=== PATIENT | female | born 1940 | race Caucasian/White ===

== ENCOUNTER 2018-05-09 07:57 | Emergency (ER) | payer MEDICARE, BC, SELFPAY ==
--- NOTE | 2018-05-09 07:54 | ED_ITS ---
HPI - Abdominal Pain General Chief Complaint: Abdominal Pain Stated Complaint: abdominal pain Time Seen by Provider: 05/09/18 08:00 Source: patient and EMS Mode of arrival: EMS Limitations: no limitations History of Present Illness HPI narrative: Patient is a 77-year-old female who presents with pain all over especially in her abdomen. She has had pain all over for about 2 months he had multiple tests done with her primary care physician and cannot seem to feel better. She took Tylenol last night which she usually does help with her pain and she was able to get some sleep however this morning she has pain all over again and requested to come to the emergency department. She feels nauseated but no actual vomiting. She has been having loose watery diarrhea for about 2 months as well. She says that she has chest pain nonradiating. She denies any shortness of breath. MD complaint: abdominal pain Related Data Home Medications Medication Instructions Recorded Confirmed metformin 1,000 mg PO BID #0 12/23/10 05/09/18 diazepam 5 mg PO BID PRN #0 02/15/13 05/09/18 omeprazole 20 mg PO QDAY #0 02/15/13 05/09/18 zolpidem 10 mg PO HS #0 02/15/13 05/09/18 fluoxetine 40 mg PO DAILY #0 03/10/13 05/09/18 valsartan [Diovan] 320 mg PO QDAY #0 03/10/13 05/09/18 Anti-Diarrheal (loperamide) 1 cap PO PRN PRN 05/09/18 05/09/18 amlodipine 10 mg PO DAILY 05/09/18 05/09/18 aspirin 81 mg PO DAILY 05/09/18 05/09/18 fluticasone 1 spray INTRANASAL DIRECTED 05/09/18 05/09/18 gabapentin 1 cap PO TID 05/09/18 05/09/18 Allergies Allergy/AdvReac Type Severity Reaction Status Date / Time Clonidine Allergy Unknown Uncoded 02/13/18 12:58 Codeine Allergy Unknown Uncoded 02/13/18 12:58 Diltiazem Allergy Unknown Uncoded 02/13/18 12:58 Doxazosin Allergy Unknown Uncoded 02/13/18 12:58 Hydralazine Allergy Unknown Uncoded 02/13/18 12:58 Hydrocodone Allergy Unknown Uncoded 02/13/18 12:58 Levofloxacin Allergy Unknown Uncoded 02/13/18 12:58 Meperidine Allergy Unknown Uncoded 02/13/18 12:58 Nifedipine Allergy Unknown Uncoded 02/13/18 12:58 Oxycodone Allergy Unknown Uncoded 02/13/18 12:58 Promethazine Allergy Unknown Uncoded 02/13/18 12:58 Rosuvastatin Allergy Unknown Uncoded 02/13/18 12:58 Simvastatin Allergy Unknown Uncoded 02/13/18 12:58 SULFA (sulfonamide) Allergy Unknown Uncoded 02/13/18 12:58 Review of Systems Review of Systems All systems reviewed & are unremarkable except as noted in HPI and below Constitutional Denies chills, Reports fatigue, Denies fever(s), Denies frequent falls, Denies headache(s), Denies lethargy and Denies malaise Eyes Denies blurry vision and Denies diplopia ENT Ears, Nose, Mouth, and Throat: Denies headache(s) Cardiovascular Reports chest pain, Denies syncope, Denies edema, Denies dyspnea and Denies dyspnea on exertion Respiratory Denies cough, Denies dyspnea, Denies dyspnea on exertion and Denies wheezing Gastrointestinal Gastrointestinal: Reports as per HPI Musculoskeletal Denies back pain, Denies muscle weakness, Denies numbness and Denies tingling Integumentary/Breasts Denies dry skin, Denies erythema, Reports skin pain, Denies skin swelling, Denies skin ulcer and Denies sores Neurologic Denies syncope, Denies frequent falls, Denies headache(s), Denies numbness and Denies tingling Endocrine Reports fatigue Allergic/Immunologic Denies wheezing [facility] Medical History Diabetes (Acute) Hyperlipidemia (Acute) Hypertension (Acute) Social History Smoking Status: Never smoker Exam Initial Vital Signs Initial Vital Signs: Vital Signs Temperature 98.6 F 05/09/18 07:57 Pulse Rate 67 05/09/18 07:57 Respiratory Rate 18 05/09/18 07:57 Blood Pressure 176/72 H 05/09/18 07:57 Pulse Oximetry 98 05/09/18 07:57 GENERAL: Frail elderly female in no acute distress HEENT: Head atraumatic,EOMI, pupils reactive, face symmetric CARDIOVASCULAR: Regular rate and rhythm without murmurs, rubs or gallops. RESPIRATORY: Breath sounds equal bilaterally, no wheezes rales or rhonchi. ABDOMEN: Soft, diffusely tender without guarding no rebound negative Wright sign , no distension : No CVA tenderness EXTREMITIES: Normal range of motion, no clubbing or edema. Neurovascularly intact NEUROLOGICAL: Alert and oriented x4.Normal gait and speech. Cranial nerves II through XII grossly intact. Strength 5/5 in all extremities SKIN: Warm, dry, no laceration, no petechiae, no rashes or lesions. Course Orders Ordered: ED Orders 05/09/18 07:54 XR chest 1V Stat 05/09/18 07:59 EKG-12 Lead Stat 05/09/18 08:25 Complete Blood Count AUTO DIFF Stat Comprehensive Metabolic Panel Stat Lipase Stat Partial Thromboplastin Time Stat Prothrombin Time INR Stat Troponin & CK Cardiac Panel Stat 05/09/18 08:46 CT abdomen pelvis w con Stat Discontinued Medications Acetaminophen (Tylenol) 975 mg PO NOW ONE Stop: 05/09/18 11:42 Last Admin: 05/09/18 11:42 Dose: 975 mg Sodium Chloride (Normal Saline 0.9%) 1,000 mls @ 150 mls/hr IV CONT SANGEETHA Last Infusion: 05/09/18 11:49 Dose: 0 mls/hr Admin: 05/09/18 08:48 Dose: 150 mls/hr Ketorolac Tromethamine (Toradol) 15 mg IV NOW ONE Stop: 05/09/18 11:37 Last Admin: 05/09/18 11:42 Dose: Vital Signs - 8 hr 05/09/18 09:11 05/09/18 11:13 Pulse Rate 88 90 Respiratory Rate 18 16 Blood Pressure [Right Arm] 159/75 H 157/63 H Pulse Oximetry 96 95 MDM - Abdominal Pain Lab Data Attestation: I reviewed the patient's lab results. Result diagrams: 05/09/18 08:25 05/09/18 08:25 Lab Results 05/09/18 05/09/18 05/09/18 Range/Units 08:25 08:25 08:25 WBC 11.1 H (4.5-11.0) X10^3/uL RBC 4.08 (4.0-5.2) X10^6/uL Hgb 12.1 (12.0-16.0) g/dL Hct 36.0 (36-46) % MCV 88.2 (80-100) fL MCH 29.8 (26-34) PG MCHC 33.7 (30-36) % RDW 14.1 (11.6-14.8) % Plt Count 523 H (150-400) X10^3/uL Neut % (Auto) 71.3 (50-75) % Lymph % (Auto) 20.4 L (25-40) % [place] % (Auto) 5.5 (3-14) % Eos % (Auto) 1.6 L (2-4) % Baso % (Auto) 1.2 (0-2) % Neut # (Auto) 7900 H (9202-6317) /uL PT 11.8 (10.1-12.7) SECONDS INR 1.1 (0.9-1.3) APTT 32 (26.4-36.2) SECONDS Sodium 141 (137-145) mmol/L Potassium 3.2 L (3.4-5.1) mmol/L Chloride 98 (98-107) mmol/L Carbon Dioxide 31 (22-32) mmol/L BUN 7 (7-17) mg/dL Creatinine 0.50 L (0.52-1.04) mg/dL Estimated GFR > 60.0 (>60) mL/min BUN/Creatinine Ratio 14.0 (6-22) Glucose 195 H (80-110) mg/dL Calcium 9.4 (8.4-10.2) mg/dL Total Bilirubin 1.0 (0.2-1.3) mg/dL AST 25 (14-36) IU/L ALT 27 (9-52) IU/L Alkaline Phosphatase 75 (38-126) U/L Total Creatine Kinase 25 L (30-135) U/L Troponin I < 0.012 (0.01-0.034) ng/mL Total Protein 7.3 (6.3-8.2) g/dL Albumin 4.0 (3.5-5.0) g/dL Globulin 3.3 (1.7-4.1) g/dL Albumin/Globulin Ratio 1.2 (1.0-2.8) Lipase 33 (23-300) U/L Point of care testing: Urine Dip Bedside Urine Glucose Negative Bedside Urine Bilirubin - Negative Bedside Urine Ketone - Negative Urine Specific [place] 1.015 Bedside Urine Occult Blood - Negative Bedside Urine pH 7.5 Bedside Urine Protein - Negative Bedside Urine Urobilinogen - Negative Bedside Urine Nitrite - Negative Bedside Urine Leukocytes - Negative Esterase Imaging Data CT scan - abdomen: Radiologist's impression: PROCEDURE: CT ABDOMEN PELVIS W CON INDICATIONS: pain all over TECHNIQUE: After the administration of intravenous contrast, 5 mm thick sections acquired from the diaphragm to the symphysis. 5 mm coronal and sagittal reformats were acquired. For radiation dose reduction, the following was used: automated exposure control, adjustment of mA and/or kV according to patient size. COMPARISON: MR, ABDOMEN WITH AND WITHOUT CONTR, 07/16/2007, 14:13. [facility], CT, ABDOMEN WITH CONTRAST, 01/10/2010, 11:51. FINDINGS: Image quality: Excellent. ABDOMEN: Lung bases: Lung bases are clear. Heart size is normal. Solid organs: Hepatic steatosis is present. There are multifocal areas of low attenuation within the liver. The largest is present in the posterior right hepatic lobe measuring 29 mm with Hounsfield units measuring 2. The smaller lesions are too small to definitively characterize. However, an anterior hepatic focus on series 2 image 38 as well as a posterior focus on series 2 image 39 appear to demonstrate calcifications. They are unchanged compared to prior exam. The liver is overall enlarged with steatosis. Gallbladder has been removed. The common bile duct is prominent measuring 14 mm , slightly more prominent when compared to 01/10/10. Pancreas enhances normally. Spleen is normal in size and enhancement. No adrenal nodules. Kidneys are nonobstructed. Multiple low attenuation foci are present on the left with an appearance of fat containing lesion in the left lower pole, unchanged. A nonobstructing 4 mm calcification is present within the inferior right renal pole. It is unchanged. There is mild left perinephric stranding. Peritoneum and bowel: Bowel loops demonstrate normal wall thickness and caliber. No free fluid or air. Nodes and vessels: No retroperitoneal or mesenteric adenopathy by size criteria. Aorta and inferior vena cava are normal in size. Miscellaneous: No ventral hernias. PELVIS: Genitourinary: Bladder wall thickness is normal. Miscellaneous: No inguinal hernias or adenopathy. Bones: No suspicious bony lesions. No vertebral body compression fractures. IMPRESSION: 1. Unchanged multiple hepatic low attenuation foci, some with calcifications as above. While some are likely outside energy sales representatives of simple cysts, others such as complex cyst or potential hemangiomas cannot be excluded. 2. Nonobstructing unchanged 4 mm right renal calcification. 3. Mild appearance of left perinephric stranding. There is no obstruction. No nephro or ureterolithiasis is identified. No bladder calculi. This could represent a recently passed stone or perhaps other nonspecific inflammation. Given normal enhancement pattern of the kidney, pyelonephritis is felt to be unlikely. 4. Mild prominence of the common bile duct slightly greater when compared to 01/10. This is suspected to be related to post cholecystectomy sequela and recommend correlation to laboratory values if this is of clinical concern. Dictated by: Flores Abda M.D. on 05/09/2018 at 10:40 MDM Narrative Medical decision making narrative: Patient has had a chronic ongoing abdominal pain and other pains for the last 2 months. She just saw her primary physician on last week she has another appointment next week. She is slightly hypokalemic. She also states that her is coming home from the alf today and she is not ready for him to come home. Her CT does not show any real change since her last 1. She is feeling a little bit better but is given Tylenol for pain. Discharge Plan Departure Patient Disposition: Home, Self-Care Clinical Impression: Abdominal pain Discharge Date/Time: 05/09/18 11:52 Interventions: ED Discharge Assessment Last Done: 05/09/18 11:51 Activity Restrictions/Additional Instructions: *You have been diagnosed with abdominal pain *What to do: Continue to follow-up in or with her primary care physician in regards to your pain. Blood work CT EKG within normal limits today *Continue to take medications as directed *Follow up with your primary care provider in 2-3 days *Return to ER if you should have any new, worsening or concerning symptoms Prescriptions: No Action metformin 1,000 mg Tablet 1,000 mg PO BID Qty: 0 RF: 0 omeprazole 20 MG capsule,delayed release(DR/EC) 20 mg PO QDAY Qty: 0 RF: 0 zolpidem 10 MG tablet 10 mg PO HS Qty: 0 RF: 0 diazepam 5 MG tablet 5 mg PO BID PRN (Reason: Anxiety) Qty: 0 RF: 0 valsartan [Diovan] 320 MG tablet 320 mg PO QDAY Qty: 0 RF: 0 fluoxetine 40 mg Capsule 40 mg PO DAILY Qty: 0 RF: 0 Anti-Diarrheal (loperamide) 2 mg capsule 1 cap PO PRN PRN (Reason: Diarrhea) RF: 0 aspirin 81 mg Tablet,Delayed Release (Dr/Ec) 81 mg PO DAILY RF: 0 amlodipine 10 mg tablet 10 mg PO DAILY RF: 0 gabapentin 300 mg capsule 1 cap PO TID RF: 0 fluticasone 50 mcg/actuation spray,suspension 1 spray Intranasal DIRECTED RF: 0 Referrals: Francisco Corona MD [Primary Care Provider] -
--- NOTE | 2018-05-09 07:54 | DI.RAD.S_ITS ---
PROCEDURE: XR CHEST 1V INDICATIONS: chest pain TECHNIQUE: One view of the chest was acquired. [facility], 05/11/2010, 10:57[facility] CHEST [facility], 11/18/2009, 16:24. FINDINGS: Surgical changes and devices: None. Lungs and pleura: No pleural effusions or pneumothorax. Lungs are clear except for a mild chronic interstitial prominence. Mediastinum: Mediastinal contours appear normal. Heart size is normal. Bones and chest wall: No suspicious bony lesions. Overlying soft tissues appear unremarkable. IMPRESSION: Mild chronic interstitial prominence. This is stable over time and a source of pain is not found. Dictated by: Hernan Fisher M.D. on 05/09/2018 at 8:18 Approved by: Hernan Fisher M.D. on 05/09/2018 at 8:29
[2018-05-09 07:57] VITALS: BP 176/72; PULSE 67; RESP 18; TEMP 37; O2SAT 98
[2018-05-09 08:34] LABS: Add Manual Diff / Slide Review NO; Basophils Percent Auto 1.2 % (0-2); Eosinophils Percent Auto 1.6 % (2-4); Hemoglobin 12.1 g/dL (12.0-16.0); Lymphocytes Percent Auto 20.4 % (25-40); Mean Corpuscular HGB Conc 33.7 % (30-36); Mean Corpuscular Hemoglobin 29.8 PG (26-34); Mean Corpuscular Volume 88.2 fL (80-100); Monocytes Percent Auto 5.5 % (3-14); Neutrophils Absolute Auto 7900 /uL (3000-5900); Neutrophils Percent Auto 71.3 % (50-75); Platelet Count 523 X10^3/uL (150-400); Red Blood Cell Count 4.08 X10^6/uL (4.0-5.2); Red Cell Distribution Width 14.1 % (11.6-14.8); White Blood Cell Count 11.1 X10^3/uL (4.5-11.0)
[2018-05-09 08:42] LABS: INR 1.1 (0.9-1.3); Prothrombin Time 11.8 SECONDS (10.1-12.7)
[2018-05-09 08:44] LABS: PTT Partial Thromboplastin Tim 32 SECONDS (26.4-36.2)
--- NOTE | 2018-05-09 08:46 | DI.CT.S_ITS ---
PROCEDURE: CT ABDOMEN PELVIS W CON INDICATIONS: pain all over TECHNIQUE: After the administration of intravenous contrast, 5 mm thick sections acquired from the diaphragm to the symphysis. 5 mm coronal and sagittal reformats were acquired. For radiation dose reduction, the following was used: automated exposure control, adjustment of mA and/or kV according to patient size. COMPARISON: MR, ABDOMEN WITH AND WITHOUT CONTR, 07/16/2007, 14:13. [facility], CT, ABDOMEN WITH CONTRAST, 01/10/2010, 11:51. FINDINGS: Image quality: Excellent. ABDOMEN: Lung bases: Lung bases are clear. Heart size is normal. Solid organs: Hepatic steatosis is present. There are multifocal areas of low attenuation within the liver. The largest is present in the posterior right hepatic lobe measuring 29 mm with Hounsfield units measuring 2. The smaller lesions are too small to definitively characterize. However, an anterior hepatic focus on series 2 image 38 as well as a posterior focus on series 2 image 39 appear to demonstrate calcifications. They are unchanged compared to prior exam. The liver is overall enlarged with steatosis. Gallbladder has been removed. The common bile duct is prominent measuring 14 mm, slightly more prominent when compared to 01/10/10. Pancreas enhances normally. Spleen is normal in size and enhancement. No adrenal nodules. Kidneys are nonobstructed. Multiple low attenuation foci are present on the left with an appearance of fat containing lesion in the left lower pole, unchanged. A nonobstructing 4 mm calcification is present within the inferior right renal pole. It is unchanged. There is mild left perinephric stranding. Peritoneum and bowel: Bowel loops demonstrate normal wall thickness and caliber. No free fluid or air. Nodes and vessels: No retroperitoneal or mesenteric adenopathy by size criteria. Aorta and inferior vena cava are normal in size. Miscellaneous: No ventral hernias. PELVIS: Genitourinary: Bladder wall thickness is normal. Miscellaneous: No inguinal hernias or adenopathy. Bones: No suspicious bony lesions. No vertebral body compression fractures. IMPRESSION: 1. Unchanged multiple hepatic low attenuation foci, some with calcifications as above. While some are likely off premise service representative of simple cysts, others such as complex cyst or potential hemangiomas cannot be excluded. 2. Nonobstructing unchanged 4 mm right renal calcification. 3. Mild appearance of left perinephric stranding. There is no obstruction. No nephro or ureterolithiasis is identified. No bladder calculi. This could represent a recently passed stone or perhaps other nonspecific inflammation. Given normal enhancement pattern of the kidney, pyelonephritis is felt to be unlikely. 4. Mild prominence of the common bile duct slightly greater when compared to 01/10/10. This is suspected to be related to post cholecystectomy sequela and recommend correlation to laboratory values if this is of clinical concern. Dictated by: Flores Abad M.D. on 05/09/2018 at 10:40 Approved by: Flores Abad M.D. on 05/09/2018 at 10:49
[2018-05-09] MEDS: SODIUM CHLORIDE 0.9% 1,000 ML 150 ML IV (08:48)
[2018-05-09 08:50] LABS: Alanine Aminotransferase 27 IU/L (9-52); Albumin Globulin Ratio 1.2 (1.0-2.8); Alkaline Phosphatase 75 U/L (38-126); Aspartate Aminotransferase 25 IU/L (14-36); Blood Urea Nitrogen 7 mg/dL (7-17); Calcium 9.4 mg/dL (8.4-10.2); Carbon Dioxide 31 mmol/L (22-32); Chloride 98 mmol/L (98-107); Creatine Kinase 25 U/L (30-135); Estimated Glomerular Filt Rate > 60.0 mL/min (>60); Globulin 3.3 g/dL (1.7-4.1); Glucose 195 mg/dL (80-110); HEMOLYSIS < 15 (0-50); Lipase 33 U/L (23-300); Potassium 3.2 mmol/L (3.4-5.1); Sodium 141 mmol/L (137-145); Total Protein 7.3 g/dL (6.3-8.2)
[2018-05-09 09:03] LABS: Troponin I < 0.012 ng/mL (0.01-0.034)
--- NOTE | 2018-05-09 09:07 | PC.NURSE ---
pt reports, joint pain and swelling for 2 months, with hx of colitis, pt with abdominal pain and diarrhea, with nausea, felt feverish, but not measured. bilateral hands/joints felt warm.
[2018-05-09 09:11] VITALS: BP 159/75; PULSE 88; RESP 18; O2SAT 96
[2018-05-09 11:13] VITALS: BP 157/63; PULSE 90; RESP 16; O2SAT 95
[2018-05-09] MEDS: ACETAMINOPHEN 325 MG TABLET 975 MG PO (11:42)
== END 2018-05-09 11:52 | disposition home or self-care (01) ==
PROVIDERS: Emergency Provider Emergency Medicine; Family Provider Internal Medicine; PCP Internal Medicine
DX: R10.9 Unspecified abdominal pain (principal)
CPT/HCPCS: 71045; 71260; 74177; 80053; 81003; 82550; 82553; 83690; 84484; 85025; 85610; 85730; 93005; 96361; 96374; 99283; 99285; Q9967

== ENCOUNTER 2019-02-26 16:06 | Emergency (ER) | payer MEDICARE, BC, SELFPAY ==
[2019-02-26 16:03] VITALS: BP 160/67; PULSE 81; RESP 18; TEMP 37.1; O2SAT 96; BMI 26.8
--- NOTE | 2019-02-26 16:14 | DI.CT.S_ITS ---
PROCEDURE: CT HEAD/BRAIN WO CON INDICATIONS: glf TECHNIQUE: Noncontrast 4.5 mm thick angled axial sections acquired from the foramen magnum to the vertex, with coronal and sagittal reformats. For radiation dose reduction, the following was used: automated exposure control, adjustment of mA and/or kV according to patient size. COMPARISON: [facility], CT, HEAD WITHOUT CONTRAST, 03/10/2013, 14:04. FINDINGS: Image quality: Excellent. CSF spaces: Basal cisterns are patent. No extra-axial fluid collections. The ventricles are symmetric in size and shape. Brain: No intracranial bleeds or masses. There is cerebral volume loss for age, with resultant ventricular and sulcal prominence. There are periventricular and deep white matter chronic small vessel ischemic changes. There is intracranial internal carotid artery atherosclerosis. Skull and face: Calvarium and visualized facial bones appear intact, without suspicious lesions. Exostosis involving right frontal parietal calvarium is again seen, unchanged from previous study. Sinuses: Visualized sinuses and mastoids are clear. IMPRESSION: 1. No CT evidence of acute intracranial pathology. No significant changes from previous study. 2. Age-appropriate atrophy and moderate periventricular white matter chronic ischemic microangiopathic changes. 3. Stable appearing benign exostosis involving right frontoparietal calvarium. Dictated by: Rene Mir M.D. on 02/26/2019 at 16:42 Approved by: Rene Mir M.D. on 02/26/2019 at 16:50
--- NOTE | 2019-02-26 16:14 | DI.CT.S_ITS ---
PROCEDURE: CT FACIAL BONES WO CON INDICATIONS: jaw pain, left orbit pain s/p fall TECHNIQUE: Noncontrast 2.5 mm thick axial images acquired from the mandible through the frontal sinuses, with coronal and sagittal reformatting. For radiation dose reduction, the following was used: automated exposure control, adjustment of mA and/or kV according to patient size. COMPARISON: [facility], CT, HEAD WITHOUT CONTRAST, 04/18/2012, 11:38. [facility], CT, SINUS SCREENING WO CONTRAST, 04/18/2012, 11:38. [facility], CT, HEAD WITHOUT CONTRAST, 03/10/2013, 14:04. [facility], CT, CT HEAD/BRAIN WO CON, 02/26/2019, 16:25. FINDINGS: Image quality: Excellent. Bones and teeth: Orbital paz are intact. Sinus paz show no fracture or deformity. Nasal bones and septum are intact. Visualized portions of the mandible demonstrate no fractures or subluxation. Zygomatic arches are intact. Pterygoid plates are intact. Visualized portions of the skull base and auditory canals are intact. Incidental note is made of hyperostosis frontalis. This is not considered to be pathologic in a woman of this age. Sinuses: Paranasal sinuses are aerated, without fluid levels, mucosal thickening, or mucoceles. Mastoid air cells are aerated. Soft tissues: Soft tissue laceration (with soft tissue gas) and soft tissue hematoma can be seen involving the left periorbital region. Vascular: Visualized vascular structures appear normal in the absence of contrast. Bony vascular foramina and canals are intact. IMPRESSION: Left periorbital laceration and hematoma, without associated regional fracture identified. Specifically, no orbital fracture or blowout fracture can be seen. No mandible abnormality can be seen. Dictated by: Kentrell Alves M.D. on 02/26/2019 at 17:17 Approved by: Kentrell Alves M.D. on 02/26/2019 at 17:19
--- NOTE | 2019-02-26 16:14 | DI.RAD.S_ITS ---
PROCEDURE: XR PELVIS 1-2V INDICATIONS: pelvic pain s/p fall TECHNIQUE: Frontal view of the pelvis. COMPARISON: [facility], , PELVIS W UNILATERAL HIP LEFT, 02/15/2013, 20:58. FINDINGS: Bones: No fractures or dislocations. No suspicious bony lesions. 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 Soft tissues: Visualized bowel gas pattern is normal. No suspicious soft tissue calcifications. IMPRESSION: No trauma found bilaterally. It is unusual symptoms persist followup by dedicated pelvic MRI may be warranted for most accurate assessment of hidden fractures. Dictated by: Hernan Fisher M.D. on 02/26/2019 at 16:55 Approved by: Hernan Fisher M.D. on 02/26/2019 at 16:56
--- NOTE | 2019-02-26 16:14 | DI.RAD.S_ITS ---
PROCEDURE: XR KNEE RT 3V INDICATIONS: pain s/p fall TECHNIQUE: A 3 views of the knee were acquired. COMPARISON: None. FINDINGS: Bones: No fractures or dislocations. No suspicious bony lesions. Moderate medial compartment joint space narrowing. Soft tissues: No joint effusion. No suspicious soft tissue calcifications. 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 No effusion or loose body or trauma found. Dictated by: Hernan Fisher M.D. on 02/26/2019 at 16:53 Approved by: Hernan Fisher M.D. on 02/26/2019 at 16:54
--- NOTE | 2019-02-26 16:14 | DI.RAD.S_ITS ---
PROCEDURE: XR SHOULDER RT MIN 2V INDICATIONS: glf, right shoulder pain TECHNIQUE: 2 views of the shoulder were acquired. COMPARISON: None. FINDINGS: Bones: No fractures or dislocations. No suspicious bony lesions. Visualized ribs appear intact. Soft tissues: No suspicious soft tissue calcifications. IMPRESSION: Arthritic change but no trauma. Dictated by: Hernan Fisher M.D. on 02/26/2019 at 16:53 Approved by: Hernan Fisher M.D. on 02/26/2019 at 16:53
--- NOTE | 2019-02-26 16:14 | DI.CT.S_ITS ---
PROCEDURE: CT CERVICAL SPINE WO CON INDICATIONS: glf, neck pain TECHNIQUE: Noncontrast 3 mm thick sections acquired from the skull base to the T4 level. Sagittal and coronal reformats were then constructed. For radiation dose reduction, the following was used: automated exposure control, adjustment of mA and/or kV according to patient size. COMPARISON: None. FINDINGS: Image quality: Excellent. Bones: No fractures or dislocations. Schmorl's node noted in the superior endplate of the T1 vertebral body. Visualized superior ribs are intact. Spine degenerative disc disease and facet arthropathy. Soft tissues: Prevertebral soft tissues are normal in thickness. No paravertebral hematomas. No apical pneumothoraces. IMPRESSION: No fracture. No acute osseous lesion. If symptoms and/or clinical suspicion for pathology persists, evaluation with MRI may be helpful for further assessment. Dictated by: Sneha Moses MD, PhD on 02/26/2019 at 16:46 Approved by: Sneha Moses MD, PhD on 02/26/2019 at 16:57
--- NOTE | 2019-02-26 16:18 | DI.RAD.S_ITS ---
PROCEDURE: XR CHEST 1V INDICATIONS: glf, left rib pain TECHNIQUE: One view of the chest was acquired. COMPARISON: [facility], CR, XR CHEST 1V, 05/09/2018, 8:02. [facility], CR, CHEST 2 VIEW, 12/23/2010, 14:22. FINDINGS: Surgical changes and devices: None. Lungs and pleura: Lungs are clear except for mild interstitial prominence. No pleural effusions or pneumothorax. Mediastinum: Mediastinal contours appear normal. Heart size is normal. Bones and chest wall: No suspicious bony lesions. Overlying soft tissues appear unremarkable. IMPRESSION: Mild interstitial prominence, no trauma found. Relatively large body habitus, a nondisplaced fracture may not be visualized initially and depending on the clinical status followup by targeted rib plain film series may be warranted in several days. Dictated by: Hernan Fisher M.D. on 02/26/2019 at 17:43 Approved by: Hernan Fisher M.D. on 02/26/2019 at 17:44
--- NOTE | 2019-02-26 16:27 | ED_ITS ---
HPI - Fall <Ivon Scales OFFICE MACHINE INSTALLER-BC - Last Filed: 02/26/19 20:45> General Chief Complaint: Fall Stated Complaint: GLF head injury Time Seen by Provider: 02/26/19 16:10 Source: patient and EMS Mode of arrival: EMS Limitations: no limitations History of Present Illness HPI Narrative: The patient is a 78-year-old female nonsmoker who presents with a chief complaint of a ground level fall. She states she tripped over a dog and hit her head on concrete. She presents with a chief complaint of headache, laceration to the left side of her forehead, neck pain, hip pain right shoulder pain and right knee pain. she does not know when her last vaccination was. She denies any nausea or vomiting. she denies loss of consciousness upon impact. She came by EMS with a C-collar on. She presents complaining of hip pain, right knee pain, right shoulder pain and neck pain and face pain. she states her pain is around her left orbit. She complains of a laceration above her left eye. She denies any blood thinners. Related Data Home Medications Medication Instructions Recorded Confirmed metformin 1,000 mg PO BID #0 12/23/10 05/09/18 diazepam 5 mg PO BID PRN #0 02/15/13 05/09/18 omeprazole 20 mg PO QDAY #0 02/15/13 05/09/18 zolpidem 10 mg PO HS #0 02/15/13 05/09/18 fluoxetine 40 mg PO DAILY #0 03/10/13 05/09/18 valsartan [Diovan] 320 mg PO QDAY #0 03/10/13 05/09/18 Anti-Diarrheal (loperamide) 1 cap PO PRN PRN 05/09/18 05/09/18 amlodipine 10 mg PO DAILY 05/09/18 05/09/18 aspirin 81 mg PO DAILY 05/09/18 05/09/18 fluticasone propionate 1 spray INTRANASAL DIRECTED 05/09/18 05/09/18 gabapentin 1 cap PO TID 05/09/18 05/09/18 Previous Rx's Medication Instructions Recorded diclofenac sodium 1 applictn TOP BID 14 Days #100 02/26/19 gram lidocaine 2 patch TOP DAILY #30 each 02/26/19 tramadol 25 mg PO Q6H PRN #14 tab 02/26/19 Allergies Allergy/AdvReac Type Severity Reaction Status Date / Time clonidine Allergy Unknown Verified 02/26/19 16:33 codeine Allergy Unknown Verified 02/26/19 16:38 diltiazem Allergy Unknown Verified 02/26/19 16:38 doxazosin Allergy Unknown Verified 02/26/19 16:39 hydralazine Allergy Unknown Verified 02/26/19 16:39 hydrocodone Allergy Unknown Verified 02/26/19 16:40 levofloxacin Allergy Unknown Verified 02/26/19 16:42 meperidine Allergy Unknown Verified 02/26/19 16:42 nifedipine Allergy Unknown Verified 02/26/19 16:42 oxycodone Allergy Unknown Verified 02/26/19 16:42 promethazine Allergy Unknown Verified 02/26/19 16:42 rosuvastatin Allergy Unknown Verified 02/26/19 16:42 simvastatin Allergy Unknown Verified 02/26/19 16:42 Sulfa (Sulfonamide Allergy Unknown Verified 02/26/19 16:38 Antibiotics) Review of Systems <DOV Nicole - Last Filed: 02/26/19 20:45> Review of Systems GENERAL: Denies chills, fatigue, malaise, fever, sweats. HEENT: Denies sinus pain, ear pain, sore throat, difficulty swallowing, dizziness. RESPIRATORY: Denies dyspnea, cough, wheezing, hemoptysis, sputum. CARDIOVASCULAR: Denies chest pain, palpitations, orthopnea, edema, GASTROINTESTINAL: Denies nausea, vomiting, abdominal pain, diarrhea, constipation, melena. : Denies dysuria, frequency, incontinence, hematuria, urinary retention. MUSCULOSKELETAL: See HPI SKIN: See HPI NEUROLOGIC: Denies weakness, headache, numbness, change in speech, confusion, s eizures, incoordination. PSYCHIATRIC: No concerning psychosocial issues. 12 point review of systems is negative except for those stated above Exam <SLAVA Nicole - Last Filed: 02/26/19 20:45> Narrative Exam Narrative: GENERAL: Elderly female lying on stretcher was C-collar on and bandaged forehead HEAD: Atraumatic. Normocephalic. pain to palpation forehead bilaterally. EYES: Pupils equal round and reactive. Extraocular motions intact. No scleral icterus. No injection or drainage. no nystagmus noted. ENT: Nose without bleeding, purulent drainage or septal hematoma. Throat without erythema, tonsillar hypertrophy or exudate. Uvula midline. Airway patent. NECK: Trachea midline. No JVD or lymphadenopathy. Supple, nontender, no meningeal signs. CARDIOVASCULAR: Regular rate and rhythm RESPIRATORY: Clear to auscultation. Breath sounds equal bilaterally. No wheezes, rales, or rhonchi. No increased respiratory effort. No accessory muscle use. GASTROINTESTINAL: Abdomen soft, non-tender, nondistended. No hepato- splenomegaly, or palpable masses. No guarding. active bowel sounds. EXTREMITIES: Pain to palpation right shoulder. Pain to palpation right knee. Pain to palpation left lower ribs. Pain anterior posterior chest wall compression. Pain on lateral chest wall compression. BACK: Nontender without deformity or crepitance. No flank tenderness. pain to palpation C-spine. No pain to palpation paraspinal column. NEURO: AOx3. Stable gait. SKIN: periorbital ecchymosis left orbit. Two very superficial 0.25 lacerations superior to left eye. One full-thickness linear 0.5 cm laceration lateral to left eye is oozing blood. Initial Vital Signs Initial Vital Signs: Vital Signs Temperature 98.7 F 02/26/19 16:03 Pulse Rate 81 02/26/19 16:03 Respiratory Rate 18 02/26/19 16:03 Blood Pressure 160/67 H 02/26/19 16:03 Pulse Oximetry 96 02/26/19 16:03 <Trinity Hernandez DO - Last Filed: 03/01/19 17:45> Initial Vital Signs Initial Vital Signs: Vital Signs Temperature 98.7 F 02/26/19 16:03 Pulse Rate 81 02/26/19 16:03 Respiratory Rate 18 02/26/19 16:03 Blood Pressure 160/67 H 02/26/19 16:03 Pulse Oximetry 96 02/26/19 16:03 PFSH <SLAVA Nicole - Last Filed: 02/26/19 20:45> Medical History Diabetes (Acute) Hyperlipidemia (Acute) Hypertension (Acute) Procedures <SLAVA Nicole - Last Filed: 02/26/19 20:45> Laceration Repair Laceration 1: Site: scalp Side (If applicable): left Size (cm): 0.5 Description: linear Depth: simple, single layer Local Anesthetic: lidocaine 2% and with epi Amount of anesthesia used (mL): 1 Pre-repair: wound explored and irrigated extensively (Cleansed with sterile water and Hibiclens. Hemostasis achieved after suture.) Skin layer closed with: nylon Size (cm): 5-0 Number of sutures: 1 Technique: simple, interrupted Scores <SLAVA Nicole - Last Filed: 02/26/19 20:45> GCS [place] coma scale eye opening: Spontaneous [place] coma scale verbal response: Orientated [place] coma scale motor response: Obey commands Gigi coma scale total score: 15 Course <SLAVA Nicole - Last Filed: 02/26/19 20:45> Orders Ordered: Discontinued Medications Acetaminophen (Tylenol) 650 mg PO NOW ONE Stop: 02/26/19 18:16 Last Admin: 02/26/19 18:34 Dose: Not Given Diphtheria/Tetanus/Acell Pertussis (Adacel) 0.5 ml IM .ONCE ONE Stop: 02/26/19 16:20 Last Admin: 02/26/19 17:19 Dose: 0.5 ml Ketorolac Tromethamine (Toradol) 30 mg IM NOW ONE Stop: 02/26/19 18:16 Last Admin: 02/26/19 18:55 Dose: Not Given Tramadol HCl (Ultram) 50 mg PO NOW ONE Stop: 02/26/19 18:35 Last Admin: 02/26/19 18:37 Dose: 50 mg Tramadol HCl (Ultram 50mg Prepack) 1 bottle MISC SEEINSTR ONE Stop: 02/26/19 20:21 Last Admin: 02/26/19 20:25 Dose: 1 bottle Vital Signs - 8 hr 02/26/19 16:03 02/26/19 17:30 02/26/19 18:00 Temperature 98.7 F Pulse Rate 81 77 78 Respiratory Rate 18 18 16 Blood Pressure 160/67 H Blood Pressure [Left Arm] 155/80 H 158/76 H Pulse Oximetry 96 99 99 02/26/19 19:00 02/26/19 20:27 Temperature Pulse Rate 80 83 Respiratory Rate 16 17 Blood Pressure Blood Pressure [Left Arm] 159/75 H 146/70 H Pulse Oximetry 99 98 <Trinity Botnick, DO - Last Filed: 03/01/19 17:45> Orders Ordered: Discontinued Medications Acetaminophen (Tylenol) 650 mg PO NOW ONE Stop: 02/26/19 18:16 Last Admin: 02/26/19 18:34 Dose: Not Given Diphtheria/Tetanus/Acell Pertussis (Adacel) 0.5 ml IM .ONCE ONE Stop: 02/26/19 16:20 Last Admin: 02/26/19 17:19 Dose: 0.5 ml Ketorolac Tromethamine (Toradol) 30 mg IM NOW ONE Stop: 02/26/19 18:16 Last Admin: 02/26/19 18:55 Dose: Not Given Tramadol HCl (Ultram) 50 mg PO NOW ONE Stop: 02/26/19 18:35 Last Admin: 02/26/19 18:37 Dose: 50 mg Tramadol HCl (Ultram 50mg Prepack) 1 bottle MISC SEEINSTR ONE Stop: 02/26/19 20:21 Last Admin: 02/26/19 20:25 Dose: 1 bottle Vital Signs - 8 hr 02/26/19 16:03 02/26/19 17:30 02/26/19 18:00 Temperature 98.7 F Pulse Rate 81 77 78 Respiratory Rate 18 18 16 Blood Pressure 160/67 H Blood Pressure [Left Arm] 155/80 H 158/76 H Pulse Oximetry 96 99 99 02/26/19 19:00 02/26/19 20:27 Temperature Pulse Rate 80 83 Respiratory Rate 16 17 Blood Pressure Blood Pressure [Left Arm] 159/75 H 146/70 H Pulse Oximetry 99 98 MDM - Fall <SLAVA Nicole - Last Filed: 02/26/19 20:45> Lab Data Urine Dip Bedside Urine Glucose Negative Bedside Urine Bilirubin - Negative Bedside Urine Ketone - Negative Urine Specific [place] 1.015 Bedside Urine Occult Blood - Negative Bedside Urine pH 6 Bedside Urine Protein - Negative Bedside Urine Urobilinogen - Negative Bedside Urine Nitrite - Negative Bedside Urine Leukocytes - Negative Esterase Imaging Data shoulder x-ray: Radiologist's impression: Ember Brito 78 F [address] [address] XRay Report Signed Patient: Ember Brito#: [id number] : [id number]:[id number] Age/Sex: 78 / FDate of Service: 02/26/19 Loc: ED Accession Number: [id number] Procedure: XR shoulder RT min 2V Ordering Provider: Ivon Scales-MEHDI PROCEDURE: XR SHOULDER RT MIN 2V INDICATIONS: glf, right shoulder pain TECHNIQUE: 2 views of the shoulder were acquired. COMPARISON: None. FINDINGS: Bones: No fractures or dislocations. No suspicious bony lesions. Visualized ribs appear intact. Soft tissues: No suspicious soft tissue calcifications. IMPRESSION: Arthritic change but no trauma. Dictated by: Hrenan Fisher M.D. on 02/26/2019 at 16:53 Approved by: Hernan Fisher M.D. on 02/26/2019 at 16:53 pelvis x-ray: Radiologist's impression: [place] [address] XRay Report Signed Patient: Ember Brito#: [id number] : [id number]:[id number] Age/Sex: 78 / FDate of Service: 02/26/19 Loc: ED Accession Number: [id number] Procedure: XR pelvis 1-2V Ordering Provider: Ivon Scales-MEHDI PROCEDURE: XR PELVIS 1-2V INDICATIONS: pelvic pain s/p fall TECHNIQUE: Frontal view of the pelvis. COMPARISON: [facility], , PELVIS W UNILATERAL HIP LEFT, 02/15/2013, 2 0:58. FINDINGS: Bones: No fractures or dislocations. No suspicious bony lesions. 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 Soft tissues: Visualized bowel gas pattern is normal. No suspicious soft tissue calcifications. IMPRESSION: No trauma found bilaterally. It is unusual symptoms persist followup by dedicated pelvic MRI may be warranted for most accurate assessment of hidden fractures. Dictated by: Hernan Fisher M.D. on 02/26/2019 at 16:55 Approved by: Hernan Fisher M.D. on 02/26/2019 at 16:56 knee x-ray: Radiologist's impression: AlishaEmber 78 F [address] [address] XRay Report Signed Patient: Dominga Britoandrew#: [id number] : [id number] Age/Sex: 78 / FDate of Service: 02/26/19 Loc: ED Accession Number: [id number] Procedure: XR knee RT 3V Ordering Provider: Ivon Scales PROCEDURE: XR KNEE RT 3V INDICATIONS: pain s/p fall TECHNIQUE: A 3 views of the knee were acquired. COMPARISON: None. FINDINGS: Bones: No fractures or dislocations. No suspicious bony lesions. Moderate medial compartment joint space narrowing. Soft tissues: No joint effusion. No suspicious soft tissue calcifications. 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 No effusion or loose body or trauma found. Dictated by: Hernan Fisher M.D. on 02/26/2019 at 16:53 Approved by: Hernan Fisher M.D. on 02/26/2019 at 16:54 CT scan - head: Radiologist's impression: [place] [address] CT Scan Report Signed Patient: Ember Brito#: [id number] : [id number] Age/Sex: 78 / FDate of Service: 02/26/19 Loc: ED Accession Number: [id number] Procedure: CT head/brain wo con Ordering Provider: Ivon Scales PROCEDURE: CT HEAD/BRAIN WO CON INDICATIONS: glf TECHNIQUE: Noncontrast 4.5 mm thick angled axial sections acquired from the foramen magnum to the vertex, with coronal and sagittal reformats. For radiation dose reduction, the following was used: automated exposure control, adjustment of mA and/or kV according to patient size. COMPARISON: [facility], CT, HEAD WITHOUT CONTRAST, 03/10/2013, 14:04. FINDINGS: Image quality: Excellent. CSF spaces: Basal cisterns are patent. No extra-axial fluid collections. The ventricles are symmetric in size and shape. Brain: No intracranial bleeds or masses. There is cerebral volume loss for age, with resultant ventricular and sulcal prominence. There are periventricular and deep white matter chronic small vessel ischemic changes. There is intracranial internal carotid artery atherosclerosis. Skull and face: Calvarium and visualized facial bones appear intact, without suspicious lesions. Exostosis involving right frontal parietal calvarium is again seen, unchanged from previous study. Sinuses: Visualized sinuses and mastoids are clear. IMPRESSION: 1. No CT evidence of acute intracranial pathology. No significant changes from previous study. 2. Age-appropriate atrophy and moderate periventricular white matter chronic ischemic microangiopathic changes. 3. Stable appearing benign exostosis involving right frontoparietal calvarium. Dictated by: Rene Mir M.D. on 02/26/2019 at 16:42 Approved by: Rene Mir M.D. on 02/26/2019 at 16:50 CT C-spine: Radiologist's impression: Ember Brito 78 F [address] [address] [address] Scan Report Signed Patient: Ember Brito#: [id number] : [id number]:[id number] Age/Sex: 78 / FDate of Service: 02/26/19 Loc: ED Accession Number: [id number] Procedure: CT cervical spine wo con Ordering Provider: Ivon Scales PROCEDURE: CT CERVICAL SPINE WO CON INDICATIONS: glf, neck pain TECHNIQUE: Noncontrast 3 mm thick sections acquired from the skull base to the T4 level. Sagittal and coronal reformats were then constructed. For radiation dose reduction, the following was used: automated exposure control, adjustment of mA and/or kV according to patient size. COMPARISON: None. FINDINGS: Image quality: Excellent. Bones: No fractures or dislocations. Schmorl's node noted in the superior endplate of the T1 vertebral body. Visualized superior ribs are intact. Spine degenerative disc disease and facet arthropathy. Soft tissues: Prevertebral soft tissues are normal in thickness. No paraver tebral hematomas. No apical pneumothoraces. IMPRESSION: No fracture. No acute osseous lesion. If symptoms and/or clinical suspicion for pathology persists, evaluation with MRI may be helpful for further assessment. Dictated by: Sneha Moses MD, PhD on 02/26/2019 at 16:46 Approved by: Sneha Moses MD, PhD on 02/26/2019 at 16:57 Chest x-ray: Radiologist's impression: [address] [address] XRay Report Signed Patient: Ember Brito#: [id number] : 9Acct:[id number] Age/Sex: 78 / FDate of Service: 02/26/19 Loc: ED Accession Number: [id number] Procedure: XR chest 1V Ordering Provider: Ivon Scales PROCEDURE: XR CHEST 1V INDICATIONS: glf, left rib pain TECHNIQUE: One view of the chest was acquired. COMPARISON: [facility], CR, XR CHEST 1V, 05/09/2018, 8:02. [facility], CR, CHEST 2 VIEW, 12/23/2010, 14:22. FINDINGS: Surgical changes and devices: None. Lungs and pleura: Lungs are clear except for mild interstitial prominence. No pleural effusions or pneumothorax. Mediastinum: Mediastinal contours appear normal. Heart size is normal. Bones and chest wall: No suspicious bony lesions. Overlying soft tissues appear unremarkable. IMPRESSION: Mild interstitial prominence, no trauma found. Relatively large body habitus, a nondisplaced fracture may not be visualized initially and depending on the clinical status followup by targeted rib plain film series may be warranted in several days. Dictated by: Hernan Fisher M.D. on 02/26/2019 at 17:43 Approved by: Hernan Fisher M.D. on 02/26/2019 at 17:[address]: Radiologist's impression: [place] [address] CT Scan Report Signed Patient: Ember Brito#: [id number] : 9Acct:[id number] Age/Sex: 78 / FDate of Service: 02/26/19 Loc: ED Accession Number: [id number] Procedure: CT facial bones wo con Ordering Provider: Ivon Scales PROCEDURE: CT FACIAL BONES WO CON INDICATIONS: jaw pain, left orbit pain s/p fall TECHNIQUE: Noncontrast 2.5 mm thick axial images acquired from the mandible through the frontal sinuses, with coronal and sagittal reformatting. For radiation dose reduction, the following was used: automated exposure control, adjustment of mA and/or kV according to patient size. COMPARISON: [facility], CT, HEAD WITHOUT CONTRAST, 04/18/2012, 11:38. [facility], CT, SINUS SCREENING WO CONTRAST, 04/18/2012, 11:38. [facility], CT, HEAD WITHOUT CONTRAST, 03/10/2013, 14:04. [facility], CT, CT HEAD/BRAIN WO CON, 02/26/2019, 16:25. FINDINGS: Image quality: Excellent. Bones and teeth: Orbital paz are intact. Sinus paz show no fracture or deformity. Nasal bones and septum are intact. Visualized portions of the mandible demonstrate no fractures or subluxation. Zygomatic arches are intact. Pterygoid plates are intact. Visualized portions of the skull base and auditory canals are intact. Incidental note is made of hyperostosis frontalis. This is not considered to be pathologic in a woman of this age. Sinuses: Paranasal sinuses are aerated, without fluid levels, mucosal thickening, or mucoceles. Mastoid air cells are aerated. Soft tissues: Soft tissue laceration (with soft tissue gas) and soft tissue hematoma can be seen involving the left periorbital region. Vascular: Visualized vascular structures appear normal in the absence of contrast. Bony vascular foramina and canals are intact. IMPRESSION: Left periorbital laceration and hematoma, without associated regional fracture identified. Specifically, no orbital fracture or blowout fracture can be seen. No mandible abnormality can be seen. Dictated by: Kentrell Alves M.D. on 02/26/2019 at 17:17 Approved by: Kentrell Alves M.D. on 02/26/2019 at 17:19 MDM Narrative Medical decision making narrative: The patient is a 78 year female who presents after a ground level trip and fall. She received imaging to her face, neck and head which was all normal for her. She also had negative x-rays of her pelvis, chest right shoulder and right knee. I sutured the laceration on her forehead as documented. She tolerated the procedure well. I discussed at length monitoring for signs and symptoms of infection including redness, pus. I encouraged her to use rest ice compression elevation as needed as well as ice to the hematoma on her forehead. She remained neurovascularly intact throughout her stay in the emergency department. She ambulated steadily around the department prior to discharge. she was given tramadol in the emergency department for pain, which worked well. I did give her prescription of tramadol, and discussed that it can be sedating and constipating. I also gave her prescription of lidocaine patches as well as Voltaren gel. I discussed follow-up with her primary care provider soon as possible coming back to the emergency department for any acute concerns including confusion, chest pain shortness of breath etc. Patient has no questions or concerns upon discharge. <Trinity Hernandez DO - Last Filed: 03/01/19 17:45> Lab Data Urine Dip Bedside Urine Glucose Negative Bedside Urine Bilirubin - Negative Bedside Urine Ketone - Negative Urine Specific [place] 1.015 Bedside Urine Occult Blood - Negative Bedside Urine pH 6 Bedside Urine Protein - Negative Bedside Urine Urobilinogen - Negative Bedside Urine Nitrite - Negative Bedside Urine Leukocytes - Negative Esterase Discharge Plan Departure Patient Disposition: Home Clinical Impression: Fall from ground level, Laceration, Hematoma, Acute pain of right knee Periorbital ecchymosis of left eye Qualifiers: Encounter type: initial encounter Qualified Code(s): S00.12XA - Contusion of left eyelid and periocular area, initial encounter Acute shoulder pain Qualifiers: Laterality: right Qualified Code(s): M25.511 - Pain in right shoulder Contusion of rib on left side Qualifiers: Encounter type: initial encounter Qualified Code(s): S20.212A - Contusion of left front wall of thorax, initial encounter Discharge Date/Time: 02/26/19 20:30 Interventions: ED Discharge Assessment Last Done: 02/26/19 20:30 Instructions: DI for Eye Contusion, DI for Laceration Repair -- Simple, DI for Rib Contusion, DI for Hematoma (Bruise), How To Perform RICE (Rest, Ice, Compress, Elevate), How to Prevent Falls, DI for Shoulder Pain, DI for Knee Pain Activity Restrictions/Additional Instructions: Today we did images of your head, face, neck, right shoulder, chest and right knee. Luckily all of your scans came back normal. Please follow up with primary care provider in about 5 days for suture removal. Please monitor her lacerations for signs and symptoms of infection including redness, pus and fever. Please be evaluated if any of these occur. I have given you a prescription for pain, this can be sedating constipating. Be careful taking it, as it can increase your risk of falls. Be sure to keep taking deep breaths to help prevent pneumonia. Please follow up with her primary care provider in the next day or 2. Please use the incentive spirometer as the respiratory therapist instructed. Please use rest ice compression elevation. Prescriptions: New tramadol 50 mg tablet 25 mg PO Q6H PRN (Reason: pain) Qty: 14 RF: 0 lidocaine 5 % adhesive patch,medicated 2 patch TOP DAILY Qty: 30 RF: 0 diclofenac sodium 3 % gel 1 applictn TOP BID 14 Days Qty: 100 RF: 0 No Action metformin 1,000 mg Tablet 1,000 mg PO BID Qty: 0 RF: 0 omeprazole 20 MG capsule,delayed release(DR/EC) 20 mg PO QDAY Qty: 0 RF: 0 zolpidem 10 MG tablet 10 mg PO HS Qty: 0 RF: 0 diazepam 5 MG tablet 5 mg PO BID PRN (Reason: Anxiety) Qty: 0 RF: 0 valsartan [Diovan] 320 MG tablet 320 mg PO QDAY Qty: 0 RF: 0 fluoxetine 40 mg Capsule 40 mg PO DAILY Qty: 0 RF: 0 Anti-Diarrheal (loperamide) 2 mg capsule 1 cap PO PRN PRN (Reason: Diarrhea) RF: 0 aspirin 81 mg Tablet,Delayed Release (Dr/Ec) 81 mg PO DAILY RF: 0 amlodipine 10 mg tablet 10 mg PO DAILY RF: 0 gabapentin 300 mg capsule 1 cap PO TID RF: 0 fluticasone propionate 50 mcg/actuation spray,suspension 1 spray Intranasal DIRECTED RF: 0 Referrals: Francisco Corona MD [Primary Care Provider] - <Trinity Hernandez DO - Last Filed: 03/01/19 17:45> Cosign ED Attending Cosignature Attestation: I was immediately available in the department for consultation. Documentation has been reviewed. I agree with assessment and plan.
[2019-02-26] MEDS: TET,DIPH,PERTUSS(ACELL),VAC/PF 0.5 ML SYRINGE IM (17:19)
--- NOTE | 2019-02-26 17:28 | PC.NURSE ---
direct preassure applied.
[2019-02-26 17:30] VITALS: BP 155/80; PULSE 77; RESP 18; O2SAT 99
[2019-02-26 18:00] VITALS: BP 158/76; BP 163/82; PULSE 78; RESP 16; RESP 18; O2SAT 99
--- NOTE | 2019-02-26 18:34 | PC.NURSE ---
pt ok to try tramadol with crackers, pain level at 15/10
[2019-02-26] MEDS: TRAMADOL 50 MG TABLET PO (18:37)
[2019-02-26 19:00] VITALS: BP 150/73; BP 159/75; PULSE 77; PULSE 80; RESP 16; O2SAT 99
--- NOTE | 2019-02-26 20:00 | PC.NURSE ---
PT son Chas contacted per pt request, no answer and message was left. Pt requested Cab home upon DC with friend Simi awaiting for her arrival at pt home to assist pt.
[2019-02-26] MEDS: TRAMADOL 50 MG PREPACK 1 BOTTLE MISC (20:25)
[2019-02-26 20:27] VITALS: BP 146/70; PULSE 83; RESP 17; O2SAT 98
== END 2019-02-26 20:30 | disposition home or self-care (01) ==
PROVIDERS: Emergency Provider Nurse Practitioner Family; Family Provider Internal Medicine; PCP Internal Medicine
DX: S00.12XA Contusion of left eyelid and periocular area, initial encounter (principal); M25.511 Pain in right shoulder; S20.212A Contusion of left front wall of thorax, initial encounter; M54.2 Cervicalgia; M25.559 Pain in unspecified hip; M25.561 Pain in right knee; S01.81XA Laceration without foreign body of other part of head, initial encounter; W19.XXXA Unspecified fall, initial encounter; Z23 Encounter for immunization
CPT/HCPCS: 12001; 70450; 70486; 71045; 72125; 72170; 73030; 73562; 81003; 90471; 99284; 90715

== ENCOUNTER 2019-03-29 21:11 | Emergency (ER) | payer MEDICARE, BC, SELFPAY ==
--- NOTE | 2019-03-29 21:18 | ED_ITS ---
HPI - SOB/Dyspnea General Chief Complaint: Upper Respiratory Symptoms Stated Complaint: I think I'm getting Pneumonia Time Seen by Provider: 03/29/19 21:18 Source: patient and EMS Mode of arrival: EMS Limitations: no limitations History of Present Illness 78-year-old female nonsmoker presents with about 1 week of upper respiratory complaints including the production of yellowish sputum and some trouble breathing. She denies fever or chills. She denies exposure to ill persons. She has had no nausea or vomiting. She was seen and evaluated by her primary care provider and it was thought that she perhaps had flu initially and in fo llowup she was prescribed a Z-Mahendra and on subsequent followup given prednisone which she continues to take. This evening she had a coughing episode that resulted in worsening shortness of breath at which point she called EMS for transportation, fearing she may have developed pneumonia MD Complaint: shortness of breath and cough Onset (ago): day(s) Severity: moderate Consistency/Duration: intermittent Relieving factors: nothing Exacerbating factors: nothing Associated symptoms: cough and sputum production Treatment prior to arrival: oxygen and bronchodilator Related Data Home Medications Medication Instructions Recorded Confirmed metformin 1,000 mg PO BID #0 12/23/10 05/09/18 diazepam 5 mg PO BID PRN #0 02/15/13 05/09/18 omeprazole 20 mg PO QDAY #0 02/15/13 05/09/18 zolpidem 10 mg PO HS #0 02/15/13 05/09/18 fluoxetine 40 mg PO DAILY #0 03/10/13 05/09/18 valsartan [Diovan] 320 mg PO QDAY #0 03/10/13 05/09/18 Anti-Diarrheal (loperamide) 1 cap PO PRN PRN 05/09/18 05/09/18 amlodipine 10 mg PO DAILY 05/09/18 05/09/18 aspirin 81 mg PO DAILY 05/09/18 05/09/18 fluticasone propionate 1 spray INTRANASAL DIRECTED 05/09/18 05/09/18 gabapentin 1 cap PO TID 05/09/18 05/09/18 Previous Rx's Medication Instructions Recorded lidocaine 2 patch TOP DAILY #30 each 02/26/19 tramadol 25 mg PO Q6H PRN #14 tab 02/26/19 doxycycline hyclate 100 mg PO BID #20 tab 03/30/19 Allergies Allergy/AdvReac Type Severity Reaction Status Date / Time clonidine Allergy Unknown Verified 03/29/19 21:33 codeine Allergy Unknown Verified 03/29/19 21:33 diltiazem Allergy Unknown Verified 03/29/19 21:33 doxazosin Allergy Unknown Verified 03/29/19 21:33 hydralazine Allergy Unknown Verified 03/29/19 21:33 hydrocodone Allergy Unknown Verified 03/29/19 21:33 levofloxacin Allergy Unknown Verified 03/29/19 21:33 meperidine Allergy Unknown Verified 03/29/19 21:33 nifedipine Allergy Unknown Verified 03/29/19 21:33 oxycodone Allergy Unknown Verified 03/29/19 21:33 promethazine Allergy Unknown Verified 03/29/19 21:33 rosuvastatin Allergy Unknown Verified 03/29/19 21:33 simvastatin Allergy Unknown Verified 03/29/19 21:33 Sulfa (Sulfonamide Allergy Unknown Verified 03/29/19 21:33 Antibiotics) Review of Systems Constitutional Denies chills, Denies fever(s), Denies lethargy and Denies weakness Eyes Denies change in vision, Denies eye discharge, Denies irritation and Denies loss of vision ENT Ears, Nose, Mouth, and Throat: Denies change in voice, Denies neck pain and Denies sore throat Cardiovascular Denies chest pain, Denies irregular heart rhythm, Denies lightheadedness, Denies palpitations, Denies dyspnea, Denies dyspnea on exertion and Denies orthopnea Respiratory Reports cough, Denies dyspnea, Denies dyspnea on exertion and Reports wheezing Gastrointestinal Gastrointestinal: Denies abdominal pain, Denies change in bowel habits, Denies diarrhea, Denies nausea and Denies vomiting Genitourinary Denies hematuria, Denies flank pain, Denies urinary incontinence and Denies urinary urgency Musculoskeletal Denies neck pain Integumentary/Breasts Denies pruritus, Denies erythema, Denies rash and Denies wounds Neurologic Denies confusion, Denies loss of vision and Denies weakness Psychiatric Denies anxiety, Denies confusion, Denies depression, Denies homicidal ideation and Denies suicidal ideation Endocrine Denies palpitations Hematologic/Lymphatic Denies easy bruising Allergic/Immunologic Reports wheezing [facility] Medical History Diabetes (Acute) Hyperlipidemia (Acute) Hypertension (Acute) Social History Smoking Status: Never smoker Social History Smoking Status: Never smoker Exam Narrative Exam Narrative: GENERAL: 78-year-old female appears stated age, fully conversive and in no obvious respiratory distress HEAD: Atraumatic. Normocephalic. No temporal or scalp tenderness. EYES: Pupils equal round and reactive. Extraocular motions intact. No scleral icterus. No injection or drainage. ENT: Nose without bleeding, purulent drainage or septal hematoma. Throat without erythema, tonsillar hypertrophy or exudate. Uvula midline. Airway patent. NECK: Trachea midline. No JVD or lymphadenopathy. Supple, nontender, no meningeal signs. CARDIOVASCULAR: Regular rate and rhythm without murmurs, gallops, or rubs. RESPIRATORY: Clear to auscultation. Breath sounds equal bilaterally. No wheezes, rales, or rhonchi. GASTROINTESTINAL: Abdomen soft, non-tender, nondistended. No hepato-splenome anai, or palpable masses. No guarding. EXTREMITIES: No clubbing, cyanosis, or edema. No joint tenderness, effusion, or edema noted. BACK: Nontender without deformity or crepitance. No flank tenderness. NEURO: AOx3. SKIN: No rash or erythema. Initial Vital Signs Initial Vital Signs: Vital Signs Temperature 98.1 F 03/29/19 21:33 Pulse Rate 86 03/29/19 21:33 Respiratory Rate 14 03/29/19 21:33 Blood Pressure 164/79 H 03/29/19 21:33 Pulse Oximetry 98 03/29/19 21:33 Scores CURB-65 Confusion: No BUN >19mg/dL (>7mmol/L): No Respiratory rate greater or equal to 30: No SBP <90mmHg or DBP less or equal to 60mmHg: No Age 65 or Older: Yes CURB-65 Total: 1 Score 0-1 Outpatient care, Score 2 Inpt vs. Obs, Score 3 or over Inpt admit with ICU for score of 4-5 Course Orders Ordered: ED Orders 03/29/19 21:19 Consult to Respiratory Therapy Evaluate & Treat EKG-12 Lead Stat 03/29/19 21:20 XR chest 2V Stat 03/29/19 21:58 B Type Natriuretic Peptide Stat Basic Metabolic Panel Stat Complete Blood Count AUTO DIFF Stat Lactate (Lactic Acid) Stat Magnesium Stat Procalcitonin Stat Troponin & CK Cardiac Panel Stat 03/29/19 22:03 Blood Culture Stat 03/29/19 23:41 Lactate (Lactic Acid) Stat White Blood Cell Count Stat Sodium Chloride (Normal Saline 0.9%) 1,000 mls @ 150 mls/hr IV CONT SANGEETHA Last Infusion: 03/30/19 00:54 Dose: 0 mls/hr Admin: 03/29/19 22:20 Dose: 150 mls/hr Discontinued Medications Doxycycline Hyclate (Vibramycin) 100 mg PO NOW ONE Stop: 03/30/19 00:45 Last Admin: 03/30/19 00:49 Dose: 100 mg Ibuprofen (Advil) 400 mg PO NOW ONE Stop: 03/30/19 00:36 Last Admin: 03/30/19 00:38 Dose: 400 mg Vital Signs - 8 hr 03/29/19 21:33 03/29/19 21:37 03/29/19 22:36 Temperature 98.1 F 98.1 F Pulse Rate 86 86 43 L Respiratory Rate 14 14 12 Blood Pressure 164/79 H 164/79 H Blood Pressure [Right Arm] 149/73 H Pulse Oximetry 98 98 98 03/30/19 00:33 03/30/19 01:05 Temperature 98.2 F 98.2 F Pulse Rate 67 61 Respiratory Rate 18 13 Blood Pressure 143/71 H Blood Pressure [Right Arm] 129/91 H Pulse Oximetry 97 98 MDM - SOB/Dyspnea Lab Data Result diagrams: 03/29/19 23:41 03/29/19 21:58 Lab Results 03/29/19 03/29/19 03/29/19 Range/Units 21:58 21:58 21:58 WBC 16.7 H (4.5-11.0) X10^3/uL RBC 4.09 (4.0-5.2) X10^6/uL Hgb 12.0 (12.0-16.0) g/dL Hct 35.8 L (36-46) % MCV 87.6 (80-100) fL MCH 29.2 (26-34) PG MCHC 33.4 (30-36) % RDW 14.4 (11.6-14.8) % Plt Count 434 H (150-400) X10^3/uL Neut % (Auto) 83.8 H (50-75) % Lymph % (Auto) 12.7 L (25-40) % Elliott % (Auto) 3.2 (3-14) % Eos % (Auto) 0.0 L (2-4) % Baso % (Auto) 0.3 (0-2) % Neut # (Auto) 84458 H (5791-5591) /uL Lymph # (Auto) 2100 (1449-3376) /uL Elliott # (Auto) 500 (0-900) /uL Eos # (Auto) 0 (0-450) /uL Baso # (Auto) 0 (0-100) /uL Sodium 135 L (137-145) mmol/L Potassium 3.6 (3.4-5.1) mmol/L Chloride 96 L (98-107) mmol/L Carbon Dioxide 25 (22-32) mmol/L BUN 16 (7-17) mg/dL Creatinine 0.60 (0.52-1.04) mg/dL Estimated GFR > 60.0 (>60) mL/min BUN/Creatinine Ratio 26.7 H (6-22) Glucose 196 H (80-110) mg/dL Lactate (0.7-2.1) mmol/L Calcium 9.7 (8.4-10.2) mg/dL Magnesium 1.5 L (1.6-2.3) mg/dL Total Creatine Kinase 24 L (30-135) U/L CK-MB (CK-2) TNP CK-MB (CK-2) Rel Index TNP Troponin I < 0.012 (0.01-0.034) ng/mL B-Natriuretic Peptide 178 H (<100) Procalcitonin < 0.05 (<0.5) ng/mL 03/29/19 03/29/19 03/29/19 Range/Units 21:58 23:41 23:41 WBC 14.1 H (4.5-11.0) X10^3/uL RBC (4.0-5.2) X10^6/uL Hgb (12.0-16.0) g/dL Hct (36-46) % MCV (80-100) fL MCH (26-34) PG MCHC (30-36) % RDW (11.6-14.8) % Plt Count (150-400) X10^3/uL Neut % (Auto) (50-75) % Lymph % (Auto) (25-40) % Elliott % (Auto) (3-14) % Eos % (Auto) (2-4) % Baso % (Auto) (0-2) % Neut # (Auto) (6110-9798) /uL Lymph # (Auto) (1587-1325) /uL Elliott # (Auto) (0-900) /uL Eos # (Auto) (0-450) /uL Baso # (Auto) (0-100) /uL Sodium (137-145) mmol/L Potassium (3.4-5.1) mmol/L Chloride (98-107) mmol/L Carbon Dioxide (22-32) mmol/L BUN (7-17) mg/dL Creatinine (0.52-1.04) mg/dL Estimated GFR (>60) mL/min BUN/Creatinine Ratio (6-22) Glucose (80-110) mg/dL Lactate 3.0 H 2.6 H (0.7-2.1) mmol/L Calcium (8.4-10.2) mg/dL Magnesium (1.6-2.3) mg/dL Total Creatine Kinase (30-135) U/L CK-MB (CK-2) CK-MB (CK-2) Rel Index Troponin I (0.01-0.034) ng/mL B-Natriuretic Peptide (<100) Procalcitonin (<0.5) ng/mL Urine Dip Bedside Urine Glucose Negative Bedside Urine Bilirubin - Negative Bedside Urine Ketone - Negative Urine Specific [place] 1.015 Bedside Urine Occult Blood - Negative Bedside Urine Protein - Negative Bedside Urine Urobilinogen - Negative Bedside Urine Nitrite - Negative Bedside Urine Leukocytes - Negative Esterase Imaging Data Chest x-ray: Radiologist's impression: bronchial wall thickening [facility] Narrative Medical decision making narrative: 78F with vague URI symptoms, not improved after Zpack or prednisone. No fever, no hypoxia. No chest pain. Chest Xray shows bronchial thickening. Lactate improved after fluids. WBC likely secondary to prednisone and infection. No signs of sepsis. Cause of elevated lactate unclear at this point. Procalcitonin normal. Vitals normal. Discharge Plan Departure Patient Disposition: Home Clinical Impression: Atypical pneumonia Interventions: ED Discharge Assessment Last Done: 03/30/19 01:05 Instructions: Atypical Pneumonia Activity Restrictions/Additional Instructions: *You have been diagnosed with [atypical pneumonia] *What to do: *Take medications as directed: your Doxycycline was electronically trans mitted to [facility] in [place] at your request *Follow up with your primary care provider in 2-3 days, call for an appointment. Let them know you were seen in the Emergency Department and that we ask that you be seen in follow up *Return to ER if you should have any new, worsening or concerning symptoms Prescriptions: New doxycycline hyclate 100 mg tablet 100 mg PO BID Qty: 20 RF: 0 No Action metformin 1,000 mg Tablet 1,000 mg PO BID Qty: 0 RF: 0 omeprazole 20 MG capsule,delayed release(DR/EC) 20 mg PO QDAY Qty: 0 RF: 0 zolpidem 10 MG tablet 10 mg PO HS Qty: 0 RF: 0 diazepam 5 MG tablet 5 mg PO BID PRN (Reason: Anxiety) Qty: 0 RF: 0 valsartan [Diovan] 320 MG tablet 320 mg PO QDAY Qty: 0 RF: 0 fluoxetine 40 mg Capsule 40 mg PO DAILY Qty: 0 RF: 0 tramadol 50 mg tablet 25 mg PO Q6H PRN (Reason: pain) Qty: 14 RF: 0 lidocaine 5 % adhesive patch,medicated 2 patch TOP DAILY Qty: 30 RF: 0 Anti-Diarrheal (loperamide) 2 mg capsule 1 cap PO PRN PRN (Reason: Diarrhea) RF: 0 aspirin 81 mg Tablet,Delayed Release (Dr/Ec) 81 mg PO DAILY RF: 0 amlodipine 10 mg tablet 10 mg PO DAILY RF: 0 gabapentin 300 mg capsule 1 cap PO TID RF: 0 fluticasone propionate 50 mcg/actuation spray,suspension 1 spray Intranasal DIRECTED RF: 0 Referrals: Francisco Corona MD [Primary Care Provider] -
--- NOTE | 2019-03-29 21:20 | DI.RAD.S_ITS ---
PROCEDURE: XR CHEST 2V INDICATIONS: Short of breath. cough, fever TECHNIQUE: 2 views of the chest were acquired. COMPARISON: [facility], CT, CHEST HIGH RESOLUTION, 09/21/2011, 12:06. [facility], CR, CHEST 2 VIEW, 12/23/2010, 14:22. [facility], CR, XR CHEST 1V, 05/09/2018, 8:02. [facility], CR, XR CHEST 1V, 02/26/2019, 16:26. FINDINGS: Surgical changes and devices: None. Lungs and pleura: Lungs are clear. No pleural effusions or pneumothorax. The lungs are hyperexpanded, with flattening of the hemidiaphragms seen. Mediastinum: The cardiac contours are within normal limits. The aorta demonstrates calcification and tortuosity. Bones and chest wall: No suspicious bony abnormalities. Age-appropriate bony degenerative changes are seen. Mild dextroconvex scoliotic curvature is seen. Soft tissues appear unremarkable. IMPRESSION: Hyperexpanded lungs, without an acute cardiopulmonary process identified. Dictated by: Kentrell Alves M.D. on 03/30/2019 at 7:34 Approved by: Kentrell Alves M.D. on 03/30/2019 at 7:35
[2019-03-29 21:33] VITALS: BP 164/79; PULSE 86; RESP 14; TEMP 36.7; O2SAT 98; BMI 27.3
[2019-03-29 21:37] VITALS: BP 164/79; PULSE 86; RESP 14; TEMP 36.7; O2SAT 98; BMI 27.3
[2019-03-29 22:17] LABS: Add Manual Diff / Slide Review NO; Basophils Absolute Auto 0 /uL (0-100); Basophils Percent Auto 0.3 % (0-2); Eosinophils Absolute Auto 0 /uL (0-450); Hematocrit 35.8 % (36-46); Lymphocytes Absolute Auto 2100 /uL (1100-4500); Lymphocytes Percent Auto 12.7 % (25-40); Mean Corpuscular HGB Conc 33.4 % (30-36); Mean Corpuscular Hemoglobin 29.2 PG (26-34); Mean Corpuscular Volume 87.6 fL (80-100); Monocytes Absolute Auto 500 /uL (0-900); Monocytes Percent Auto 3.2 % (3-14); Neutrophils Absolute Auto 14000 /uL (1500-7000); Neutrophils Percent Auto 83.8 % (50-75); Platelet Count 434 X10^3/uL (150-400); Red Blood Cell Count 4.09 X10^6/uL (4.0-5.2); Red Cell Distribution Width 14.4 % (11.6-14.8); White Blood Cell Count 16.7 X10^3/uL (4.5-11.0)
[2019-03-29] MEDS: SODIUM CHLORIDE 0.9% 1,000 ML 150 ML IV (22:20)
[2019-03-29 22:27] LABS: BUN Creatinine Ratio 26.7 (6-22); Blood Urea Nitrogen 16 mg/dL (7-17); Calcium 9.7 mg/dL (8.4-10.2); Carbon Dioxide 25 mmol/L (22-32); Chloride 96 mmol/L (98-107); Creatine Kinase 24 U/L (30-135); Estimated Glomerular Filt Rate > 60.0 mL/min (>60); Glucose 196 mg/dL (80-110); HEMOLYSIS < 15 (0-50); Magnesium 1.5 mg/dL (1.6-2.3); Potassium 3.6 mmol/L (3.4-5.1); Sodium 135 mmol/L (137-145)
[2019-03-29 22:36] VITALS: BP 149/73; PULSE 43; RESP 12; O2SAT 98
[2019-03-29 22:38] LABS: Troponin I < 0.012 ng/mL (0.01-0.034)
[2019-03-29 22:40] LABS: B Type Natriuretic Peptide 178 (<100)
[2019-03-29 22:43] LABS: Procalcitonin < 0.05 ng/mL (<0.5)
[2019-03-29 23:53] LABS: White Blood Cell Count 14.1 X10^3/uL (4.5-11.0)
[2019-03-30 00:02] LABS: Lactate (Lactic Acid) 2.6 mmol/L (0.7-2.1)
[2019-03-30 00:07] LABS: Reflexed Lactate in 2 Hours Y
[2019-03-30 00:33] VITALS: BP 129/91; PULSE 67; RESP 18; TEMP 36.8; O2SAT 97
[2019-03-30] MEDS: IBUPROFEN 400 MG TABLET PO (00:38)
[2019-03-30] MEDS: DOXYCYCLINE HYCLATE 100 MG TABLET PO (00:49)
[2019-03-30 01:05] VITALS: BP 143/71; PULSE 61; RESP 13; TEMP 36.8; O2SAT 98
[2019-03-30 01:54] LABS: Reflexed Lactate in 2 Hours Y
[2019-03-30 02:15] VITALS: BP 132/78; PULSE 67; RESP 16; TEMP 36.6; O2SAT 96
[2019-03-31 16:12] LABS: Acinetobacter baumannii Not Detected (Not Detect); Candida albicans Not Detected (Not Detect); Candida glabrata Not Detected (Not Detect); Candida krusei Not Detected (Not Detect); Candida parapsilosis Not Detected (Not Detect); Candida tropicalis Not Detected (Not Detect); E. coli Not Detected (Not Detect); Enterobacter cloacae complex Not Detected (Not Detect); Enterobacteriaceae species Not Detected (Not Detect); Enterococcus species Not Detected (Not Detect); Haemophilus influenzae Not Detected (Not Detect); KPC (carbapenem-resist gene) Not Detected (Not Detect); Listeria monocytogenes Not Detected (Not Detect); Methicillin-resistant gene Not Detected (Not Detect); Neisseria meningitidis Not Detected (Not Detect); Proteus species Not Detected (Not Detect); Pseudomonas aeruginosa Not Detected (Not Detect); Serratia marcescens Not Detected (Not Detect); Staphylococcus species Not Detected (Not Detect); Streptococcus agalactiae (Gr B Not Detected (Not Detect); Streptococcus pneumonia Not Detected (Not Detect); Streptococcus pyogenes (Gr A) Not Detected (Not Detect); Streptococcus species Not Detected (Not Detect); Vancomycin-rest genes A/B Not Detected (Not Detect)
== END 2019-03-30 02:15 | disposition home or self-care (01) ==
PROVIDERS: Emergency Provider Emergency Medicine; Family Provider Internal Medicine; PCP Internal Medicine
DX: J18.9 Pneumonia, unspecified organism (principal)
CPT/HCPCS: 36415; 71046; 80048; 81003; 82550; 83605; 83735; 83880; 84145; 84484; 85025; 85048; 87040; 87077; 87150; 87205; 93005; 93010; 96360; 96361; 99285

== ENCOUNTER → 2019-05-20 13:48 | Outpatient (CLI) | payer MEDICARE, BC, SELFPAY ==
--- NOTE | 2019-05-20 | DI.US.S_ITS ---
PROCEDURE: US ABDOMEN COMPLETE INDICATIONS: PAIN TECHNIQUE: Real-time scanning was performed of the abdominal and retroperitoneal organs, with image documentation. COMPARISON: [facility], CT, CT ABDOMEN PELVIS W CON, 05/09/2018, 9:59. [facility], MR, ABDOMEN WITH AND WITHOUT CONTR, 07/16/2007, 14:13. FINDINGS: Liver: Liver is normal in size and homogeneous in echotexture. A couple of simple cysts are noted in liver, one in the right hepatic lobe measuring 1.7 x 0.9 x 1.6 and one in the left hepatic lobe measuring 2.0 x 1.7 x 2.2 cm Gallbladder: Surgically absent Biliary ducts: Intrahepatic bile ducts are non-dilated. Extrahepatic bile duct caliber measures 9 mm. Normal is 6-7 mm or less in diameter, or 10 mm or less post-cholecystectomy. Pancreas: Visualized portions of the pancreas are sonographically normal. Spleen: Spleen is normal in size and homogeneous in echotexture. Kidneys: Kidneys are normal in size and echotexture. Right kidney measures 11.4 cm long; left kidney measures 10.9 cm long. No hydronephrosis or nephrolithiasis. No solid masses. There is a 1.4 cm solid, hyperechoic mass in the inferior pole of the left kidney, which correlating with a fat containing mass seen on a prior CT, consistent with angiomyolipoma. A 1.2 cm simple cyst is noted in anteromedial cortex of the left kidney. Aorta: Visualized aorta is normal in caliber at less than 3 cm. Iliacs: Proximal common iliac arteries are normal in caliber at less than 2.5 cm. IVC: Intrahepatic inferior vena cava is patent. Miscellaneous: No free abdominal fluid. IMPRESSION: 1. No acute intra-abdominal process. 2. Cholecystectomy. 3. A 1.4 cm solid hyperechoic mass in the inferior pole of the left kidney is compared with an angiomyolipoma. 4. Hepatic cysts and a left renal cyst. Dictated by: Fran Justice M.D. on 05/20/2019 at 16:00 Approved by: Fran Justice M.D. on 05/20/2019 at 16:04
== END ==
PROVIDERS: Family Provider Internal Medicine; PCP Internal Medicine; Visit Provider Specialist
DX: R10.9 Unspecified abdominal pain (principal); K76.89 Other specified diseases of liver; N28.1 Cyst of kidney, acquired; N28.9 Disorder of kidney and ureter, unspecified; Z90.49 Acquired absence of other specified parts of digestive tract
CPT/HCPCS: 76700

== ENCOUNTER 2019-05-22 10:41 | Emergency (ER) | payer MEDICARE, BC, SELFPAY ==
--- NOTE | 2019-05-22 10:35 | DI.RAD.S_ITS ---
PROCEDURE: XR ACUTE ABDOMEN SERIES INDICATIONS: epigastric pain, nausea, weakness. TECHNIQUE: One view chest and two views of the abdomen were acquired. COMPARISON: [facility], US, US ABDOMEN COMPLETE, 05/20/2019, 13:58. [facility], CT, CT ABDOMEN PELVIS W CON, 05/09/2018, 9:59. FINDINGS: Surgical changes and devices: Postoperative changes overlying the pubis symphysis are present. Chest: Mild scarring versus atelectasis is identified along the lateral margin of the left chest. No focal consolidation, effusion, or pneumothorax is appreciated. Heart size is normal. No pleural effusions. No pneumoperitoneum. There is aortic atherosclerosis. Abdomen: Bowel gas pattern is normal. No air-filled distended small bowel loops demonstrating air-fluid levels are appreciated. There still are seen overlying the expected locations of the colon. No suspicious calcifications. Visualized solid organ contours appear normal. Bones: No suspicious bony lesions. IMPRESSION: 1. No bowel obstruction. 2. No acute cardiopulmonary process is evident. Dictated by: Prince Monaco M.D. on 05/22/2019 at 11:24 Approved by: Prince Monaco M.D. on 05/22/2019 at 11:25
[2019-05-22 10:45] VITALS: BP 176/81; PULSE 98; RESP 11; TEMP 36.8; O2SAT 99; BMI 27.3
[2019-05-22] MEDS: SODIUM CHLORIDE 0.9% 1,000 ML 150 ML IV (10:57)
--- NOTE | 2019-05-22 11:33 | ED.ABDPAIN ---
HPI - Abdominal Pain <Ivon Clearymer, CLUB ROOM ATTENDANT-BC - Last Filed: 05/22/19 18:51> General Chief Complaint: Abdominal Pain Stated Complaint: Weakness Time Seen by Provider: 05/22/19 11:01 Source: patient Mode of arrival: ambulatory Limitations: no limitations History of Present Illness HPI narrative: The patient is a 78-year-old female nonsmoker, hyperlipidemia and hypertension who presents with a chief complaint of nausea vomiting diarrhea and epigastric pain her whole life, stating has gotten worse over the past month and that again worse over the past week. She states she has history of stomach ulcer, and has been on antacid medication, but she is not sure which one. She states she does not see a primary care provider, but rather sees the walk-in clinic when she needs things. She denies any objective fevers, but complains of subjective chills and sweats. She complains of nausea no vomiting. She states that she has had diarrhea several times today. She is concerned that this is all related to stress and anxiety. Her recently . Related Data Home Medications Medication Instructions Recorded Confirmed metformin 1,000 mg PO BID #0 12/23/10 05/22/19 omeprazole 20 mg PO DAILY #0 02/15/13 05/22/19 zolpidem 10 mg PO HS #0 02/15/13 05/22/19 fluoxetine 40 mg PO DAILY #0 03/10/13 05/22/19 amlodipine 10 mg PO DAILY 05/09/18 05/22/19 aspirin 81 mg PO QPM 05/09/18 05/22/19 fluticasone propionate 1 spray INTRANASAL DIRECTED 05/09/18 05/22/19 gabapentin 1 cap PO TID 05/09/18 05/22/19 loperamide 1 cap PO PRN PRN 05/09/18 05/22/19 albuterol sulfate 1 puff INHALATION PRN PRN 05/22/19 05/22/19 chlorhexidine gluconate See Rx Instructions .ROUTE .COMPLEX 05/22/19 05/22/19 diazepam 2.5 mg PO QPM 05/22/19 05/22/19 losartan 100 mg PO DAILY 05/22/19 05/22/19 Previous Rx's Medication Instructions Recorded lidocaine 2 patch TOP DAILY #30 each 02/26/19 tramadol 25 mg PO Q6H PRN #14 tab 02/26/19 benzonatate [Tessalon Perles] 100 mg PO TID PRN #14 cap 03/30/19 prednisone 50 mg PO DAILY #5 tab 05/22/19 sucralfate [Carafate] 1 gram PO QACHS #40 tab 05/22/19 Allergies Allergy/AdvReac Type Severity Reaction Status Date / Time clonidine Allergy Unknown Verified 05/22/19 10:44 codeine Allergy Unknown Verified 05/22/19 10:44 diltiazem Allergy Unknown Verified 05/22/19 10:44 doxazosin Allergy Unknown Verified 05/22/19 10:44 hydralazine Allergy Unknown Verified 05/22/19 10:44 hydrocodone Allergy Unknown Verified 05/22/19 10:44 levofloxacin Allergy Unknown Verified 05/22/19 10:44 meperidine Allergy Unknown Verified 05/22/19 10:44 nifedipine Allergy Unknown Verified 05/22/19 10:44 oxycodone Allergy Unknown Verified 05/22/19 10:44 promethazine Allergy Unknown Verified 05/22/19 10:44 rosuvastatin Allergy Unknown Verified 05/22/19 10:44 simvastatin Allergy Unknown Verified 05/22/19 10:44 Sulfa (Sulfonamide Allergy Unknown Verified 05/22/19 10:44 Antibiotics) Review of Systems <SLAVA Nicole - Last Filed: 05/22/19 18:51> Review of Systems GENERAL: Denies chills, fatigue, malaise, fever, sweats. HEENT: Denies sinus pain, ear pain, sore throat, difficulty swallowing, dizziness. RESPIRATORY: Denies dyspnea, cough, wheezing, hemoptysis, sputum. CARDIOVASCULAR: See HPI GASTROINTESTINAL: See HPI : Denies dysuria, frequency, incontinence, hematuria, urinary retention. MUSCULOSKELETAL: denies weakness, joint pain, or bony pain SKIN: Denies rash, skin lesions, or other NEUROLOGIC: Denies weakness, headache, numbness, change in speech, confusion, seizures, incoordination. PSYCHIATRIC: No concerning psychosocial issues. 12 point review of systems is negative except for those stated above PFSH <SLAVA Nicole - Last Filed: 05/22/19 18:51> Medical History Diabetes (Acute) Hyperlipidemia (Acute) Hypertension (Acute) Social History Smoking Status: Never smoker Social History Smoking Status: Never smoker Exam <SLAVA Nicole - Last Filed: 05/22/19 18:51> Narrative Exam Narrative: GENERAL: Elderly female lying on stretcher HEAD: Atraumatic. Normocephalic. No temporal or scalp tenderness. EYES: Pupils equal round and reactive. Extraocular motions intact. No scleral icterus. No injection or drainage. ENT: Nose without bleeding, purulent drainage or septal hematoma. Throat without erythema, tonsillar hypertrophy or exudate. Uvula midline. Airway patent. NECK: Trachea midline. No JVD or lymphadenopathy. Supple, nontender, no meningeal signs. CARDIOVASCULAR: Regular rate and rhythm RESPIRATORY: Clear to auscultation. Breath sounds equal bilaterally. No wheezes, rales, or rhonchi. No cough. No increased respiratory effort. No accessory muscle use. GASTROINTESTINAL: Abdomen soft, diffusely tender to palpation with no guarding, nondistended. No hepato-splenomegaly, or palpable masses. No guarding. EXTREMITIES: No clubbing, cyanosis, or edema. No joint tenderness, effusion, or edema noted. BACK: Nontender without deformity or crepitance. No flank tenderness. NEURO: AOx3. Ambulating well. No gross cranial nerve deficit. SKIN: No rash or erythema. Initial Vital Signs Initial Vital Signs: Vital Signs Temperature 98.3 F 05/22/19 10:45 Pulse Rate 98 H 05/22/19 10:45 Respiratory Rate 11 L 05/22/19 10:45 Blood Pressure 176/81 H 05/22/19 10:45 Pulse Oximetry 99 05/22/19 10:45 <Ivon Plummer DO - Last Filed: 05/23/19 07:16> Initial Vital Signs Initial Vital Signs: Vital Signs Temperature 98.3 F 05/22/19 10:45 Pulse Rate 98 H 05/22/19 10:45 Respiratory Rate 11 L 05/22/19 10:45 Blood Pressure 176/81 H 05/22/19 10:45 Pulse Oximetry 99 05/22/19 10:45 Course <Ivon Scales CLUB ROOM ATTENDANT-BC - Last Filed: 05/22/19 18:51> Orders Ordered: Discontinued Medications Aspirin (Aspirin Chew) 324 mg PO NOW ONE Stop: 05/22/19 10:36 Last Admin: 05/22/19 10:57 Dose: Not Given Al Hydrox/Mg Hydrox/Simethicone 20 ml/ Lidocaine HCl 15 ml 0 ml PO NOW ONE Stop: 05/22/19 12:19 Last Admin: 05/22/19 12:42 Dose: 35 ml Al Hydrox/Mg Hydrox/Simethicone 20 ml/ Lidocaine HCl 15 ml 0 ml PO NOW ONE Stop: 05/22/19 16:16 Last Admin: 05/22/19 16:22 Dose: 45 ml Sodium Chloride (Normal Saline 0.9%) 1,000 mls @ 150 mls/hr IV CONT SANGEETHA Last Infusion: 05/22/19 15:03 Dose: 0 mls/hr Infusion: 05/22/19 14:30 Dose: 999 mls/hr Admin: 05/22/19 10:57 Dose: 150 mls/hr Sodium Chloride (Normal Saline 0.9%) 1,000 mls @ 1,000 mls/hr IV BOLUS PRN PRN Reason: Fluid replacement Ondansetron HCl (Zofran) 4 mg IV NOW ONE Stop: 05/22/19 11:49 Last Admin: 05/22/19 12:42 Dose: 4 mg Ondansetron HCl (Zofran) 4 mg IV Q6HR PRN PRN Reason: Nausea And Vomiting Prednisone (Deltasone) 60 mg PO NOW ONE Stop: 05/22/19 15:01 Last Admin: 05/22/19 15:16 Dose: 60 mg Sucralfate (Carafate) 1 gm PO Q6HR SANGEETHA Last Admin: 05/22/19 15:23 Dose: Not Given Sucralfate (Carafate) 1 gm PO Q6HR SANGEETHA Last Admin: 05/22/19 15:16 Dose: 1 gm Vital Signs - 8 hr 05/22/19 12:27 05/22/19 12:30 05/22/19 13:43 Pulse Rate 82 84 87 Respiratory Rate 12 16 15 Blood Pressure [Left Arm] 160/71 H 141/67 H 149/81 H Pulse Oximetry 100 99 98 <Ivon Plummer DO - Last Filed: 05/23/19 07:16> Orders Ordered: Discontinued Medications Aspirin (Aspirin Chew) 324 mg PO NOW ONE Stop: 05/22/19 10:36 Last Admin: 05/22/19 10:57 Dose: Not Given Al Hydrox/Mg Hydrox/Simethicone 20 ml/ Lidocaine HCl 15 ml 0 ml PO NOW ONE Stop: 05/22/19 12:19 Last Admin: 05/22/19 12:42 Dose: 35 ml Al Hydrox/Mg Hydrox/Simethicone 20 ml/ Lidocaine HCl 15 ml 0 ml PO NOW ONE Stop: 05/22/19 16:16 Last Admin: 05/22/19 16:22 Dose: 45 ml Sodium Chloride (Normal Saline 0.9%) 1,000 mls @ 150 mls/hr IV CONT SANGEETHA Last Infusion: 05/22/19 15:03 Dose: 0 mls/hr Infusion: 05/22/19 14:30 Dose: 999 mls/hr Admin: 05/22/19 10:57 Dose: 150 mls/hr Sodium Chloride (Normal Saline 0.9%) 1,000 mls @ 1,000 mls/hr IV BOLUS PRN PRN Reason: Fluid replacement Ondansetron HCl (Zofran) 4 mg IV NOW ONE Stop: 05/22/19 11:49 Last Admin: 05/22/19 12:42 Dose: 4 mg Ondansetron HCl (Zofran) 4 mg IV Q6HR PRN PRN Reason: Nausea And Vomiting Prednisone (Deltasone) 60 mg PO NOW ONE Stop: 05/22/19 15:01 Last Admin: 05/22/19 15:16 Dose: 60 mg Sucralfate (Carafate) 1 gm PO Q6HR SANGEETHA Last Admin: 05/22/19 15:23 Dose: Not Given Sucralfate (Carafate) 1 gm PO Q6HR [facility] Last Admin: 05/22/19 15:16 Dose: 1 gm Vital Signs - 8 hr 05/22/19 12:27 05/22/19 12:30 05/22/19 13:43 Pulse Rate 82 84 87 Respiratory Rate 12 16 15 Blood Pressure [Left Arm] 160/71 H 141/67 H 149/81 H Pulse Oximetry 100 99 98 MDM - Abdominal Pain <SHAHRAM Nicole-MEHDI - Last Filed: 05/22/19 18:51> Lab Data Result diagrams: 05/22/19 13:00 05/22/19 13:00 Lab Results 05/22/19 05/22/19 05/22/19 Range/Units 13:00 13:00 13:00 WBC 10.6 (4.5-11.0) X10^3/uL RBC 4.30 (4.0-5.2) X10^6/uL Hgb 12.7 (12.0-16.0) g/dL Hct 37.9 (36-46) % MCV 88.1 (80-100) fL MCH 29.5 (26-34) PG MCHC 33.5 (30-36) % RDW 14.1 (11.6-14.8) % Plt Count 389 (150-400) X10^3/uL Neut % (Auto) 61.6 (50-75) % Lymph % (Auto) 30.7 (25-40) % Dixon % (Auto) 6.0 (3-14) % Eos % (Auto) 0.9 L (2-4) % Baso % (Auto) 0.8 (0-2) % Neut # (Auto) 6500 (7734-4278) /uL Lymph # (Auto) 3200 (9038-5855) /uL Dixon # (Auto) 600 (0-900) /uL Eos # (Auto) 100 (0-450) /uL Baso # (Auto) 100 (0-100) /uL Sodium 135 L (137-145) mmol/L Potassium 3.6 (3.4-5.1) mmol/L Chloride 98 (98-107) mmol/L Carbon Dioxide 24 (22-32) mmol/L BUN 12 (7-17) mg/dL Creatinine 0.60 (0.52-1.04) mg/dL Estimated GFR > 60.0 (>60) mL/min BUN/Creatinine Ratio 20.0 (6-22) Glucose 116 H (80-110) mg/dL Lactate 3.3 H (0.7-2.1) mmol/L Calcium 9.9 (8.4-10.2) mg/dL Total Bilirubin 1.6 H (0.2-1.3) mg/dL AST 28 (14-36) IU/L ALT 22 (9-52) IU/L Alkaline Phosphatase 70 (38-126) U/L Total Creatine Kinase 55 (30-135) U/L CK-MB (CK-2) TNP CK-MB (CK-2) Rel Index TNP Troponin I < 0.012 (0.01-0.034) ng/mL Total Protein 8.0 (6.3-8.2) g/dL Albumin 4.7 (3.5-5.0) g/dL Globulin 3.3 (1.7-4.1) g/dL Albumin/Globulin Ratio 1.4 (1.0-2.8) Lipase 78 (23-300) U/L 05/22/19 Range/Units 15:31 WBC (4.5-11.0) X10^3/uL RBC (4.0-5.2) X10^6/uL Hgb (12.0-16.0) g/dL Hct (36-46) % MCV (80-100) fL MCH (26-34) PG MCHC (30-36) % RDW (11.6-14.8) % Plt Count (150-400) X10^3/uL Neut % (Auto) (50-75) % Lymph % (Auto) (25-40) % Dixon % (Auto) (3-14) % Eos % (Auto) (2-4) % Baso % (Auto) (0-2) % Neut # (Auto) (9260-2846) /uL Lymph # (Auto) (0926-5001) /uL Dixon # (Auto) (0-900) /uL Eos # (Auto) (0-450) /uL Baso # (Auto) (0-100) /uL Sodium (137-145) mmol/L Potassium (3.4-5.1) mmol/L Chloride (98-107) mmol/L Carbon Dioxide (22-32) mmol/L BUN (7-17) mg/dL Creatinine (0.52-1.04) mg/dL Estimated GFR (>60) mL/min BUN/Creatinine Ratio (6-22) Glucose (80-110) mg/dL Lactate 1.2 (0.7-2.1) mmol/L Calcium (8.4-10.2) mg/dL Total Bilirubin (0.2-1.3) mg/dL AST (14-36) IU/L ALT (9-52) IU/L Alkaline Phosphatase (38-126) U/L Total Creatine Kinase (30-135) U/L CK-MB (CK-2) CK-MB (CK-2) Rel Index Troponin I (0.01-0.034) ng/mL Total Protein (6.3-8.2) g/dL Albumin (3.5-5.0) g/dL Globulin (1.7-4.1) g/dL Albumin/Globulin Ratio (1.0-2.8) Lipase (23-300) U/L Point of care testing: Point of Care Testing Stool Occult Blood Negative Urine Dip Bedside Urine Glucose 100 mg/dl Bedside Urine Bilirubin - Negative Bedside Urine Ketone - Negative Urine Specific [place] 1.015 Bedside Urine Occult Blood - Negative Bedside Urine pH 6.0 Bedside Urine Protein - Negative Bedside Urine Urobilinogen - Negative Bedside Urine Nitrite - Negative Bedside Urine Leukocytes - Negative Esterase Imaging Data Abdominal x-ray: Radiologist's impression: [place] [address] XRay Report Signed Patient: Ho Brito#: [id number] : 9Acct:[id number] Age/Sex: 78 / FDate of Service: 05/22/19 Loc: ED Accession Number: [id number] Procedure: XR acute abdomen series Ordering Provider: Ivon Plummer D.O. PROCEDURE: XR ACUTE ABDOMEN SERIES INDICATIONS: epigastric pain, nausea, weakness. TECHNIQUE: One view chest and two views of the abdomen were acquired. COMPARISON: [facility], US, US ABDOMEN COMPLETE, 05/20/2019, 13:58. [facility], CT, CT ABDOMEN PELVIS W CON, 05/09/2018, 9:59. FINDINGS: Surgical changes and devices: Postoperative changes overlying the pubis symphysis are present. Chest: Mild scarring versus atelectasis is identified along the lateral margin of the left chest. No focal consolidation, effusion, or pneumothorax is appreciated. Heart size is normal. No pleural effusions. No pneumoperitoneum. There is aortic atherosclerosis. Abdomen: Bowel gas pattern is normal. No air-filled distended small bowel loops demonstrating air-fluid levels are appreciated. There still are seen overlying the expected locations of the colon. No suspicious calcifications. Visualized solid organ contours appear normal. Bones: No suspicious bony lesions. IMPRESSION: 1. No bowel obstruction. 2. No acute cardiopulmonary process is evident. Dictated by: Prince Monaco M.D. on 05/22/2019 at 11:24 Approved by: Prince Monaco M.D. on 05/22/2019 at 11:25 CT scan - abdomen: Radiologist's impression: [address] [address] [address] Scan Report Signed Patient: Ember Brito#: [id number] : 9Acct:[id number] Age/Sex: 78 / FDate of Service: 05/22/19 Loc: ED Accession Number: [id number] Procedure: CT abdomen pelvis w con Ordering Provider: Ivon Scales- PROCEDURE: CT ABDOMEN PELVIS W CON INDICATIONS: Weakness. Nausea, vomitting TECHNIQUE: After the administration of intravenous contrast, 5 mm thick sections acquired from the diaphragm to the symphysis. 5 mm coronal and sagittal reformats were acquired. For radiation dose reduction, the following was used: automated exposure control, adjustment of mA and/or kV according to patient size. COMPARISON: [facility], CT, CT ABDOMEN PELVIS W CON, 05/09/2018, 9:59. FINDINGS: Image quality: Excellent. ABDOMEN: Lung bases: Lung bases are clear. Heart size is normal. Solid organs: Liver is enlarged with steatosis. Multiple hepatic cysts are unchanged. Partial enhancing focus is noted in the inferior aspect of the right hepatic lobe possibly hemangioma. Gallbladder and has been removed. Biliary system is non dilated. Pancreas enhances normally. Spleen is normal in size and enhancement. No adrenal nodules. Kidneys demonstrate normal size and enhancement, without hydronephrosis. Unchanged nonobstructing right renal calculus. Left renal cysts are present. Peritoneum and bowel: Bowel loops are nonobstructed. There is a thickened appearance of the distal transverse colon extending to the rectum with areas of pericolonic inflammatory change. No pericolonic abscess. Nodes and vessels: No retroperitoneal or mesenteric adenopathy by size criteria. Aorta and inferior vena cava are normal in size. Miscellaneous: No ventral hernias. PELVIS: Genitourinary: Bladder wall thickness is normal. Miscellaneous: No inguinal hernias or adenopathy. Bones: No suspicious bony lesions. No vertebral body compression fractures. IMPRESSION: 1. Thickened appearance of the transverse, descending and sigmoid colon with areas of pericolonic inflammatory change. Overall appearance is suggestive of diffuse colitis. Dictated by: Flores Abad M.D. on 05/22/2019 at 14:09 Approved by: Flores Abad M.D. on 05/22/2019 at 14:15 [facility] Narrative Medical decision making narrative: The patient is a 78-year-old female who presents with a chief complaint of nausea vomiting diarrhea abdominal pain. She states that her symptoms have been going on for several years, but they have gotten worse over the past month and subsequently. She has a negative acute abdomen x-ray series. Her CT shows colitis, which she states she has a history of. The she was given a burst of steroids. Otherwise her troponin is negative, she is given symptomatic treatment in the emergency department for acid reflux, and responded well to GI cocktail and Protonix. She states she does have a history of ulcers and react this weight distress. She does complain of increased stress at home including the of her . She also discusses the stress of having a homosexual housemate as overwhelming. She was given contact information for several senior resources. Of note the patient has not been followed up by primary care provider in several years, so I gave her contact information for the [facility] resource conservationist. The patient requested to be admitted for her nerves, but did not want to wait for a social work consult. She seemed appreciative of the contact information that she was given in the emergency department. Discussed coming back to the ER for any acute concerns. Encouraged follow-up with PCP as soon as possible. <Ivon Plummer, DO - Last Filed: 05/23/19 07:16> Lab Data Lab Results 05/22/19 05/22/19 05/22/19 Range/Units 13:00 13:00 13:00 WBC 10.6 (4.5-11.0) X10^3/uL RBC 4.30 (4.0-5.2) X10^6/uL Hgb 12.7 (12.0-16.0) g/dL Hct 37.9 (36-46) % MCV 88.1 (80-100) fL MCH 29.5 (26-34) PG MCHC 33.5 (30-36) % RDW 14.1 (11.6-14.8) % Plt Count 389 (150-400) X10^3/uL Neut % (Auto) 61.6 (50-75) % Lymph % (Auto) 30.7 (25-40) % Dixon % (Auto) 6.0 (3-14) % Eos % (Auto) 0.9 L (2-4) % Baso % (Auto) 0.8 (0-2) % Neut # (Auto) 6500 (7704-5525) /uL Lymph # (Auto) 3200 (8492-1362) /uL Dixon # (Auto) 600 (0-900) /uL Eos # (Auto) 100 (0-450) /uL Baso # (Auto) 100 (0-100) /uL Sodium 135 L (137-145) mmol/L Potassium 3.6 (3.4-5.1) mmol/L Chloride 98 (98-107) mmol/L Carbon Dioxide 24 (22-32) mmol/L BUN 12 (7-17) mg/dL Creatinine 0.60 (0.52-1.04) mg/dL Estimated GFR > 60.0 (>60) mL/min BUN/Creatinine Ratio 20.0 (6-22) Glucose 116 H (80-110) mg/dL Lactate 3.3 H (0.7-2.1) mmol/L Calcium 9.9 (8.4-10.2) mg/dL Total Bilirubin 1.6 H (0.2-1.3) mg/dL AST 28 (14-36) IU/L ALT 22 (9-52) IU/L Alkaline Phosphatase 70 (38-126) U/L Total Creatine Kinase 55 (30-135) U/L CK-MB (CK-2) TNP CK-MB (CK-2) Rel Index TNP Troponin I < 0.012 (0.01-0.034) ng/mL Total Protein 8.0 (6.3-8.2) g/dL Albumin 4.7 (3.5-5.0) g/dL Globulin 3.3 (1.7-4.1) g/dL Albumin/Globulin Ratio 1.4 (1.0-2.8) Lipase 78 (23-300) U/L 05/22/19 Range/Units 15:31 WBC (4.5-11.0) X10^3/uL RBC (4.0-5.2) X10^6/uL Hgb (12.0-16.0) g/dL Hct (36-46) % MCV (80-100) fL MCH (26-34) PG MCHC (30-36) % RDW (11.6-14.8) % Plt Count (150-400) X10^3/uL Neut % (Auto) (50-75) % Lymph % (Auto) (25-40) % Dixon % (Auto) (3-14) % Eos % (Auto) (2-4) % Baso % (Auto) (0-2) % Neut # (Auto) (8919-9250) /uL Lymph # (Auto) (3883-6026) /uL Dixon # (Auto) (0-900) /uL Eos # (Auto) (0-450) /uL Baso # (Auto) (0-100) /uL Sodium (137-145) mmol/L Potassium (3.4-5.1) mmol/L Chloride (98-107) mmol/L Carbon Dioxide (22-32) mmol/L BUN (7-17) mg/dL Creatinine (0.52-1.04) mg/dL Estimated GFR (>60) mL/min BUN/Creatinine Ratio (6-22) Glucose (80-110) mg/dL Lactate 1.2 (0.7-2.1) mmol/L Calcium (8.4-10.2) mg/dL Total Bilirubin (0.2-1.3) mg/dL AST (14-36) IU/L ALT (9-52) IU/L Alkaline Phosphatase (38-126) U/L Total Creatine Kinase (30-135) U/L CK-MB (CK-2) CK-MB (CK-2) Rel Index Troponin I (0.01-0.034) ng/mL Total Protein (6.3-8.2) g/dL Albumin (3.5-5.0) g/dL Globulin (1.7-4.1) g/dL Albumin/Globulin Ratio (1.0-2.8) Lipase (23-300) U/L Point of care testing: Point of Care Testing Stool Occult Blood Negative Urine Dip Bedside Urine Glucose 100 mg/dl Bedside Urine Bilirubin - Negative Bedside Urine Ketone - Negative Urine Specific [place] 1.015 Bedside Urine Occult Blood - Negative Bedside Urine pH 6.0 Bedside Urine Protein - Negative Bedside Urine Urobilinogen - Negative Bedside Urine Nitrite - Negative Bedside Urine Leukocytes - Negative Esterase Discharge Plan Departure Patient Disposition: Home Clinical Impression: Colitis GERD (gastroesophageal reflux disease) Qualifiers: Esophagitis presence: esophagitis presence not specified Qualified Code(s): K21.9 - Gastro-esophageal reflux disease without esophagitis Discharge Date/Time: 05/22/19 18:16 Interventions: ED Discharge Assessment Last Done: 05/22/19 18:15 Instructions: Heartburn -- Overview, DI for Gastroesophageal Reflux Disease (GERD), DI for Epigastric Pain, GERD Diet, DI for Colitis Activity Restrictions/Additional Instructions: I have given you contact information for [facility] health resource conservationist, who can help you identify a primary care provider. You can follow up with the [facility] walk-in clinic if needed. I have given you prescriptions of steroids for your colitis as well as sucraflate for your acid symptoms Please follow up with a primary care provider. You may benefit from a flight engineer performance qualified evaluation. We have also given you many resources for seniors and anxiety. Today your lab work was grossly normal, your heart labs were normal, your CT showed colitis and your abdomen x-ray and chest x-ray were normal. Please come back to the emergency department for any acute concerns such as chest pain or shortness of breath. I feel as though you may benefit from addressing the anxiety concerns you brought up. We have given you several contact information and resources. Prescriptions: New sucralfate [Carafate] 1 gram tablet 1 gram PO QACHS Qty: 40 RF: 0 prednisone 50 mg tablet 50 mg PO DAILY Qty: 5 RF: 0 No Action metformin 1,000 mg Tablet 1,000 mg PO BID Qty: 0 RF: 0 omeprazole 20 MG capsule,delayed release(DR/EC) 20 mg PO DAILY Qty: 0 RF: 0 zolpidem 10 MG tablet 10 mg PO HS Qty: 0 RF: 0 fluoxetine 40 mg Capsule 40 mg PO DAILY Qty: 0 RF: 0 tramadol 50 mg tablet 25 mg PO Q6H PRN (Reason: pain) Qty: 14 RF: 0 lidocaine 5 % adhesive patch,medicated 2 patch TOP DAILY Qty: 30 RF: 0 benzonatate [Tessalon Perles] 100 mg capsule 100 mg PO TID PRN (Reason: cough) Qty: 14 RF: 0 loperamide 2 mg Capsule 1 cap PO PRN PRN (Reason: Diarrhea) RF: 0 aspirin 81 mg Tablet,Delayed Release (Dr/Ec) 81 mg PO QPM RF: 0 amlodipine 10 mg tablet 10 mg PO DAILY RF: 0 gabapentin 300 mg capsule 1 cap PO TID RF: 0 fluticasone propionate 50 mcg/actuation spray,suspension 1 spray Intranasal DIRECTED RF: 0 losartan 100 mg tablet 100 mg PO DAILY RF: 0 diazepam 5 mg tablet 2.5 mg PO QPM RF: 0 chlorhexidine gluconate 0.12 % mouthwash See Rx Instructions .ROUTE .COMPLEX RF: 0 albuterol sulfate 90 mcg/actuation Hfa Aerosol Inhaler 1 puff inhalation PRN PRN (Reason: Shortness Of Breath) RF: 0 Referrals: [facility] [Outside] Francisco Corona MD [Primary Care Provider] - <Ivon Plummer DO - Last Filed: 05/23/19 07:16> Cosign ED Attending Cosignature Attestation: I was immediately available in the department for consultation. This documentation has been reviewed and I agree with assessment and plan. Supervised by Ivon Plummer DO
--- NOTE | 2019-05-22 11:36 | ED_ITS ---
HPI - Abdominal Pain <Ivon Clearymer, [employer] MGR-BC - Last Filed: 05/22/19 18:51> General Chief Complaint: Abdominal Pain Stated Complaint: Weakness Time Seen by Provider: 05/22/19 11:01 Source: patient Mode of arrival: ambulatory Limitations: no limitations History of Present Illness HPI narrative: The patient is a 78-year-old female nonsmoker, hyperlipidemia and hypertension who presents with a chief complaint of nausea vomiting diarrhea and epigastric pain her whole life, stating has gotten worse over the past month and that again worse over the past week. She states she has history of stomach ulcer, and has been on antacid medication, but she is not sure which one. She states she does not see a primary care provider, but rather sees the walk-in clinic when she needs things. She denies any objective fevers, but complains of subjective chills and sweats. She complains of nausea no vomiting. She states that she has had diarrhea several times today. She is concerned that this is all related to stress and anxiety. Her recently . Related Data Home Medications Medication Instructions Recorded Confirmed metformin 1,000 mg PO BID #0 12/23/10 05/22/19 omeprazole 20 mg PO DAILY #0 02/15/13 05/22/19 zolpidem 10 mg PO HS #0 02/15/13 05/22/19 fluoxetine 40 mg PO DAILY #0 03/10/13 05/22/19 amlodipine 10 mg PO DAILY 05/09/18 05/22/19 aspirin 81 mg PO QPM 05/09/18 05/22/19 fluticasone propionate 1 spray INTRANASAL DIRECTED 05/09/18 05/22/19 gabapentin 1 cap PO TID 05/09/18 05/22/19 loperamide 1 cap PO PRN PRN 05/09/18 05/22/19 albuterol sulfate 1 puff INHALATION PRN PRN 05/22/19 05/22/19 chlorhexidine gluconate See Rx Instructions .ROUTE .COMPLEX 05/22/19 05/22/19 diazepam 2.5 mg PO QPM 05/22/19 05/22/19 losartan 100 mg PO DAILY 05/22/19 05/22/19 Previous Rx's Medication Instructions Recorded lidocaine 2 patch TOP DAILY #30 each 02/26/19 tramadol 25 mg PO Q6H PRN #14 tab 02/26/19 benzonatate [Tessalon Perles] 100 mg PO TID PRN #14 cap 03/30/19 prednisone 50 mg PO DAILY #5 tab 05/22/19 sucralfate [Carafate] 1 gram PO QACHS #40 tab 05/22/19 Allergies Allergy/AdvReac Type Severity Reaction Status Date / Time clonidine Allergy Unknown Verified 05/22/19 10:44 codeine Allergy Unknown Verified 05/22/19 10:44 diltiazem Allergy Unknown Verified 05/22/19 10:44 doxazosin Allergy Unknown Verified 05/22/19 10:44 hydralazine Allergy Unknown Verified 05/22/19 10:44 hydrocodone Allergy Unknown Verified 05/22/19 10:44 levofloxacin Allergy Unknown Verified 05/22/19 10:44 meperidine Allergy Unknown Verified 05/22/19 10:44 nifedipine Allergy Unknown Verified 05/22/19 10:44 oxycodone Allergy Unknown Verified 05/22/19 10:44 promethazine Allergy Unknown Verified 05/22/19 10:44 rosuvastatin Allergy Unknown Verified 05/22/19 10:44 simvastatin Allergy Unknown Verified 05/22/19 10:44 Sulfa (Sulfonamide Allergy Unknown Verified 05/22/19 10:44 Antibiotics) Review of Systems <SLAVA Nicole - Last Filed: 05/22/19 18:51> Review of Systems GENERAL: Denies chills, fatigue, malaise, fever, sweats. HEENT: Denies sinus pain, ear pain, sore throat, difficulty swallowing, dizziness. RESPIRATORY: Denies dyspnea, cough, wheezing, hemoptysis, sputum. CARDIOVASCULAR: See HPI GASTROINTESTINAL: See HPI : Denies dysuria, frequency, incontinence, hematuria, urinary retention. MUSCULOSKELETAL: denies weakness, joint pain, or bony pain SKIN: Denies rash, skin lesions, or other NEUROLOGIC: Denies weakness, headache, numbness, change in speech, confusion, seizures, incoordination. PSYCHIATRIC: No concerning psychosocial issues. 12 point review of systems is negative except for those stated above PFSH <SLAVA Nicole - Last Filed: 05/22/19 18:51> Medical History Diabetes (Acute) Hyperlipidemia (Acute) Hypertension (Acute) Social History Smoking Status: Never smoker Social History Smoking Status: Never smoker Exam <SLAVA Nicole - Last Filed: 05/22/19 18:51> Narrative Exam Narrative: GENERAL: Elderly female lying on stretcher HEAD: Atraumatic. Normocephalic. No temporal or scalp tenderness. EYES: Pupils equal round and reactive. Extraocular motions intact. No scleral icterus. No injection or drainage. ENT: Nose without bleeding, purulent drainage or septal hematoma. Throat without erythema, tonsillar hypertrophy or exudate. Uvula midline. Airway patent. NECK: Trachea midline. No JVD or lymphadenopathy. Supple, nontender, no meningeal signs. CARDIOVASCULAR: Regular rate and rhythm RESPIRATORY: Clear to auscultation. Breath sounds equal bilaterally. No wheezes, rales, or rhonchi. No cough. No increased respiratory effort. No accessory muscle use. GASTROINTESTINAL: Abdomen soft, diffusely tender to palpation with no guarding, nondistended. No hepato-splenomegaly, or palpable masses. No guarding. EXTREMITIES: No clubbing, cyanosis, or edema. No joint tenderness, effusion, or edema noted. BACK: Nontender without deformity or crepitance. No flank tenderness. NEURO: AOx3. Ambulating well. No gross cranial nerve deficit. SKIN: No rash or erythema. Initial Vital Signs Initial Vital Signs: Vital Signs Temperature 98.3 F 05/22/19 10:45 Pulse Rate 98 H 05/22/19 10:45 Respiratory Rate 11 L 05/22/19 10:45 Blood Pressure 176/81 H 05/22/19 10:45 Pulse Oximetry 99 05/22/19 10:45 <Ivon Plummer DO - Last Filed: 05/23/19 07:16> Initial Vital Signs Initial Vital Signs: Vital Signs Temperature 98.3 F 05/22/19 10:45 Pulse Rate 98 H 05/22/19 10:45 Respiratory Rate 11 L 05/22/19 10:45 Blood Pressure 176/81 H 05/22/19 10:45 Pulse Oximetry 99 05/22/19 10:45 Course <Ivon Scales [employer] M[employer] - Last Filed: 05/22/19 18:51> Orders Ordered: Discontinued Medications Aspirin (Aspirin Chew) 324 mg PO NOW ONE Stop: 05/22/19 10:36 Last Admin: 05/22/19 10:57 Dose: Not Given Al Hydrox/Mg Hydrox/Simethicone 20 ml/ Lidocaine HCl 15 ml 0 ml PO NOW ONE Stop: 05/22/19 12:19 Last Admin: 05/22/19 12:42 Dose: 35 ml Al Hydrox/Mg Hydrox/Simethicone 20 ml/ Lidocaine HCl 15 ml 0 ml PO NOW ONE Stop: 05/22/19 16:16 Last Admin: 05/22/19 16:22 Dose: 45 ml Sodium Chloride (Normal Saline 0.9%) 1,000 mls @ 150 mls/hr IV CONT SANGEETHA Last Infusion: 05/22/19 15:03 Dose: 0 mls/hr Infusion: 05/22/19 14:30 Dose: 999 mls/hr Admin: 05/22/19 10:57 Dose: 150 mls/hr Sodium Chloride (Normal Saline 0.9%) 1,000 mls @ 1,000 mls/hr IV BOLUS PRN PRN Reason: Fluid replacement Ondansetron HCl (Zofran) 4 mg IV NOW ONE Stop: 05/22/19 11:49 Last Admin: 05/22/19 12:42 Dose: 4 mg Ondansetron HCl (Zofran) 4 mg IV Q6HR PRN PRN Reason: Nausea And Vomiting Prednisone (Deltasone) 60 mg PO NOW ONE Stop: 05/22/19 15:01 Last Admin: 05/22/19 15:16 Dose: 60 mg Sucralfate (Carafate) 1 gm PO Q6HR SANGEETHA Last Admin: 05/22/19 15:23 Dose: Not Given Sucralfate (Carafate) 1 gm PO Q6HR SANGEETHA Last Admin: 05/22/19 15:16 Dose: 1 gm Vital Signs - 8 hr 05/22/19 12:27 05/22/19 12:30 05/22/19 13:43 Pulse Rate 82 84 87 Respiratory Rate 12 16 15 Blood Pressure [Left Arm] 160/71 H 141/67 H 149/81 H Pulse Oximetry 100 99 98 <Ivon Plummer DO - Last Filed: 05/23/19 07:16> Orders Ordered: Discontinued Medications Aspirin (Aspirin Chew) 324 mg PO NOW ONE Stop: 05/22/19 10:36 Last Admin: 05/22/19 10:57 Dose: Not Given Al Hydrox/Mg Hydrox/Simethicone 20 ml/ Lidocaine HCl 15 ml 0 ml PO NOW ONE Stop: 05/22/19 12:19 Last Admin: 05/22/19 12:42 Dose: 35 ml Al Hydrox/Mg Hydrox/Simethicone 20 ml/ Lidocaine HCl 15 ml 0 ml PO NOW ONE Stop: 05/22/19 16:16 Last Admin: 05/22/19 16:22 Dose: 45 ml Sodium Chloride (Normal Saline 0.9%) 1,000 mls @ 150 mls/hr IV CONT SANGEETHA Last Infusion: 05/22/19 15:03 Dose: 0 mls/hr Infusion: 05/22/19 14:30 Dose: 999 mls/hr Admin: 05/22/19 10:57 Dose: 150 mls/hr Sodium Chloride (Normal Saline 0.9%) 1,000 mls @ 1,000 mls/hr IV BOLUS PRN PRN Reason: Fluid replacement Ondansetron HCl (Zofran) 4 mg IV NOW ONE Stop: 05/22/19 11:49 Last Admin: 05/22/19 12:42 Dose: 4 mg Ondansetron HCl (Zofran) 4 mg IV Q6HR PRN PRN Reason: Nausea And Vomiting Prednisone (Deltasone) 60 mg PO NOW ONE Stop: 05/22/19 15:01 Last Admin: 05/22/19 15:16 Dose: 60 mg Sucralfate (Carafate) 1 gm PO Q6HR SANGEETHA Last Admin: 05/22/19 15:23 Dose: Not Given Sucralfate (Carafate) 1 gm PO Q6HR [facility] Last Admin: 05/22/19 15:16 Dose: 1 gm Vital Signs - 8 hr 05/22/19 12:27 05/22/19 12:30 05/22/19 13:43 Pulse Rate 82 84 87 Respiratory Rate 12 16 15 Blood Pressure [Left Arm] 160/71 H 141/67 H 149/81 H Pulse Oximetry 100 99 98 MDM - Abdominal Pain <SHAHRAM Nicole-MEHDI - Last Filed: 05/22/19 18:51> Lab Data Result diagrams: 05/22/19 13:00 05/22/19 13:00 Lab Results 05/22/19 05/22/19 05/22/19 Range/Units 13:00 13:00 13:00 WBC 10.6 (4.5-11.0) X10^3/uL RBC 4.30 (4.0-5.2) X10^6/uL Hgb 12.7 (12.0-16.0) g/dL Hct 37.9 (36-46) % MCV 88.1 (80-100) fL MCH 29.5 (26-34) PG MCHC 33.5 (30-36) % RDW 14.1 (11.6-14.8) % Plt Count 389 (150-400) X10^3/uL Neut % (Auto) 61.6 (50-75) % Lymph % (Auto) 30.7 (25-40) % Cass % (Auto) 6.0 (3-14) % Eos % (Auto) 0.9 L (2-4) % Baso % (Auto) 0.8 (0-2) % Neut # (Auto) 6500 (9014-5710) /uL Lymph # (Auto) 3200 (4201-3375) /uL Cass # (Auto) 600 (0-900) /uL Eos # (Auto) 100 (0-450) /uL Baso # (Auto) 100 (0-100) /uL Sodium 135 L (137-145) mmol/L Potassium 3.6 (3.4-5.1) mmol/L Chloride 98 (98-107) mmol/L Carbon Dioxide 24 (22-32) mmol/L BUN 12 (7-17) mg/dL Creatinine 0.60 (0.52-1.04) mg/dL Estimated GFR > 60.0 (>60) mL/min BUN/Creatinine Ratio 20.0 (6-22) Glucose 116 H (80-110) mg/dL Lactate 3.3 H (0.7-2.1) mmol/L Calcium 9.9 (8.4-10.2) mg/dL Total Bilirubin 1.6 H (0.2-1.3) mg/dL AST 28 (14-36) IU/L ALT 22 (9-52) IU/L Alkaline Phosphatase 70 (38-126) U/L Total Creatine Kinase 55 (30-135) U/L CK-MB (CK-2) TNP CK-MB (CK-2) Rel Index TNP Troponin I < 0.012 (0.01-0.034) ng/mL Total Protein 8.0 (6.3-8.2) g/dL Albumin 4.7 (3.5-5.0) g/dL Globulin 3.3 (1.7-4.1) g/dL Albumin/Globulin Ratio 1.4 (1.0-2.8) Lipase 78 (23-300) U/L 05/22/19 Range/Units 15:31 WBC (4.5-11.0) X10^3/uL RBC (4.0-5.2) X10^6/uL Hgb (12.0-16.0) g/dL Hct (36-46) % MCV (80-100) fL MCH (26-34) PG MCHC (30-36) % RDW (11.6-14.8) % Plt Count (150-400) X10^3/uL Neut % (Auto) (50-75) % Lymph % (Auto) (25-40) % Cass % (Auto) (3-14) % Eos % (Auto) (2-4) % Baso % (Auto) (0-2) % Neut # (Auto) (1149-5512) /uL Lymph # (Auto) (7207-2852) /uL Cass # (Auto) (0-900) /uL Eos # (Auto) (0-450) /uL Baso # (Auto) (0-100) /uL Sodium (137-145) mmol/L Potassium (3.4-5.1) mmol/L Chloride (98-107) mmol/L Carbon Dioxide (22-32) mmol/L BUN (7-17) mg/dL Creatinine (0.52-1.04) mg/dL Estimated GFR (>60) mL/min BUN/Creatinine Ratio (6-22) Glucose (80-110) mg/dL Lactate 1.2 (0.7-2.1) mmol/L Calcium (8.4-10.2) mg/dL Total Bilirubin (0.2-1.3) mg/dL AST (14-36) IU/L ALT (9-52) IU/L Alkaline Phosphatase (38-126) U/L Total Creatine Kinase (30-135) U/L CK-MB (CK-2) CK-MB (CK-2) Rel Index Troponin I (0.01-0.034) ng/mL Total Protein (6.3-8.2) g/dL Albumin (3.5-5.0) g/dL Globulin (1.7-4.1) g/dL Albumin/Globulin Ratio (1.0-2.8) Lipase (23-300) U/L Point of care testing: Point of Care Testing Stool Occult Blood Negative Urine Dip Bedside Urine Glucose 100 mg/dl Bedside Urine Bilirubin - Negative Bedside Urine Ketone - Negative Urine Specific [place] 1.015 Bedside Urine Occult Blood - Negative Bedside Urine pH 6.0 Bedside Urine Protein - Negative Bedside Urine Urobilinogen - Negative Bedside Urine Nitrite - Negative Bedside Urine Leukocytes - Negative Esterase Imaging Data Abdominal x-ray: Radiologist's impression: [place] [address] XRay Report Signed Patient: Ho Brito#: [id number] : 9Acct:[id number] Age/Sex: 78 / FDate of Service: 05/22/19 Loc: ED Accession Number: [id number] Procedure: XR acute abdomen series Ordering Provider: Ivon Plummer D.O. PROCEDURE: XR ACUTE ABDOMEN SERIES INDICATIONS: epigastric pain, nausea, weakness. TECHNIQUE: One view chest and two views of the abdomen were acquired. COMPARISON: [facility], US, US ABDOMEN COMPLETE, 05/20/2019, 13:58. [facility], CT, CT ABDOMEN PELVIS W CON, 05/09/2018, 9:59. FINDINGS: Surgical changes and devices: Postoperative changes overlying the pubis symphysis are present. Chest: Mild scarring versus atelectasis is identified along the lateral margin of the left chest. No focal consolidation, effusion, or pneumothorax is appreciated. Heart size is normal. No pleural effusions. No pneumoperitoneum. There is aortic atherosclerosis. Abdomen: Bowel gas pattern is normal. No air-filled distended small bowel loops demonstrating air-fluid levels are appreciated. There still are seen overlying the expected locations of the colon. No suspicious calcifications. Visualized solid organ contours appear normal. Bones: No suspicious bony lesions. IMPRESSION: 1. No bowel obstruction. 2. No acute cardiopulmonary process is evident. Dictated by: Prince Monaco M.D. on 05/22/2019 at 11:24 Approved by: Prince Monaco M.D. on 05/22/2019 at 11:25 CT scan - abdomen: Radiologist's impression: [address] [address] [address] Scan Report Signed Patient: Ember Brito#: [id number] : 9Acct:[id number] Age/Sex: 78 / FDate of Service: 05/22/19 Loc: ED Accession Number: [id number] Procedure: CT abdomen pelvis w con Ordering Provider: Ivon Scales- PROCEDURE: CT ABDOMEN PELVIS W CON INDICATIONS: Weakness. Nausea, vomitting TECHNIQUE: After the administration of intravenous contrast, 5 mm thick sections acquired from the diaphragm to the symphysis. 5 mm coronal and sagittal reformats were acquired. For radiation dose reduction, the following was used: automated exposure control, adjustment of mA and/or kV according to patient size. COMPARISON: [facility], CT, CT ABDOMEN PELVIS W CON, 05/09/2018, 9:59. FINDINGS: Image quality: Excellent. ABDOMEN: Lung bases: Lung bases are clear. Heart size is normal. Solid organs: Liver is enlarged with steatosis. Multiple hepatic cysts are unchanged. Partial enhancing focus is noted in the inferior aspect of the right hepatic lobe possibly hemangioma. Gallbladder and has been removed. Biliary system is non dilated. Pancreas enhances normally. Spleen is normal in size and enhancement. No adrenal nodules. Kidneys demonstrate normal size and enhancement, without hydronephrosis. Unchanged nonobstructing right renal calculus. Left renal cysts are present. Peritoneum and bowel: Bowel loops are nonobstructed. There is a thickened appearance of the distal transverse colon extending to the rectum with areas of pericolonic inflammatory change. No pericolonic abscess. Nodes and vessels: No retroperitoneal or mesenteric adenopathy by size criteria. Aorta and inferior vena cava are normal in size. Miscellaneous: No ventral hernias. PELVIS: Genitourinary: Bladder wall thickness is normal. Miscellaneous: No inguinal hernias or adenopathy. Bones: No suspicious bony lesions. No vertebral body compression fractures. IMPRESSION: 1. Thickened appearance of the transverse, descending and sigmoid colon with areas of pericolonic inflammatory change. Overall appearance is suggestive of diffuse colitis. Dictated by: Flores Abad M.D. on 05/22/2019 at 14:09 Approved by: Flores Abad M.D. on 05/22/2019 at 14:15 [facility] Narrative Medical decision making narrative: The patient is a 78-year-old female who presents with a chief complaint of nausea vomiting diarrhea abdominal pain. She states that her symptoms have been going on for several years, but they have gotten worse over the past month and subsequently. She has a negative acute abdomen x-ray series. Her CT shows colitis, which she states she has a history of. The she was given a burst of steroids. Otherwise her troponin is negative, she is given symptomatic treatment in the emergency department for acid reflux, and responded well to GI cocktail and Protonix. She states she does have a history of ulcers and react this weight distress. She does complain of increased stress at home including the of her . She also discusses the stress of having a homosexual housemate as overwhelming. She was given con tact information for several senior resources. Of note the patient has not been followed up by primary care provider in several years, so I gave her contact information for the [facility] human resources clerk. The patient requested to be admitted for her nerves, but did not want to wait for a social work consult. She seemed appreciative of the contact information that she was given in the emergency department. Discussed coming back to the ER for any acute concerns. Encouraged follow-up with PCP as soon as possible. <Ivon Plummer, DO - Last Filed: 05/23/19 07:16> Lab Data Lab Results 05/22/19 05/22/19 05/22/19 Range/Units 13:00 13:00 13:00 WBC 10.6 (4.5-11.0) X10^3/uL RBC 4.30 (4.0-5.2) X10^6/uL Hgb 12.7 (12.0-16.0) g/dL Hct 37.9 (36-46) % MCV 88.1 (80-100) fL MCH 29.5 (26-34) PG MCHC 33.5 (30-36) % RDW 14.1 (11.6-14.8) % Plt Count 389 (150-400) X10^3/uL Neut % (Auto) 61.6 (50-75) % Lymph % (Auto) 30.7 (25-40) % Cass % (Auto) 6.0 (3-14) % Eos % (Auto) 0.9 L (2-4) % Baso % (Auto) 0.8 (0-2) % Neut # (Auto) 6500 (7048-6974) /uL Lymph # (Auto) 3200 (1603-7579) /uL Cass # (Auto) 600 (0-900) /uL Eos # (Auto) 100 (0-450) /uL Baso # (Auto) 100 (0-100) /uL Sodium 135 L (137-145) mmol/L Potassium 3.6 (3.4-5.1) mmol/L Chloride 98 (98-107) mmol/L Carbon Dioxide 24 (22-32) mmol/L BUN 12 (7-17) mg/dL Creatinine 0.60 (0.52-1.04) mg/dL Estimated GFR > 60.0 (>60) mL/min BUN/Creatinine Ratio 20.0 (6-22) Glucose 116 H (80-110) mg/dL Lactate 3.3 H (0.7-2.1) mmol/L Calcium 9.9 (8.4-10.2) mg/dL Total Bilirubin 1.6 H (0.2-1.3) mg/dL AST 28 (14-36) IU/L ALT 22 (9-52) IU/L Alkaline Phosphatase 70 (38-126) U/L Total Creatine Kinase 55 (30-135) U/L CK-MB (CK-2) TNP CK-MB (CK-2) Rel Index TNP Troponin I < 0.012 (0.01-0.034) ng/mL Total Protein 8.0 (6.3-8.2) g/dL Albumin 4.7 (3.5-5.0) g/dL Globulin 3.3 (1.7-4.1) g/dL Albumin/Globulin Ratio 1.4 (1.0-2.8) Lipase 78 (23-300) U/L 05/22/ Range/Units 15:31 WBC (4.5-11.0) X10^3/uL RBC (4.0-5.2) X10^6/uL Hgb (12.0-16.0) g/dL Hct (36-46) % MCV (80-100) fL MCH (26-34) PG MCHC (30-36) % RDW (11.6-14.8) % Plt Count (150-400) X10^3/uL Neut % (Auto) (50-75) % Lymph % (Auto) (25-40) % Cass % (Auto) (3-14) % Eos % (Auto) (2-4) % Baso % (Auto) (0-2) % Neut # (Auto) (5377-8529) /uL Lymph # (Auto) (3994-9229) /uL Cass # (Auto) (0-900) /uL Eos # (Auto) (0-450) /uL Baso # (Auto) (0-100) /uL Sodium (137-145) mmol/L Potassium (3.4-5.1) mmol/L Chloride (98-107) mmol/L Carbon Dioxide (22-32) mmol/L BUN (7-17) mg/dL Creatinine (0.52-1.04) mg/dL Estimated GFR (>60) mL/min BUN/Creatinine Ratio (6-22) Glucose (80-110) mg/dL Lactate 1.2 (0.7-2.1) mmol/L Calcium (8.4-10.2) mg/dL Total Bilirubin (0.2-1.3) mg/dL AST (14-36) IU/L ALT (9-52) IU/L Alkaline Phosphatase (38-126) U/L Total Creatine Kinase (30-135) U/L CK-MB (CK-2) CK-MB (CK-2) Rel Index Troponin I (0.01-0.034) ng/mL Total Protein (6.3-8.2) g/dL Albumin (3.5-5.0) g/dL Globulin (1.7-4.1) g/dL Albumin/Globulin Ratio (1.0-2.8) Lipase (23-300) U/L Point of care testing: Point of Care Testing Stool Occult Blood Negative Urine Dip Bedside Urine Glucose 100 mg/dl Bedside Urine Bilirubin - Negative Bedside Urine Ketone - Negative Urine Specific [place] 1.015 Bedside Urine Occult Blood - Negative Bedside Urine pH 6.0 Bedside Urine Protein - Negative Bedside Urine Urobilinogen - Negative Bedside Urine Nitrite - Negative Bedside Urine Leukocytes - Negative Esterase Discharge Plan Departure Patient Disposition: Home Clinical Impression: Colitis GERD (gastroesophageal reflux disease) Qualifiers: Esophagitis presence: esophagitis presence not specified Qualified Code(s): K21.9 - Gastro-esophageal reflux disease without esophagitis Discharge Date/Time: 05/22/19 18:16 Interventions: ED Discharge Assessment Last Done: 05/22/19 18:15 Instructions: Heartburn -- Overview, DI for Gastroesophageal Reflux Disease (GERD), DI for Epigastric Pain, GERD Diet, DI for Colitis Activity Restrictions/Additional Instructions: I have given you contact information for [facility] health human resources clerk, who can help you identify a primary care provider. You can follow up with the [facility] walk-in clinic if needed. I have given you prescriptions of steroids for your colitis as well as sucraflate for your acid symptoms Please follow up with a primary care provider. You may benefit from a data processing systems project planner evaluation. We have also given you many resources for seniors and anxiety. Today your lab work was grossly normal, your heart labs were normal, your CT showed colitis and your abdomen x-ray and chest x-ray were normal. Please come back to the emergency department for any acute concerns such as chest pain or shortness of breath. I feel as though you may benefit from addressing the anxiety concerns you brought up. We have given you several contact information and resources. Prescriptions: New sucralfate [Carafate] 1 gram tablet 1 gram PO QACHS Qty: 40 RF: 0 prednisone 50 mg tablet 50 mg PO DAILY Qty: 5 RF: 0 No Action metformin 1,000 mg Tablet 1,000 mg PO BID Qty: 0 RF: 0 omeprazole 20 MG capsule,delayed release(DR/EC) 20 mg PO DAILY Qty: 0 RF: 0 zolpidem 10 MG tablet 10 mg PO HS Qty: 0 RF: 0 fluoxetine 40 mg Capsule 40 mg PO DAILY Qty: 0 RF: 0 tramadol 50 mg tablet 25 mg PO Q6H PRN (Reason: pain) Qty: 14 RF: 0 lidocaine 5 % adhesive patch,medicated 2 patch TOP DAILY Qty: 30 RF: 0 benzonatate [Tessalon Perles] 100 mg capsule 100 mg PO TID PRN (Reason: cough) Qty: 14 RF: 0 loperamide 2 mg Capsule 1 cap PO PRN PRN (Reason: Diarrhea) RF: 0 aspirin 81 mg Tablet,Delayed Release (Dr/Ec) 81 mg PO QPM RF: 0 amlodipine 10 mg tablet 10 mg PO DAILY RF: 0 gabapentin 300 mg capsule 1 cap PO TID RF: 0 fluticasone propionate 50 mcg/actuation spray,suspension 1 spray Intranasal DIRECTED RF: 0 losartan 100 mg tablet 100 mg PO DAILY RF: 0 diazepam 5 mg tablet 2.5 mg PO QPM RF: 0 chlorhexidine gluconate 0.12 % mouthwash See Rx Instructions .ROUTE .COMPLEX RF: 0 albuterol sulfate 90 mcg/actuation Hfa Aerosol Inhaler 1 puff inhalation PRN PRN (Reason: Shortness Of Breath) RF: 0 Referrals: [facility] [Outside] Francisco Corona MD [Primary Care Provider] - <Ivon Plummer DO - Last Filed: 05/23/19 07:16> Cosign ED Attending Cosignature Attestation: I was immediately available in the department for consultation. This documentation has been reviewed and I agree with assessment and plan. Supervised by Ivon Plummer DO
[2019-05-22 12:27] VITALS: BP 160/71; PULSE 82; RESP 12; O2SAT 100
[2019-05-22 12:30] VITALS: BP 141/67; PULSE 84; RESP 16; O2SAT 99
[2019-05-22] MEDS: MAG HYDROX/ALUMINUM/SIMETH SUS 20 ML, LIDOCAINE VISCOUS 2% 15 ML PO ×2 (12:42→16:22)
[2019-05-22] MEDS: ONDANSETRON 4 MG/2 ML INJ IV (12:42)
[2019-05-22 13:24] LABS: Add Manual Diff / Slide Review NO; Basophils Absolute Auto 100 /uL (0-100); Basophils Percent Auto 0.8 % (0-2); Eosinophils Absolute Auto 100 /uL (0-450); Eosinophils Percent Auto 0.9 % (2-4); Hematocrit 37.9 % (36-46); Hemoglobin 12.7 g/dL (12.0-16.0); Lymphocytes Absolute Auto 3200 /uL (1100-4500); Lymphocytes Percent Auto 30.7 % (25-40); Mean Corpuscular HGB Conc 33.5 % (30-36); Mean Corpuscular Hemoglobin 29.5 PG (26-34); Mean Corpuscular Volume 88.1 fL (80-100); Monocytes Absolute Auto 600 /uL (0-900); Neutrophils Absolute Auto 6500 /uL (1500-7000); Neutrophils Percent Auto 61.6 % (50-75); Platelet Count 389 X10^3/uL (150-400); Red Cell Distribution Width 14.1 % (11.6-14.8); White Blood Cell Count 10.6 X10^3/uL (4.5-11.0)
[2019-05-22 13:35] LABS: Lactate (Lactic Acid) 3.3 mmol/L (0.7-2.1)
[2019-05-22 13:36] LABS: Alanine Aminotransferase 22 IU/L (9-52); Albumin 4.7 g/dL (3.5-5.0); Albumin Globulin Ratio 1.4 (1.0-2.8); Alkaline Phosphatase 70 U/L (38-126); Aspartate Aminotransferase 28 IU/L (14-36); Bilirubin Total 1.6 mg/dL (0.2-1.3); Blood Urea Nitrogen 12 mg/dL (7-17); Calcium 9.9 mg/dL (8.4-10.2); Carbon Dioxide 24 mmol/L (22-32); Chloride 98 mmol/L (98-107); Creatine Kinase 55 U/L (30-135); Estimated Glomerular Filt Rate > 60.0 mL/min (>60); Globulin 3.3 g/dL (1.7-4.1); Glucose 116 mg/dL (80-110); HEMOLYSIS < 15 (0-50); Lipase 78 U/L (23-300); Potassium 3.6 mmol/L (3.4-5.1); Sodium 135 mmol/L (137-145)
[2019-05-22 13:43] VITALS: BP 149/81; PULSE 87; RESP 15; O2SAT 98
--- NOTE | 2019-05-22 13:46 | DI.CT.S_ITS ---
PROCEDURE: CT ABDOMEN PELVIS W CON INDICATIONS: Weakness. Nausea, vomitting TECHNIQUE: After the administration of intravenous contrast, 5 mm thick sections acquired from the diaphragm to the symphysis. 5 mm coronal and sagittal reformats were acquired. For radiation dose reduction, the following was used: automated exposure control, adjustment of mA and/or kV according to patient size. COMPARISON: [facility], CT, CT ABDOMEN PELVIS W CON, 05/09/2018, 9:59. FINDINGS: Image quality: Excellent. ABDOMEN: Lung bases: Lung bases are clear. Heart size is normal. Solid organs: Liver is enlarged with steatosis. Multiple hepatic cysts are unchanged. Partial enhancing focus is noted in the inferior aspect of the right hepatic lobe possibly hemangioma. Gallbladder and has been removed. Biliary system is non dilated. Pancreas enhances normally. Spleen is normal in size and enhancement. No adrenal nodules. Kidneys demonstrate normal size and enhancement, without hydronephrosis. Unchanged nonobstructing right renal calculus. Left renal cysts are present. Peritoneum and bowel: Bowel loops are nonobstructed. There is a thickened appearance of the distal transverse colon extending to the rectum with areas of pericolonic inflammatory change. No pericolonic abscess. Nodes and vessels: No retroperitoneal or mesenteric adenopathy by size criteria. Aorta and inferior vena cava are normal in size. Miscellaneous: No ventral hernias. PELVIS: Genitourinary: Bladder wall thickness is normal. Miscellaneous: No inguinal hernias or adenopathy. Bones: No suspicious bony lesions. No vertebral body compression fractures. IMPRESSION: 1. Thickened appearance of the transverse, descending and sigmoid colon with areas of pericolonic inflammatory change. Overall appearance is suggestive of diffuse colitis. Dictated by: Flores Abad M.D. on 05/22/2019 at 14:09 Approved by: Flores Abad M.D. on 05/22/2019 at 14:15
[2019-05-22 13:48] LABS: Troponin I < 0.012 ng/mL (0.01-0.034)
[2019-05-22] MEDS: predniSONE 20 MG TABLET 60 MG PO (15:16)
[2019-05-22] MEDS: SUCRALFATE 1 GM TABLET PO (15:16)
[2019-05-22 15:21] LABS: Reflexed Lactate in 2 Hours Y
[2019-05-22 16:03] LABS: Lactate 2HR (Lactic Acid Rflx) 1.2 mmol/L (0.7-2.1)
== END 2019-05-22 18:16 | disposition home or self-care (01) ==
PROVIDERS: Emergency Medicine; Emergency Provider Nurse Practitioner Family; Family Provider Internal Medicine; PCP Internal Medicine
DX: K52.9 Noninfective gastroenteritis and colitis, unspecified (principal); K21.9 Gastro-esophageal reflux disease without esophagitis; R10.13 Epigastric pain
CPT/HCPCS: 36415; 74022; 74177; 80053; 81003; 82272; 82550; 83605; 83690; 84484; 85025; 87045; 87899; 93005; 96361; 96374; 99284; 99285; J2405

== ENCOUNTER 2019-05-24 08:55 | Emergency (ER) | payer MEDICARE, BC, SELFPAY ==
[2019-05-24 08:58] VITALS: BP 149/77; PULSE 84; RESP 20; TEMP 36.9; O2SAT 100
--- NOTE | 2019-05-24 09:04 | ED_ITS ---
HPI - Abdominal Pain General Chief Complaint: Abdominal Pain Stated Complaint: Abdominal Pain Time Seen by Provider: 05/24/19 09:01 Source: patient, EMS and old records reviewed Mode of arrival: EMS Limitations: no limitations History of Present Illness HPI narrative: This is a 78-year-old who returns with complaint of diarrhea and colitis. Patient had some nausea. She has not been having any vomiting but she has continued to have some episodes of diarrhea. Patient states no active chest pain or shortness of breath. She says she sometimes has it in the past. Patient complains of fevers and chills. She has not had any cold cough or congestion. No black or bloody stools. She states that her abdominal pain or epigastric pain has improved. Patient was seen here 2 days prior, she states the medications we gave did improve her symptoms, she was discharged but she was not able to get her medications she states that her children did not go to get the medications filled. She is given prescriptions for prednisone as well as sucralfate for her colitis which was noted on CT. Discussed with patient right now she is appearing well but would like to repeat some lab work, unless there is major abnormalities we would defer further imaging which she is comfortable with that situation. She states she has artery contacted her children to come and get her. Related Data Home Medications Medication Instructions Recorded Confirmed metformin 1,000 mg PO BID #0 12/23/10 05/22/19 omeprazole 20 mg PO DAILY #0 02/15/13 05/22/19 zolpidem 10 mg PO HS #0 02/15/13 05/22/19 fluoxetine 40 mg PO DAILY #0 03/10/13 05/22/19 amlodipine 10 mg PO DAILY 05/09/18 05/22/19 aspirin 81 mg PO QPM 05/09/18 05/22/19 fluticasone propionate 1 spray INTRANASAL DIRECTED 05/09/18 05/22/19 gabapentin 1 cap PO TID 05/09/18 05/22/19 loperamide 1 cap PO PRN PRN 05/09/18 05/22/19 albuterol sulfate 1 puff INHALATION PRN PRN 05/22/19 05/22/19 chlorhexidine gluconate See Rx Instructions .ROUTE .COMPLEX 05/22/19 05/22/19 diazepam 2.5 mg PO QPM 05/22/19 05/22/19 losartan 100 mg PO DAILY 05/22/19 05/22/19 Previous Rx's Medication Instructions Recorded lidocaine 2 patch TOP DAILY #30 each 02/26/19 tramadol 25 mg PO Q6H PRN #14 tab 02/26/19 benzonatate [Tessalon Perles] 100 mg PO TID PRN #14 cap 03/30/19 prednisone 50 mg PO DAILY #5 tab 05/22/19 sucralfate [Carafate] 1 gram PO QACHS #40 tab 05/22/19 Allergies Allergy/AdvReac Type Severity Reaction Status Date / Time clonidine Allergy Unknown Verified 05/22/19 10:44 codeine Allergy Unknown Verified 05/22/19 10:44 diltiazem Allergy Unknown Verified 05/22/19 10:44 doxazosin Allergy Unknown Verified 05/22/19 10:44 hydralazine Allergy Unknown Verified 05/22/19 10:44 hydrocodone Allergy Unknown Verified 05/22/19 10:44 levofloxacin Allergy Unknown Verified 05/22/19 10:44 meperidine Allergy Unknown Verified 05/22/19 10:44 nifedipine Allergy Unknown Verified 05/22/19 10:44 oxycodone Allergy Unknown Verified 05/22/19 10:44 promethazine Allergy Unknown Verified 05/22/19 10:44 rosuvastatin Allergy Unknown Verified 05/22/19 10:44 simvastatin Allergy Unknown Verified 05/22/19 10:44 Sulfa (Sulfonamide Allergy Unknown Verified 05/22/19 10:44 Antibiotics) Review of Systems Review of Systems ROS Unobtainable: All systems reviewed & are unremarkable except as noted in HPI and below Constitutional Denies chills, Denies fever(s), Denies lethargy and Denies weakness Cardiovascular Denies chest pain, Denies irregular heart rhythm, Denies lightheadedness, Denies palpitations, Denies dyspnea, Denies dyspnea on exertion and Denies orthopnea Respiratory Denies chest congestion, Denies cough, Denies dyspnea and Denies dyspnea on exertion Gastrointestinal Gastrointestinal: Reports abdominal pain (Improving), Denies melena, Denies hematochezia, Denies change in bowel habits, Reports heartburn (Resolved), Reports diarrhea, Reports nausea and Reports vomiting (Also improving) Genitourinary Denies hematuria, Denies dysuria, Denies flank pain, Denies urinary incontinence and Denies urinary urgency Musculoskeletal Denies back pain Neurologic Denies weakness Endocrine Denies palpitations [facility] Medical History Diabetes (Acute) Hyperlipidemia (Acute) Hypertension (Acute) Social History Smoking Status: Never smoker Social History Smoking Status: Never smoker Exam Narrative Exam Narrative: GENERAL: Alert and oriented x three, well-nourished, well-appear ing elderly female. HEENT: Head normocephalic, atraumatic, EOMI, pupils reactive, face symmetric, mo ist mucous membranes NECK: Supple, full range of motion CARDIOVASCULAR: Regular rate and rhythm without murmurs, rubs or gallops. RESPIRATORY: Breath sounds equal bilaterally, no wheezes rales or rhonchi. ABDOMEN: Soft, nontender. Normoactive bowel sounds all 4 quadrants. No guarding or rebound, rigidity, no mass : No CVA tenderness EXTREMITIES: Normal range of motion, no clubbing or edema. Neurovascularly intact NEUROLOGICAL: Cranial nerves II through XII grossly intact. Moving all extrem ities SKIN: Warm, dry, no petechiae, no rashes or lesions. Initial Vital Signs Initial Vital Signs: Vital Signs Temperature 98.4 F 05/24/19 08:58 Pulse Rate 84 05/24/19 08:58 Respiratory Rate 20 05/24/19 08:58 Blood Pressure 149/77 H 05/24/19 08:58 Pulse Oximetry 100 05/24/19 08:58 Course Orders Ordered: Discontinued Medications Al Hydrox/Mg Hydrox/Simethicone 20 ml/ Lidocaine HCl 15 ml 0 ml PO NOW ONE Stop: 05/24/19 09:02 Last Admin: 05/24/19 10:09 Dose: 30 ml Sodium Chloride (Normal Saline 0.9%) 1,000 mls @ 1,000 mls/hr IV BOLUS ONE Stop: 05/24/19 10:00 Last Infusion: 05/24/19 11:18 Dose: 0 mls/hr Admin: 05/24/19 10:12 Dose: 1,000 mls/hr Methylprednisolone (Solu-Medrol 125 Mg Vial) 80 mg IV NOW ONE Stop: 05/24/19 09:02 Last Admin: 05/24/19 10:13 Dose: 80 mg Ondansetron HCl (Zofran) 4 mg IV NOW ONE Stop: 05/24/19 09:02 Last Admin: 05/24/19 10:13 Dose: 4 mg Sucralfate (Carafate) 1 gm PO Q6HR ONE Stop: 05/24/19 09:04 Last Admin: 05/24/19 10:13 Dose: 1 gm Vital Signs - 8 hr 05/24/19 11:39 Pulse Rate 77 Respiratory Rate 15 Blood Pressure 136/59 L Pulse Oximetry 98 MDM - Abdominal Pain Lab Data Attestation: I reviewed the patient's lab results. Result diagrams: 05/24/19 10:04 05/24/19 09:15 Lab Results 05/24/19 05/24/19 05/24/19 Range/Units 09:15 09:15 10:04 WBC 11.2 H (4.5-11.0) X10^3/uL RBC 4.02 (4.0-5.2) X10^6/uL Hgb 11.8 L (12.0-16.0) g/dL Hct 35.4 L (36-46) % MCV 87.9 (80-100) fL MCH 29.2 (26-34) PG MCHC 33.3 (30-36) % RDW 14.1 (11.6-14.8) % Plt Count 370 (150-400) X10^3/uL Neut % (Auto) 65.9 (50-75) % Lymph % (Auto) 25.4 (25-40) % [place] % (Auto) 6.4 (3-14) % Eos % (Auto) 1.5 L (2-4) % Baso % (Auto) 0.8 (0-2) % Neut # (Auto) 7400 H (4547-0407) /uL Lymph # (Auto) 2900 (1215-9575) /uL [place] # (Auto) 700 (0-900) /uL Eos # (Auto) 200 (0-450) /uL Baso # (Auto) 100 (0-100) /uL Sodium 129 L (137-145) mmol/L Potassium 4.1 (3.4-5.1) mmol/L Chloride 93 L (98-107) mmol/L Carbon Dioxide 23 (22-32) mmol/L BUN 21 H (7-17) mg/dL Creatinine 0.60 (0.52-1.04) mg/dL Estimated GFR > 60.0 (>60) mL/min BUN/Creatinine Ratio 35.0 H (6-22) Glucose 146 H (80-110) mg/dL Calcium 9.9 (8.4-10.2) mg/dL Total Bilirubin 1.8 H (0.2-1.3) mg/dL AST 32 (14-36) IU/L ALT 20 (9-52) IU/L Alkaline Phosphatase 59 (38-126) U/L Troponin I < 0.012 (0.01-0.034) ng/mL Total Protein 7.9 (6.3-8.2) g/dL Albumin 4.7 (3.5-5.0) g/dL Globulin 3.2 (1.7-4.1) g/dL Albumin/Globulin Ratio 1.5 (1.0-2.8) Lipase 72 (23-300) U/L Point of care testing: Urine Dip Bedside Urine Glucose Negative Bedside Urine Bilirubin - Negative Bedside Urine Ketone - Negative Urine Specific [place] 1.015 Bedside Urine Occult Blood - Negative Bedside Urine pH 6.0 Bedside Urine Protein - Negative Bedside Urine Urobilinogen - Negative Bedside Urine Nitrite - Negative Bedside Urine Leukocytes - Negative Esterase ECG Data Attestation: I personally reviewed and interpreted this ECG as follows: Prior ECG tracings: available for review Interpretation: sinus rhythm, RBBB. Rate 81 ND 154 QRS of 149 QTC of 448. Patient has prior EKG from 05/22/2019 which appears similar. [facility] Narrative Medical decision making narrative: Patient comes in with here continued abdominal discomfort as well as several other symptoms that have continued from her last visit. Patient had not started any of her medications. We discussed that she needs to start them. They have been called into her pharmacy and she states that her children should be able to help her today although they did not help her get them the other day. She was given a dose of oral Solu-Medrol we reviewed all her lab findings. We discussed holding on further imaging today as there are no major new changes but patient and I discussed that she should r eturn if worsening. Discharge Plan Departure Patient Disposition: Home Clinical Impression: Colitis, GERD (gastroesophageal reflux disease) Discharge Date/Time: 05/24/19 11:40 Interventions: ED Discharge Assessment Last Done: 05/24/19 11:39 Instructions: DI for Colitis Activity Restrictions/Additional Instructions: Follow-up with your physician in the next week for recheck. Gets your prescription medications filled today and start them. Return to ER for fevers greater than 100.4 F, persistent vomiting, black or bloody stools, increasing abdominal pain, flank pain or back pain. Passing out, new shortness of breath or chest pain or other new or concerning symptoms. Prescriptions: No Action metformin 1,000 mg Tablet 1,000 mg PO BID Qty: 0 RF: 0 omeprazole 20 MG capsule,delayed release(DR/EC) 20 mg PO DAILY Qty: 0 RF: 0 zolpidem 10 MG tablet 10 mg PO HS Qty: 0 RF: 0 fluoxetine 40 mg Capsule 40 mg PO DAILY Qty: 0 RF: 0 tramadol 50 mg tablet 25 mg PO Q6H PRN (Reason: pain) Qty: 14 RF: 0 lidocaine 5 % adhesive patch,medicated 2 patch TOP DAILY Qty: 30 RF: 0 benzonatate [Tessalon Perles] 100 mg capsule 100 mg PO TID PRN (Reason: cough) Qty: 14 RF: 0 loperamide 2 mg Capsule 1 cap PO PRN PRN (Reason: Diarrhea) RF: 0 aspirin 81 mg Tablet,Delayed Release (Dr/Ec) 81 mg PO QPM RF: 0 amlodipine 10 mg tablet 10 mg PO DAILY RF: 0 gabapentin 300 mg capsule 1 cap PO TID RF: 0 fluticasone propionate 50 mcg/actuation spray,suspension 1 spray Intranasal DIRECTED RF: 0 losartan 100 mg tablet 100 mg PO DAILY RF: 0 diazepam 5 mg tablet 2.5 mg PO QPM RF: 0 chlorhexidine gluconate 0.12 % mouthwash See Rx Instructions .ROUTE .COMPLEX RF: 0 albuterol sulfate 90 mcg/actuation Hfa Aerosol Inhaler 1 puff inhalation PRN PRN (Reason: Shortness Of Breath) RF: 0 sucralfate [Carafate] 1 gram tablet 1 gram PO QACHS Qty: 40 RF: 0 prednisone 50 mg tablet 50 mg PO DAILY Qty: 5 RF: 0 Referrals: Shahzad Toledo MD [Primary Care Provider] -
[2019-05-24 09:21] VITALS: BP 156/81; PULSE 83; RESP 12; O2SAT 100
[2019-05-24 09:36] LABS: Alanine Aminotransferase 20 IU/L (9-52); Albumin 4.7 g/dL (3.5-5.0); Albumin Globulin Ratio 1.5 (1.0-2.8); Alkaline Phosphatase 59 U/L (38-126); Aspartate Aminotransferase 32 IU/L (14-36); Bilirubin Total 1.8 mg/dL (0.2-1.3); Blood Urea Nitrogen 21 mg/dL (7-17); Calcium 9.9 mg/dL (8.4-10.2); Carbon Dioxide 23 mmol/L (22-32); Chloride 93 mmol/L (98-107); Estimated Glomerular Filt Rate > 60.0 mL/min (>60); Globulin 3.2 g/dL (1.7-4.1); Glucose 146 mg/dL (80-110); Lipase 72 U/L (23-300); Potassium 4.1 mmol/L (3.4-5.1); Sodium 129 mmol/L (137-145); Total Protein 7.9 g/dL (6.3-8.2)
[2019-05-24 09:39] LABS: HEMOLYSIS 76 (0-50)
--- NOTE | 2019-05-24 09:47 | PC.NURSE ---
Attempt for IV x2. Unsuccessful
[2019-05-24 09:48] LABS: Troponin I < 0.012 ng/mL (0.01-0.034)
[2019-05-24] MEDS: MAG HYDROX/ALUMINUM/SIMETH SUS 20 ML, LIDOCAINE VISCOUS 2% 15 ML PO (10:09)
[2019-05-24] MEDS: SODIUM CHLORIDE 0.9% 1,000 ML 1000 ML IV (10:12)
[2019-05-24] MEDS: ONDANSETRON 4 MG/2 ML INJ IV (10:13)
[2019-05-24] MEDS: SUCRALFATE 1 GM/10 ML ORAL SUSP PO (10:13)
[2019-05-24] MEDS: methylPREDNISolone 125 MG/2 ML VIAL 80 MG IV (10:13)
[2019-05-24 10:15] LABS: Add Manual Diff / Slide Review NO; Basophils Absolute Auto 100 /uL (0-100); Basophils Percent Auto 0.8 % (0-2); Eosinophils Absolute Auto 200 /uL (0-450); Eosinophils Percent Auto 1.5 % (2-4); Hematocrit 35.4 % (36-46); Hemoglobin 11.8 g/dL (12.0-16.0); Lymphocytes Absolute Auto 2900 /uL (1100-4500); Lymphocytes Percent Auto 25.4 % (25-40); Mean Corpuscular HGB Conc 33.3 % (30-36); Mean Corpuscular Hemoglobin 29.2 PG (26-34); Mean Corpuscular Volume 87.9 fL (80-100); Monocytes Absolute Auto 700 /uL (0-900); Monocytes Percent Auto 6.4 % (3-14); Neutrophils Absolute Auto 7400 /uL (1500-7000); Neutrophils Percent Auto 65.9 % (50-75); Platelet Count 370 X10^3/uL (150-400); Red Blood Cell Count 4.02 X10^6/uL (4.0-5.2); Red Cell Distribution Width 14.1 % (11.6-14.8); White Blood Cell Count 11.2 X10^3/uL (4.5-11.0)
[2019-05-24 10:55] VITALS: BP 136/59; PULSE 74; RESP 12; O2SAT 99
--- NOTE | 2019-05-24 11:33 | PC.NURSE ---
Pt is moved to Room 3a per charge nurse order
[2019-05-24 11:39] VITALS: BP 136/59; PULSE 77; RESP 15; O2SAT 98
== END 2019-05-24 11:40 | disposition home or self-care (01) ==
PROVIDERS: Emergency Provider Emergency Medicine; PCP Specialist
DX: K52.9 Noninfective gastroenteritis and colitis, unspecified (principal); K21.9 Gastro-esophageal reflux disease without esophagitis; R10.9 Unspecified abdominal pain
CPT/HCPCS: 36591; 80053; 81003; 83690; 84484; 85025; 93005; 96361; 96374; 96375; 99283; 99284; J2405; J2930

== ENCOUNTER 2019-05-27 13:41 | Emergency (ER) | payer MEDICARE, BC, SELFPAY ==
[2019-05-27] VITALS (7 sets, daily range): BP systolic 143–188; BP diastolic 74–100; PULSE 79–93; RESP 9–18; TEMP 36.6–36.9; O2SAT 97–99
--- NOTE | 2019-05-27 14:43 | DI.CT.S_ITS ---
PROCEDURE: CT HEAD/BRAIN WO CON INDICATIONS: GROUND LEVEL FALL TECHNIQUE: Noncontrast 4.5 mm thick angled axial sections acquired from the foramen magnum to the vertex, with coronal and sagittal reformats. For radiation dose reduction, the following was used: automated exposure control, adjustment of mA and/or kV according to patient size. COMPARISON: [facility], CT, CT HEAD/BRAIN WO CON, 02/26/2019, 16:25. FINDINGS: Image quality: Excellent. CSF spaces: Basal cisterns are patent. No extra-axial fluid collections. The ventricles are symmetric in size and shape. Brain: No intracranial bleeds or masses. There is cerebral volume loss for age, with resultant ventricular and sulcal prominence. There are periventricular and deep white matter chronic small vessel ischemic changes focal lacunar infarcts evident in the right frontal periventricular white matter and left anterior limb internal capsule. There is intracranial internal carotid artery atherosclerosis. Skull and face: Calvarium and visualized facial bones appear intact, without suspicious lesions. Chronic right frontal osseous exostosis. Sinuses: Visualized sinuses and mastoids are clear. IMPRESSION: 1. No CT evidence of acute intracranial process. 2. Chronic microvascular ischemic changes with superimposed bilateral focal lacunar infarcts. 3. No evidence of acute fracture. Dictated by: Lindsay Olsen M.D. on 05/27/2019 at 15:35 Approved by: Lindsay Olsen M.D. on 05/27/2019 at 15:39
--- NOTE | 2019-05-27 14:43 | DI.CT.S_ITS ---
PROCEDURE: CT CERVICAL SPINE WO CON INDICATIONS: GROUND LEVEL FALL TECHNIQUE: Noncontrast 3 mm thick sections acquired from the skull base to the T4 level. Sagittal and coronal reformats were then constructed. For radiation dose reduction, the following was used: automated exposure control, adjustment of mA and/or kV according to patient size. COMPARISON: [facility], CT, CT CERVICAL SPINE WO CON, 02/26/2019, 16:25. FINDINGS: Image quality: Excellent. Bones: No fractures or dislocations. Degenerative joint space loss at the atlantodental interval with subcortical cystic changes and hypertrophic calcification. Grade 1 degenerative anterolisthesis C5 on 6. Multilevel facet arthropathy. There is chronic central superior endplate depression of T1 without interval change, probably a Schmorl's node. Calcific degeneration of the C5-6 and C6-7 disc spaces. Visualized superior ribs are intact. Soft tissues: Prevertebral soft tissues are normal in thickness. No paravertebral hematomas. No apical pneumothoraces. IMPRESSION: 1. No acute fracture or pathologic subluxation. 2. Chronic appearing multilevel degenerative changes as described. No significant progression compared to prior. Dictated by: Lindsay Olsen M.D. on 05/27/2019 at 15:39 Approved by: Lindsay Olsen M.D. on 05/27/2019 at 15:43
[2019-05-27 14:45] LABS: Add Manual Diff / Slide Review NO; Basophils Absolute Auto 0 /uL (0-100); Basophils Percent Auto 0.5 % (0-2); Eosinophils Absolute Auto 0 /uL (0-450); Eosinophils Percent Auto 0.2 % (2-4); Hematocrit 35.3 % (36-46); Hemoglobin 12.1 g/dL (12.0-16.0); Lymphocytes Absolute Auto 1300 /uL (1100-4500); Lymphocytes Percent Auto 12.8 % (25-40); Mean Corpuscular HGB Conc 34.3 % (30-36); Mean Corpuscular Hemoglobin 29.6 PG (26-34); Mean Corpuscular Volume 86.1 fL (80-100); Monocytes Absolute Auto 100 /uL (0-900); Monocytes Percent Auto 1.2 % (3-14); Neutrophils Absolute Auto 8600 /uL (1500-7000); Neutrophils Percent Auto 85.3 % (50-75); Platelet Count 405 X10^3/uL (150-400); White Blood Cell Count 10.1 X10^3/uL (4.5-11.0)
[2019-05-27 14:55] LABS: Prothrombin Time 11.7 SECONDS (10.1-12.7)
[2019-05-27 14:57] LABS: PTT Partial Thromboplastin Tim 29 SECONDS (26.4-36.2)
[2019-05-27 15:02] LABS: Lactate (Lactic Acid) 1.7 mmol/L (0.7-2.1)
[2019-05-27 15:03] LABS: Alanine Aminotransferase 22 IU/L (9-52); Albumin 4.5 g/dL (3.5-5.0); Albumin Globulin Ratio 1.4 (1.0-2.8); Alkaline Phosphatase 74 U/L (38-126); Aspartate Aminotransferase 21 IU/L (14-36); Blood Urea Nitrogen 17 mg/dL (7-17); Calcium 9.6 mg/dL (8.4-10.2); Carbon Dioxide 25 mmol/L (22-32); Chloride 91 mmol/L (98-107); Creatine Kinase 35 U/L (30-135); Estimated Glomerular Filt Rate > 60.0 mL/min (>60); Globulin 3.2 g/dL (1.7-4.1); Glucose 231 mg/dL (80-110); HEMOLYSIS < 15 (0-50); Lipase 69 U/L (23-300); Magnesium 1.2 mg/dL (1.6-2.3); Potassium 3.7 mmol/L (3.4-5.1); Sodium 131 mmol/L (137-145); Total Protein 7.7 g/dL (6.3-8.2)
[2019-05-27 15:14] LABS: Troponin I < 0.012 ng/mL (0.01-0.034)
[2019-05-27 15:24] LABS: Procalcitonin < 0.05 ng/mL (<0.5)
--- NOTE | 2019-05-27 16:05 | DI.US.S_ITS ---
PROCEDURE: US ABDOMEN LIMITED INDICATIONS: ABDOMEN PAIN Additional history: Elevated bilirubin. TECHNIQUE: Real-time scanning was performed of the abdominal and retroperitoneal organs, with image documentation. COMPARISON: [facility], CT, CT ABDOMEN PELVIS W CON, 05/22/2019, 13:53. FINDINGS: Liver: Liver is normal in size and homogeneous in echotexture. A few anechoic cysts are again seen. The largest of which measures 2.2 cm. Shadowing lesion at the inferior margin of the right lobe is again seen and measures 1.8 x 1.6 x 1.3 cm. Gallbladder: Surgically absent. Biliary ducts: Intrahepatic bile ducts are non-dilated. Extrahepatic bile duct caliber measures 7 mm. Normal is 6-7 mm or less in diameter, or 10 mm or less post-cholecystectomy. Pancreas: Visualized portions of the pancreas are sonographically normal. Spleen: Spleen is normal in size and homogeneous in echotexture. Right kidney: No hydronephrosis. Miscellaneous: No free abdominal fluid. IMPRESSION: No abnormality identified to explain the patient's abdominal pain. Post cholecystectomy. No biliary ductal dilatation. Dictated by: Antony Durant M.D. on 05/27/2019 at 18:36 Approved by: Antony Durant M.D. on 05/27/2019 at 18:40
[2019-05-27] MEDS: PANTOPRAZOLE 20 MG TABLET PO (17:37)
[2019-05-27] MEDS: ACETAMINOPHEN 325 MG TABLET 650 MG PO (17:37)
[2019-05-27] MEDS: MAG HYDROX/ALUMINUM/SIMETH SUS 20 ML, LIDOCAINE VISCOUS 2% 15 ML PO (17:38)
[2019-05-27] MEDS: CALCIUM CARBONATE 500 MG TAB 1000 MG PO (17:59)
[2019-05-27] MEDS: CYCLOBENZAPRINE 10 MG TABLET PO (18:57)
--- NOTE | 2019-05-27 19:45 | ED_ITS ---
HPI - Abdominal Pain <Ivon ScalesCAROLYNP-BC - Last Filed: 05/27/19 21:21> General Chief Complaint: Abdominal Pain Stated Complaint: chest pain / indigestion Time Seen by Provider: 05/27/19 14:19 Source: patient and EMS Mode of arrival: EMS Limitations: no limitations History of Present Illness HPI narrative: The patient is a 78-year-old female nonsmoker with history of colitis who Presents for chief complaint of continued abdominal pain. The patient states that she has continued epigastric pain, no fevers or vomiting. Patient states that the pain is epigastric area, and denies any diarrhea today. She believes it is related to stress and hopelessness related to her 's . Of note the patient was evaluated in this emergency department on the of this month as well as the of this month for similar complaints. On the she had not filled her prescriptions that she was given on the . She now states that she has been taking her medications for 2 days. She also endorses a ground level fall that was a trip and fall yesterday, and states she hit her head and has some neck pain from it. She denies any loss of consciousness. She denies any vomiting today. She denies any dysuria urgency or frequency. Of note the patient has had an abdomen pelvis CT, abdomen pelvis x-ray done on 05/22. She has not followed up with PCP. Related Data Home Medications Medication Instructions Recorded Confirmed metformin 1,000 mg PO BID #0 12/23/10 05/22/19 omeprazole 20 mg PO DAILY #0 02/15/13 05/22/19 zolpidem 10 mg PO HS #0 02/15/13 05/22/19 fluoxetine 40 mg PO DAILY #0 03/10/13 05/22/19 amlodipine 10 mg PO DAILY 05/09/18 05/22/19 aspirin 81 mg PO QPM 05/09/18 05/22/19 fluticasone propionate 1 spray INTRANASAL DIRECTED 05/09/18 05/22/19 gabapentin 1 cap PO TID 05/09/18 05/22/19 loperamide 1 cap PO PRN PRN 05/09/18 05/22/19 albuterol sulfate 1 puff INHALATION PRN PRN 05/22/19 05/22/19 chlorhexidine gluconate See Rx Instructions .ROUTE .COMPLEX 05/22/19 05/22/19 diazepam 2.5 mg PO QPM 05/22/19 05/22/19 losartan 100 mg PO DAILY 05/22/19 05/22/19 Previous Rx's Medication Instructions Recorded lidocaine 2 patch TOP DAILY #30 each 02/26/19 tramadol 25 mg PO Q6H PRN #14 tab 02/26/19 benzonatate [Tessalon Perles] 100 mg PO TID PRN #14 cap 03/30/19 prednisone 50 mg PO DAILY #5 tab 05/22/19 sucralfate [Carafate] 1 gram PO QACHS #40 tab 05/22/19 alum-mag hydroxide-simeth [Maalox 5 ml PO QID PRN 10 Days #355 ml 05/27/19 Maximum Strength] Allergies Allergy/AdvReac Type Severity Reaction Status Date / Time clonidine Allergy Unknown Verified 05/22/19 10:44 codeine Allergy Unknown Verified 05/22/19 10:44 diltiazem Allergy Unknown Verified 05/22/19 10:44 doxazosin Allergy Unknown Verified 05/22/19 10:44 hydralazine Allergy Unknown Verified 05/22/19 10:44 hydrocodone Allergy Unknown Verified 05/22/19 10:44 levofloxacin Allergy Unknown Verified 05/22/19 10:44 meperidine Allergy Unknown Verified 05/22/19 10:44 nifedipine Allergy Unknown Verified 05/22/19 10:44 oxycodone Allergy Unknown Verified 05/22/19 10:44 promethazine Allergy Unknown Verified 05/22/19 10:44 rosuvastatin Allergy Unknown Verified 05/22/19 10:44 simvastatin Allergy Unknown Verified 05/22/19 10:44 Sulfa (Sulfonamide Allergy Unknown Verified 05/22/19 10:44 Antibiotics) Review of Systems <Ivon Scales, HEAD ORTHOPEDIC TEAM PHYSICIAN-BC - Last Filed: 05/27/19 21:21> Review of Systems GENERAL: Denies chills, fatigue, malaise, fever, sweats. HEENT: Denies sinus pain, ear pain, sore throat, difficulty swallowing, dizziness. RESPIRATORY: Denies dyspnea, cough, wheezing, hemoptysis, sputum. CARDIOVASCULAR: See HPI GASTROINTESTINAL: See HPI : Denies dysuria, frequency, incontinence, hematuria, urinary retention. MUSCULOSKELETAL: See HPI SKIN: Denies rash, skin lesions, or other NEUROLOGIC: Denies weakness, headache, numbness, change in speech, confusion, seizures, incoordination. PSYCHIATRIC: No concerning psychosocial issues. 12 point review of systems is negative except for those stated above PFSH <SLAVA Nicole - Last Filed: 05/27/19 21:21> Medical History Diabetes (Acute) Hyperlipidemia (Acute) Hypertension (Acute) Social History Smoking Status: Never smoker Social History Smoking Status: Never smoker Exam <SLAVA Nicole - Last Filed: 05/27/19 21:21> Narrative Exam Narrative: GENERAL: This is a well-nourished, well-developed patient, teary lying on stretcher HEAD: Atraumatic. Normocephalic. No temporal or scalp tenderness. EYES: Pupils equal round and reactive. Extraocular motions intact. No scleral icterus. No injection or drainage. ENT: Nose without bleeding, purulent drainage or septal hematoma. Throat without erythema, tonsillar hypertrophy or exudate. Uvula midline. Airway patent. NECK: Trachea midline. No JVD or lymphadenopathy. Supple, nontender, no meningeal signs. CARDIOVASCULAR: Regular rate and rhythm without murmurs, gallops, or rubs. RESPIRATORY: Clear to auscultation. Breath sounds equal bilaterally. No wheezes, rales, or rhonchi. No cough. No increased respiratory effort. No accessory muscle use. GASTROINTESTINAL: Abdomen soft, diffusely tender to palpation, nondistended. No hepato-splenomegaly, or palpable masses. No guarding. Active bowel sounds all 4 quadrants EXTREMITIES: No clubbing, cyanosis, or edema. No joint tenderness, effusion, or edema noted. BACK: Nontender without deformity or crepitance. No flank tenderness. Pain to C-spine palpation. No pain to tear L-spine palpation. NEURO: AOx3. SKIN: No rash or erythema. 2 cm of ecchymosis noted lateral to right eye. Initial Vital Signs Initial Vital Signs: Vital Signs Temperature 98.4 F 05/27/19 13:44 Pulse Rate 93 H 05/27/19 13:44 Respiratory Rate 10 L 05/27/19 13:44 Blood Pressure 160/85 H 05/27/19 13:44 Pulse Oximetry 99 05/27/19 13:44 <Ivon Plummer DO - Last Filed: 05/28/19 19:47> Initial Vital Signs Initial Vital Signs: Vital Signs Temperature 98.4 F 05/27/19 13:44 Pulse Rate 93 H 05/27/19 13:44 Respiratory Rate 10 L 05/27/19 13:44 Blood Pressure 160/85 H 05/27/19 13:44 Pulse Oximetry 99 05/27/19 13:44 Course <SHAHRAM Nicole-BC - Last Filed: 05/27/19 21:21> Orders Ordered: Discontinued Medications Acetaminophen (Tylenol) 650 mg PO NOW ONE Stop: 05/27/19 17:33 Last Admin: 05/27/19 17:37 Dose: 650 mg Calcium Carbonate (Tums) 1,000 mg PO Q4HR PRN PRN Reason: Dyspepsia Last Admin: 05/27/19 17:59 Dose: 1,000 mg Al Hydrox/Mg Hydrox/Simethicone 20 ml/ Lidocaine HCl 15 ml 0 ml PO NOW ONE Stop: 05/27/19 16:46 Last Admin: 05/27/19 17:38 Dose: 20 ml Cyclobenzaprine HCl (Flexeril) 10 mg PO NOW ONE Stop: 05/27/19 18:50 Last Admin: 05/27/19 18:57 Dose: 10 mg Pantoprazole Sodium (Protonix) 40 mg IV NOW ONE Stop: 05/27/19 16:46 Last Admin: 05/27/19 18:47 Dose: Not Given Pantoprazole Sodium (Protonix) 20 mg PO NOW ONE Stop: 05/27/19 17:08 Last Admin: 05/27/19 17:37 Dose: 20 mg Vital Signs - 8 hr 05/27/19 13:44 05/27/19 14:30 05/27/19 15:00 Temperature 98.4 F Pulse Rate 93 H 83 87 Respiratory Rate 10 L 18 13 Blood Pressure 160/85 H Blood Pressure [Left Arm] 152/74 H 147/82 H Pulse Oximetry 99 98 99 05/27/19 16:30 05/27/19 17:34 05/27/19 18:05 Temperature Pulse Rate 82 93 H 83 Respiratory Rate 9 L 18 10 L Blood Pressure Blood Pressure [Left Arm] 143/74 H 188/92 H 154/100 H Pulse Oximetry 97 99 97 05/27/19 20:22 Temperature 97.8 F Pulse Rate 79 Respiratory Rate 16 Blood Pressure 167/74 H Blood Pressure [Left Arm] Pulse Oximetry 97 <Ivon Plummer, - Last Filed: 05/28/19 19:47> Orders Ordered: Discontinued Medications Acetaminophen (Tylenol) 650 mg PO NOW ONE Stop: 05/27/19 17:33 Last Admin: 05/27/19 17:37 Dose: 650 mg Calcium Carbonate (Tums) 1,000 mg PO Q4HR PRN PRN Reason: Dyspepsia Last Admin: 05/27/19 17:59 Dose: 1,000 mg Al Hydrox/Mg Hydrox/Simethicone 20 ml/ Lidocaine HCl 15 ml 0 ml PO NOW ONE Stop: 05/27/19 16:46 Last Admin: 05/27/19 17:38 Dose: 20 ml Cyclobenzaprine HCl (Flexeril) 10 mg PO NOW ONE Stop: 05/27/19 18:50 Last Admin: 05/27/19 18:57 Dose: 10 mg Pantoprazole Sodium (Protonix) 40 mg IV NOW ONE Stop: 05/27/19 16:46 Last Admin: 05/27/19 18:47 Dose: Not Given Pantoprazole Sodium (Protonix) 20 mg PO NOW ONE Stop: 05/27/19 17:08 Last Admin: 05/27/19 17:37 Dose: 20 mg Vital Signs - 8 hr 05/27/19 13:44 05/27/19 14:30 05/27/19 15:00 Temperature 98.4 F Pulse Rate 93 H 83 87 Respiratory Rate 10 L 18 13 Blood Pressure 160/85 H Blood Pressure [Left Arm] 152/74 H 147/82 H Pulse Oximetry 99 98 99 05/27/19 16:30 05/27/19 17:34 05/27/19 18:05 Temperature Pulse Rate 82 93 H 83 Respiratory Rate 9 L 18 10 L Blood Pressure Blood Pressure [Left Arm] 143/74 H 188/92 H 154/100 H Pulse Oximetry 97 99 97 05/27/19 20:22 Temperature 97.8 F Pulse Rate 79 Respiratory Rate 16 Blood Pressure 167/74 H Blood Pressure [Left Arm] Pulse Oximetry 97 MDM - Abdominal Pain <Ivonyasmine ClearyCAROLYN nuñezP- - Last Filed: 05/27/19 21:21> Lab Data Result diagrams: 05/27/19 14:32 05/27/19 14:32 Lab Results 05/27/19 05/27/19 05/27/19 Range/Units 14:32 14:32 14:32 WBC 10.1 (4.5-11.0) X10^3/uL RBC 4.10 (4.0-5.2) X10^6/uL Hgb 12.1 (12.0-16.0) g/dL Hct 35.3 L (36-46) % MCV 86.1 (80-100) fL MCH 29.6 (26-34) PG MCHC 34.3 (30-36) % RDW 14.0 (11.6-14.8) % Plt Count 405 H (150-400) X10^3/uL Neut % (Auto) 85.3 H (50-75) % Lymph % (Auto) 12.8 L (25-40) % [place] % (Auto) 1.2 L (3-14) % Eos % (Auto) 0.2 L (2-4) % Baso % (Auto) 0.5 (0-2) % Neut # (Auto) 8600 H (2482-6870) /uL Lymph # (Auto) 1300 (2989-7739) /uL [place] # (Auto) 100 (0-900) /uL Eos # (Auto) 0 (0-450) /uL Baso # (Auto) 0 (0-100) /uL PT 11.7 (10.1-12.7) SECONDS INR 1.0 (0.9-1.3) APTT 29 D (26.4-36.2) SECONDS Sodium 131 L (137-145) mmol/L Potassium 3.7 (3.4-5.1) mmol/L Chloride 91 L (98-107) mmol/L Carbon Dioxide 25 (22-32) mmol/L BUN 17 (7-17) mg/dL Creatinine 0.50 L (0.52-1.04) mg/dL Estimated GFR > 60.0 (>60) mL/min BUN/Creatinine Ratio 34.0 H (6-22) Glucose 231 H (80-110) mg/dL Lactate (0.7-2.1) mmol/L Calcium 9.6 (8.4-10.2) mg/dL Magnesium 1.2 L (1.6-2.3) mg/dL Total Bilirubin 2.0 H (0.2-1.3) mg/dL AST 21 (14-36) IU/L ALT 22 (9-52) IU/L Alkaline Phosphatase 74 (38-126) U/L Total Creatine Kinase 35 (30-135) U/L CK-MB (CK-2) TNP CK-MB (CK-2) Rel Index TNP Troponin I < 0.012 (0.01-0.034) ng/mL Total Protein 7.7 (6.3-8.2) g/dL Albumin 4.5 (3.5-5.0) g/dL Globulin 3.2 (1.7-4.1) g/dL Albumin/Globulin Ratio 1.4 (1.0-2.8) Lipase 69 (23-300) U/L Procalcitonin (<0.5) ng/mL 05/27/19 05/27/19 Range/Units 14:32 14:32 WBC (4.5-11.0) X10^3/uL RBC (4.0-5.2) X10^6/uL Hgb (12.0-16.0) g/dL Hct (36-46) % MCV (80-100) fL MCH (26-34) PG MCHC (30-36) % RDW (11.6-14.8) % Plt Count (150-400) X10^3/uL Neut % (Auto) (50-75) % Lymph % (Auto) (25-40) % [place] % (Auto) (3-14) % Eos % (Auto) (2-4) % Baso % (Auto) (0-2) % Neut # (Auto) (1952-3890) /uL Lymph # (Auto) (1242-6563) /uL [place] # (Auto) (0-900) /uL Eos # (Auto) (0-450) /uL Baso # (Auto) (0-100) /uL PT (10.1-12.7) SECONDS INR (0.9-1.3) APTT (26.4-36.2) SECONDS Sodium (137-145) mmol/L Potassium (3.4-5.1) mmol/L Chloride (98-107) mmol/L Carbon Dioxide (22-32) mmol/L BUN (7-17) mg/dL Creatinine (0.52-1.04) mg/dL Estimated GFR (>60) mL/min BUN/Creatinine Ratio (6-22) Glucose (80-110) mg/dL Lactate 1.7 (0.7-2.1) mmol/L Calcium (8.4-10.2) mg/dL Magnesium (1.6-2.3) mg/dL Total Bilirubin (0.2-1.3) mg/dL AST (14-36) IU/L ALT (9-52) IU/L Alkaline Phosphatase (38-126) U/L Total Creatine Kinase (30-135) U/L CK-MB (CK-2) CK-MB (CK-2) Rel Index Troponin I (0.01-0.034) ng/mL Total Protein (6.3-8.2) g/dL Albumin (3.5-5.0) g/dL Globulin (1.7-4.1) g/dL Albumin/Globulin Ratio (1.0-2.8) Lipase (23-300) U/L Procalcitonin < 0.05 (<0.5) ng/mL Point of care testing: Urine Dip Bedside Urine Glucose Negative Bedside Urine Bilirubin - Negative Bedside Urine Ketone +/- 5 Urine Specific [place] 1.010 Bedside Urine Occult Blood - Negative Bedside Urine pH 7.0 Bedside Urine Protein - Negative Bedside Urine Urobilinogen - Negative Bedside Urine Nitrite - Negative Bedside Urine Leukocytes - Negative Esterase Imaging Data US - abdomen: Radiologist's impression: [address] [address] Ultrasound Report Signed Patient: Ember Brito LMR#: [id number] : 9Acct:[id number] Age/Sex: 78 / FDate of Service: 05/27/19 Loc: ED Accession Number: [id number] Procedure: US abdomen limited Ordering Provider: Ivon Scales HEAD ORTHOPEDIC TEAM PHYSICIAN-BC PROCEDURE: US ABDOMEN LIMITED INDICATIONS: ABDOMEN PAIN Additional history: Elevated bilirubin. TECHNIQUE: Real-time scanning was performed of the abdominal and retroperitoneal organs, with image documentation. COMPARISON: [facility], CT, CT ABDOMEN PELVIS W CON, 05/22/2019, 13:53. FINDINGS: Liver: Liver is normal in size and homogeneous in echotexture. A few anechoic cysts are again seen. The largest of which measures 2.2 cm. Shadowing lesion at the inferior margin of the right lobe is again seen and measures 1.8 x 1.6 x 1.3 cm. Gallbladder: Surgically absent. Biliary ducts: Intrahepatic bile ducts are non-dilated. Extrahepatic bile duct caliber measures 7 mm. Normal is 6-7 mm or less in diameter, or 10 mm or less post-cholecystectomy. Pancreas: Visualized portions of the pancreas are sonographically normal. Spleen: Spleen is normal in size and homogeneous in echotexture. Right kidney: No hydronephrosis. Miscellaneous: No free abdominal fluid. IMPRESSION: No abnormality identified to explain the patient's abdominal pain. Post cholecystectomy. No biliary ductal dilatation. Dictated by: Antony Durant M.D. on 05/27/2019 at 18:36 Approved by: Antony Durant M.D. on 05/27/2019 at 18:40 CT scan - head: Radiologist's impression: [place] [address] CT Scan Report Signed Patient: Ho Brito#: [id number] : 9Acct:[id number] Age/Sex: 78 / FDate of Service: 05/27/19 Loc: ED Accession Number: [id number] Procedure: CT head/brain wo con Ordering Provider: Ivon Scales-MEHDI PROCEDURE: CT HEAD/BRAIN WO CON INDICATIONS: GROUND LEVEL FALL TECHNIQUE: Noncontrast 4.5 mm thick angled axial sections acquired from the foramen magnum to the vertex, with coronal and sagittal reformats. For radiation dose reduction, the following was used: automated exposure control, adjustment of mA and/or kV according to patient size. COMPARISON: [facility], CT, CT HEAD/BRAIN WO CON, 02/26/2019, 16:25. FINDINGS: Image quality: Excellent. CSF spaces: Basal cisterns are patent. No extra-axial fluid collections. The ventricles are symmetric in size and shape. Brain: No intracranial bleeds or masses. There is cerebral volume loss for age, with resultant ventricular and sulcal prominence. There are periventricular and deep white matter chronic small vessel ischemic changes focal lacunar infarcts evident in the right frontal periventricular white matter and left anterior limb internal capsule. There is intracranial internal carotid artery atherosclerosis. Skull and face: Calvarium and visualized facial bones appear intact, without suspicious lesions. Chronic right frontal osseous exostosis. Sinuses: Visualized sinuses and mastoids are clear. IMPRESSION: 1. No CT evidence of acute intracranial process. 2. Chronic microvascular ischemic changes with superimposed bilateral focal lacunar infarcts. 3. No evidence of acute fracture. Dictated by: Lindsay Olsen M.D. on 05/27/2019 at 15:35 Approved by: Lindsay Olsen M.D. on 05/27/2019 at 15:39 Ct C spine: Radiologist's impression: Ember Brito 78 F 1940 [place] [address] CT Scan Report Signed Patient: Ember BritoMR#: [id number] : 1940cct:[id number] Age/Sex: 78 / FDate of Service: 05/27/19 Loc: ED Accession Number: [id number] Procedure: CT cervical spine wo con Ordering Provider: Ivon Scales PROCEDURE: CT CERVICAL SPINE WO CON INDICATIONS: GROUND LEVEL FALL TECHNIQUE: Noncontrast 3 mm thick sections acquired from the skull base to the T4 level. Sagittal and coronal reformats were then constructed. For radiation dose reduction, the following was used: automated exposure control, adjustment of mA and/or kV according to patient size. COMPARISON: [facility], CT, CT CERVICAL SPINE WO CON, 02/26/2019, 16:25. FINDINGS: Image quality: Excellent. Bones: No fractures or dislocations. Degenerative joint space loss at the atlantodental interval with subcortical cystic changes and hypertrophic calcification. Grade 1 degenerative anterolisthesis C5 on 6. Multilevel facet arthropathy. There is chronic central superior endplate depression of T1 without interval change, probably a Schmorl's node. Calcific degeneration of the C5-6 and C6-7 disc spaces. Visualized superior ribs are intact. Soft tissues: Prevertebral soft tissues are normal in thickness. No paravertebral hematomas. No apical pneumothoraces. IMPRESSION: 1. No acute fracture or pathologic subluxation. 2. Chronic appearing multilevel degenerative changes as described. No significant progression compared to prior. Dictated by: Lindsay Olsen M.D. on 05/27/2019 at 15:39 Approved by: Lindsay Olsen M.D. on 05/27/2019 at 15:43 ECG Data Attestation: I personally reviewed and interpreted this ECG as follows: Interpretation: Ventricular rate 83. Sinus rhythm. No ST elevation or depr ession noted. No ectopy noted. QRS [address] Plummer MDM Narrative Medical decision making narrative: The patient is a 78-year-old female who presents with a chief complaint of epigastric pain, which is continued as well a s a ground level fall yesterday. She had C-spine tenderness on exam, so she was placed in a collar and a CT head and neck was obtained. They both came back negative. Another set of lab work was completed, with overall benign findings. She continues to have a sinus rhythm EKG, negative troponin etc. She does not have an acute abdomen on exam. She was given GI cocktail with relief. I did give her prescription of Maalox as needed. I discussed at length to continue taking her steroids, as well as Carafate and Protonix. I encouraged her to follow up with her primary care physician again as a feel as though she needs continued care and possible GI referral. I discussed coming back to the ER for any acute concerns such as chest pain or shortness of breath. Patient has been hemodynamically stable, steady on her feet throughout her stay in the emergency department. She has not vomited or had any episodes of diarrhea during her stay. She has normal white blood cell count, as well as negative procalcitonin and lactate. <Ivon Plummer, DO - Last Filed: 05/28/19 19:47> Lab Data Lab Results 05/27/19 05/27/19 05/27/19 Range/Units 14:32 14:32 14:32 WBC 10.1 (4.5-11.0) X10^3/uL RBC 4.10 (4.0-5.2) X10^6/uL Hgb 12.1 (12.0-16.0) g/dL Hct 35.3 L (36-46) % MCV 86.1 (80-100) fL MCH 29.6 (26-34) PG MCHC 34.3 (30-36) % RDW 14.0 (11.6-14.8) % Plt Count 405 H (150-400) X10^3/uL Neut % (Auto) 85.3 H (50-75) % Lymph % (Auto) 12.8 L (25-40) % [place] % (Auto) 1.2 L (3-14) % Eos % (Auto) 0.2 L (2-4) % Baso % (Auto) 0.5 (0-2) % Neut # (Auto) 8600 H (6398-8638) /uL Lymph # (Auto) 1300 (1069-3806) /uL [place] # (Auto) 100 (0-900) /uL Eos # (Auto) 0 (0-450) /uL Baso # (Auto) 0 (0-100) /uL PT 11.7 (10.1-12.7) SECONDS INR 1.0 (0.9-1.3) APTT 29 D (26.4-36.2) SECONDS Sodium 131 L (137-145) mmol/L Potassium 3.7 (3.4-5.1) mmol/L Chloride 91 L (98-107) mmol/L Carbon Dioxide 25 (22-32) mmol/L BUN 17 (7-17) mg/dL Creatinine 0.50 L (0.52-1.04) mg/dL Estimated GFR > 60.0 (>60) mL/min BUN/Creatinine Ratio 34.0 H (6-22) Glucose 231 H (80-110) mg/dL Lactate (0.7-2.1) mmol/L Calcium 9.6 (8.4-10.2) mg/dL Magnesium 1.2 L (1.6-2.3) mg/dL Total Bilirubin 2.0 H (0.2-1.3) mg/dL AST 21 (14-36) IU/L ALT 22 (9-52) IU/L Alkaline Phosphatase 74 (38-126) U/L Total Creatine Kinase 35 (30-135) U/L CK-MB (CK-2) TNP CK-MB (CK-2) Rel Index TNP Troponin I < 0.012 (0.01-0.034) ng/mL Total Protein 7.7 (6.3-8.2) g/dL Albumin 4.5 (3.5-5.0) g/dL Globulin 3.2 (1.7-4.1) g/dL Albumin/Globulin Ratio 1.4 (1.0-2.8) Lipase 69 (23-300) U/L Procalcitonin (<0.5) ng/mL 05/27/19 05/27/19 Range/Units 14:32 14:32 WBC (4.5-11.0) X10^3/uL RBC (4.0-5.2) X10^6/uL Hgb (12.0-16.0) g/dL Hct (36-46) % MCV (80-100) fL MCH (26-34) PG MCHC (30-36) % RDW (11.6-14.8) % Plt Count (150-400) X10^3/uL Neut % (Auto) (50-75) % Lymph % (Auto) (25-40) % [place] % (Auto) (3-14) % Eos % (Auto) (2-4) % Baso % (Auto) (0-2) % Neut # (Auto) (6969-9197) /uL Lymph # (Auto) (1040-1449) /uL [place] # (Auto) (0-900) /uL Eos # (Auto) (0-450) /uL Baso # (Auto) (0-100) /uL PT (10.1-12.7) SECONDS INR (0.9-1.3) APTT (26.4-36.2) SECONDS Sodium (137-145) mmol/L Potassium (3.4-5.1) mmol/L Chloride (98-107) mmol/L Carbon Dioxide (22-32) mmol/L BUN (7-17) mg/dL Creatinine (0.52-1.04) mg/dL Estimated GFR (>60) mL/min BUN/Creatinine Ratio (6-22) Glucose (80-110) mg/dL Lactate 1.7 (0.7-2.1) mmol/L Calcium (8.4-10.2) mg/dL Magnesium (1.6-2.3) mg/dL Total Bilirubin (0.2-1.3) mg/dL AST (14-36) IU/L ALT (9-52) IU/L Alkaline Phosphatase (38-126) U/L Total Creatine Kinase (30-135) U/L CK-MB (CK-2) CK-MB (CK-2) Rel Index Troponin I (0.01-0.034) ng/mL Total Protein (6.3-8.2) g/dL Albumin (3.5-5.0) g/dL Globulin (1.7-4.1) g/dL Albumin/Globulin Ratio (1.0-2.8) Lipase (23-300) U/L Procalcitonin < 0.05 (<0.5) ng/mL Point of care testing: Urine Dip Bedside Urine Glucose Negative Bedside Urine Bilirubin - Negative Bedside Urine Ketone +/- 5 Urine Specific [place] 1.010 Bedside Urine Occult Blood - Negative Bedside Urine pH 7.0 Bedside Urine Protein - Negative Bedside Urine Urobilinogen - Negative Bedside Urine Nitrite - Negative Bedside Urine Leukocytes - Negative Esterase Discharge Plan Departure Patient Disposition: Home Clinical Impression: Fall from ground level GERD (gastroesophageal reflux disease) Qualifiers: Esophagitis presence: esophagitis presence not specified Qualified Code(s): K21.9 - Gastro-esophageal reflux disease without esophagitis Abdominal pain Qualifiers: Abdominal location: generalized Qualified Code(s): R10.84 - Generalized abdominal pain Discharge Date/Time: 05/27/19 20:23 Interventions: ED Discharge Assessment Last Done: 05/27/19 20:22 Instructions: Gastroesophageal Reflux Disease (Alternative Therapy), DI for Gastroesophageal Reflux Disease (GERD), DI for Abdominal Pain-Adult, How to Prevent Falls, DI for Colitis Activity Restrictions/Additional Instructions: Please continue your medications. Please follow up with your primary care provider as we discussed. I have given you follow-up information for GERD diet. This may be beneficial to you. I suggest continued use of the steroids for her colitis, as well as the Carafate and continued GERD therapy. Please come back to the emergency department for any acute concerns such as chest pain or shortness of breath. Prescriptions: New Maalox Maximum Strength 400-400-40 mg/5 mL suspension 5 ml PO QID PRN (Reason: indigestion) 10 Days Qty: 355 RF: 0 No Action metformin 1,000 mg Tablet 1,000 mg PO BID Qty: 0 RF: 0 omeprazole 20 MG capsule,delayed release(DR/EC) 20 mg PO DAILY Qty: 0 RF: 0 zolpidem 10 MG tablet 10 mg PO HS Qty: 0 RF: 0 fluoxetine 40 mg Capsule 40 mg PO DAILY Qty: 0 RF: 0 tramadol 50 mg tablet 25 mg PO Q6H PRN (Reason: pain) Qty: 14 RF: 0 lidocaine 5 % adhesive patch,medicated 2 patch TOP DAILY Qty: 30 RF: 0 benzonatate [Tessalon Perles] 100 mg capsule 100 mg PO TID PRN (Reason: cough) Qty: 14 RF: 0 loperamide 2 mg Capsule 1 cap PO PRN PRN (Reason: Diarrhea) RF: 0 aspirin 81 mg Tablet,Delayed Release (Dr/Ec) 81 mg PO QPM RF: 0 amlodipine 10 mg tablet 10 mg PO DAILY RF: 0 gabapentin 300 mg capsule 1 cap PO TID RF: 0 fluticasone propionate 50 mcg/actuation spray,suspension 1 spray Intranasal DIRECTED RF: 0 losartan 100 mg tablet 100 mg PO DAILY RF: 0 diazepam 5 mg tablet 2.5 mg PO QPM RF: 0 chlorhexidine gluconate 0.12 % mouthwash See Rx Instructions .ROUTE .COMPLEX RF: 0 albuterol sulfate 90 mcg/actuation Hfa Aerosol Inhaler 1 puff inhalation PRN PRN (Reason: Shortness Of Breath) RF: 0 sucralfate [Carafate] 1 gram tablet 1 gram PO QACHS Qty: 40 RF: 0 prednisone 50 mg tablet 50 mg PO DAILY Qty: 5 RF: 0 Referrals: Shahzad Toledo MD [Primary Care Provider] - <Ivon Plummer DO - Last Filed: 05/28/19 19:47> Cosign ED Attending Cosignature Attestation: I was immediately available in the department for consultation. This documentation has been reviewed and I agree with assessment and plan. Supervised by Ivon Plummer DO
== END 2019-05-27 20:23 | disposition home or self-care (01) ==
PROVIDERS: Emergency Provider Nurse Practitioner Family; PCP Specialist
DX: K21.9 Gastro-esophageal reflux disease without esophagitis (principal); R10.13 Epigastric pain; M54.2 Cervicalgia; S09.90XA Unspecified injury of head, initial encounter; W01.0XXA Fall on same level from slipping, tripping and stumbling without subsequent striking against object, initial encounter
CPT/HCPCS: 36415; 70450; 72125; 76705; 80053; 81003; 82550; 83605; 83690; 83735; 84145; 84484; 85025; 85610; 85730; 93005; 99283; 99285

== ENCOUNTER → 2019-09-19 17:07 | Outpatient (CLI) | payer MEDICARE, BC, SELFPAY | PROVIDERS: PCP Specialist; Visit Provider Nurse Practitioner | DX: K13.79 Other lesions of oral mucosa (principal) | CPT/HCPCS: 87210 ==

== ENCOUNTER → 2019-12-20 13:19 | Outpatient (CLI) | payer MEDICARE, BC, SELFPAY | PROVIDERS: PCP Specialist; Visit Provider Nurse Practitioner | DX: R10.9 Unspecified abdominal pain (principal) | CPT/HCPCS: 87086 ==

== ENCOUNTER 2019-12-26 13:47 | Emergency (ER) | payer MEDICARE, BC, SELFPAY ==
[2019-12-26 13:57] VITALS: BP 190/91; PULSE 89; RESP 15; TEMP 36.7; O2SAT 98; BMI 30.2
--- NOTE | 2019-12-26 14:53 | DI.RAD.S_ITS ---
PROCEDURE: XR CHEST 2V INDICATIONS: cough, malasie, fever TECHNIQUE: 2 views of the chest were acquired. COMPARISON: [facility], CR, XR CHEST 2V, 03/29/2019, 22:09. FINDINGS: Surgical changes and devices: None. Lungs and pleura: Mild airspace disease is identified at the left lung base, which has increased in the interim. No new areas of consolidation are evident. No effusion or pneumothorax is appreciated. Mediastinum: Mediastinal contours are normal. Heart size is normal. There is aortic atherosclerosis. Bones and chest wall: No suspicious bony abnormalities. Soft tissues appear unremarkable. IMPRESSION: Left basilar pneumonia. Dictated by: Prince Monaco M.D. on 12/26/2019 at 14:45 Approved by: Prince Monaco M.D. on 12/26/2019 at 14:45
[2019-12-26] MEDS: SODIUM CHLORIDE 0.9% 1,000 ML 150 ML IV (15:36)
[2019-12-26 15:46] LABS: Add Manual Diff / Slide Review NO; Basophils Absolute Auto 100 /uL (0-100); Basophils Percent Auto 0.7 % (0-2); Eosinophils Absolute Auto 100 /uL (0-450); Hemoglobin 11.8 g/dL (12.0-16.0); Lymphocytes Absolute Auto 3400 /uL (1100-4500); Lymphocytes Percent Auto 28.7 % (25-40); Mean Corpuscular HGB Conc 33.8 % (30-36); Mean Corpuscular Hemoglobin 29.4 PG (26-34); Monocytes Absolute Auto 800 /uL (0-900); Monocytes Percent Auto 6.5 % (3-14); Neutrophils Absolute Auto 7400 /uL (1500-7000); Neutrophils Percent Auto 63.1 % (50-75); Platelet Count 373 X10^3/uL (150-400); Red Blood Cell Count 4.03 X10^6/uL (4.0-5.2); Red Cell Distribution Width 14.7 % (11.6-14.8); White Blood Cell Count 11.7 X10^3/uL (4.5-11.0)
[2019-12-26 16:02] LABS: Lactate (Lactic Acid) 1.5 mmol/L (0.7-2.1)
[2019-12-26 16:03] LABS: Alanine Aminotransferase 25 IU/L (<35); Albumin 4.6 g/dL (3.5-5.0); Albumin Globulin Ratio 1.4 (1.0-2.8); Alkaline Phosphatase 69 U/L (38-126); Aspartate Aminotransferase 36 IU/L (14-36); BUN Creatinine Ratio 21.7 (6-22); Bilirubin Total 1.4 mg/dL (0.2-1.3); Blood Urea Nitrogen 13 mg/dL (7-17); Calcium 9.7 mg/dL (8.4-10.2); Carbon Dioxide 28 mmol/L (22-32); Chloride 97 mmol/L (98-107); Estimated Glomerular Filt Rate > 60.0 mL/min (>60); Globulin 3.3 g/dL (1.7-4.1); Glucose 135 mg/dL (80-110); HEMOLYSIS < 15 (0-50); Lipase 58 U/L (23-300); Potassium 3.4 mmol/L (3.4-5.1); Sodium 137 mmol/L (137-145); Total Protein 7.9 g/dL (6.3-8.2)
[2019-12-26 16:04] LABS: Creatine Kinase 52 U/L (30-135)
[2019-12-26 16:15] LABS: Troponin I < 0.012 ng/mL (0.01-0.034)
--- NOTE | 2019-12-26 16:22 | ED_ITS ---
HPI - Female Genitourinary <JESSIE Hunter - Last Filed: 12/26/19 22:35> General Chief complaint: Urogenital-Female Stated complaint: feels disoriented,extreme muscle ache,diarrhea Time Seen by Provider: 12/26/19 14:30 Source: patient Mode of arrival: Ambulatory Limitations: no limitations History of Present Illness HPI Narrative: This is a 79-year-old female, nonsmoker, who presents to ED with chief complain of I'm sick on and off for a prolonged time but recenlty she has been having malaise, fatigue, feels sweaty with generalized body aches and muscle aches and discomfort under bilateral ribs and flank area. Patient reports slight coughing. She reports she was seen at walk-in clinic on 12/20/19 and treated for UTI with Keflex 500 mg b.i.d. dose for 7 days. Patient reports she had not taken today's dose and completed for 5 days for this medication. Patient reports urinary urgency, burning discomfort and odorous urine. Patient reports she has been nauseated al the time w/o emesis, she also has chronic mouth ulcers which she takes chlorhexidine rinses. 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 Patient has a history of hypertension, type 2 diabetes, bundle branch block, fibromyalgia. Related Data Home Medications Medication Instructions Recorded Confirmed omeprazole 20 mg PO DAILY #0 02/15/13 12/20/19 amlodipine 10 mg PO DAILY 05/09/18 12/20/19 aspirin 81 mg PO QPM 05/09/18 12/20/19 loperamide 1 cap PO PRN PRN 05/09/18 12/20/19 chlorhexidine gluconate See Rx Instructions .ROUTE .COMPLEX 05/22/19 12/20/19 diazepam 2.5 mg PO QPM 05/22/19 12/20/19 dextran 70-hypromellose EYE-BOTH 12/20/19 12/20/19 fluoxetine 40 mg capsule 20 mg PO DAILY #0 cap 12/20/19 12/20/19 losartan 100 mg tablet 25 mg PO DAILY tab 12/20/19 12/20/19 metformin 1,000 mg tablet 500 mg PO BID #0 tab 12/20/19 12/20/19 omega-3 fatty acids PO 12/20/19 12/20/19 Previous Rx's Medication Instructions Recorded doxycycline hyclate 100 mg PO BID 7 Days #14 cap 12/26/19 ondansetron 4 mg PO BID-TID PRN #7 tab 12/26/19 Allergies Allergy/AdvReac Type Severity Reaction Status Date / Time clonidine Allergy Unknown Verified 12/26/19 13:57 codeine Allergy Unknown Verified 12/26/19 13:57 diltiazem Allergy Unknown Verified 12/26/19 13:57 doxazosin Allergy Unknown Verified 12/26/19 13:57 hydralazine Allergy Unknown Verified 12/26/19 13:57 hydrocodone Allergy Unknown Verified 12/26/19 13:57 levofloxacin Allergy Unknown Verified 12/26/19 13:57 meperidine Allergy Unknown Verified 12/26/19 13:57 nifedipine Allergy Unknown Verified 12/26/19 13:57 oxycodone Allergy Unknown Verified 12/26/19 13:57 promethazine Allergy Unknown Verified 12/26/19 13:57 rosuvastatin Allergy Unknown Verified 12/26/19 13:57 simvastatin Allergy Unknown Verified 12/26/19 13:57 Sulfa (Sulfonamide Allergy Unknown Verified 12/26/19 13:57 Antibiotics) Review of Systems <JESSIE Hunter - Last Filed: 12/26/19 22:35> Review of Systems Narrative: General: Denies (+) fever, chills, (+) fatigue, (+) malaise, (+) sweats. HEENT: Denies sinus pain, (+) ear pain, sore throat, difficulty swallowing, dizziness. Respiratory: Denies dyspnea, (+) cough, wheezing, hemoptysis, sputum. Cardiovascular: Denies chest pain, palpitations, orthopnea, edema. Gastrointestinal: Denies (+) nausea, vomiting, (+) below bilateral ribs/abdominal pain, diarrhea, constipation, melena. : Denies (+) dysuria, (+) frequency, incontinence, hematuria, (+) odorous urine, urinary retention. Musculoskeletal: Denies (+) generalized bodyaches, weakness, joint pain or bony pain. Skin: Denies rash, skin lesions, or other. Neurologic: Denies weakness, headache, numbness, change in speech, confusion, seizures, incoordination. Psychiatric: No concerning psychosocial issues. 12-point review of systems is negative except for those stated above. Patient History <JESSIE Hunter - Last Filed: 12/26/19 22:35> Medical History Diabetes (Acute) Hyperlipidemia (Acute) Hypertension (Acute) alcohol intake frequency: holidays/special occasions only Substance Use Type: does not use Exam <JESSIE Hunter - Last Filed: 12/26/19 22:35> Narrative Exam Narrative: GEN: Alert, oriented x 3, well appearing and nourished, and in no acute distress. Head: Normal cephalic, atraumatic. No scalp or temporal tenderness, palpable mass or rash. EYES: Pupils are equal, round, and reactive to light and accommodation. Extraocular muscles are intact bilaterally. There is no subconjunctival hemorrhage, exudate and sclera non-icteric. ENT: Bilateral auditory canals and tympanic membranes clear. Hearing grossly intact. Nose without bleeding, purulent discharge or deviation. Facial sinuses nontender to palpate. Mucous membrane moist, no mucosal lesion. Throat without erythema, tonsillar hypertrophy or exudate. Uvula in midline, airway patent. Neck: Trachea in midline. No JVD, non-tender without lymphadenopathy. No masses or thyroid megaly. Supple, non-tender and no meningeal signs. CARDIAC: Normal regular rate and rhythm without murmurs, gallops, or rubs. No chest wall tenderness. No peripheral edema, cyanosis or pallor. Capillary refill is less than 2 seconds. RESPIRATORY: Lungs are clear but decreased to auscultate bilaterally. Mild occasional cough, wheezes, rales, or rhonchi. No stridor, respiratory distress, increase work of breathing, or accessary muscle used. ABD: Abdomen soft, mild tender in generalized abdomen without distention. No guarding or rebound tenderness to palpate. Bowel sounds are normal in all 4 quadrants. There is no palpable masses or organomegaly. EXT: Full painless ROM of all extremities with no loss of sensation, strength, effusion or edema. SKIN: Warm, dry, normal color for patient. No erythema, lesions or rash over visible areas. BACK: Nontender without deformity or crepitance. No flank tenderness. NEUROLOGICAL: Alert and oriented to place, time and person. Sensation and motor function intact bilaterally. No facial droops, dysphasia. PSYCHIATRIC: Good judgement and reason, without hallucinations, abnormal affect or abnormal behaviors during the examination. Initial Vital Signs Initial Vital Signs: Vital Signs Temperature 98.1 F 12/26/19 13:57 Pulse Rate 89 12/26/19 13:57 Respiratory Rate 15 12/26/19 13:57 Blood Pressure 190/91 H 12/26/19 13:57 Pulse Oximetry 98 12/26/19 13:57 <Rambo Villa DO - Last Filed: 12/27/19 07:24> Initial Vital Signs Initial Vital Signs: Vital Signs Temperature 98.1 F 12/26/19 13:57 Pulse Rate 89 12/26/19 13:57 Respiratory Rate 15 12/26/19 13:57 Blood Pressure 190/91 H 12/26/19 13:57 Pulse Oximetry 98 12/26/19 13:57 Scores <[facility] - Last Filed: 12/26/19 22:35> CURB-65 Confusion: No BUN >19mg/dL (>7mmol/L): No Respiratory rate greater or equal to 30: No SBP <90mmHg or DBP less or equal to 60mmHg: No Age 65 or Older: Yes CURB-65 Total: 1 Score 0-1 Outpatient care, Score 2 Inpt vs. Obs, Score 3 or over Inpt admit with ICU for score of 4-5 GCS Gigi coma scale eye opening: Spontaneous Gigi coma scale verbal response: Orientated [place] coma scale motor response: Obey commands [place] coma scale total score: 15 NIH Stroke Scale Level of Conciousness: Alert, keenly responsive Ask month/age: Answers both questions correctly. Open/close eyes, close hand: Performs both tasks correctly Best gaze horizontal: Normal Visual lara: No visual loss Facial palsy: Normal symetrical movement Left arm drift: No drift for full 10 sec Right arm drift: No drift for full 10 sec Left leg drift: No drift for full 10 sec Right leg drift: No drift for full 10 sec Limb ataxia: Absent Sensory on face/arms/legs: Normal, no sensory loss Best language: No aphasia, normal Dysarthria: Normal Course <[facility] - Last Filed: 12/26/19 22:35> Orders Ordered: Discontinued Medications Sodium Chloride (Normal Saline 0.9%) 1,000 mls @ 150 mls/hr IV CONT SANGEETHA Last Infusion: 12/26/19 17:15 Dose: 0 mls/hr Documented by: Admin: 12/26/19 15:36 Dose: 150 mls/hr Documented by: TERRENCE Vital Signs Vital signs: Vital Signs - 8 hr 12/26/19 16:30 Pulse Rate 76 Respiratory Rate 21 Blood Pressure [Right Arm] 179/85 H Pulse Oximetry 98 <Rambo Villa DO - Last Filed: 12/27/19 07:24> Orders Ordered: Discontinued Medications Sodium Chloride (Normal Saline 0.9%) 1,000 mls @ 150 mls/hr IV CONT SANGEETHA Last Infusion: 12/26/19 17:15 Dose: 0 mls/hr Documented by: Admin: 12/26/19 15:36 Dose: 150 mls/hr Documented by: TERRENCE Vital Signs Vital signs: Vital Signs - 8 hr 12/26/19 16:30 Pulse Rate 76 Respiratory Rate 21 Blood Pressure [Right Arm] 179/85 H Pulse Oximetry 98 MDM - Female Genitourinary <JESSIE Hunter - Last Filed: 12/26/19 22:35> Differential Diagnosis Differential diagnosis: Likely urinary tract infection and other (sepsis, pyelonephritis, pneumonia) Medical Records Attestation: I reviewed the patient's medical records. Lab Data Attestation: I reviewed the patient's lab results. Result diagrams: 12/26/19 15:05 12/26/19 15:05 Labs: Lab Results 12/26/19 12/26/19 12/26/19 Range/Units 15:05 15:05 15:05 WBC 11.7 H (4.5-11.0) X10^3/uL RBC 4.03 (4.0-5.2) X10^6/uL Hgb 11.8 L (12.0-16.0) g/dL Hct 35.0 L (36-46) % MCV 87.0 (80-100) fL MCH 29.4 (26-34) PG MCHC 33.8 (30-36) % RDW 14.7 (11.6-14.8) % Plt Count 373 (150-400) X10^3/uL Neut % (Auto) 63.1 (50-75) % Lymph % (Auto) 28.7 (25-40) % Forest % (Auto) 6.5 (3-14) % Eos % (Auto) 1.0 L (2-4) % Baso % (Auto) 0.7 (0-2) % Neut # (Auto) 7400 H (5889-0491) /uL Lymph # (Auto) 3400 (0251-3964) /uL Forest # (Auto) 800 (0-900) /uL Eos # (Auto) 100 (0-450) /uL Baso # (Auto) 100 (0-100) /uL Sodium 137 (137-145) mmol/L Potassium 3.4 (3.4-5.1) mmol/L Chloride 97 L (98-107) mmol/L Carbon Dioxide 28 (22-32) mmol/L BUN 13 (7-17) mg/dL Creatinine 0.60 (0.52-1.04) mg/dL Estimated GFR > 60.0 (>60) mL/min BUN/Creatinine Ratio 21.7 (6-22) Glucose 135 H (80-110) mg/dL Lactate (0.7-2.1) mmol/L Calcium 9.7 (8.4-10.2) mg/dL Total Bilirubin 1.4 H (0.2-1.3) mg/dL AST 36 (14-36) IU/L ALT 25 (<35) IU/L Alkaline Phosphatase 69 (38-126) U/L Total Creatine Kinase (30-135) U/L CK-MB (CK-2) CK-MB (CK-2) Rel Index Troponin I (0.01-0.034) ng/mL Total Protein 7.9 (6.3-8.2) g/dL Albumin 4.6 (3.5-5.0) g/dL Globulin 3.3 (1.7-4.1) g/dL Albumin/Globulin Ratio 1.4 (1.0-2.8) Lipase 58 (23-300) U/L Procalcitonin < 0.05 (<0.5) ng/mL Urine RBC (0-5/HPF) Urine WBC (0-5/HPF) Ur Squamous Epith Cells (0-5/HPF) Urine Bacteria (None) Ur Culture Indicated? 12/26/19 12/26/19 12/26/19 Range/Units 15:05 15:42 16:30 WBC (4.5-11.0) X10^3/uL RBC (4.0-5.2) X10^6/uL Hgb (12.0-16.0) g/dL Hct (36-46) % MCV (80-100) fL MCH (26-34) PG MCHC (30-36) % RDW (11.6-14.8) % Plt Count (150-400) X10^3/uL Neut % (Auto) (50-75) % Lymph % (Auto) (25-40) % Forest % (Auto) (3-14) % Eos % (Auto) (2-4) % Baso % (Auto) (0-2) % Neut # (Auto) (4128-7055) /uL Lymph # (Auto) (4988-4837) /uL Forest # (Auto) (0-900) /uL Eos # (Auto) (0-450) /uL Baso # (Auto) (0-100) /uL Sodium (137-145) mmol/L Potassium (3.4-5.1) mmol/L Chloride (98-107) mmol/L Carbon Dioxide (22-32) mmol/L BUN (7-17) mg/dL Creatinine (0.52-1.04) mg/dL Estimated GFR (>60) mL/min BUN/Creatinine Ratio (6-22) Glucose (80-110) mg/dL Lactate 1.5 (0.7-2.1) mmol/L Calcium (8.4-10.2) mg/dL Total Bilirubin (0.2-1.3) mg/dL AST (14-36) IU/L ALT (<35) IU/L Alkaline Phosphatase (38-126) U/L Total Creatine Kinase 52 (30-135) U/L CK-MB (CK-2) TNP CK-MB (CK-2) Rel Index TNP Troponin I < 0.012 (0.01-0.034) ng/mL Total Protein (6.3-8.2) g/dL Albumin (3.5-5.0) g/dL Globulin (1.7-4.1) g/dL Albumin/Globulin Ratio (1.0-2.8) Lipase (23-300) U/L Procalcitonin (<0.5) ng/mL Urine RBC 1-5/hpf (0-5/HPF) Urine WBC 0-1/hpf (0-5/HPF) Ur Squamous Epith Cells 0-1 /hpf (0-5/HPF) Urine Bacteria None seen (None) Ur Culture Indicated? Cult not indicated Urine Dip Bedside Urine Glucose Negative Bedside Urine Bilirubin - Negative Bedside Urine Ketone - Negative Urine Specific [place] 1.015 Bedside Urine Occult Blood +/- Bedside Urine pH 7.0 Bedside Urine Protein - Negative Bedside Urine Urobilinogen - Negative Bedside Urine Nitrite - Negative Bedside Urine Leukocytes - Negative Esterase Imaging Data Chest x-ray: Radiologist's Impression: [address] [address] XRay Report Signed Patient: Ember Brito LMR#: [id number] : [id number]:[id number] Age/Sex: 79 / FDate of Service: 12/26/19 Loc: ED Accession Number: [id number] Procedure: XR chest 2V Ordering Provider: Leo Buchanan PROCEDURE: XR CHEST 2V INDICATIONS: cough, malasie, fever TECHNIQUE: 2 views of the chest were acquired. COMPARISON: [facility], , XR CHEST 2V, 03/29/2019, 22:09. FINDINGS: Surgical changes and devices: None. Lungs and pleura: Mild airspace disease is identified at the left lung base, which has increased in the interim. No new areas of consolidation are evident. No effusion or pneumothorax is appreciated. Mediastinum: Mediastinal contours are normal. Heart size is normal. There is aortic atherosclerosis. Bones and chest wall: No suspicious bony abnormalities. Soft tissues appear unremarkable. IMPRESSION: Left basilar pneumonia. Dictated by: Prince Monaco M.D. on 12/26/2019 at 14:45 Approved by: Prince Monaco M.D. on 12/26/2019 at 14:45 ECG Data Attestation: I personally reviewed and interpreted this ECG as follows: Prior ECG tracings: available for review Interpretation: Sinus Rhythm with RBBB rate at 77. Left [place] dominant. OR int 174, QRS dur 149, QT/QTC 421/453 No significant changes from previous EKGs. MDM Narrative Medical decision making narrative: This is a 79-year-old female who presents to ED with chief complain of urinary symptoms and generalized malaise, lethargy and multiple other chronic and bag symptoms. Patient is currently being treated for UTI with Keflex 500 mg b.i.d. dose for 7 days and she is currently on her 5th day course after visiting walk-in clinic. Patient's urine test was negative for infection but small amount of occult blood. Mildly elevated leukocytosis of 11.7. Chemistry test was unremarkable except mildly elevated glucose of 135. Procalcitonin and lactate level were normal. Cardiac enzymes were negative. EKG showed right bundle branch block rate at 77 which is similar to her previous EKGs. Chest x-ray shows left basilar pneumonia. Patient reports chronic nausea as well but without vomiting. Patient was hydrated with normal saline about 500 mL. Patient is discharged to home with Zofran as needed for nausea to hydrate herself adequately and doxycycline antibiotic medication to cover pneumonia. Patient advised to stop taking Keflex. She advised continue to take probiotics while on antibiotic medications. [facility] advised to follow-up with her primary care physician and patient verbalized understanding and in agreement with treatment plan. <Rambo Villa DO - Last Filed: 12/27/19 07:24> Lab Data Labs: Lab Results 12/26/19 12/26/19 12/26/19 Range/Units 15:05 15:05 15:05 WBC 11.7 H (4.5-11.0) X10^3/uL RBC 4.03 (4.0-5.2) X10^6/uL Hgb 11.8 L (12.0-16.0) g/dL Hct 35.0 L (36-46) % MCV 87.0 (80-100) fL MCH 29.4 (26-34) PG MCHC 33.8 (30-36) % RDW 14.7 (11.6-14.8) % Plt Count 373 (150-400) X10^3/uL Neut % (Auto) 63.1 (50-75) % Lymph % (Auto) 28.7 (25-40) % Forest % (Auto) 6.5 (3-14) % Eos % (Auto) 1.0 L (2-4) % Baso % (Auto) 0.7 (0-2) % Neut # (Auto) 7400 H (2440-7822) /uL Lymph # (Auto) 3400 (3300-9472) /uL [place] # (Auto) 800 (0-900) /uL Eos # (Auto) 100 (0-450) /uL Baso # (Auto) 100 (0-100) /uL Sodium 137 (137-145) mmol/L Potassium 3.4 (3.4-5.1) mmol/L Chloride 97 L (98-107) mmol/L Carbon Dioxide 28 (22-32) mmol/L BUN 13 (7-17) mg/dL Creatinine 0.60 (0.52-1.04) mg/dL Estimated GFR > 60.0 (>60) mL/min BUN/Creatinine Ratio 21.7 (6-22) Glucose 135 H (80-110) mg/dL Lactate (0.7-2.1) mmol/L Calcium 9.7 (8.4-10.2) mg/dL Total Bilirubin 1.4 H (0.2-1.3) mg/dL AST 36 (14-36) IU/L ALT 25 (<35) IU/L Alkaline Phosphatase 69 (38-126) U/L Total Creatine Kinase (30-135) U/L CK-MB (CK-2) CK-MB (CK-2) Rel Index Troponin I (0.01-0.034) ng/mL Total Protein 7.9 (6.3-8.2) g/dL Albumin 4.6 (3.5-5.0) g/dL Globulin 3.3 (1.7-4.1) g/dL Albumin/Globulin Ratio 1.4 (1.0-2.8) Lipase 58 (23-300) U/L Procalcitonin < 0.05 (<0.5) ng/mL Urine RBC (0-5/HPF) Urine WBC (0-5/HPF) Ur Squamous Epith Cells (0-5/HPF) Urine Bacteria (None) Ur Culture Indicated? 12/26/19 12/26/19 12/26/19 Range/Units 15:05 15:42 16:30 WBC (4.5-11.0) X10^3/uL RBC (4.0-5.2) X10^6/uL Hgb (12.0-16.0) g/dL Hct (36-46) % MCV (80-100) fL MCH (26-34) PG MCHC (30-36) % RDW (11.6-14.8) % Plt Count (150-400) X10^3/uL Neut % (Auto) (50-75) % Lymph % (Auto) (25-40) % [place] % (Auto) (3-14) % Eos % (Auto) (2-4) % Baso % (Auto) (0-2) % Neut # (Auto) (2143-8769) /uL Lymph # (Auto) (5836-9817) /uL Forest # (Auto) (0-900) /uL Eos # (Auto) (0-450) /uL Baso # (Auto) (0-100) /uL Sodium (137-145) mmol/L Potassium (3.4-5.1) mmol/L Chloride (98-107) mmol/L Carbon Dioxide (22-32) mmol/L BUN (7-17) mg/dL Creatinine (0.52-1.04) mg/dL Estimated GFR (>60) mL/min BUN/Creatinine Ratio (6-22) Glucose (80-110) mg/dL Lactate 1.5 (0.7-2.1) mmol/L Calcium (8.4-10.2) mg/dL Total Bilirubin (0.2-1.3) mg/dL AST (14-36) IU/L ALT (<35) IU/L Alkaline Phosphatase (38-126) U/L Total Creatine Kinase 52 (30-135) U/L CK-MB (CK-2) TNP CK-MB (CK-2) Rel Index TNP Troponin I < 0.012 (0.01-0.034) ng/mL Total Protein (6.3-8.2) g/dL Albumin (3.5-5.0) g/dL Globulin (1.7-4.1) g/dL Albumin/Globulin Ratio (1.0-2.8) Lipase (23-300) U/L Procalcitonin (<0.5) ng/mL Urine RBC 1-5/hpf (0-5/HPF) Urine WBC 0-1/hpf (0-5/HPF) Ur Squamous Epith Cells 0-1 /hpf (0-5/HPF) Urine Bacteria None seen (None) Ur Culture Indicated? Cult not indicated Urine Dip Bedside Urine Glucose Negative Bedside Urine Bilirubin - Negative Bedside Urine Ketone - Negative Urine Specific [place] 1.015 Bedside Urine Occult Blood +/- Bedside Urine pH 7.0 Bedside Urine Protein - Negative Bedside Urine Urobilinogen - Negative Bedside Urine Nitrite - Negative Bedside Urine Leukocytes - Negative Esterase Discharge Plan Departure Patient Disposition: Home Clinical Impression: Pneumonia Qualifiers: Pneumonia type: due to unspecified organism Laterality: left Lung location: lower lobe of lung Qualified Code(s): J18.9 - Pneumonia, unspecified organism Discharge Date/Time: 12/26/19 17:20 Instructions: DI for Pneumonia -- Adult Activity Restrictions/Additional Instructions: You have been diagnosed with [left lower lobe pneumonia. White count was mildly elevated today as 11.7. There is no elevation in lactate. Your chemistries were unremarkable. Urine looks no indications for infection. Chest x-ray shows left basilar pneumonia. Cardiac enzymes were negative.]. What to do: *Take your medications as directed. Please start taking doxycycline twice a day for next 7 days for pneumonia. Please take Zofran as needed for nausea and vomiting to hydrate adequately. This medication has been transmitted to [facility] in [place]. You can take [id number] Tylenol and or Motrin as needed for discomfort and fever. *Follow up with your primary care provider in 2-3 days, call for an appointment. Let them know you were seen in the ED and that we asked you to be seen in follow up. *Return to ED if you have any new, worsening, or concerning symptoms, such as [chest pain, breathing difficulty, unable to tolerate fluids, high fever not controlled with Tylenol and or Motrin, or any acute concerns]. Prescriptions: New doxycycline hyclate 100 mg capsule 100 mg PO BID 7 Days Qty: 14 RF: 0 ondansetron 4 mg tablet,disintegrating 4 mg PO BID-TID PRN (Reason: nausea and vomiting) Qty: 7 RF: 0 No Action dextran 70-hypromellose EYE-BOTH RF: 0 omega-3 fatty acids PO RF: 0 omeprazole 20 MG capsule,delayed release(DR/EC) 20 mg PO DAILY Qty: 0 RF: 0 fluoxetine 40 mg capsule 20 mg PO DAILY Qty: 0 RF: 0 metformin 1,000 mg tablet 500 mg PO BID Qty: 0 RF: 0 loperamide 2 mg Capsule 1 cap PO PRN PRN (Reason: Diarrhea) RF: 0 aspirin 81 mg Tablet,Delayed Release (Dr/Ec) 81 mg PO QPM RF: 0 amlodipine 10 mg tablet 10 mg PO DAILY RF: 0 diazepam 5 mg tablet 2.5 mg PO QPM RF: 0 chlorhexidine gluconate 0.12 % mouthwash See Rx Instructions .ROUTE .COMPLEX RF: 0 losartan 100 mg tablet 25 mg PO DAILY RF: 0 Referrals: Charleen Jeffries ARNP [Primary Care Provider] -
[2019-12-26 16:29] LABS: Procalcitonin < 0.05 ng/mL (<0.5)
[2019-12-26 16:30] VITALS: BP 179/85; PULSE 76; RESP 21; O2SAT 98
[2019-12-26 16:41] LABS: Bacteria Urine None Seen
[2019-12-26 16:49] LABS: Culture Indicated Urine Cult Not Indicated; RBC Urine 1-5/HPF (0-5/HPF); Squamous Epithelial Cell Urine 0-1 /HPF (0-5/HPF); WBC Urine 0-1/HPF (0-5/HPF)
== END 2019-12-26 17:20 | disposition home or self-care (01) ==
PROVIDERS: Emergency Provider Nurse Practitioner Family; PCP Nurse Practitioner
DX: J18.9 Pneumonia, unspecified organism (principal); R79.89 Other specified abnormal findings of blood chemistry; I10 Essential (primary) hypertension; E11.9 Type 2 diabetes mellitus without complications; E78.5 Hyperlipidemia, unspecified; R07.9 Chest pain, unspecified
CPT/HCPCS: 36415; 71046; 80053; 81003; 81015; 82550; 83605; 83690; 84145; 84484; 85025; 93005; 96360; 96361; 99284

== ENCOUNTER 2020-01-04 08:12 | Emergency (ER) | payer MEDICARE, BC, SELFPAY ==
[2020-01-04 08:15] VITALS: BP 192/86; PULSE 98; RESP 18; TEMP 37.3; O2SAT 97
--- NOTE | 2020-01-04 08:30 | ED_ITS ---
HPI - General Adult General Chief complaint: Weakness Stated complaint: Pneumonia x2 weeks, dizzy Time Seen by Provider: 01/04/20 08:12 Source: patient Mode of arrival: EMS Limitations: no limitations History of Present Illness HPI narrative: 79-year-old female who is brought in by EMS this morning. Patient states that she has been ?sick? since in October. Was seen here in the emergency department on the of last month and diagnosed with pneumonia. Was given a prescription for doxycycline which she completed. Then followed up with her primary doctor on Sunday and was given a 2nd course of doxycycline. She states that this morning she was home alone. She stated that she ?could not control my fevers ?she was concerned about being home alone. Has fairly vague complaints. She states that she has had swollen glands in her neck, has had sores on her body. Related Data Home Medications Medication Instructions Recorded Confirmed omeprazole 20 mg PO DAILY #0 02/15/13 12/20/19 amlodipine 10 mg PO DAILY 05/09/18 12/20/19 aspirin 81 mg PO QPM 05/09/18 12/20/19 loperamide 1 cap PO PRN PRN 05/09/18 12/20/19 chlorhexidine gluconate See Rx Instructions .ROUTE .COMPLEX 05/22/19 12/20/19 diazepam 2.5 mg PO QPM 05/22/19 12/20/19 dextran 70-hypromellose EYE-BOTH 12/20/19 12/20/19 fluoxetine 40 mg capsule 20 mg PO DAILY #0 cap 12/20/19 12/20/19 losartan 100 mg tablet 25 mg PO DAILY tab 12/20/19 12/20/19 metformin 1,000 mg tablet 500 mg PO BID #0 tab 12/20/19 12/20/19 omega-3 fatty acids PO 12/20/19 12/20/19 Previous Rx's Medication Instructions Recorded doxycycline hyclate 100 mg PO BID 7 Days #14 cap 12/26/19 ondansetron 4 mg PO BID-TID PRN #7 tab 12/26/19 Allergies Allergy/AdvReac Type Severity Reaction Status Date / Time clonidine Allergy Unknown Verified 12/26/19 13:57 codeine Allergy Unknown Verified 12/26/19 13:57 diltiazem Allergy Unknown Verified 12/26/19 13:57 doxazosin Allergy Unknown Verified 12/26/19 13:57 hydralazine Allergy Unknown Verified 12/26/19 13:57 hydrocodone Allergy Unknown Verified 12/26/19 13:57 levofloxacin Allergy Unknown Verified 12/26/19 13:57 meperidine Allergy Unknown Verified 12/26/19 13:57 nifedipine Allergy Unknown Verified 12/26/19 13:57 oxycodone Allergy Unknown Verified 12/26/19 13:57 promethazine Allergy Unknown Verified 12/26/19 13:57 rosuvastatin Allergy Unknown Verified 12/26/19 13:57 simvastatin Allergy Unknown Verified 12/26/19 13:57 Sulfa (Sulfonamide Allergy Unknown Verified 12/26/19 13:57 Antibiotics) Review of Systems Constitutional Constitutional: Reports fatigue, Reports fever(s) and Denies headache(s) ENT Ears, Nose, Mouth, and Throat: Denies headache(s) and Denies sore throat Comments: Swollen glands Respiratory Comments: History of pneumonia Gastrointestinal Gastrointestinal: Denies vomiting Musculoskeletal Musculoskeletal: Denies myalgias and Denies arthralgias Integumentary/Breasts Skin/Breast: Reports rash Neurologic Neurologic: Denies behavioral changes and Denies headache(s) Psychiatric Psychiatric: Denies behavioral changes Endocrine Endocrine: Reports fatigue Hematologic/Lymphatic Hematologic/Lymphatic: Denies easy bleeding and Denies easy bruising Patient History Medical History Diabetes (Acute) Hyperlipidemia (Acute) Hypertension (Acute) Social History Smoking Status: Never smoker Smoking Status: Never smoker alcohol intake frequency: holidays/special occasions only Substance Use Type: does not use Exam Initial Vital Signs Initial Vital Signs: Vital Signs Temperature 99.1 F 01/04/20 08:15 Pulse Rate 98 H 01/04/20 08:15 Respiratory Rate 18 01/04/20 08:15 Blood Pressure 192/86 H 01/04/20 08:15 Pulse Oximetry 97 01/04/20 08:15 Const General: cooperative and comfortable Limitations: mental status not altered HENMT Head: normal to inspection and normocephalic Resp Effort & Inspection: normal respiratory effort Auscultation: clear to auscultation bilaterally Cardio Rate: regular rate Rhythm: regular rhythm GI Palpation: soft Skin Lesions: no lesions Rashes: no rashes Neuro General: alert, awake and oriented x3 Cognition: normal cognition Speech: speech normal Motor: muscle tone normal throughout Extrem General: normal to inspection and capillary refill normal Psych Appearance: grossly normal and well kempt Course Orders Ordered: ED Orders 01/04/20 08:26 EKG-12 Lead Stat 01/04/20 08:48 XR chest 1V Stat 01/04/20 09:15 Basic Metabolic Panel Stat Complete Blood Count AUTO DIFF Stat Lactate (Lactic Acid) Stat Procalcitonin Stat Troponin I Stat Vital Signs Vital signs: Vital Signs - 8 hr 01/04/20 08:15 01/04/20 09:30 Temperature 99.1 F Pulse Rate 98 H 80 Respiratory Rate 18 9 L Blood Pressure 192/86 H Blood Pressure [Left Arm] 152/73 H Pulse Oximetry 97 96 Medical Decision Making Lab Data Lab results reviewed: Yes I reviewed the patient's lab results. Result diagrams: 01/04/20 09:15 01/04/20 09:15 Labs: Lab Results 01/04/20 01/04/20 01/04/20 Range/Units 09:15 09:15 09:15 WBC 10.0 (4.5-11.0) X10^3/uL RBC 4.27 (4.0-5.2) X10^6/uL Hgb 12.6 (12.0-16.0) g/dL Hct 37.5 (36-46) % MCV 88.0 (80-100) fL MCH 29.6 (26-34) PG MCHC 33.6 (30-36) % RDW 14.4 (11.6-14.8) % Plt Count 368 (150-400) X10^3/uL Neut % (Auto) 67.6 (50-75) % Lymph % (Auto) 26.1 (25-40) % [place] % (Auto) 4.8 (3-14) % Eos % (Auto) 0.8 L (2-4) % Baso % (Auto) 0.7 (0-2) % Neut # (Auto) 6800 (7864-7083) /uL Lymph # (Auto) 2600 (3499-8128) /uL [place] # (Auto) 500 (0-900) /uL Eos # (Auto) 100 (0-450) /uL Baso # (Auto) 100 (0-100) /uL Sodium 136 L (137-145) mmol/L Potassium 4.3 (3.4-5.1) mmol/L Chloride 99 (98-107) mmol/L Carbon Dioxide 26 (22-32) mmol/L BUN 16 (7-17) mg/dL Creatinine 0.60 (0.52-1.04) mg/dL Estimated GFR > 60.0 (>60) mL/min BUN/Creatinine Ratio 26.7 H (6-22) Glucose 175 H (80-110) mg/dL Lactate (0.7-2.1) mmol/L Calcium 9.8 (8.4-10.2) mg/dL Troponin I < 0.012 (0.01-0.034) ng/mL Procalcitonin < 0.05 (<0.5) ng/mL 01/04/20 Range/Units 09:15 WBC (4.5-11.0) X10^3/uL RBC (4.0-5.2) X10^6/uL Hgb (12.0-16.0) g/dL Hct (36-46) % MCV (80-100) fL MCH (26-34) PG MCHC (30-36) % RDW (11.6-14.8) % Plt Count (150-400) X10^3/uL Neut % (Auto) (50-75) % Lymph % (Auto) (25-40) % [place] % (Auto) (3-14) % Eos % (Auto) (2-4) % Baso % (Auto) (0-2) % Neut # (Auto) (6340-1831) /uL Lymph # (Auto) (9650-4553) /uL [place] # (Auto) (0-900) /uL Eos # (Auto) (0-450) /uL Baso # (Auto) (0-100) /uL Sodium (137-145) mmol/L Potassium (3.4-5.1) mmol/L Chloride (98-107) mmol/L Carbon Dioxide (22-32) mmol/L BUN (7-17) mg/dL Creatinine (0.52-1.04) mg/dL Estimated GFR (>60) mL/min BUN/Creatinine Ratio (6-22) Glucose (80-110) mg/dL Lactate 2.4 H (0.7-2.1) mmol/L Calcium (8.4-10.2) mg/dL Troponin I (0.01-0.034) ng/mL Procalcitonin (<0.5) ng/mL Urine Dip Bedside Urine Glucose Negative Bedside Urine Bilirubin - Negative Bedside Urine Ketone - Negative Urine Specific [place] 1.015 Bedside Urine Occult Blood - Negative Bedside Urine pH 6.5 Bedside Urine Protein - Negative Bedside Urine Urobilinogen - Negative Bedside Urine Nitrite - Negative Bedside Urine Leukocytes - Negative Esterase Point of care testing: Urine Dip Bedside Urine Glucose Negative Bedside Urine Bilirubin - Negative Bedside Urine Ketone - Negative Urine Specific [place] 1.015 Bedside Urine Occult Blood - Negative Bedside Urine pH 6.5 Bedside Urine Protein - Negative Bedside Urine Urobilinogen - Negative Bedside Urine Nitrite - Negative Bedside Urine Leukocytes - Negative Esterase Imaging Data Chest x-ray: Radiologist's Impression: [address] [address] XRay Report Signed Patient: Ember Brito LMR#: [id number] : 9Acct:[id number] Age/Sex: 79 / FDate of Service: 01/04/20 Loc: ED Accession Number: [id number] Procedure: XR chest 1V Ordering Provider: Amari Gore D.O. PROCEDURE: XR CHEST 1V INDICATIONS: hx of LLL PNA with worsening symptoms. TECHNIQUE: One view of the chest was acquired. COMPARISON: [facility], , XR CHEST 2V, 12/26/2019, 15:03. FINDINGS: Surgical changes and devices: None. Lungs and pleura: There are few residual linear opacities in the left base, newly resolved compared to the prior study. Right lung is clear. No pleural effusions or pneumothorax. Mediastinum: Mediastinal contours appear unchanged. Heart size is normal. Bones and chest wall: No suspicious bony lesions. Overlying soft tissues appear unremarkable. IMPRESSION: 1. Decreased left basilar opacities compatible with resolving pneumonia. Dictated by: Hector Denny M.D. on 01/04/2020 at 8:19 Approved by: Hector Denny M.D. on 01/04/2020 at 8:21 ECG Data Attestation: I personally reviewed and interpreted this ECG as follows: Prior ECG tracings: not available for review Interpretation: Sinus rhythm Normal axis Normal QRS Normal QTC Nonspecific ST T wave changes MDM Narrative Medical decision making narrative: She is nontoxic appearing. She is afebrile. Is tolerating oral intake. Chest x-ray shows improving left lower lobe pneumonia. She is currently on antibiotics for this. She was encouraged to continue taking the antibiotics. Otherwise she has very vague symptoms. I do not feel patient needs admitted to the hospital. Vital signs unremarkable. Does not have an elevated white count. Initially patient was brought by [facility]. They were initially concerned that patient had [place] virus. She has never had travel out of the local area. I did discuss the case with Dr. Degroot who was the epidemiology is for the hospital who recommended not testing the i ndividual unless she required admission to the hospital. I did discuss this with the patient. Feel the patient can be discharged home. She will follow-up with her primary provider. She was given return precautions and follow-up instructions. Discharge Plan Departure Patient Disposition: Home Clinical Impression: Pneumonia Qualifiers: Pneumonia type: due to unspecified organism Laterality: left Lung location: low er lobe of lung Qualified Code(s): J18.9 - Pneumonia, unspecified organism Instructions: DI for Fatigue Activity Restrictions/Additional Instructions: Continue to take your antibiotics and also your other medications as directed. Contact your primary provider for follow-up. Return to the emergency department for any new or worsening symptoms Prescriptions: No Action dextran 70-hypromellose EYE-BOTH RF: 0 omega-3 fatty acids PO RF: 0 omeprazole 20 MG capsule,delayed release(DR/EC) 20 mg PO DAILY Qty: 0 RF: 0 fluoxetine 40 mg capsule 20 mg PO DAILY Qty: 0 RF: 0 metformin 1,000 mg tablet 500 mg PO BID Qty: 0 RF: 0 doxycycline hyclate 100 mg capsule 100 mg PO BID 7 Days Qty: 14 RF: 0 ondansetron 4 mg tablet,disintegrating 4 mg PO BID-TID PRN (Reason: nausea and vomiting) Qty: 7 RF: 0 loperamide 2 mg Capsule 1 cap PO PRN PRN (Reason: Diarrhea) RF: 0 aspirin 81 mg Tablet,Delayed Release (Dr/Ec) 81 mg PO QPM RF: 0 amlodipine 10 mg tablet 10 mg PO DAILY RF: 0 diazepam 5 mg tablet 2.5 mg PO QPM RF: 0 chlorhexidine gluconate 0.12 % mouthwash See Rx Instructions .ROUTE .COMPLEX RF: 0 losartan 100 mg tablet 25 mg PO DAILY RF: 0 Referrals: Charleen Jeffries ARNP [Primary Care Provider] -
--- NOTE | 2020-01-04 08:48 | DI.RAD.S_ITS ---
PROCEDURE: XR CHEST 1V INDICATIONS: hx of LLL PNA with worsening symptoms. TECHNIQUE: One view of the chest was acquired. COMPARISON: [facility], CR, XR CHEST 2V, 12/26/2019, 15:03. FINDINGS: Surgical changes and devices: None. Lungs and pleura: There are few residual linear opacities in the left base, newly resolved compared to the prior study. Right lung is clear. No pleural effusions or pneumothorax. Mediastinum: Mediastinal contours appear unchanged. Heart size is normal. Bones and chest wall: No suspicious bony lesions. Overlying soft tissues appear unremarkable. IMPRESSION: 1. Decreased left basilar opacities compatible with resolving pneumonia. Dictated by: Hector Denny M.D. on 01/04/2020 at 8:19 Approved by: Hector Denny M.D. on 01/04/2020 at 8:21
[2020-01-04 09:30] VITALS: BP 152/73; PULSE 80; RESP 9; O2SAT 96
[2020-01-04 09:33] LABS: Add Manual Diff / Slide Review NO; Basophils Absolute Auto 100 /uL (0-100); Basophils Percent Auto 0.7 % (0-2); Eosinophils Absolute Auto 100 /uL (0-450); Eosinophils Percent Auto 0.8 % (2-4); Hematocrit 37.5 % (36-46); Hemoglobin 12.6 g/dL (12.0-16.0); Lymphocytes Absolute Auto 2600 /uL (1100-4500); Lymphocytes Percent Auto 26.1 % (25-40); Mean Corpuscular HGB Conc 33.6 % (30-36); Mean Corpuscular Hemoglobin 29.6 PG (26-34); Monocytes Absolute Auto 500 /uL (0-900); Monocytes Percent Auto 4.8 % (3-14); Neutrophils Absolute Auto 6800 /uL (1500-7000); Neutrophils Percent Auto 67.6 % (50-75); Platelet Count 368 X10^3/uL (150-400); Red Blood Cell Count 4.27 X10^6/uL (4.0-5.2); Red Cell Distribution Width 14.4 % (11.6-14.8)
--- NOTE | 2020-01-04 09:36 | PC.NURSE ---
Patient given cup of coffee
[2020-01-04 09:37] LABS: BUN Creatinine Ratio 26.7 (6-22); Blood Urea Nitrogen 16 mg/dL (7-17); Calcium 9.8 mg/dL (8.4-10.2); Carbon Dioxide 26 mmol/L (22-32); Chloride 99 mmol/L (98-107); Estimated Glomerular Filt Rate > 60.0 mL/min (>60); Glucose 175 mg/dL (80-110); HEMOLYSIS < 15 (0-50); Potassium 4.3 mmol/L (3.4-5.1); Sodium 136 mmol/L (137-145)
[2020-01-04 09:38] LABS: Lactate (Lactic Acid) 2.4 mmol/L (0.7-2.1)
[2020-01-04 09:49] LABS: Troponin I < 0.012 ng/mL (0.01-0.034)
[2020-01-04 09:52] LABS: Procalcitonin < 0.05 ng/mL (<0.5)
[2020-01-04 11:22] LABS: Reflexed Lactate in 2 Hours Y
[2020-01-04 11:30] VITALS: BP 143/72; PULSE 79; RESP 14; O2SAT 93
== END 2020-01-04 12:18 | disposition home or self-care (01) ==
PROVIDERS: Emergency Provider Emergency Medicine; PCP Nurse Practitioner
DX: J18.9 Pneumonia, unspecified organism (principal)
CPT/HCPCS: 36415; 71045; 80048; 81003; 83605; 84145; 84484; 85025; 87880; 93005; 99284

== ENCOUNTER 2020-01-08 10:30 | Emergency (ER) | payer MEDICARE, BC, SELFPAY ==
[2020-01-08 10:42] VITALS: BP 177/93; PULSE 93; RESP 17; TEMP 36.6; O2SAT 99
--- NOTE | 2020-01-08 10:49 | ED.GENADULT ---
HPI - General Adult General Chief complaint: Fever Stated complaint: Fever/Cough/Aches Time Seen by Provider: 01/08/20 10:43 Source: patient Mode of arrival: EMS Limitations: no limitations History of Present Illness HPI narrative: 79-year-old female arrived by EMS for concerns of a fever and not feeling very well. Patient is currently on doxycycline for pneumonia. I evaluated her a couple days ago for the same symptoms that she presented with today. She states that last evening she again had a fever. She states that she is also having chest pain that goes from her throat down to her upper stomach. She thinks it is the doxycycline she is on that is causing this. She states that ?there is an infection that they cannot figure out ?. Has had respiratory symptoms for many months now. Has been on multiple different types of antibiotics per her report. Came in today because she states this morning she was having problems breathing. She also admits that she gets scared at home because of her symptoms and that she lives alone. Related Data Home Medications Medication Instructions Recorded Confirmed omeprazole 20 mg PO DAILY #0 02/15/13 01/08/20 amlodipine 10 mg PO DAILY 05/09/18 01/08/20 aspirin 81 mg PO QPM 05/09/18 01/08/20 chlorhexidine gluconate See Rx Instructions .ROUTE .COMPLEX 05/22/19 12/20/19 diazepam 2.5 mg PO QPM 05/22/19 12/20/19 metformin 1,000 mg tablet 500 mg PO BID #0 tab 12/20/19 01/08/20 Fish Oil 1 cap PO DAILY 01/08/20 01/08/20 artificial tears(hypromellose) 0.3 % OPHTHALMIC (EYE) PRN PRN 01/08/20 01/08/20 fluoxetine 20 mg PO QAM 01/08/20 01/08/20 losartan 25 mg PO DAILY 01/08/20 01/08/20 Previous Rx's Medication Instructions Recorded ondansetron 4 mg PO BID-TID PRN #7 tab 12/26/19 Allergies Allergy/AdvReac Type Severity Reaction Status Date / Time clonidine Allergy Unknown Verified 12/26/19 13:57 codeine Allergy Unknown Verified 12/26/19 13:57 diltiazem Allergy Unknown Verified 12/26/19 13:57 doxazosin Allergy Unknown Verified 12/26/19 13:57 hydralazine Allergy Unknown Verified 12/26/19 13:57 hydrocodone Allergy Unknown Verified 12/26/19 13:57 levofloxacin Allergy Unknown Verified 12/26/19 13:57 meperidine Allergy Unknown Verified 12/26/19 13:57 nifedipine Allergy Unknown Verified 12/26/19 13:57 oxycodone Allergy Unknown Verified 12/26/19 13:57 promethazine Allergy Unknown Verified 12/26/19 13:57 rosuvastatin Allergy Unknown Verified 12/26/19 13:57 simvastatin Allergy Unknown Verified 12/26/19 13:57 Sulfa (Sulfonamide Allergy Unknown Verified 12/26/19 13:57 Antibiotics) Review of Systems Constitutional Constitutional: Denies fever(s) Cardiovascular Cardiovascular: Reports chest pain, Reports dyspnea and Reports dyspnea on exertion Respiratory Respiratory: Reports dyspnea and Reports dyspnea on exertion Gastrointestinal Gastrointestinal: Denies abdominal pain, Denies nausea and Denies vomiting Musculoskeletal Musculoskeletal: Denies back pain and Denies arthralgias Integumentary/Breasts Skin/Breast: Denies lesions and Denies rash Neurologic Neurologic: Denies behavioral changes Psychiatric Psychiatric: Denies behavioral changes Hematologic/Lymphatic Hematologic/Lymphatic: Denies easy bleeding and Denies easy bruising Patient History Medical History Diabetes (Acute) Hyperlipidemia (Acute) Hypertension (Acute) Social History Smoking Status: Never smoker Smoking Status: Never smoker alcohol intake frequency: holidays/special occasions only Substance Use Type: does not use Exam Initial Vital Signs Initial Vital Signs: Vital Signs Temperature 97.9 F 01/08/20 10:42 Pulse Rate 93 H 01/08/20 10:42 Respiratory Rate 17 01/08/20 10:42 Blood Pressure 177/93 H 01/08/20 10:42 Pulse Oximetry 99 01/08/20 10:42 Const General: cooperative, healthy appearing, comfortable and well developed Limitations: mental status not altered HENMT Head: normal to inspection and normocephalic Resp Effort & Inspection: normal respiratory effort Auscultation: clear to auscultation bilaterally Cardio Rate: regular rate Rhythm: regular rhythm GI Inspection: non-distended Palpation: soft Skin Lesions: no lesions Rashes: no rashes Neuro General: alert, awake and oriented x3 Cognition: normal cognition Speech: speech normal Extrem General: normal to inspection and capillary refill normal Psych Appearance: grossly normal and well kempt Course Orders Ordered: ED Orders 01/08/20 10:52 XR chest 1V Stat 01/08/20 11:49 Respiratory Panel (Film Array) Stat 01/08/20 11:56 Complete Blood Count AUTO DIFF Stat Comprehensive Metabolic Panel Stat Lactate (Lactic Acid) Stat Lipase Stat Procalcitonin Stat Troponin I Stat 01/08/20 13:09 EKG-12 Lead Stat Discontinued Medications Al Hydrox/Mg Hydrox/Simethicone 20 ml/ Lidocaine HCl 15 ml 0 ml PO NOW ONE Stop: 01/08/20 13:06 Last Admin: 01/08/20 13:09 Dose: 35 ml Documented by: JESENIA Vital Signs Vital signs: Vital Signs - 8 hr 01/08/20 12:00 01/08/20 13:55 01/08/20 15:03 Pulse Rate 83 87 85 Respiratory Rate 12 16 18 Blood Pressure 157/74 H Blood Pressure [Right Arm] 164/78 H 156/79 H Pulse Oximetry 97 95 97 Medical Decision Making Lab Data Lab results reviewed: Yes I reviewed the patient's lab results. Result diagrams: 01/08/20 11:56 01/08/20 11:56 Labs: Lab Results 01/08/20 01/08/20 01/08/20 Range/Units 11:49 11:56 11:56 WBC 10.8 (4.5-11.0) X10^3/uL RBC 4.09 (4.0-5.2) X10^6/uL Hgb 12.1 (12.0-16.0) g/dL Hct 35.4 L (36-46) % MCV 86.5 (80-100) fL MCH 29.7 (26-34) PG MCHC 34.3 (30-36) % RDW 14.8 (11.6-14.8) % Plt Count 394 (150-400) X10^3/uL Neut % (Auto) 59.8 (50-75) % Lymph % (Auto) 32.0 (25-40) % [place] % (Auto) 6.4 (3-14) % Eos % (Auto) 0.6 L (2-4) % Baso % (Auto) 1.2 (0-2) % Neut # (Auto) 6500 (1179-8495) /uL Lymph # (Auto) 3500 (9082-5987) /uL [place] # (Auto) 700 (0-900) /uL Eos # (Auto) 100 (0-450) /uL Baso # (Auto) 100 (0-100) /uL Sodium 134 L (137-145) mmol/L Potassium 3.6 (3.4-5.1) mmol/L Chloride 98 (98-107) mmol/L Carbon Dioxide 25 (22-32) mmol/L BUN 13 (7-17) mg/dL Creatinine 0.60 (0.52-1.04) mg/dL Estimated GFR > 60.0 (>60) mL/min BUN/Creatinine Ratio 21.7 (6-22) Glucose 141 H (80-110) mg/dL Lactate (0.7-2.1) mmol/L Calcium 9.8 (8.4-10.2) mg/dL Total Bilirubin 1.4 H (0.2-1.3) mg/dL AST 32 (14-36) IU/L ALT 21 (<35) IU/L Alkaline Phosphatase 75 (38-126) U/L Troponin I < 0.012 (0.01-0.034) ng/mL Total Protein 7.7 (6.3-8.2) g/dL Albumin 4.4 (3.5-5.0) g/dL Globulin 3.3 (1.7-4.1) g/dL Albumin/Globulin Ratio 1.3 (1.0-2.8) Lipase 108 (23-300) U/L Procalcitonin (<0.5) ng/mL Chlamy pneumoniae PCR Not detected (Not Detect) Adenovirus (PCR) Not detected (Not Detect) B.parapertussis DNA PCR Not detected (Not Detect) Coronavirus OC43 (PCR) Not detected (Not Detect) Coronavirus HKU1 (PCR) Not detected (Not Detect) Coronavirus 229E (PCR) Not detected (Not Detect) Coronavirus NL63 (PCR) Not detected (Not Detect) Human Metapneumovir PCR Not detected (Not Detect) Influenza Type A (PCR) Not detected (Not Detect) Influenza Type B (PCR) Not detected (Not Detect) M. pneumoniae (PCR) Not detected (Not Detect) Parainfluenza 1 (PCR) Not detected (Not Detect) Parainfluenza 2 (PCR) Not detected (Not Detect) Parainfluenza 3 (PCR) Not detected (Not Detect) Parainfluenza 4 (PCR) Not detected (Not Detect) RSV (PCR) Not detected (Not Detect) Entero/Rhino (PCR) Not detected (Not Detect) 01/08/20 01/08/20 Range/Units 11:56 11:56 WBC (4.5-11.0) X10^3/uL RBC (4.0-5.2) X10^6/uL Hgb (12.0-16.0) g/dL Hct (36-46) % MCV (80-100) fL MCH (26-34) PG MCHC (30-36) % RDW (11.6-14.8) % Plt Count (150-400) X10^3/uL Neut % (Auto) (50-75) % Lymph % (Auto) (25-40) % [place] % (Auto) (3-14) % Eos % (Auto) (2-4) % Baso % (Auto) (0-2) % Neut # (Auto) (0000-3374) /uL Lymph # (Auto) (0465-9723) /uL [place] # (Auto) (0-900) /uL Eos # (Auto) (0-450) /uL Baso # (Auto) (0-100) /uL Sodium (137-145) mmol/L Potassium (3.4-5.1) mmol/L Chloride (98-107) mmol/L Carbon Dioxide (22-32) mmol/L BUN (7-17) mg/dL Creatinine (0.52-1.04) mg/dL Estimated GFR (>60) mL/min BUN/Creatinine Ratio (6-22) Glucose (80-110) mg/dL Lactate 1.7 (0.7-2.1) mmol/L Calcium (8.4-10.2) mg/dL Total Bilirubin (0.2-1.3) mg/dL AST (14-36) IU/L ALT (<35) IU/L Alkaline Phosphatase (38-126) U/L Troponin I (0.01-0.034) ng/mL Total Protein (6.3-8.2) g/dL Albumin (3.5-5.0) g/dL Globulin (1.7-4.1) g/dL Albumin/Globulin Ratio (1.0-2.8) Lipase (23-300) U/L Procalcitonin < 0.05 (<0.5) ng/mL Chlamy pneumoniae PCR (Not Detect) Adenovirus (PCR) (Not Detect) B.parapertussis DNA PCR (Not Detect) Coronavirus OC43 (PCR) (Not Detect) Coronavirus HKU1 (PCR) (Not Detect) Coronavirus 229E (PCR) (Not Detect) Coronavirus NL63 (PCR) (Not Detect) Human Metapneumovir PCR (Not Detect) Influenza Type A (PCR) (Not Detect) Influenza Type B (PCR) (Not Detect) M. pneumoniae (PCR) (Not Detect) Parainfluenza 1 (PCR) (Not Detect) Parainfluenza 2 (PCR) (Not Detect) Parainfluenza 3 (PCR) (Not Detect) Parainfluenza 4 (PCR) (Not Detect) RSV (PCR) (Not Detect) Entero/Rhino (PCR) (Not Detect) Urine Dip Bedside Urine Glucose Negative Bedside Urine Bilirubin - Negative Bedside Urine Ketone - Negative Urine Specific [place] 1.015 Bedside Urine Occult Blood - Negative Bedside Urine pH 6.0 Bedside Urine Protein - Negative Bedside Urine Urobilinogen - Negative Bedside Urine Nitrite - Negative Bedside Urine Leukocytes - Negative Esterase Point of care testing: Urine Dip Bedside Urine Glucose Negative Bedside Urine Bilirubin - Negative Bedside Urine Ketone - Negative Urine Specific [place] 1.015 Bedside Urine Occult Blood - Negative Bedside Urine pH 6.0 Bedside Urine Protein - Negative Bedside Urine Urobilinogen - Negative Bedside Urine Nitrite - Negative Bedside Urine Leukocytes - Negative Esterase Imaging Data Chest x-ray: Radiologist's Impression: [address] [address] XRay Report Signed Patient: Ember Brito LMR#: [id number] : 9Acct:[id number] Age/Sex: 79 / FDate of Service: 01/08/20 Loc: ED Accession Number: [id number] Procedure: XR chest 1V Ordering Provider: Amari Gore D.O. PROCEDURE: XR CHEST 1V INDICATIONS: UNRESOLVED PNA. TECHNIQUE: One view of the chest was acquired. COMPARISON: [facility], CR, XR CHEST 1V, 01/04/2020, 8:52. FINDINGS: Surgical changes and devices: None. Lungs and pleura: The area of increased attenuation is present within the left infrahilar region. No pneumothorax or large effusion is appreciated. Mediastinum: Mediastinal contours appear normal. Heart size is normal. There is aortic atherosclerosis. Bones and chest wall: No suspicious bony lesions. Overlying soft tissues appear unremarkable. IMPRESSION: Probable developing left lower lobe pneumonia. Dictated by: Prince Monaco M.D. on 01/08/2020 at 10:38 Approved by: Prince Monaco M.D. on 01/08/2020 at 10:39 ECG Data Attestation: I personally reviewed and interpreted this ECG as follows: Prior ECG tracings: not available for review Interpretation: Sinus rhythm Ventricular rate 88 Normal QRS Normal QTC Normal QRS Nonspecific ST T wave changes MDM Narrative Medical decision making narrative: Patient is nontoxic. Is currently on antibiotics. Is not hypoxic, not tachypneic, not tachycardic. Her chest x-ray today redemonstrates the pneumonia that she already has and is being treated for. I do not feel the need to switch to a different antibiotic. I feel this will only cloud the picture because chest x-rays can lag behind clinical presentation. She was afebrile. She admitted that she feels much better now than when she did this morning. This is the very same presentation that she had a couple days ago. A provide reassurance to the patient. I did discuss the case with Dr. Degroot epidemiology is to recommended that we do not test for thurston virus. Will discharge patient home however follow-up with primary provider. She was given return precautions. She expressed understanding agreement. Discharge Plan Departure Patient Disposition: Home Clinical Impression: Pneumonia Discharge Date/Time: 01/08/20 15:05 Instructions: DI for Fever (Symptom) -- Adult Activity Restrictions/Additional Instructions: Recommend that you continue with the doxycycline today as directed. I recommend that either this afternoon or tomorrow you contact your primary provider for a follow-up. Return to the emergency department for any new or worsening symptoms Prescriptions: No Action omeprazole 20 MG capsule,delayed release(DR/EC) 20 mg PO DAILY Qty: 0 RF: 0 metformin 1,000 mg tablet 500 mg PO BID Qty: 0 RF: 0 ondansetron 4 mg tablet,disintegrating 4 mg PO BID-TID PRN (Reason: nausea and vomiting) Qty: 7 RF: 0 losartan 25 mg Tablet 25 mg PO DAILY RF: 0 fluoxetine 20 mg Capsule 20 mg PO QAM RF: 0 artificial tears(hypromellose) 0.3 % Drops 0.3 % OPHTHALMIC (EYE) PRN PRN (Reason: Dry Eyes) RF: 0 Fish Oil 1 cap PO DAILY RF: 0 aspirin 81 mg Tablet,Delayed Release (Dr/Ec) 81 mg PO QPM RF: 0 amlodipine 10 mg tablet 10 mg PO DAILY RF: 0 diazepam 5 mg tablet 2.5 mg PO QPM RF: 0 chlorhexidine gluconate 0.12 % mouthwash See Rx Instructions .ROUTE .COMPLEX RF: 0 Referrals: Charleen Jeffries ARNP [Primary Care Provider] -
--- NOTE | 2020-01-08 10:52 | DI.RAD.S_ITS ---
PROCEDURE: XR CHEST 1V INDICATIONS: UNRESOLVED PNA. TECHNIQUE: One view of the chest was acquired. COMPARISON: [facility], CR, XR CHEST 1V, 01/04/2020, 8:52. FINDINGS: Surgical changes and devices: None. Lungs and pleura: The area of increased attenuation is present within the left infrahilar region. No pneumothorax or large effusion is appreciated. Mediastinum: Mediastinal contours appear normal. Heart size is normal. There is aortic atherosclerosis. Bones and chest wall: No suspicious bony lesions. Overlying soft tissues appear unremarkable. IMPRESSION: Probable developing left lower lobe pneumonia. Dictated by: Prince Monaco M.D. on 01/08/2020 at 10:38 Approved by: Prince Monaco M.D. on 01/08/2020 at 10:39
[2020-01-08 11:00] VITALS: BP 140/69; PULSE 79; RESP 16; O2SAT 97
[2020-01-08 12:00] VITALS: BP 164/78; PULSE 83; RESP 12; O2SAT 97
[2020-01-08 12:17] LABS: Add Manual Diff / Slide Review NO; Basophils Absolute Auto 100 /uL (0-100); Basophils Percent Auto 1.2 % (0-2); Eosinophils Absolute Auto 100 /uL (0-450); Eosinophils Percent Auto 0.6 % (2-4); Hematocrit 35.4 % (36-46); Hemoglobin 12.1 g/dL (12.0-16.0); Lymphocytes Absolute Auto 3500 /uL (1100-4500); Mean Corpuscular HGB Conc 34.3 % (30-36); Mean Corpuscular Hemoglobin 29.7 PG (26-34); Mean Corpuscular Volume 86.5 fL (80-100); Monocytes Absolute Auto 700 /uL (0-900); Monocytes Percent Auto 6.4 % (3-14); Neutrophils Absolute Auto 6500 /uL (1500-7000); Neutrophils Percent Auto 59.8 % (50-75); Platelet Count 394 X10^3/uL (150-400); Red Blood Cell Count 4.09 X10^6/uL (4.0-5.2); Red Cell Distribution Width 14.8 % (11.6-14.8); White Blood Cell Count 10.8 X10^3/uL (4.5-11.0)
[2020-01-08 12:28] LABS: Lactate (Lactic Acid) 1.7 mmol/L (0.7-2.1)
[2020-01-08 12:30] LABS: Alanine Aminotransferase 21 IU/L (<35); Albumin 4.4 g/dL (3.5-5.0); Albumin Globulin Ratio 1.3 (1.0-2.8); Alkaline Phosphatase 75 U/L (38-126); Aspartate Aminotransferase 32 IU/L (14-36); BUN Creatinine Ratio 21.7 (6-22); Bilirubin Total 1.4 mg/dL (0.2-1.3); Blood Urea Nitrogen 13 mg/dL (7-17); Calcium 9.8 mg/dL (8.4-10.2); Carbon Dioxide 25 mmol/L (22-32); Chloride 98 mmol/L (98-107); Estimated Glomerular Filt Rate > 60.0 mL/min (>60); Globulin 3.3 g/dL (1.7-4.1); Glucose 141 mg/dL (80-110); HEMOLYSIS < 15 (0-50); Lipase 108 U/L (23-300); Potassium 3.6 mmol/L (3.4-5.1); Sodium 134 mmol/L (137-145); Total Protein 7.7 g/dL (6.3-8.2)
[2020-01-08 12:41] LABS: Troponin I < 0.012 ng/mL (0.01-0.034)
[2020-01-08 13:06] LABS: Adenovirus Not Detected (Not Detect); Bordetella pertussis Not Detected (Not Detect); Chlamydophila pneumoniae Not Detected (Not Detect); Coronavirus 229E Not Detected (Not Detect); Coronavirus HKU1 Not Detected (Not Detect); Coronavirus NL 63 Not Detected (Not Detect); Coronavirus OC43 Not Detected (Not Detect); Human Metapneumovirus Not Detected (Not Detect); Human Rhinovirus/Enterovirus Not Detected (Not Detect); Influenza A Not Detected (Not Detect); Influenza B Not Detected (Not Detect); Mycoplasma pneumoniae Not Detected (Not Detect); Parainfluenza Virus 1 Not Detected (Not Detect); Parainfluenza Virus 2 Not Detected (Not Detect); Parainfluenza Virus 3 Not Detected (Not Detect); Parainfluenza Virus 4 Not Detected (Not Detect); Respiratory Syncytial Virus Not Detected (Not Detect)
[2020-01-08] MEDS: MAG HYDROX/ALUMINUM/SIMETH SUS 20 ML, LIDOCAINE VISCOUS 2% 15 ML PO (13:09)
[2020-01-08 13:10] LABS: Procalcitonin < 0.05 ng/mL (<0.5)
[2020-01-08 13:55] VITALS: BP 156/79; PULSE 87; RESP 16; O2SAT 95
[2020-01-08 15:03] VITALS: BP 157/74; PULSE 85; RESP 18; O2SAT 97
== END 2020-01-08 15:05 | disposition home or self-care (01) ==
PROVIDERS: Emergency Provider Emergency Medicine; PCP Nurse Practitioner
DX: J18.9 Pneumonia, unspecified organism (principal); R07.9 Chest pain, unspecified; R06.00 Dyspnea, unspecified
CPT/HCPCS: 71045; 80053; 81003; 83605; 83690; 84145; 84484; 85025; 87633; 93005; 93010; 99284

== ENCOUNTER 2020-03-15 10:33 | Emergency (ER) | payer MEDICARE, BC, SELFPAY ==
[2020-03-15 10:37] VITALS: BP 179/89; PULSE 96; RESP 14; TEMP 36.7; O2SAT 99
[2020-03-15 11:16] LABS: Add Manual Diff / Slide Review NO; Basophils Absolute Auto 100 /uL (0-100); Basophils Percent Auto 0.6 % (0-2); Eosinophils Absolute Auto 100 /uL (0-450); Eosinophils Percent Auto 0.8 % (2-4); Hematocrit 34.8 % (36-46); Hemoglobin 11.7 g/dL (12.0-16.0); Lymphocytes Absolute Auto 2200 /uL (1100-4500); Lymphocytes Percent Auto 21.9 % (25-40); Mean Corpuscular HGB Conc 33.6 % (30-36); Mean Corpuscular Hemoglobin 29.6 PG (26-34); Mean Corpuscular Volume 88.1 fL (80-100); Monocytes Absolute Auto 500 /uL (0-900); Monocytes Percent Auto 4.6 % (3-14); Neutrophils Absolute Auto 7400 /uL (1500-7000); Neutrophils Percent Auto 72.1 % (50-75); Platelet Count 340 X10^3/uL (150-400); Red Blood Cell Count 3.94 X10^6/uL (4.0-5.2); Red Cell Distribution Width 14.7 % (11.6-14.8); White Blood Cell Count 10.2 X10^3/uL (4.5-11.0)
[2020-03-15] MEDS: ONDANSETRON 4 MG/2 ML INJ IV (11:20)
[2020-03-15] MEDS: PANTOPRAZOLE 40 MG VIAL IV (11:20)
[2020-03-15 11:28] VITALS: BP 155/74; PULSE 90; RESP 18; O2SAT 98
[2020-03-15 11:29] LABS: Creatine Kinase 38 U/L (30-135)
[2020-03-15 11:32] LABS: Alanine Aminotransferase 22 IU/L (<35); Albumin 4.3 g/dL (3.5-5.0); Albumin Globulin Ratio 1.3 (1.0-2.8); Alkaline Phosphatase 67 U/L (38-126); Aspartate Aminotransferase 28 IU/L (14-36); BUN Creatinine Ratio 21.7 (6-22); Bilirubin Total 1.2 mg/dL (0.2-1.3); Blood Urea Nitrogen 13 mg/dL (7-17); Calcium 9.7 mg/dL (8.4-10.2); Carbon Dioxide 25 mmol/L (22-32); Chloride 96 mmol/L (98-107); Estimated Glomerular Filt Rate > 60.0 mL/min (>60); Globulin 3.2 g/dL (1.7-4.1); Glucose 200 mg/dL (80-110); HEMOLYSIS < 15 (0-50); Lipase 122 U/L (23-300); Potassium 3.9 mmol/L (3.4-5.1); Sodium 131 mmol/L (137-145); Total Protein 7.5 g/dL (6.3-8.2)
[2020-03-15 11:43] LABS: Troponin I < 0.012 ng/mL (0.01-0.034)
--- NOTE | 2020-03-15 11:47 | DI.RAD.S_ITS ---
PROCEDURE: XR CHEST 1V INDICATIONS: epigastric pain. abd pain TECHNIQUE: One view of the chest was acquired. COMPARISON: [facility], CR, XR CHEST 1V, 01/08/2020, 11:00. FINDINGS: Surgical changes and devices: None. Lungs and pleura: Mild increased vascularity. No pleural effusions or pneumothorax. Linear lingular opacities are present likely scarring. Mediastinum: Mediastinal contours appear normal. Heart size is mildly prominent. Bones and chest wall: No suspicious bony lesions. Overlying soft tissues appear unremarkable. IMPRESSION: Mild increased vascularity suggestive of edema. Dictated by: Flores Abad M.D. on 03/15/2020 at 12:44 Approved by: Flores Abad M.D. on 03/15/2020 at 12:45
--- NOTE | 2020-03-15 11:47 | DI.CT.S_ITS ---
PROCEDURE: CT ABDOMEN PELVIS W CON INDICATIONS: LUQ pain TECHNIQUE: After the administration of oral and intravenous contrast, 5 mm thick sections acquired from the diaphragms to the symphysis. 5 mm thick coronal and sagittal reformats were performed. For radiation dose reduction, the following was used: automated exposure control, adjustment of mA and/or kV according to patient size. COMPARISON: [facility], CT, CT ABDOMEN PELVIS W CON, 05/09/2018, 9:59. [facility], CT, CT ABDOMEN PELVIS W CON, 05/22/2019, 13:53. FINDINGS: Image quality: Excellent. ABDOMEN: Lung bases: Lung bases are clear. Heart size is normal. Solid organs: Liver is enlarged with steatosis. Multiple punctate areas of hypointensity are present within the liver. The largest is present in the anterior hepatic dome measuring 19 mm. There are unchanged most suggestive of cysts. Gallbladder has been removed. Biliary system is non-dilated. Pancreas enhances normally. Spleen is normal in size and enhancement. No adrenal nodules. Kidneys are atrophic with left renal cysts. Punctate nonobstructing right renal calculus is present. Fat attenuation focus within the inferior left kidney is unchanged suggestive of angiomyolipoma. Peritoneum and bowel: Stomach, small bowel, and colon loops are nonobstructed. The colon is collapsed, limiting evaluation. There is a mild appearance of more focal thickening with minimal pericolonic stranding at the transverse/proximal descending colonic junction. Nodes and vessels: No retroperitoneal or mesenteric adenopathy. Aorta and inferior vena cava are normal in caliber. Miscellaneous: No ventral hernias. PELVIS: Genitourinary: Bladder wall thickness is normal. Miscellaneous: No inguinal hernias or adenopathy. 14 mm lipoma is present within the right vastus musculature, unchanged. Bones: No suspicious bony lesions. No vertebral body compression fractures. IMPRESSION: 1. Overall appearance of collapsed colon, which limits evaluation. Slight appearance of more focal thickening and minimal surrounding pericolonic inflammatory change. This could represent a small focus of developing colitis. Dictated by: Flores Abad M.D. on 03/15/2020 at 12:45 Approved by: Flores Abad M.D. on 03/15/2020 at 13:11
--- NOTE | 2020-03-15 11:51 | ED_ITS ---
HPI - Abdominal Pain <Rosalinda Buchanan GREASE MONKEY - Last Filed: 03/15/20 20:16> General Chief Complaint: Abdominal Pain Stated Complaint: abd/chest px Time Seen by Provider: 03/15/20 11:24 Source: patient and EMS Mode of arrival: EMS Limitations: no limitations History of Present Illness HPI narrative: 79yo with a history of IBS, colitis, recent pneumonia, appendectomy, hysterectomy, and cholecystectomy, presents emergency department complaining of left upper quadrant pain intermittently for the past 4-5 months. She states recently over the past 3 days it has increased in severity and durati on. Patient denies aggravating or alleviating factors. She states occasionally she has epigastric pain as well. He has a history of stomach ulcers swells ulcers in her mouth. She recently received an endoscopy and colonoscopy approximately 1-2 months ago. She was told she did not have ulcers at this time. Patient states her last year and she has been under more stress being isolated home. She is unsure if this is related. She does report nausea but denies any vomiting, blood in stools, constipation, diarrhea, chest pain, shortness of breath, dizziness, syncope, or any other concerns. Patient reports she has been on a prednisone taper due to recent pneumonia, she states this has finished. Related Data Home Medications Medication Instructions Recorded Confirmed omeprazole 20 mg PO DAILY #0 02/15/13 01/08/20 amlodipine 10 mg PO DAILY 05/09/18 01/08/20 aspirin 81 mg PO QPM 05/09/18 01/08/20 chlorhexidine gluconate See Rx Instructions .ROUTE .COMPLEX 05/22/19 12/20/19 diazepam 2.5 mg PO QPM 05/22/19 12/20/19 metformin 1,000 mg tablet 500 mg PO BID #0 tab 12/20/19 01/08/20 Fish Oil 1 cap PO DAILY 01/08/20 01/08/20 artificial tears(hypromellose) 0.3 % OPHTHALMIC (EYE) PRN PRN 01/08/20 01/08/20 fluoxetine 20 mg PO QAM 01/08/20 01/08/20 losartan 25 mg PO DAILY 01/08/20 01/08/20 Previous Rx's Medication Instructions Recorded ondansetron 4 mg PO BID-TID PRN #7 tab 12/26/19 amoxicillin-pot clavulanate 1 tab PO BID 7 Days #14 tab 03/15/20 [Augmentin] Allergies Allergy/AdvReac Type Severity Reaction Status Date / Time clonidine Allergy Unknown Verified 03/15/20 10:39 codeine Allergy Unknown Verified 03/15/20 10:39 diltiazem Allergy Unknown Verified 03/15/20 10:39 doxazosin Allergy Unknown Verified 03/15/20 10:39 hydralazine Allergy Unknown Verified 03/15/20 10:39 hydrocodone Allergy Unknown Verified 03/15/20 10:39 levofloxacin Allergy Unknown Verified 03/15/20 10:39 meperidine Allergy Unknown Verified 03/15/20 10:39 nifedipine Allergy Unknown Verified 03/15/20 10:39 oxycodone Allergy Unknown Verified 03/15/20 10:39 promethazine Allergy Unknown Verified 03/15/20 10:39 rosuvastatin Allergy Unknown Verified 03/15/20 10:39 simvastatin Allergy Unknown Verified 03/15/20 10:39 Sulfa (Sulfonamide Allergy Unknown Verified 03/15/20 10:39 Antibiotics) Review of Systems <JESSIE Johns - Last Filed: 03/15/20 20:16> Review of Systems Narrative: REVIEW OF SYSTEMS: GENERAL: Denies fever, chills, malaise, or wt. loss. HENT: No head trauma, sore throat, or dysphagia. EYES: No vision changes. CARDIOVASCULAR: No chest pain, palpitations, or orthopnea. RESPIRATORY: No shortness of breath or cough. GASTROINTESTINAL: Complains of abdominal pain, see HPI GENITOURINARY: No flank pain, urinary incontinence, hesitancy, frequency, or dysuria. MUSCULOSKELETAL: No pain, weakness, or trauma. INTEGUMENTARY: No rash, lesions, or pruritus. NEURO: No numbness, tingling, memory loss, confusion, or headaches. PSYCH: No behavior or mood changes. Patient History <JESSIE Johns - Last Filed: 03/15/20 20:16> Medical History Diabetes (Acute) Hyperlipidemia (Acute) Hypertension (Acute) Social History Smoking Status: Never smoker Smoking Status: Never smoker alcohol intake frequency: holidays/special occasions only Substance Use Type: does not use Exam <JESSIE Johns - Last Filed: 03/15/20 20:16> Initial Vital Signs Initial Vital Signs: Vital Signs Temperature 98.0 F 03/15/20 10:37 Pulse Rate 96 H 03/15/20 10:37 Respiratory Rate 14 03/15/20 10:37 Blood Pressure 179/89 H 03/15/20 10:37 Pulse Oximetry 99 03/15/20 10:37 PHYSICAL EXAMINATION: GENERAL: Well groomed, alert, and cooperative. Answers questions promptly and appropriately. Vital signs noted. HENT: Normocephalic, atraumatic. Hearing intact. Oral mucosa is pink and moist. EYES: Conjunctiva pink, sclera white, no periorbital swelling. CARDIOVASCULAR: S1 and S2 sounds normal. Regular rate and rhythm, no murmurs, clicks, or bruits. No pedal edema. RESPIRATORY: Normal respiratory rate, trachea midline, airway patent. No stridor, nasal flaring or accessory muscle use. Lungs are clear in all lara without wheeze, rhonchi, or crackles. GASTROINTESTINAL: Bowel sounds normoactive. Abdomen is soft, left lower quadrant tender No organomegaly, no palpable masses. GENITALURINARY: No flank tenderness. MUSCULOSKELETAL: Normal gait and coordination. Equal tone and mass bilaterally. EXTREMITIES: CMS intact, no pedal edema. SKIN: Warm, dry, soft, appropriate color for ethnicity. No lesions, rashes, or wounds to visualized areas. NEURO: Alert and Oriented X 3. Good coordination. No ataxia, or sensory deficits, or cognitive issues. PSYCH: Appropriate affect and mood. <Saul Xie MD - Last Filed: 03/16/20 07:23> Initial Vital Signs Initial Vital Signs: Vital Signs Temperature 98.0 F 03/15/20 10:37 Pulse Rate 96 H 03/15/20 10:37 Respiratory Rate 14 03/15/20 10:37 Blood Pressure 179/89 H 03/15/20 10:37 Pulse Oximetry 99 03/15/20 10:37 Course <JESSIE Johns - Last Filed: 03/15/20 20:16> Course Course Narrative: 1350 re-evaluation, patient states she is feeling better. She is ready to be discharged. I discussed findings of colitis with patient, she states she has had this in the past. She just finished a course of prednisone a few days ago. Orders Ordered: Discontinued Medications Sodium Chloride (Normal Saline 0.9%) 1,000 mls @ 125 mls/hr IV CONT [facility] Last Admin: 03/15/20 13:44 Dose: Not Given Documented by: [place] Ondansetron HCl (Zofran) 4 mg IV NOW ONE Stop: 03/15/20 10:41 Last Admin: 03/15/20 11:20 Dose: 4 mg Documented by: [place] Pantoprazole Sodium (Protonix) 40 mg IV NOW ONE Stop: 03/15/20 10:41 Last Admin: 03/15/20 11:20 Dose: 40 mg Documented by: [place] Vital Signs Vital signs: Vital Signs - 8 hr 03/15/20 13:11 03/15/20 13:44 Temperature 98.5 F Pulse Rate 89 74 Respiratory Rate 15 18 Blood Pressure [Right Arm] 142/68 H 159/74 H Pulse Oximetry 98 94 <Saul Xie MD - Last Filed: 03/16/20 07:23> Orders Ordered: Discontinued Medications Sodium Chloride (Normal Saline 0.9%) 1,000 mls @ 125 mls/hr IV CONT [facility] Last Admin: 03/15/20 13:44 Dose: Not Given Documented by: [place] Ondansetron HCl (Zofran) 4 mg IV NOW ONE Stop: 03/15/20 10:41 Last Admin: 03/15/20 11:20 Dose: 4 mg Documented by: [place] Pantoprazole Sodium (Protonix) 40 mg IV NOW ONE Stop: 03/15/20 10:41 Last Admin: 03/15/20 11:20 Dose: 40 mg Documented by: [place] Vital Signs Vital signs: Vital Signs - 8 hr 03/15/20 13:11 03/15/20 13:44 Temperature 98.5 F Pulse Rate 89 74 Respiratory Rate 15 18 Blood Pressure [Right Arm] 142/68 H 159/74 H Pulse Oximetry 98 94 MDM - Abdominal Pain <JESSIE Johns - Last Filed: 03/15/20 20:16> Medical Records Attestation: I reviewed the patient's medical records. Lab Data Attestation: I reviewed the patient's lab results. Result diagrams: 03/15/20 10:55 03/15/20 10:55 Labs: Lab Results 03/15/20 03/15/20 03/15/20 Range/Units 10:55 10:55 10:55 WBC 10.2 (4.5-11.0) X10^3/uL RBC 3.94 L (4.0-5.2) X10^6/uL Hgb 11.7 L (12.0-16.0) g/dL Hct 34.8 L (36-46) % MCV 88.1 (80-100) fL MCH 29.6 (26-34) PG MCHC 33.6 (30-36) % RDW 14.7 (11.6-14.8) % Plt Count 340 (150-400) X10^3/uL Neut % (Auto) 72.1 (50-75) % Lymph % (Auto) 21.9 L (25-40) % [place] % (Auto) 4.6 (3-14) % Eos % (Auto) 0.8 L (2-4) % Baso % (Auto) 0.6 (0-2) % Neut # (Auto) 7400 H (8522-9324) /uL Lymph # (Auto) 2200 (1236-6955) /uL [place] # (Auto) 500 (0-900) /uL Eos # (Auto) 100 (0-450) /uL Baso # (Auto) 100 (0-100) /uL Sodium 131 L (137-145) mmol/L Potassium 3.9 (3.4-5.1) mmol/L Chloride 96 L (98-107) mmol/L Carbon Dioxide 25 (22-32) mmol/L BUN 13 (7-17) mg/dL Creatinine 0.60 (0.52-1.04) mg/dL Estimated GFR > 60.0 (>60) mL/min BUN/Creatinine Ratio 21.7 (6-22) Glucose 200 H (80-110) mg/dL Calcium 9.7 (8.4-10.2) mg/dL Total Bilirubin 1.2 (0.2-1.3) mg/dL AST 28 (14-36) IU/L ALT 22 (<35) IU/L Alkaline Phosphatase 67 (38-126) U/L Total Creatine Kinase 38 (30-135) U/L CK-MB (CK-2) TNP CK-MB (CK-2) Rel Index TNP Troponin I < 0.012 (0.01-0.034) ng/mL NT-Pro-B Natriuret Pep (<450) pg/mL Total Protein 7.5 (6.3-8.2) g/dL Albumin 4.3 (3.5-5.0) g/dL Globulin 3.2 (1.7-4.1) g/dL Albumin/Globulin Ratio 1.3 (1.0-2.8) Lipase 122 (23-300) U/L 03/15/20 Range/Units 10:55 WBC (4.5-11.0) X10^3/uL RBC (4.0-5.2) X10^6/uL Hgb (12.0-16.0) g/dL Hct (36-46) % MCV (80-100) fL MCH (26-34) PG MCHC (30-36) % RDW (11.6-14.8) % Plt Count (150-400) X10^3/uL Neut % (Auto) (50-75) % Lymph % (Auto) (25-40) % [place] % (Auto) (3-14) % Eos % (Auto) (2-4) % Baso % (Auto) (0-2) % Neut # (Auto) (5906-1241) /uL Lymph # (Auto) (7481-8783) /uL [place] # (Auto) (0-900) /uL Eos # (Auto) (0-450) /uL Baso # (Auto) (0-100) /uL Sodium (137-145) mmol/L Potassium (3.4-5.1) mmol/L Chloride (98-107) mmol/L Carbon Dioxide (22-32) mmol/L BUN (7-17) mg/dL Creatinine (0.52-1.04) mg/dL Estimated GFR (>60) mL/min BUN/Creatinine Ratio (6-22) Glucose (80-110) mg/dL Calcium (8.4-10.2) mg/dL Total Bilirubin (0.2-1.3) mg/dL AST (14-36) IU/L ALT (<35) IU/L Alkaline Phosphatase (38-126) U/L Total Creatine Kinase (30-135) U/L CK-MB (CK-2) CK-MB (CK-2) Rel Index Troponin I (0.01-0.034) ng/mL NT-Pro-B Natriuret Pep 132 (<450) pg/mL Total Protein (6.3-8.2) g/dL Albumin (3.5-5.0) g/dL Globulin (1.7-4.1) g/dL Albumin/Globulin Ratio (1.0-2.8) Lipase (23-300) U/L Point of care testing: Urine Dip Bedside Urine Glucose Negative Bedside Urine Bilirubin - Negative Bedside Urine Ketone - Negative Urine Specific [place] 1.015 Bedside Urine Occult Blood - Negative Bedside Urine pH 5.5 Bedside Urine Protein - Negative Bedside Urine Urobilinogen - Negative Bedside Urine Nitrite - Negative Bedside Urine Leukocytes - Negative Esterase Imaging Data CT scan - abdomen/pelvis: Radiologist's Impression: [address] [place] [id number] Scan Report Signed Patient: Ember Brito LMR#: [id number] : 9Acct:[id number] Age/Sex: 79 / FDate of Service: 03/15/20 Loc: ED Accession Number: [id number] Procedure: CT abdomen pelvis w con Ordering Provider: Rosalinda Buchanan PROCEDURE: CT ABDOMEN PELVIS W CON INDICATIONS: LUQ pain TECHNIQUE: After the administration of oral and intravenous contrast, 5 mm thick sections acquired from the diaphragms to the symphysis. 5 mm thick coronal and sagittal reformats were performed. For radiation dose reduction, the following was used: automated exposure control, adjustment of mA and/or kV according to patient size. COMPARISON: [facility], CT, CT ABDOMEN PELVIS W CON, 05/09/2018, 9:59. [facility], CT, CT ABDOMEN PELVIS W CON, 05/22/2019, 13:53. FINDINGS: Image quality: Excellent. ABDOMEN: Lung bases: Lung bases are clear. Heart size is normal. Solid organs: Liver is enlarged with steatosis. Multiple punctate areas of hypointensity are present within the liver. The largest is present in the anterior hepatic dome measuring 19 mm. There are unchanged most suggestive of cysts. Gallbladder has been removed. Biliary system is non-dilated. Pancreas enhances normally. Spleen is normal in size and enhancement. No adrenal nodules. Kidneys are atrophic with left renal cysts. Punctate nonobstructing right renal calculus is present. Fat attenuation focus within the inferior left kidney is unchanged suggestive of angiomyolipoma. Peritoneum and bowel: Stomach, small bowel, and colon loops are nonobstructed. The colon is collapsed, limiting evaluation. There is a mild appearance of more focal thic kening with minimal pericolonic stranding at the transverse/proximal descending colonic junction. Nodes and vessels: No retroperitoneal or mesenteric adenopathy. Aorta and inferior vena cava are normal in caliber. Miscellaneous: No ventral hernias. PELVIS: Genitourinary: Bladder wall thickness is normal. Miscellaneous: No inguinal hernias or adenopathy. 14 mm lipoma is present within the right vastus musculature, unchanged. Bones: No suspicious bony lesions. No vertebral body compression fractures. IMPRESSION: 1. Overall appearance of collapsed colon, which limits evaluation. Slight appearance of more focal thickening and minimal surrounding pericolonic inflammatory change. This could represent a small focus of developing colitis. Dictated by: Flores Abad M.D. on 03/15/2020 at 12:45 Approved by: Flores Abad M.D. on 03/15/2020 at 13:11 Chest x-ray: Radiologist's Impression: [address] [id number] XRay Report Signed Patient: Ember Brito LMR#: [id number] : 9Acct:[id number] Age/Sex: 79 / FDate of Service: 03/15/20 Loc: ED Accession Number: [id number] Procedure: XR chest 1V Ordering Provider: Rosalinda Buchanan PROCEDURE: XR CHEST 1V INDICATIONS: epigastric pain. abd pain TECHNIQUE: One view of the chest was acquired. [facility] 11:00. FINDINGS: Surgical changes and devices: None. Lungs and pleura: Mild increased vascularity. No pleural effusions or pneumothorax. Linear lingular opacities are present likely scarring. Mediastinum: Mediastinal contours appear normal. Heart size is mildly prominent. Bones and chest wall: No suspicious bony lesions. Overlying soft tissues appear unremarkable. IMPRESSION: Mild increased vascularity suggestive of edema. Dictated by: Flores Abad M.D. on 03/15/2020 at 12:44 Approved by: Flores Abad M.D. on 03/15/2020 at 12:45 [facility] Narrative Medical decision making narrative: 79-year-old female with a history of chronic IBS, presents emergency department for worsening left lower quadrant pain. I suspect patient's pain is most likely caused by colitis due to inflammatory colitis-like changes seen on CT, description of left lower quadrant pain, and lack of other concerning symptoms such as uncontrollable vomiting or diarrhea. Patient was treated with Augmentin as infectious colitis due to location left lower quadrant location, normal white blood cell count at however slightly elevated neutrophils, worsening pain. Patient was encouraged to follow up with GI for further evaluation of ongoing GI issues. Patient was discharged she was hemodynamically stable, able to tolerate p.o. fluids and food, able to ambulate, and was in no distress. Less likely pulmonary cardiac etiology due to negative laboratory work and lack of symptoms such as shortness of breath, cough, or chest pain. I suspect patient's complaint of increased weight gain is most likely due to multiple tapers of prednisone that she has had over the past few months while treating pneumonia. BNP was negative and lungs were clear without fluid so less likely fluid overload for CHF. Patient was encouraged to return emergency department for any new or worsening symptoms. She agrees to plan of care verbalized understanding. <Saul Xie MD - Last Filed: 03/16/20 07:23> Lab Data Labs: Lab Results 03/15/20 03/15/20 03/15/20 Range/Units 10:55 10:55 10:55 WBC 10.2 (4.5-11.0) X10^3/uL RBC 3.94 L (4.0-5.2) X10^6/uL Hgb 11.7 L (12.0-16.0) g/dL Hct 34.8 L (36-46) % MCV 88.1 (80-100) fL MCH 29.6 (26-34) PG MCHC 33.6 (30-36) % RDW 14.7 (11.6-14.8) % Plt Count 340 (150-400) X10^3/uL Neut % (Auto) 72.1 (50-75) % Lymph % (Auto) 21.9 L (25-40) % [place] % (Auto) 4.6 (3-14) % Eos % (Auto) 0.8 L (2-4) % Baso % (Auto) 0.6 (0-2) % Neut # (Auto) 7400 H (3210-0282) /uL Lymph # (Auto) 2200 (8870-6648) /uL [place] # (Auto) 500 (0-900) /uL Eos # (Auto) 100 (0-450) /uL Baso # (Auto) 100 (0-100) /uL Sodium 131 L (137-145) mmol/L Potassium 3.9 (3.4-5.1) mmol/L Chloride 96 L (98-107) mmol/L Carbon Dioxide 25 (22-32) mmol/L BUN 13 (7-17) mg/dL Creatinine 0.60 (0.52-1.04) mg/dL Estimated GFR > 60.0 (>60) mL/min BUN/Creatinine Ratio 21.7 (6-22) Glucose 200 H (80-110) mg/dL Calcium 9.7 (8.4-10.2) mg/dL Total Bilirubin 1.2 (0.2-1.3) mg/dL AST 28 (14-36) IU/L ALT 22 (<35) IU/L Alkaline Phosphatase 67 (38-126) U/L Total Creatine Kinase 38 (30-135) U/L CK-MB (CK-2) TNP CK-MB (CK-2) Rel Index TNP Troponin I < 0.012 (0.01-0.034) ng/mL NT-Pro-B Natriuret Pep (<450) pg/mL Total Protein 7.5 (6.3-8.2) g/dL Albumin 4.3 (3.5-5.0) g/dL Globulin 3.2 (1.7-4.1) g/dL Albumin/Globulin Ratio 1.3 (1.0-2.8) Lipase 122 (23-300) U/L 03/15/20 Range/Units 10:55 WBC (4.5-11.0) X10^3/uL RBC (4.0-5.2) X10^6/uL Hgb (12.0-16.0) g/dL Hct (36-46) % MCV (80-100) fL MCH (26-34) PG MCHC (30-36) % RDW (11.6-14.8) % Plt Count (150-400) X10^3/uL Neut % (Auto) (50-75) % Lymph % (Auto) (25-40) % [place] % (Auto) (3-14) % Eos % (Auto) (2-4) % Baso % (Auto) (0-2) % Neut # (Auto) (2658-0527) /uL Lymph # (Auto) (0743-1626) /uL [place] # (Auto) (0-900) /uL Eos # (Auto) (0-450) /uL Baso # (Auto) (0-100) /uL Sodium (137-145) mmol/L Potassium (3.4-5.1) mmol/L Chloride (98-107) mmol/L Carbon Dioxide (22-32) mmol/L BUN (7-17) mg/dL Creatinine (0.52-1.04) mg/dL Estimated GFR (>60) mL/min BUN/Creatinine Ratio (6-22) Glucose (80-110) mg/dL Calcium (8.4-10.2) mg/dL Total Bilirubin (0.2-1.3) mg/dL AST (14-36) IU/L ALT (<35) IU/L Alkaline Phosphatase (38-126) U/L Total Creatine Kinase (30-135) U/L CK-MB (CK-2) CK-MB (CK-2) Rel Index Troponin I (0.01-0.034) ng/mL NT-Pro-B Natriuret Pep 132 (<450) pg/mL Total Protein (6.3-8.2) g/dL Albumin (3.5-5.0) g/dL Globulin (1.7-4.1) g/dL Albumin/Globulin Ratio (1.0-2.8) Lipase (23-300) U/L Point of care testing: Urine Dip Bedside Urine Glucose Negative Bedside Urine Bilirubin - Negative Bedside Urine Ketone - Negative Urine Specific [place] 1.015 Bedside Urine Occult Blood - Negative Bedside Urine pH 5.5 Bedside Urine Protein - Negative Bedside Urine Urobilinogen - Negative Bedside Urine Nitrite - Negative Bedside Urine Leukocytes - Negative Esterase Discharge Plan Departure Patient Disposition: Home Clinical Impression: Colitis Discharge Date/Time: 03/15/20 14:22 Instructions: DI for Colitis Activity Restrictions/Additional Instructions: Thank you for entrusting me with your care today. As discussed, your CT shows colitis. Your laboratory work and urine test are non concerning. There was increased vascularity in your chest x-ray, this can be due to recent resolve pneumonia. I have given you a prescription for Augmentin to help with colitis. I recommend following up with your primary care provider and/or a manager terminal for further evaluation and management of your intermittent bouts of colitis. This was sent to [facility] in [place]. Return emergency department for any new or worsening symptoms such as severe pa in, blood in stools, uncontrollable vomiting, or any other concerns. Prescriptions: New amoxicillin-pot clavulanate [Augmentin] 875-125 mg tablet 1 tab PO BID 7 Days Qty: 14 RF: 0 No Action omeprazole 20 MG capsule,delayed release(DR/EC) 20 mg PO DAILY Qty: 0 RF: 0 metformin 1,000 mg tablet 500 mg PO BID Qty: 0 RF: 0 ondansetron 4 mg tablet,disintegrating 4 mg PO BID-TID PRN (Reason: nausea and vomiting) Qty: 7 RF: 0 losartan 25 mg Tablet 25 mg PO DAILY RF: 0 fluoxetine 20 mg Capsule 20 mg PO QAM RF: 0 artificial tears(hypromellose) 0.3 % Drops 0.3 % OPHTHALMIC (EYE) PRN PRN (Reason: Dry Eyes) RF: 0 Fish Oil 1 cap PO DAILY RF: 0 aspirin 81 mg Tablet,Delayed Release (Dr/Ec) 81 mg PO QPM RF: 0 amlodipine 10 mg tablet 10 mg PO DAILY RF: 0 diazepam 5 mg tablet 2.5 mg PO QPM RF: 0 chlorhexidine gluconate 0.12 % mouthwash See Rx Instructions .ROUTE .COMPLEX RF: 0 Referrals: Morelia Herrmann MD [Non-Staff] - Charleen Jeffries ARNP [Primary Care Provider] -
[2020-03-15 12:19] LABS: NT-proBNP (BNP-Adult 18+) 132 pg/mL (<450)
[2020-03-15 13:11] VITALS: BP 142/68; PULSE 89; RESP 15; O2SAT 98
[2020-03-15 13:44] VITALS: BP 159/74; PULSE 74; RESP 18; TEMP 36.9; O2SAT 94
== END 2020-03-15 14:22 | disposition home or self-care (01) ==
PROVIDERS: Emergency Medicine; Emergency Provider Nurse Practitioner; PCP Nurse Practitioner
DX: K52.9 Noninfective gastroenteritis and colitis, unspecified (principal)
CPT/HCPCS: 36415; 71045; 74177; 80053; 81003; 82550; 83690; 83880; 84484; 85025; 93005; 96374; 96375; 99285; C9113; J2405; Q9967

== ENCOUNTER 2020-04-11 08:27 | Observation (INO) | payer MEDICARE, BC, SELFPAY ==
[2020-04-11] VITALS (11 sets, daily range): BP systolic 120–181; BP diastolic 58–92; PULSE 70–92; RESP 16–18; TEMP 36.5–36.8; O2SAT 93–99; BMI 31.1; BMI 29.7
[2020-04-11] MEDS: SODIUM CHLORIDE 0.9% 1,000 ML 1000 ML IV (08:57)
[2020-04-11] MEDS: ONDANSETRON 4 MG/2 ML INJ IV (08:57)
[2020-04-11 09:17] LABS: Add Manual Diff / Slide Review NO; Basophils Absolute Auto 100 /uL (0-100); Basophils Percent Auto 0.5 % (0-2); Eosinophils Absolute Auto 200 /uL (0-450); Eosinophils Percent Auto 1.5 % (2-4); Hemoglobin 12.2 g/dL (12.0-16.0); Lymphocytes Absolute Auto 2700 /uL (1100-4500); Lymphocytes Percent Auto 25.2 % (25-40); Mean Corpuscular Hemoglobin 29.4 PG (26-34); Mean Corpuscular Volume 86.6 fL (80-100); Monocytes Absolute Auto 700 /uL (0-900); Monocytes Percent Auto 6.8 % (3-14); Neutrophils Absolute Auto 7000 /uL (1500-7000); Platelet Count 376 X10^3/uL (150-400); Red Blood Cell Count 4.15 X10^6/uL (4.0-5.2); Red Cell Distribution Width 14.4 % (11.6-14.8); White Blood Cell Count 10.6 X10^3/uL (4.5-11.0)
[2020-04-11 09:31] LABS: Alanine Aminotransferase 18 IU/L (<35); Albumin 4.5 g/dL (3.5-5.0); Albumin Globulin Ratio 1.4 (1.0-2.8); Alkaline Phosphatase 77 U/L (38-126); Aspartate Aminotransferase 26 IU/L (14-36); BUN Creatinine Ratio 22.8 (6-22); Bilirubin Total 1.3 mg/dL (0.2-1.3); Blood Urea Nitrogen 13 mg/dL (7-17); Calcium 9.6 mg/dL (8.4-10.2); Carbon Dioxide 23 mmol/L (22-32); Chloride 100 mmol/L (98-107); Estimated Glomerular Filt Rate > 60.0 mL/min (>60); Globulin 3.2 g/dL (1.7-4.1); Glucose 157 mg/dL (80-110); HEMOLYSIS < 15 (0-50); Lipase 93 U/L (23-300); Potassium 3.5 mmol/L (3.4-5.1); Sodium 135 mmol/L (137-145); Total Protein 7.7 g/dL (6.3-8.2)
--- NOTE | 2020-04-11 09:32 | ED.ABDPAIN ---
HPI - Abdominal Pain General Chief Complaint: Abdominal Pain Stated Complaint: Nausea, RLQ Pain Time Seen by Provider: 04/11/20 08:30 Source: patient and EMS Mode of arrival: EMS Limitations: no limitations History of Present Illness HPI narrative: Patient arrives by EMS complaints abdominal pain watery diarrhea and nausea. Seen here May diagnosis of colitis. Placed on Augmentin without improvement. Primary care physician has given patient referral to Gastroenterology in [place] with [facility]. Patient able to establish appointment due to sulcal distancing restraints. Complains abdominal distension and cramping. No urinary complaints. No chest pain no back pain. Related Data Home Medications Medication Instructions Recorded Confirmed omeprazole 40 mg PO DAILY #0 02/15/13 04/11/20 amlodipine 10 mg PO DAILY 05/09/18 04/11/20 aspirin 81 mg PO QPM 05/09/18 04/11/20 metformin 1,000 mg tablet 1,000 mg PO BID #0 tab 12/20/19 04/11/20 artificial tears(hypromellose) 0.3 % OPHTHALMIC (EYE) PRN PRN 01/08/20 04/11/20 fluoxetine 40 mg PO QAM 01/08/20 04/11/20 acetaminophen [Tylenol Extra 500 mg PO BEDTIME 04/11/20 04/11/20 Strength] lorazepam 0.5 mg PO BID PRN 04/11/20 04/11/20 losartan 100 mg PO DAILY 04/11/20 04/11/20 nitroglycerin 0.4 mg SUBLINGUAL Q5-15M PRN 04/11/20 04/11/20 nystatin 5 ml BUCCAL QID PRN 04/11/20 04/11/20 omega 0-cqr-dom-fish oil [[place]-3] 1 cap PO DAILY 04/11/20 04/11/20 vitamin B complex [B-Complex] 1 tab PO DAILY 04/11/20 04/11/20 Allergies Allergy/AdvReac Type Severity Reaction Status Date / Time clonidine Allergy Unknown Verified 03/15/20 10:39 codeine Allergy Unknown Verified 03/15/20 10:39 diltiazem Allergy Unknown Verified 03/15/20 10:39 doxazosin Allergy Unknown Verified 03/15/20 10:39 hydralazine Allergy Unknown Verified 03/15/20 10:39 hydrocodone Allergy Unknown Verified 03/15/20 10:39 levofloxacin Allergy Unknown Verified 03/15/20 10:39 meperidine Allergy Unknown Verified 03/15/20 10:39 nifedipine Allergy Unknown Verified 03/15/20 10:39 oxycodone Allergy Unknown Verified 03/15/20 10:39 promethazine Allergy Unknown Verified 03/15/20 10:39 rosuvastatin Allergy Unknown Verified 03/15/20 10:39 simvastatin Allergy Unknown Verified 03/15/20 10:39 Sulfa (Sulfonamide Allergy Unknown Verified 03/15/20 10:39 Antibiotics) Review of Systems Review of Systems Narrative: GENERAL: Denies chills, fatigue, malaise, fever, sweats. HEENT: Denies sinus pain, ear pain, sore throat, difficulty swallowing, dizziness. RESPIRATORY: Denies dyspnea, cough, wheezing, hemoptysis, sputum. CARDIOVASCULAR: Denies chest pain, palpitations, orthopnea, edema, GASTROINTESTINAL: Complains of abdominal distension/pain/watery diarrhea and nausea : Denies dysuria, frequency, incontinence, hematuria, urinary retention. MUSCULOSKELETAL: denies weakness, joint pain, or bony pain SKIN: Denies rash, skin lesions, or other NEUROLOGIC: Denies weakness, headache, numbness, change in speech, confusion, seizures, incoordination. PSYCHIATRIC: No concerning psychosocial issues. ROS Unobtainable: All systems reviewed & are unremarkable except as noted in HPI and below Patient History Medical History Diabetes (Acute) Hyperlipidemia (Acute) Hypertension (Acute) Social History household members: none Smoking Status: Never smoker alcohol intake: never Smoking Status: Never smoker alcohol intake frequency: holidays/special occasions only Substance Use Type: does not use Exam Narrative Exam Narrative: GENERAL: patient appears stated age. Well-nourished, well-developed patient, in no distress, not toxic HEAD: Atraumatic. Normocephalic. EYES: Pupils equal round and reactive. Extraocular motions intact. No scleral icterus. No injection or drainage. ENT: Nose without bleeding, purulent drainage. Throat without erythema, tonsillar hypertrophy or exudate. Airway patent. NECK: Trachea midline. Non tender CARDIOVASCULAR: Regular rate and rhythm without murmurs, gallops, or rubs. RESPIRATORY: Clear to auscultation. Breath sounds equal bilaterally. No wheezes, rales, or rhonchi. GASTROINTESTINAL: Soft mild diffusely tenderness/mildly distended. Normal bowel sounds. No peritoneal signs. EXTREMITIES: No edema or joint tenderness. BACK: Nontender without deformity or crepitance. No flank tenderness. NEURO: AOx3. SKIN: No rash or erythema of visible areas Initial Vital Signs Initial Vital Signs: Vital Signs Temperature 98.3 F 04/11/20 08:39 Pulse Rate 92 H 04/11/20 08:39 Respiratory Rate 18 04/11/20 08:39 Blood Pressure 172/84 H 04/11/20 08:39 Pulse Oximetry 97 04/11/20 08:39 Course Course Course Narrative: Patient has had morphine without allergic reaction in the past. Time 2:32 p.m.. Patient now decides she wants to stay for pain control and IV hydration. Decision to Admit Date: 04/11/20 Decision to Admit time: 14:32 Orders Ordered: ED Orders 04/11/20 09:31 CT abdomen pelvis w con Stat XR chest 1V Stat 04/11/20 13:56 C Diff [Clostridium Difficile Tox PCR] Stat Enoxaparin Sodium (Lovenox) 40 mg SUBCUT DAILY SANGEETHA Dextrose/Sodium Chloride (Dextrose 5%-0.9% Ns) 1,000 mls @ 100 mls/hr IV CONT SANGEETHA Last Admin: 04/11/20 15:48 Dose: 100 mls/hr Documented by: ALFONSO Morphine Sulfate (Morphine) 2 mg IV Q4HR PRN PRN Reason: Pain, Moderate (4-6) Last Admin: 04/11/20 17:06 Dose: 2 mg Documented by: TROY Naloxone HCl (Narcan) 0.2 mg IV Q2MIN PRN PRN Reason: Opiate Reversal Discontinued Medications Sodium Chloride (Normal Saline 0.9%) 1,000 mls @ 1,000 mls/hr IV BOLUS ONE Stop: 04/11/20 09:37 Last Infusion: 04/11/20 10:06 Dose: 1,000 mls/hr Documented by: Admin: 04/11/20 08:57 Dose: 1,000 mls/hr Documented by: CARMEN Lorazepam (Ativan) 0.5 mg IV NOW ONE Stop: 04/11/20 13:43 Last Admin: 04/11/20 13:47 Dose: 0.5 mg Documented by: CARMEN Morphine Sulfate (Morphine) 2 mg IV NOW ONE Stop: 04/11/20 12:08 Last Admin: 04/11/20 12:19 Dose: 2 mg Documented by: CARMEN Ondansetron HCl (Zofran) 4 mg IV NOW ONE Stop: 04/11/20 08:39 Last Admin: 04/11/20 08:57 Dose: 4 mg Documented by: CARMEN Reevaluation(s) Reevaluation #1: Pain much better. Patient has had no episodes of diarrhea. I spoke with patient regarding conversation with Dr. adia oates, gastroenterology in [place]. She agrees and is comfortable with plan to go home today and follow-up in the office on this week. He has office openings Time: 13:56 Consultations Consultation #1: Spoke with Gastroenterology Dr. Oates, [place] [facility], he states patient can follow-up with him on in the office. He has office times. He took down patient phone number and demographics. Office will call patient tomorrow. He desires patient to have no more antibiotics or any new medications Time: 13:57 Consultation #2: Spoke with our hospitalist dr hutson. He will admit Time: 14:32 Vital Signs Vital signs: Vital Signs - 8 hr 04/11/20 11:00 04/11/20 12:00 04/11/20 13:00 Pulse Rate 88 87 84 Respiratory Rate 18 18 Blood Pressure [Left Wrist] 137/62 151/70 H 138/65 Pulse Oximetry 95 98 95 04/11/20 13:30 04/11/20 14:00 04/11/20 14:30 Pulse Rate 86 85 86 Respiratory Rate 18 16 18 Blood Pressure [Left Wrist] 142/92 H 120/58 L 129/61 Pulse Oximetry 97 94 93 MDM - Abdominal Pain Differential Diagnosis Differential diagnosis: Likely abdominal pain, constipation, diverticulitis, gastroenteritis and small bowel obstruction Lab Data Result diagrams: 04/11/20 09:00 04/11/20 09:00 Labs: Lab Results 04/11/20 04/11/20 Range/Units 09:00 09:00 WBC 10.6 (4.5-11.0) X10^3/uL RBC 4.15 (4.0-5.2) X10^6/uL Hgb 12.2 (12.0-16.0) g/dL Hct 36.0 (36-46) % MCV 86.6 (80-100) fL MCH 29.4 (26-34) PG MCHC 34.0 (30-36) % RDW 14.4 (11.6-14.8) % Plt Count 376 (150-400) X10^3/uL Neut % (Auto) 66.0 (50-75) % Lymph % (Auto) 25.2 (25-40) % Williams % (Auto) 6.8 (3-14) % Eos % (Auto) 1.5 L (2-4) % Baso % (Auto) 0.5 (0-2) % Neut # (Auto) 7000 (9663-1349) /uL Lymph # (Auto) 2700 (6671-0839) /uL Williams # (Auto) 700 (0-900) /uL Eos # (Auto) 200 (0-450) /uL Baso # (Auto) 100 (0-100) /uL Sodium 135 L (137-145) mmol/L Potassium 3.5 (3.4-5.1) mmol/L Chloride 100 (98-107) mmol/L Carbon Dioxide 23 (22-32) mmol/L BUN 13 (7-17) mg/dL Creatinine 0.57 (0.52-1.04) mg/dL Estimated GFR > 60.0 (>60) mL/min BUN/Creatinine Ratio 22.8 H (6-22) Glucose 157 H (80-110) mg/dL Calcium 9.6 (8.4-10.2) mg/dL Total Bilirubin 1.3 (0.2-1.3) mg/dL AST 26 (14-36) IU/L ALT 18 (<35) IU/L Alkaline Phosphatase 77 (38-126) U/L Total Protein 7.7 (6.3-8.2) g/dL Albumin 4.5 (3.5-5.0) g/dL Globulin 3.2 (1.7-4.1) g/dL Albumin/Globulin Ratio 1.4 (1.0-2.8) Lipase 93 (23-300) U/L Point of care testing: Point of Care Testing Glucose POC 142 Urine Dip Bedside Urine Glucose Negative Bedside Urine Bilirubin - Negative Bedside Urine Ketone - Negative Urine Specific [place] 1.015 Bedside Urine Occult Blood - Negative Bedside Urine pH 6.0 Bedside Urine Protein - Negative Bedside Urine Urobilinogen - Negative Bedside Urine Nitrite - Negative Bedside Urine Leukocytes - Negative Esterase Imaging Data CT scan - abdomen/pelvis: Radiologist's Impression: [address] [address] [address] Scan Report Signed Patient: Ember Brito LMR#: [id number] : 9Acct:[id number] Age/Sex: 79 / FDate of Service: 04/11/20 Loc: ED Accession Number: [id number] Procedure: CT abdomen pelvis w con Ordering Provider: Maurizio Morgan MD PROCEDURE: CT ABDOMEN PELVIS W CON INDICATIONS: iv contrast only/abd pain TECHNIQUE: After the administration of oral and intravenous contrast, 5 mm thick sections acquired from the diaphragms to the symphysis. 5 mm thick coronal and sagittal reformats were performed. For radiation dose reduction, the following was used: automated exposure control, adjustment of mA and/or kV according to patient size. COMPARISON: [facility], CT, CT ABDOMEN PELVIS W CON, 03/15/2020, 12:17. [facility], CT, CT ABDOMEN PELVIS W CON, 05/22/2019, 13:53. [facility], CT, CT ABDOMEN PELVIS W CON, 05/09/2018, 9:59. [facility], CT, ABDOMEN WITH CONTRAST, 01/10/2010, 11:51. FINDINGS: Image quality: Diagnostic. ABDOMEN: Lung bases: Lung bases are clear. Heart size is normal. Coronary artery atherosclerosis is incidentally noted. Solid organs: The liver is normal in size and contains multiple hypodense lesions of varying degrees of density and size. A peripherally calcified lesion along the anterior margin of the inferior tip of the liver is present. There may also be a peripherally enhancing more peripherally calcified structure along the more posterior aspect of the inferior margin of the liver. These inferiorly positioned at lesions are similar to the exam dating back to 2009. No intrahepatic or extrahepatic biliary dilatation is appreciated. The gallbladder is absent. The spleen is within normal limits. The adrenals and pancreas are within normal limits. The kidneys are normal in size. There is a nonobstructing 4 mm calculus along the inferior margin of the right kidney. 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 Perinephric edema probably a senescent. Mild prominence of both ureters is present without intraluminal filling defect evident. Peritoneum and bowel: There is a small hiatal hernia. The stomach is decompressed. The small bowel loops are nondilated. The colon is relatively decompressed. However, there appear to be a few areas of mild circumferential wall thickening of the colon, best appreciated at the splenic flexure and hepatic flexure. No free fluid, loculated fluid collection or free air is appreciated. Nodes and vessels: No retroperitoneal or mesenteric adenopathy. Aorta and inferior vena cava are normal in caliber. Bones: No acute fracture or suspicious osseous lesion is identified. Moderate degenerative changes of the lower lumbar spine are noted. PELVIS: Genitourinary: Bladder wall thickness is normal. Surgical clips at the base of the urinary bladder are present. The patient has had a prior cholecystectomy. The ovaries are not definitely identified and may either be surgically absent or atrophic. Miscellaneous: No inguinal hernias or adenopathy. No free fluid or loculated fluid collection is identified. Bones: No suspicious bony lesions. No acute pelvic fracture is evident. There are moderate to severe degenerative changes of the pelvic joints, most pronounced involving the pubis symphysis. IMPRESSION: 1. No acute process is appreciated within the abdomen or pelvis. 2. No bowel obstruction. 3. Slight prominence of the ureters without intraluminal calculi. There is a nonobstructing inferior right renal calculus. 4. Possible areas of mild wall thickening of the colon without surrounding inflammation is nonspecific and may be exaggerated by incomplete distention. Please correlate clinically to exclude colitis. Dictated by: Prince Monaco M.D. on 04/11/2020 at 9:32 Approved by: Prince Monaco M.D. on 04/11/2020 at 9:40 Chest x-ray: Radiologist's Impression: [address] [address] XRay Report Signed Patient: Ember Brito LMR#: [id number] : 1940Acct:[id number] Age/Sex: 79 / FDate of Service: 04/11/20 Loc: ED Accession Number: [id number] Procedure: XR chest 1V Ordering Provider: Maurizio Morgan MD PROCEDURE: XR CHEST 1V INDICATIONS: cough TECHNIQUE: One view of the chest was acquired. COMPARISON: [facility], CR, XR CHEST 1V, 03/15/2020, 12:14. FINDINGS: Surgical changes and devices: None. Lungs and pleura: Interstitial prominence within the left hilar region extending into the lateral margin of the left lung is identified, similar to the prior study, suggesting scarring versus atelectasis. No new consolidation is evident. There is no effusion or definite pneumothorax. Mediastinum: Mediastinal contours appear normal. Heart size is mildly enlarged with associated mild increased vascular markings within the perihilar regions. There is aortic atherosclerosis. Bones and chest wall: No suspicious bony lesions. Overlying soft tissues appear unremarkable. IMPRESSION: 1. Cardiomegaly with associated mild vascular congestion. 2. No definite pneumonia. Dictated by: Prince Monaco M.D. on 04/11/2020 at 9:40 Approved by: Prince Monaco M.D. on 04/11/2020 at 9:42 ECG Data Attestation: I personally reviewed and interpreted this ECG as follows: Interpretation: Normal sinus rhythm right bundle branch block ventricular rate 83 no acute process, no ST elevation depression Discharge Plan Departure Patient Disposition: Admitted as Observation Clinical Impression: Colitis Discharge Date/Time: 04/11/20 15:05 Instructions: DI for Colitis Additional Instructions: Call Dr. Oates with [place] [facility] office tomorrow phone number is [phone]. Inform office he is expecting to see you in the office this . Return if worse Referrals: Charleen Jeffries ARNP [Primary Care Provider] - Admit Date/Time: 04/11/20 14:33 Admit Provider: Paris Hutson
--- NOTE | 2020-04-11 11:12 | PC.NURSE ---
pt complaining of increased pain. DR Morgan aware
[2020-04-11] MEDS: MORPHINE 2 MG/ML INJ IV ×3 (12:19→20:29)
[2020-04-11] MEDS: LORazepam 2 MG/ML INJ 0.5 MG IV (13:47)
--- NOTE | 2020-04-11 15:02 | PM.HP.1 ---
History of Present Illness History of Present Illness Date Patient Seen: 04/11/20 Time Patient Seen: 16:07 Chief complaint: Nausea, RLQ Pain Narrative: This is an 79-year-old female who has had varying degrees of intractable abdominal pain since January. For the last 2-3 days the pain in the right lower quadrant has been worsening. She has had some watery diarrhea and nausea but no vomiting. She has not seen any blood in the diarrhea. Her CT scan is reportedly unchanged with colitis present. She has recently been treated with doxycycline, Bactrim and Augmentin for this condition. GI, Dr. Law, was contacted from the emergency department and he recommended doing another stool C diff and following up with his office in [place] on (in 4 days.) The patient indicated she was in too much pain to wait until then and so has been admitted for pain control and stabilization. There are no urinary symptoms and she has seen no blood in her urine. A UA will need to be collected. She has a tendency to digress during discussions and so I am not confident that we have the exact accurate picture of her past medical history and recent symptoms, suspecting that more will be divulged and become evident over time. IMPRESSION: 1. No acute process is appreciated within the abdomen or pelvis. 2. No bowel obstruction. 3. Slight prominence of the ureters without intraluminal calculi. There is a nonobstructing inferior right renal calculus. 4. Possible areas of mild wall thickening of the colon without surrounding inflammation is nonspecific and may be exaggerated by incomplete distention. Please correlate clinically to exclude colitis. Patient History Medical History Diabetes (Acute) Hyperlipidemia (Acute) Hypertension (Acute) Family & Social History Safety & Behavioral: Feels Safe in Current Yes Environment Been Physically Hurt or No Threatened By a Person Tobacco & Substance use: Smoking Status Never smoker alcohol intake frequency holiday/special occasion Substance Use Type does not use Comment: Her backup decision maker is her son Chas Brito. Her primary care is with Dr. Charleen Jeffries in [place]. She lives in her own home with a Renter to share the house. Meds Home Medications and Allergies Home Medications Medication Instructions Recorded Confirmed Type omeprazole 40 mg PO DAILY #0 02/15/13 04/11/20 History amlodipine 10 mg PO DAILY 05/09/18 04/11/20 History aspirin 81 mg PO QPM 05/09/18 04/11/20 History metformin 1,000 mg tablet 1,000 mg PO BID #0 tab 12/20/19 04/11/20 History artificial tears(hypromellose) 0.3 % OPHTHALMIC (EYE) PRN PRN 01/08/20 04/11/20 History fluoxetine 40 mg PO QAM 01/08/20 04/11/20 History acetaminophen [Tylenol Extra 500 mg PO BEDTIME 04/11/20 04/11/20 History Strength] lorazepam 0.5 mg PO BID PRN 04/11/20 04/11/20 History losartan 100 mg PO DAILY 04/11/20 04/11/20 History nitroglycerin 0.4 mg SUBLINGUAL Q5-15M PRN 04/11/20 04/11/20 History nystatin 5 ml BUCCAL QID PRN 04/11/20 04/11/20 History omega 0-lez-tnj-fish oil [[place]-3] 1 cap PO DAILY 04/11/20 04/11/20 History vitamin B complex [B-Complex] 1 tab PO DAILY 04/11/20 04/11/20 History Allergies Allergy/AdvReac Type Severity Reaction Status Date / Time clonidine Allergy Unknown Verified 03/15/20 10:39 codeine Allergy Unknown Verified 03/15/20 10:39 diltiazem Allergy Unknown Verified 03/15/20 10:39 doxazosin Allergy Unknown Verified 03/15/20 10:39 hydralazine Allergy Unknown Verified 03/15/20 10:39 hydrocodone Allergy Unknown Verified 03/15/20 10:39 levofloxacin Allergy Unknown Verified 03/15/20 10:39 meperidine Allergy Unknown Verified 03/15/20 10:39 nifedipine Allergy Unknown Verified 03/15/20 10:39 oxycodone Allergy Unknown Verified 03/15/20 10:39 promethazine Allergy Unknown Verified 03/15/20 10:39 rosuvastatin Allergy Unknown Verified 03/15/20 10:39 simvastatin Allergy Unknown Verified 03/15/20 10:39 Sulfa (Sulfonamide Allergy Unknown Verified 03/15/20 10:39 Antibiotics) Review of Systems Review of Systems Narrative: Positive for abdominal pain, nausea and watery diarrhea. Negative for my chills, sweats, chest pain, coughing, shortness of breath, seizures, rashes, bleeding, headaches, difficulty talking, new allergies, hematuria ROS: Yes All systems reviewed with the patient and are negative except as otherwise documented Exam Vital Signs (past 8 hours): - 04/11/20 08:39 04/11/20 09:00 04/11/20 11:00 Temperature 98.3 F Pulse Rate 92 H 92 H 88 Respiratory Rate 18 16 Blood Pressure 172/84 H Blood Pressure [Left Wrist] 147/84 H 137/62 Pulse Oximetry 97 99 95 04/11/20 12:00 04/11/20 13:00 04/11/20 13:30 Temperature Pulse Rate 87 84 86 Respiratory Rate 18 18 18 Blood Pressure Blood Pressure [Left Wrist] 151/70 H 138/65 142/92 H Pulse Oximetry 98 95 97 04/11/20 14:00 04/11/20 14:30 Temperature Pulse Rate 85 86 Respiratory Rate 16 18 Blood Pressure Blood Pressure [Left Wrist] 120/58 L 129/61 Pulse Oximetry 94 93 Oxygen Delivery Method Room Air Narrative Exam Narrative: She is alert, oriented x3 and in no apparent distress. Pupils are equally round and reactive to light and accommodation. No lymph nodes are felt head, neck, supraclavicular area Throat looks normal There is no thyromegaly JVD is less than 6 cm No carotid bruits are heard Extraocular muscles are intact Sclerae are pink and nonicteric Heart is regular rate and rhythm without murmur Lungs are clear to auscultation bilaterally Abdomen is diffusely tender, quite mild with some guarding. Bowel sounds are heard and no masses are felt Extremities have no ankle edema There is no skin rash or jaundice Neuro exam There is no tremor Cranial nerves are tested and intact Motor function is 5/5 throughout Gait and balance are not tested Objective Labs Result Diagrams: 04/11/20 09:00 04/11/20 09:00 Labs: Laboratory Results - last 24 hr 04/11/20 04/11/20 09:00 09:00 WBC 10.6 RBC 4.15 Hgb 12.2 Hct 36.0 MCV 86.6 MCH 29.4 MCHC 34.0 RDW 14.4 Plt Count 376 Neut % (Auto) 66.0 Lymph % (Auto) 25.2 [place] % (Auto) 6.8 Eos % (Auto) 1.5 L Baso % (Auto) 0.5 Neut # (Auto) 7000 Lymph # (Auto) 2700 [place] # (Auto) 700 Eos # (Auto) 200 Baso # (Auto) 100 Sodium 135 L Potassium 3.5 Chloride 100 Carbon Dioxide 23 BUN 13 Creatinine 0.57 Estimated GFR > 60.0 BUN/Creatinine Ratio 22.8 H Glucose 157 H Calcium 9.6 Total Bilirubin 1.3 AST 26 ALT 18 Alkaline Phosphatase 77 Total Protein 7.7 Albumin 4.5 Globulin 3.2 Albumin/Globulin Ratio 1.4 Lipase 93 Assessment & Plan Assessment & Plan narrative: Abdominal Pain, present on admission, acute -CT scan is not diagnostic of colitis but suggests there may be an early process. -morphine as needed. -check ESR, urinalysis and C diff if liquid stool is present -if stable in the morning can likely be discharged home with plans for GI follow-up in [place] with Dr. Law later this week. Please refer to specific arrangements to be made, in the ED physician's notes. Hypertension, present on admission, chronic -BP 137/62 on admission -continue amlodipine and losartan Type 2 diabetes mellitus, present on admission, chronic -Glucose 157 on admission -continue metformin and follow Accu-Cheks GERD, present on admission, chronic -Continue omeprazole Depression/Anxiety, present on admission, chronic -continue fluoxetine, hold lorazepam.
[2020-04-11] MEDS: DEXTROSE 5%-0.9% NS 1,000 ML 100 ML IV (15:48)
[2020-04-11 18:23] LABS: Erythrocyte Sedimentation Rate 3 MM/HR (0-20)
[2020-04-11 22:56] LABS: Bacteria Urine None Seen; RBC Urine None Seen (0-5/HPF)
[2020-04-11 22:57] LABS: Appearance Urine UA CLEAR; Bilirubin Urine UA NEGATIVE (NEGATIVE); Color Urine UA YELLOW; Glucose Urine UA NEGATIVE (Negative); Ketones Urine UA NEGATIVE (NEGATIVE); Leukocyte Esterase Urine UA NEGATIVE (NEGATIVE); Nitrite Urine UA NEGATIVE (Negative); Occult Blood Urine UA NEGATIVE (Negative); Protein Urine UA NEGATIVE (Negative); Urobilinogen Urine UA 0.2 E.U./dL (0.2)
[2020-04-11 23:28] LABS: Culture Indicated Urine Cult Not Indicated; WBC Urine 0-1/HPF (0-5/HPF)
[2020-04-11] MEDS: KETOROLAC 15 MG/ML VIAL IV (23:54)
--- NOTE | 2020-04-12 00:27 | PC.NURSE ---
Admission notes: Ember brought to rm 220 at shift change 1500, Teri mcmillan RN completed admission, skin assessment done later by both of us. Patient has multiple small spots generalized, no drainage, sites are all blanchable. Patient told me she has had a recent ear ache and been on antibiotics. She has had no diarrhea this evening, we still need stool sample to r/o C-diff. Denies nausea. She complains of generalized pain to all extremities, saying it's my fibromyalgia-it's gotten really bad. Does report minor abdomen discomfort but said most of her pain is in her extremities. Medicated with Morphine as ordered. Later tonight patient told Teri mcmillan RN that her pain was not controlled, Teri then notified Michael ROMAN who ordered Toradol. She remains NPO, IVF infusing at 100 ml/hour to PIV with no difficulty, drsg to [facility] is CDI. Reports recent fall at home, bed alarm is active and she is reminded to call nurse for any needs, or if needs OOB. Told me her spouse about a year ago. Words of comfort & support offered. She remains Ox3 and very friendly with staff. Full patient report given to Karla VELASQUEZ RN.
[2020-04-12] MEDS: DEXTROSE 5%-0.9% NS 1,000 ML 100 ML IV ×2 (01:26→10:59)
[2020-04-12] MEDS: MORPHINE 2 MG/ML INJ IV ×3 (03:11→12:48)
[2020-04-12 04:00] VITALS: BP 167/78; PULSE 71; RESP 16; TEMP 36.5; O2SAT 93
[2020-04-12 06:44] LABS: Add Manual Diff / Slide Review NO; Basophils Absolute Auto 100 /uL (0-100); Basophils Percent Auto 1.1 % (0-2); Eosinophils Absolute Auto 300 /uL (0-450); Eosinophils Percent Auto 3.3 % (2-4); Hemoglobin 10.8 g/dL (12.0-16.0); Lymphocytes Absolute Auto 2800 /uL (1100-4500); Lymphocytes Percent Auto 31.6 % (25-40); Mean Corpuscular HGB Conc 33.8 % (30-36); Mean Corpuscular Hemoglobin 29.6 PG (26-34); Mean Corpuscular Volume 87.4 fL (80-100); Monocytes Absolute Auto 700 /uL (0-900); Monocytes Percent Auto 7.9 % (3-14); Neutrophils Absolute Auto 4900 /uL (1500-7000); Neutrophils Percent Auto 56.1 % (50-75); Platelet Count 357 X10^3/uL (150-400); Red Blood Cell Count 3.66 X10^6/uL (4.0-5.2); Red Cell Distribution Width 14.3 % (11.6-14.8); White Blood Cell Count 8.7 X10^3/uL (4.5-11.0)
[2020-04-12 07:03] LABS: Alanine Aminotransferase 15 IU/L (<35); Albumin 3.6 g/dL (3.5-5.0); Albumin Globulin Ratio 1.3 (1.0-2.8); Alkaline Phosphatase 55 U/L (38-126); Aspartate Aminotransferase 24 IU/L (14-36); BUN Creatinine Ratio 16.4 (6-22); Bilirubin Total 1.4 mg/dL (0.2-1.3); Blood Urea Nitrogen 10 mg/dL (7-17); Calcium 8.5 mg/dL (8.4-10.2); Carbon Dioxide 27 mmol/L (22-32); Chloride 103 mmol/L (98-107); Estimated Glomerular Filt Rate > 60.0 mL/min (>60); Globulin 2.8 g/dL (1.7-4.1); Glucose 174 mg/dL (80-110); HEMOLYSIS < 15 (0-50); Potassium 3.2 mmol/L (3.4-5.1); Sodium 136 mmol/L (137-145); Total Protein 6.4 g/dL (6.3-8.2)
[2020-04-12] MEDS: ONDANSETRON 4 MG/2 ML INJ IV (07:45)
[2020-04-12] MEDS: ENOXAPARIN 40 MG/0.4 ML SYRINGE SUBCUT (08:07)
[2020-04-12] MEDS: PANTOPRAZOLE 40 MG VIAL IV (08:07)
[2020-04-12 08:53] VITALS: BP 141/61; PULSE 72; RESP 17; TEMP 36.4; O2SAT 95
[2020-04-12 09:49] LABS: Clostridium Difficile Tox PCR Negative for C. diff
[2020-04-12] MEDS: ACETAMINOPHEN 325 MG TABLET 650 MG PO (10:59)
[2020-04-12 11:20] VITALS: BP 131/66; PULSE 77; RESP 16; TEMP 36.3; O2SAT 96
--- NOTE | 2020-04-12 11:55 | CM.DANOTE ---
DCP assessment: EMR reviewed: Patient is a 79 yr old female who was admitted with Colitis flare. Patients PCP is Dr Jeffries. CM/RN met with patient at the bedside and explained role. Patient is alert and oriented x3. patient currently lives alone in a single level home. Patient is Independent at base line with all ADLs and drives. Patient asked CM/RN to get a copy of her lab work done in the ED. CM/RN printed a copy and had patient sign a release of records and gave it [employer] Liliya to scan in to record. Patient has am Appointment with Dr. Zeyad Guerra her kier hand scheduled for . Patient updated and stated understanding. I: Medicare and blue cross Plan: D/C home today and follow up with Dr. Guerra on . No other D/C planning needs noted at this time. CM department will continue to follow and assist with any new D/C planning needs that may arise. Michelle Roca RN Discharge Planning/Care Management CM Discharge Assessment Start: 04/12/20 11:53 Freq: Status: Active Protocol: Document 04/12/20 11:53 HS (Rec: 04/12/20 11:55 HS [id number]) Discharge Planning Assessment Assigned Process Worker Michelle Roca Rn DPOA/Assigned Designee Name Chas Brito (son) Contact Information [phone] Advance Directives? Yes History Provided By Patient Has Patient been admitted in last 30 No days? Prior Living Arrangements House Household Members none Type of transporation used prior to Drives own vehicle admit Independent with ADL's Yes Is patient alert and oriented? Yes Caregiver for Another No DME Already Rented / Owned Cane Barriers to Discharge No Discharge Plan Home Referrals Initiated None needed Whiteboard Updated in Patient Room with Yes name and ext. # of Process Worker Review Status In Process Next Review Type Continued Stay Review
[2020-04-12] MEDS: LIDOCAINE PATCH 1 EACH ADH..PATCH TOP (14:33)
[2020-04-12 15:41] VITALS: BP 126/80; PULSE 77; RESP 18; TEMP 36.3; O2SAT 95
--- NOTE | 2020-04-12 19:26 | P.PN_ITS ---
Subjective Subjective Date Patient Seen: 04/12/20 Time Patient Seen: 19:27 Interval history: Ember Brito is an 79-year-old female admitted for intractable abdominal pain, she was made NPO overnight but has been tolerating a diet today without increasing pain. She was transitioned to oral pain medications this evening. If her pain remains controlled tomorrow she will be discharged home. She had a few episodes of diarrhea today, Stool testing was negative. she was given a dose of loperamide. She describes the pain as more abdominal wall in nautre and it does worsen with movement. Patient was started on lidocaine patch, changed to oral morphine and given a muscle relaxant. Exam Vital Signs (past 8 hours): - 04/12/20 15:41 Temperature 97.3 F L Pulse Rate 77 Respiratory Rate 18 Blood Pressure 126/80 Pulse Oximetry 95 Oxygen Delivery Method Room Air Oxygen Flow Rate 0 Narrative Exam Narrative: GENERAL APPEARANCE: Well developed, well nourished, in no acute distress. SKIN: Inspection of the skin reveals no rashes, ulcerations or petechiae. HEENT: Normocephalic atraumatic, extraocular muscles are intact, oropharynx is clear and mucous membranes are moist, neck is supple without adenopathy NECK: Supple and symmetric. There was no thyroid enlargement, and no tenderness, or masses were felt. CHEST: Normal AP diameter and normal contour without any kyphoscoliosis. LUNGS: Auscultation of the lungs revealed no wheezes, rhonchi, or rales. CARDIOVASCULAR: There was a regular rate and rhythm without any murmurs, gallops, rubs. Peripheral pulses were 2+ and symmetric. ABDOMEN: Soft and nontender with normal bowel sounds. No ascites was noted. R lateral abdominal wall tenderness. MUSCULOSKELETAL: There was no tenderness or effusions noted. Muscle strength and tone were normal. EXTREMITIES: No cyanosis, clubbing or edema. NEUROLOGIC: Alert and oriented x 3. Normal affect. Gait was normal. Strength is +5/5 in the Upper Extremities and Lower Extremities Bilaterally. Sensation to touch was normal. Objective Labs Result Diagrams: 04/12/20 05:50 04/12/20 05:50 Labs: Laboratory Results - last 24 hr 04/11/20 04/11/20 04/12/20 13:56 22:20 05:50 WBC 8.7 RBC 3.66 L Hgb 10.8 L Hct 32.0 L MCV 87.4 MCH 29.6 MCHC 33.8 RDW 14.3 Plt Count 357 Neut % (Auto) 56.1 Lymph % (Auto) 31.6 [place] % (Auto) 7.9 Eos % (Auto) 3.3 Baso % (Auto) 1.1 Neut # (Auto) 4900 Lymph # (Auto) 2800 [place] # (Auto) 700 Eos # (Auto) 300 Baso # (Auto) 100 Sodium Potassium Chloride Carbon Dioxide BUN Creatinine Estimated GFR BUN/Creatinine Ratio Glucose Calcium Total Bilirubin AST ALT Alkaline Phosphatase Total Protein Albumin Globulin Albumin/Globulin Ratio Urine Color Yellow Urine Appearance Clear Urine pH 6.0 Ur Specific [place] 1.010 Urine Protein Negative Urine Glucose (UA) Negative Urine Ketones Negative Urine Occult Blood Negative Urine Nitrate Negative Urine Bilirubin Negative Urine Urobilinogen 0.2 Ur Leukocyte Esterase Negative Urine RBC None seen Urine WBC 0-1/hpf Urine Bacteria None seen Ur Culture Indicated? Cult not indicated C. difficile Tox (PCR) Negative for c. diff 04/12/20 05:50 WBC RBC Hgb Hct MCV MCH MCHC RDW Plt Count Neut % (Auto) Lymph % (Auto) [place] % (Auto) Eos % (Auto) Baso % (Auto) Neut # (Auto) Lymph # (Auto) [place] # (Auto) Eos # (Auto) Baso # (Auto) Sodium 136 L Potassium 3.2 L Chloride 103 Carbon Dioxide 27 BUN 10 Creatinine 0.61 Estimated GFR > 60.0 BUN/Creatinine Ratio 16.4 Glucose 174 H Calcium 8.5 Total Bilirubin 1.4 H AST 24 ALT 15 Alkaline Phosphatase 55 Total Protein 6.4 Albumin 3.6 Globulin 2.8 Albumin/Globulin Ratio 1.3 Urine Color Urine Appearance Urine pH Ur Specific [place] Urine Protein Urine Glucose (UA) Urine Ketones Urine Occult Blood Urine Nitrate Urine Bilirubin Urine Urobilinogen Ur Leukocyte Esterase Urine RBC Urine WBC Urine Bacteria Ur Culture Indicated? C. difficile Tox (PCR) Assessment & Plan Assessment & Plan narrative: Abdominal Pain, present on admission, acute -CT scan is not diagnostic of colitis but suggests there may be an early process. History is consistent with abdominal wall pain moreso than intra- abdominal source. -ADAT, change to oral medications with plans to discharge home. -C. diff negative. -if stable in the morning and pain is controlled likely discharge tomorrow. Hypertension, present on admission, chronic -BP 137/62 on admission -continue amlodipine and losartan Type 2 diabetes mellitus, present on admission, chronic -Glucose 157 on admission -continue metformin and follow Accu-Cheks GERD, present on admission, chronic -Continue omeprazole Depression/Anxiety, present on admission, chronic -continue fluoxetine, hold lorazepam. DIspo: remains observation, likely discharge tomorrow pending pain control and ensuring paitnet can tolerate a diet. Quality VTE Deep Vein Thrombosis/Pulmonary Embolism Present on Admission: No
[2020-04-12 19:30] VITALS: BP 115/67; PULSE 72; RESP 18; TEMP 36.8
[2020-04-12] MEDS: MORPHINE IR 15 MG TABLET PO (19:52)
[2020-04-12] MEDS: CYCLOBENZAPRINE 5 MG TABLET PO (22:31)
[2020-04-12] MEDS: LOPERAMIDE 2 MG CAPSULE PO (22:36)
[2020-04-12 23:25] VITALS: BP 144/61; PULSE 76; RESP 18; TEMP 36.7; O2SAT 95
[2020-04-13] MEDS: ONDANSETRON 4 MG/2 ML INJ IV (02:13)
[2020-04-13 04:05] VITALS: BP 146/73; PULSE 72; RESP 16; TEMP 36.4; O2SAT 91
[2020-04-13 06:23] LABS: Add Manual Diff / Slide Review NO; Basophils Absolute Auto 100 /uL (0-100); Eosinophils Absolute Auto 400 /uL (0-450); Hematocrit 31.8 % (36-46); Hemoglobin 10.8 g/dL (12.0-16.0); Lymphocytes Absolute Auto 3400 /uL (1100-4500); Lymphocytes Percent Auto 36.7 % (25-40); Mean Corpuscular HGB Conc 34.1 % (30-36); Mean Corpuscular Volume 87.9 fL (80-100); Monocytes Absolute Auto 800 /uL (0-900); Monocytes Percent Auto 8.9 % (3-14); Neutrophils Absolute Auto 4600 /uL (1500-7000); Neutrophils Percent Auto 49.4 % (50-75); Platelet Count 329 X10^3/uL (150-400); Red Blood Cell Count 3.62 X10^6/uL (4.0-5.2); Red Cell Distribution Width 14.5 % (11.6-14.8); White Blood Cell Count 9.3 X10^3/uL (4.5-11.0)
[2020-04-13 06:33] LABS: BUN Creatinine Ratio 18.8 (6-22); Blood Urea Nitrogen 12 mg/dL (7-17); Calcium 8.8 mg/dL (8.4-10.2); Carbon Dioxide 28 mmol/L (22-32); Chloride 102 mmol/L (98-107); Estimated Glomerular Filt Rate > 60.0 mL/min (>60); Glucose 137 mg/dL (80-110); HEMOLYSIS < 15 (0-50); Magnesium 1.2 mg/dL (1.6-2.3); Potassium 2.9 mmol/L (3.4-5.1); Sodium 136 mmol/L (137-145)
[2020-04-13] MEDS: MAGNESIUM SULFATE 2 GM/50 ML PIGGYBACK IV (07:53)
[2020-04-13 08:00] VITALS: BP 172/83; PULSE 82; RESP 18; TEMP 36.4; O2SAT 92
[2020-04-13] MEDS: TRAMADOL 50 MG TABLET 25 MG PO (08:41)
[2020-04-13] MEDS: ENOXAPARIN 40 MG/0.4 ML SYRINGE SUBCUT (08:42)
[2020-04-13] MEDS: PANTOPRAZOLE 40 MG VIAL IV (08:42)
--- NOTE | 2020-04-13 09:36 | P.DS_ITS ---
History of Present Illness History of Present Illness Date Patient Seen: 04/13/20 Time Patient Seen: 09:36 Chief complaint: Nausea, RLQ Pain Narrative: As per Dr. Hutson, This is an 79-year-old female who has had varying degrees of intractable abdominal pain since January. For the last 2-3 days the pain in the right lower quadrant has been worsening. She has had some watery diarrhea and nausea but no vomiting. She has not seen any blood in the diarrhea. Her CT scan is reportedly unchanged with colitis present. She has recently been treated with doxycycline, Bactrim and Augmentin for this condition. GI, Dr. Law, was contacted from the emergency department and he recommended doing another stool C diff and following up with his office in [place] on (in 4 days.) The patient indicated she was in too much pain to wait until then and so has been admitted for pain control and stabilization. There are no urinary symptoms and she has seen no blood in her urine. A UA will need to be collected. She has a tendency to digress during discussions and so I am not confident that we have the exact accurate picture of her past medical history and recent symptoms, suspecting that more will be divulged and become evident over time. Discharge Providers Provider Date of admission: 04/11/20 14:33 Discharge Date: 04/13/20 Primary care physician: JESSIE Saenz Discharge provider: Ramon Mensah DO Summary Hospital Course Discharge Diagnosis: Abdominal Pain, present on admission, acute, improved Hypertension, present on admission, chronic Type 2 diabetes mellitus, present on admission, chronic GERD, present on admission, chronic Depression/Anxiety, present on admission, chronic Hospital Course: Ember Brito is an 79-year-old female admitted for intractable abdominal pain, she was initially made NPO overnight after CT scan showed evidence of possible colitis. She was rapidly advanced on a diet the next morning, and it became more clear that her pain was musculoskeletal related. She was started on a lidocaine patch, changed to oral medications and given muscle relaxant, all of which helped control her pain. She was able to be discharged without opiate pain medications the following day. She had a few episodes of diarrhea, for which she has been evaluated as an outpatient and has scheduled follow-up later this week. In the emergency room her outpatient GI doctor had recommended repeat C diff testing which was negative. Exam Vital Signs (past 8 hours): - 04/13/20 04:05 04/13/20 08:00 Temperature 97.5 F L 97.5 F L Pulse Rate 72 82 Respiratory Rate 16 18 Blood Pressure 146/73 H 172/83 H Pulse Oximetry 91 92 Oxygen Delivery Method Room Air Oxygen Flow Rate 0 Narrative Exam Narrative: GENERAL APPEARANCE: Well developed, well nourished, in no acute distress. SKIN: Inspection of the skin reveals no rashes, ulcerations or petechiae. HEENT: Normocephalic atraumatic, extraocular muscles are intact, oropharynx is clear and mucous membranes are moist, neck is supple without adenopathy NECK: Supple and symmetric. There was no thyroid enlargement, and no tenderness, or masses were felt. CHEST: Normal AP diameter and normal contour without any kyphoscoliosis. LUNGS: Auscultation of the lungs revealed no wheezes, rhonchi, or rales. CARDIOVASCULAR: There was a regular rate and rhythm without any murmurs, gallops, rubs. Peripheral pulses were 2+ and symmetric. ABDOMEN: Soft and nontender with normal bowel sounds. No ascites was noted. R lateral abdominal wall tenderness is improved. MUSCULOSKELETAL: There was no tenderness or effusions noted. Muscle strength and tone were normal. EXTREMITIES: No cyanosis, clubbing or edema. NEUROLOGIC: Alert and oriented x 3. Normal affect. Gait was normal. Strength is +5/5 in the Upper Extremities and Lower Extremities Bilaterally. Sensation to touch was normal. Objective Labs Result Diagrams: 04/13/20 05:45 04/13/20 05:45 Labs: Laboratory Results - last 24 hr 04/11/20 04/13/20 04/13/20 13:56 05:45 05:45 WBC 9.3 RBC 3.62 L Hgb 10.8 L Hct 31.8 L MCV 87.9 MCH 30.0 MCHC 34.1 RDW 14.5 Plt Count 329 Neut % (Auto) 49.4 L Lymph % (Auto) 36.7 [place] % (Auto) 8.9 Eos % (Auto) 4.0 Baso % (Auto) 1.0 Neut # (Auto) 4600 Lymph # (Auto) 3400 [place] # (Auto) 800 Eos # (Auto) 400 Baso # (Auto) 100 Sodium 136 L Potassium 2.9 L Chloride 102 Carbon Dioxide 28 BUN 12 Creatinine 0.64 Estimated GFR > 60.0 BUN/Creatinine Ratio 18.8 Glucose 137 H Calcium 8.8 Phosphorus 4.0 Magnesium 1.2 L C. difficile Tox (PCR) Negative for c. diff Discharge Plan Discharge Plan Patient Disposition: Home Discharge comment: You were admitted to the hospital with abdominal pain. This improved with lidocaine patches and musculoskeletal relief. Please follow up wi th your primary care provider for other options for treatment of fibromyalgia. Please continue to stay as active as possible. Please follow up with GI as scheduled. Discharge orders & Medications Prescriptions: New Slow-Mag 71.5 mg Tablet,Delayed Release (Dr/Ec) 128 mg PO DAILY 14 Days Qty: 14 RF: 0 lidocaine 4 % adhesive patch,medicated 1 patch TOP DAILY PRN (Reason: pain) 10 Days Qty: 10 RF: 0 cyclobenzaprine 5 mg tablet 5 mg PO BEDTIME PRN (Reason: muscle spasm) 7 Days Qty: 7 RF: 0 Continued omeprazole 20 MG capsule,delayed release(DR/EC) 40 mg PO DAILY Qty: 0 RF: 0 metformin 1,000 mg tablet 1,000 mg PO BID Qty: 0 RF: 0 fluoxetine 20 mg Capsule 40 mg PO QAM RF: 0 artificial tears(hypromellose) 0.3 % Drops 0.3 % OPHTHALMIC (EYE) PRN PRN (Reason: Dry Eyes) RF: 0 nystatin 100,000 unit/mL Suspension 5 ml BUCCAL QID PRN (Reason: Rash) RF: 0 acetaminophen [Tylenol Extra Strength] 500 mg Tablet 500 mg PO BEDTIME RF: 0 lorazepam 0.5 mg Tablet 0.5 mg PO BID PRN (Reason: Insomnia) RF: 0 nitroglycerin 0.4 mg Tablet, Sublingual 0.4 mg SUBLINGUAL Q5-15M PRN (Reason: Chest Pain) RF: 0 vitamin B complex [B-Complex] Tablet 1 tab PO DAILY RF: 0 losartan 100 mg Tablet 100 mg PO DAILY RF: 0 [place]-3 350 mg-235 mg- 90 mg-597 mg Capsule,Delayed Release(Dr/Ec) 1 cap PO DAILY RF: 0 aspirin 81 mg Tablet,Delayed Release (Dr/Ec) 81 mg PO QPM RF: 0 amlodipine 10 mg tablet 10 mg PO DAILY RF: 0 Follow up/Referrals: Charleen Jeffries ARNP [Primary Care Provider] - Discharge Health Status Health Concerns: Musculoskeletal abdominal wall pain Diet/Activity/Treatments Diet: Diet as Tolerated and Low-cholesterol Activity: As tolerated Visit Report/Discharge Packet Instructions: Fibromyalgia, High-Potassium Diet, Lidocaine Transdermal Patch, DI for Colitis, Cyclobenzaprine (By mouth) Visit Report Forms: Patient Portal/API, Stroke Signs & Symptoms Discharge Data Primary Care Provider: Charleen Jeffries Attending Provider: Paris Hutson Admit Date/Time: 04/11/20 14:33 Discharges patient from system. Discharge Date/Time: 04/13/20 14:47 Quality VTE Deep Vein Thrombosis/Pulmonary Embolism Present on Admission: No
[2020-04-13] MEDS: POTASSIUM CHLORIDE 20 MEQ TAB 40 MEQ PO (11:39)
[2020-04-13 12:00] VITALS: BP 144/69; PULSE 75; RESP 18; TEMP 36.8; O2SAT 96
[2020-04-13] MEDS: CYCLOBENZAPRINE 5 MG TABLET PO (13:31)
[2020-04-13] MEDS: ACETAMINOPHEN 325 MG TABLET 650 MG PO (13:31)
--- NOTE | 2020-04-13 14:44 | PC.NURSE ---
Day shift discharge note: Patient discharged home with son via private vehicle, discussed importance of F/U with PMD, nutrition, fall preventions, and home safety. Patient verbalized understanding of discharge instructions.
--- NOTE | 2020-04-13 15:26 | CM.DPC ---
DCP: continued: Case discussed in Team Bedside Rounds. Pt did not go home yesterday but is going home today as per the prior identified d/c plan. Left with son about 1400.
--- NOTE | 2020-04-20 18:04 | PC.NURSE ---
Late entry: Magnesium infusion initiated on 04/13 at 07:53, completed 04/13 at 09:53.
== END 2020-04-13 14:47 | disposition home or self-care (01) ==
LOC: ED 14:31 → AC 14:35
PROVIDERS: Internal Medicine; Admitting Provider Family Medicine; Emergency Provider Emergency Medicine; PCP Nurse Practitioner; Visit Provider Family Medicine
DX: R10.31 Right lower quadrant pain (principal); R19.7 Diarrhea, unspecified; E11.9 Type 2 diabetes mellitus without complications; E78.5 Hyperlipidemia, unspecified; I10 Essential (primary) hypertension; Z79.84 Long term (current) use of oral hypoglycemic drugs; K21.9 Gastro-esophageal reflux disease without esophagitis; F32.9 Major depressive disorder, single episode, unspecified; F41.9 Anxiety disorder, unspecified
CPT/HCPCS: 36415; 71045; 74177; 80048; 80053; 81001; 81003; 82962; 83690; 83735; 84100; 85025; 85651; 87493; 93005; 96361; 96372; 96374; 96375; 96376; 99285; G0378; C9113; J1650; J1885; J2060; J2270; J2405; Q9967

== ENCOUNTER 2020-08-29 18:32 | Emergency (ER) | payer MEDICARE, BC, SELFPAY ==
[2020-04-11 14:41] VITALS: BMI 29.7
[2020-08-29 18:28] VITALS: BP 179/82; PULSE 86; RESP 18; TEMP 36.8; O2SAT 97; BMI 31.1
--- NOTE | 2020-08-29 18:36 | PC.NURSE ---
patient was at home and tripped and fell. She hit the back of her head, right shoulder, forearm, and wrist. She also complains of pain in her left shoulder and hip. She states that her right hip hurts as well and wants to have an x-ray of her right ankle that she had surgery on that is hurting from before the fall. Her posterior head has a contusion on the left side that can be felt and seen. She has midline tenderness and is on a spinal board. She is in c-spine precautions
--- NOTE | 2020-08-29 19:02 | DI.CT.S_ITS ---
PROCEDURE: CT CERVICAL SPINE WO CON INDICATIONS: Fall/injury attention right hip/spine TECHNIQUE: Noncontrast 3 mm thick sections acquired from the skull base to the T4 level. Sagittal and coronal reformats were then constructed. For radiation dose reduction, the following was used: automated exposure control, adjustment of mA and/or kV according to patient size. COMPARISON: [facility], CT, CT CERVICAL SPINE WO CON, 05/27/2019, 14:42. [facility], CT, CT CERVICAL SPINE WO CON, 02/26/2019, 16:25. FINDINGS: Image quality: Excellent. Bones: No dislocations. Visualized superior ribs are intact. There is a transverse fracture, chronic in appearance, at the base of the dens. A fracture in this area was not identified during prior CT scanning 05/27/19. The fracture shows no abnormal translocation or angulation abnormality. Osseous union is not present. Soft tissues: Prevertebral soft tissues are normal in thickness. No paravertebral hematomas. No apical pneumothoraces. 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 Please correlate for cervical trauma in the intervening time frame, possibly elsewhere. Dictated by: Hernan Fisher M.D. on 08/29/2020 at 19:35 Approved by: Hernan Fisher M.D. on 08/29/2020 at 19:40
--- NOTE | 2020-08-29 19:02 | DI.CT.S_ITS ---
PROCEDURE: CT CHEST ABD PEL WO CON INDICATIONS: Fall/injury attention right hip/spine TECHNIQUE: After the administration of oral contrast, 5 mm thick sections acquired from the lung apices to the symphysis pubis. 5 mm thick coronal and sagittal reformats acquired, with additional 7 mm coronal MIP reformats through the lungs. For radiation dose reduction, the following was used: automated exposure control, adjustment of mA and/or kV according to patient size. COMPARISON: None. FINDINGS: Image quality: Limited by absence of both oral and intravenous contrast.. CHEST: Lungs and pleura: No acute pulmonary opacities. No pleural effusions or pneumothorax. Central and peripheral airways are patent are normal in caliber. Mediastinum: Heart size is normal. No pericardial effusion. No mediastinal adenopathy by CT size criteria. Thoracic aorta and central pulmonary arteries are normal in size. Esophagus is normal in caliber. No hiatal hernia. Chest wall: No axillary or supraclavicular adenopathy by size criteria. Thyroid gland is not well seen. ABDOMEN: Solid organs: Liver is normal in size. Gallbladder is not seen. Pancreas is normal in contours. Spleen is normal in size. No adrenal nodules. Both kidneys are normal in size, without hydronephrosis or nephrolithiasis. Peritoneum and bowel: Small and large bowel loops are normal in caliber and wall thickness. No free fluid or air. Nodes and vessels: No retroperitoneal or mesenteric adenopathy by size criteria. Aorta and inferior vena cava are normal in size. Miscellaneous: No ventral hernias. PELVIS: Genitourinary: Bladder wall thickness is normal. Miscellaneous: No inguinal hernias or adenopathy. Bones: No suspicious bony lesions. No vertebral body compression fractures. IMPRESSION: No acute trauma found. The study is diminished in detail due to absence of both oral and intravenous contrast. Degenerative changes are noted along the thoracic and lumbosacral spine but no definite compression fracture is found. Limited visualization of the hips bilaterally without definite fracture. Dictated by: Hernan Fisher M.D. on 08/29/2020 at 19:40 Approved by: Hernan Fisher M.D. on 08/29/2020 at 19:44
--- NOTE | 2020-08-29 19:02 | DI.RAD.S_ITS ---
PROCEDURE: XR KNEE LT 3V INDICATIONS: Fall/injury TECHNIQUE: 3 views of the knee were acquired. COMPARISON: [facility], CR, XR KNEE RT 3V, 02/26/2019, 16:26. FINDINGS: Bones: No fractures or dislocations but there is a moderately severe degree of joint space narrowing in the medial compartment and moderate degree since change at lateral compartment. At the patellofemoral joint moderate degenerative osteoarthritis is present greater at the medial than the lateral facet.. No suspicious bony lesions. Soft tissues: Small joint effusion. No suspicious soft tissue calcifications. IMPRESSION: Moderate to moderately severe degenerative knee joint osteoarthritis as discussed without acute trauma. There is, however, a small suprapatellar joint effusion. Dictated by: Hernan Fisher M.D. on 08/29/2020 at 19:53 Approved by: Hernan Fisher M.D. on 08/29/2020 at 19:54
--- NOTE | 2020-08-29 19:02 | DI.RAD.S_ITS ---
PROCEDURE: XR ANKLE RT MIN 3V INDICATIONS: Fall/injury TECHNIQUE: 3 views of the ankle were acquired. COMPARISON: None. FINDINGS: Bones: No acute fractures or dislocations. Prior extensive fracture fixation utilizing medial and lateral plates and multiple transverse screws are noted. Ankle mortise is normally aligned. No suspicious bony lesions. Soft tissues: No tibiotalar joint effusion. Achilles tendon appears normal. IMPRESSION: No acute trauma to the ankle is found but there is evidence of prior significant trauma to the right ankle with fracture fixations involving the distal tibia and fibula. No sign of device loosening or disruption. Dictated by: Hernan Fisher M.D. on 08/29/2020 at 19:54 Approved by: Hernan Fisher M.D. on 08/29/2020 at 19:55
--- NOTE | 2020-08-29 19:02 | DI.RAD.S_ITS ---
PROCEDURE: XR SHOULDER LT 1V INDICATIONS: Fall/injury TECHNIQUE: 1 views of the shoulder were acquired. COMPARISON: [facility], CR, XR CHEST 2V, 12/26/2019, 15:03. [facility], CR, XR CHEST 1V, 01/04/2020, 8:52. [facility], CR, XR CHEST 1V, 01/08/2020, 11:00. [facility], CR, XR CHEST 1V, 03/15/2020, 12:14. [facility], CR, XR CHEST 1V, 04/11/2020, 9:32. [facility], CR, XR SHOULDER RT MIN 2V, 02/26/2019, 16:26. FINDINGS: Bones: No fractures or dislocations but there is superior subluxation of the humeral head against the undersurface of the acromion with an appearance consistent with full-thickness retracted supraspinatus rotator cuff tear, chronicity uncertain. No suspicious bony lesions. Visualized ribs appear intact. Soft tissues: No suspicious soft tissue calcifications. IMPRESSION: No fracture found. Superior subluxation of the humeral head towards the undersurface of the acromion can indicate rotator cuff tear, but chronicity is uncertain.. Dictated by: Hernan Fisher M.D. on 08/29/2020 at 19:46 Approved by: Hernan Fisher M.D. on 08/29/2020 at 19:53
--- NOTE | 2020-08-29 19:02 | DI.CT.S_ITS ---
PROCEDURE: CT HEAD/BRAIN WO CON INDICATIONS: Fall/injury attention right hip/spine TECHNIQUE: Noncontrast 4.5 mm thick angled axial sections acquired from the foramen magnum to the vertex, with coronal and sagittal reformats. For radiation dose reduction, the following was used: automated exposure control, adjustment of mA and/or kV according to patient size. COMPARISON: [facility], CT, CT HEAD/BRAIN WO CON, 05/27/2019, 14:42. [facility], CT, CT HEAD/BRAIN WO CON, 02/26/2019, 16:25. FINDINGS: Image quality: Excellent. CSF spaces: Basal cisterns are patent. No extra-axial fluid collections. The ventricles are symmetric in size and shape. Brain: No intracranial bleeds or masses. There is cerebral volume loss for age, with resultant ventricular and sulcal prominence. There are periventricular and deep white matter chronic small vessel ischemic changes. There is intracranial internal carotid artery atherosclerosis. Skull and face: Calvarium and visualized facial bones appear intact, without suspicious lesions. Sinuses: Visualized sinuses and mastoids are clear. IMPRESSION: No trauma found. Right frontal calvarial broad-based exostosis again noted. Dictated by: Hernan Fisher M.D. on 08/29/2020 at 19:34 Approved by: Hernan Fisher M.D. on 08/29/2020 at 19:35
--- NOTE | 2020-08-29 19:04 | ED.FALL ---
HPI - Fall General Chief Complaint: Fall Stated Complaint: Fall Time Seen by Provider: 08/29/20 18:44 Source: patient and EMS Mode of arrival: EMS Limitations: no limitations History of Present Illness HPI Narrative: Patient brought in by EMS from home. Patient states she was feeding her dog and the dog was in hurry and backed into her from behind. Patient tripped and tried breaking her fall, however did hit her left side head on the oak floor, denies any loss of consciousness. Feels a little nauseated but no vision changes. Is on daily aspirin. Denies any skin injury. Does complain of left knee right hip right ankle and left shoulder pain during the fall. Also has midthoracic spine pain as well as lower posterior neck pain. No lower back pain. Patient arrives on board and collar. Spinal precautions continues MD complaint: fall Related Data Home Medications Medication Instructions Recorded Confirmed omeprazole 40 mg PO DAILY #0 02/15/13 04/11/20 amlodipine 10 mg PO DAILY 05/09/18 04/11/20 aspirin 81 mg PO QPM 05/09/18 04/11/20 metformin 1,000 mg tablet 1,000 mg PO BID #0 tab 12/20/19 04/11/20 artificial tears(hypromellose) 0.3 % OPHTHALMIC (EYE) PRN PRN 01/08/20 04/11/20 fluoxetine 40 mg PO QAM 01/08/20 04/11/20 [place]-3 1 cap PO DAILY 04/11/20 04/11/20 acetaminophen [Tylenol Extra 500 mg PO BEDTIME 04/11/20 04/11/20 Strength] lorazepam 0.5 mg PO BID PRN 04/11/20 04/11/20 losartan 100 mg PO DAILY 04/11/20 04/11/20 nitroglycerin 0.4 mg SUBLINGUAL Q5-15M PRN 04/11/20 04/11/20 nystatin 5 ml BUCCAL QID PRN 04/11/20 04/11/20 vitamin B complex [B-Complex] 1 tab PO DAILY 04/11/20 04/11/20 Allergies Allergy/AdvReac Type Severity Reaction Status Date / Time clonidine Allergy Unknown Verified 03/15/20 10:39 codeine Allergy Unknown Verified 03/15/20 10:39 diltiazem Allergy Unknown Verified 03/15/20 10:39 doxazosin Allergy Unknown Verified 03/15/20 10:39 hydralazine Allergy Unknown Verified 03/15/20 10:39 hydrocodone Allergy Unknown Verified 03/15/20 10:39 levofloxacin Allergy Unknown Verified 03/15/20 10:39 meperidine Allergy Unknown Verified 03/15/20 10:39 nifedipine Allergy Unknown Verified 03/15/20 10:39 oxycodone Allergy Unknown Verified 03/15/20 10:39 promethazine Allergy Unknown Verified 03/15/20 10:39 rosuvastatin Allergy Unknown Verified 03/15/20 10:39 simvastatin Allergy Unknown Verified 03/15/20 10:39 Sulfa (Sulfonamide Allergy Unknown Verified 03/15/20 10:39 Antibiotics) Review of Systems Review of Systems Narrative: GENERAL: Denies chills, fatigue, malaise, fever, sweats. HEENT: Denies sinus pain, ear pain, sore throat, difficulty swallowing RESPIRATORY: Denies dyspnea, cough CARDIOVASCULAR: Denies chest pain, palpitations, edema, GASTROINTESTINAL: Denies nausea, vomiting, abdominal pain, diarrhea, constipation, melena. : Denies dysuria, frequency, hematuria MUSCULOSKELETAL: Complains of muscle or bony pain SKIN: Denies rash, skin lesions NEUROLOGIC: Denies weakness, headache, numbness, change in speech, confusion PSYCHIATRIC: No SI or HI or hallucinations ROS Unobtainable: All systems reviewed & are unremarkable except as noted in HPI and below Patient History Medical History Diabetes (Acute) Hyperlipidemia (Acute) Hypertension (Acute) Social History household members: none Smoking Status: Never smoker alcohol intake: never Smoking Status: Never smoker alcohol intake frequency: holidays/special occasions only Substance Use Type: does not use Exam Narrative Exam Narrative: GENERAL: patient appears stated age. Well-nourished, well-developed patient, in no distress, not toxic not dyspneic HEAD: Normocephalic. There is a contusion with mild tenderness to the left posterior parietal scalp superiorly. Skin is intact. Tenderness to touch but no crepitus or step-off. EYES: Pupils equal round and reactive. No scleral icterus. No injection no discharge ENT: Mucous membranes moist. No drooling no tongue elevation no trismus no malocclusion NECK: Trachea midline. Non tender, spinal precautions maintained. Patient remains in cervical collar/hard collar CARDIOVASCULAR: Regular rate and rhythm without murmurs, gallops, or rubs. RESPIRATORY: Clear to auscultation. Breath sounds equal bilaterally. No wheezes, rales, or rhonchi. GASTROINTESTINAL: Abdomen soft, non-tender, nondistended. EXTREMITIES: No gross deformities. Mild tenderness to the left shoulder right hip and left knee diffusely but no gross deformity. Able to actively elevate left hand in the air and cross left arm across the chest without any difficulty. 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 Mild tenderness to the right hip but there is no shortening of or rotation of the right leg. Mild tenderness to the left patella but able to fully actively flex and extend at the left knee. Hands and feet warm soft and pink. Strong bilateral radial and pedal pulses. Right ankle examination mild diffuse tenderness but patient states is chronic due to previous surgeries and injuries. No bruising seen. BACK: Nontender without deformity or crepitance. No flank tenderness. Three nurses and myself with spinal precautions logroll patient to the left. There is mild mid thoracic tenderness without step-off or crepitus. No skin bruising or injury seen. NEURO: AOx4. Clear speech no facial droop light touch intact to bilateral face hands and feet. 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 Strong bilateral hip flexion knee flexion and extensions. SKIN: Warm and dry PSYCH: Not anxious, is cooperative Initial Vital Signs Initial Vital Signs: Vital Signs Temperature 98.3 F 08/29/20 18:28 Pulse Rate 86 08/29/20 18:28 Respiratory Rate 18 08/29/20 18:28 Blood Pressure 179/82 H 08/29/20 18:28 Pulse Oximetry 97 08/29/20 18:28 Course Course Course Narrative: I spoke with radiologist regarding CT scan imaging of the cervical spine. As well as neurosurgeon. I spoke with patient regarding results as well. She states she has had falls at home and elsewhere since May 2019 but did not seek medical attention. Fracture the cervical spine likely after visit in May 2019 Orders Ordered: ED Orders 08/29/20 18:40 Complete Blood Count AUTO DIFF Stat Comprehensive Metabolic Panel Stat Partial Thromboplastin Time Stat Prothrombin Time INR Stat 08/29/20 19:02 CT cervical spine wo con Stat CT chest abd pel wo con Stat CT head/brain wo con Stat XR ankle RT min 3V Stat XR knee LT 3V Stat XR shoulder LT 1V Stat 08/29/20 20:28 COVID19 -ED/INPAT/OR/L&D Stat 08/29/20 21:21 XR cervical spine 2V or 3V Stat XR hip RT 1V Stat Discontinued Medications Diazepam (Valium) 2 mg IV NOW ONE Stop: 08/29/20 20:04 Last Admin: 08/29/20 20:08 Dose: 2 mg Documented by: KARLA Morphine Sulfate (Morphine) 4 mg IV NOW ONE Stop: 08/29/20 19:00 Last Admin: 08/29/20 19:32 Dose: 4 mg Documented by: KARLA Morphine Sulfate (Morphine) 4 mg IV NOW ONE Stop: 08/29/20 22:15 Last Admin: 08/29/20 22:20 Dose: 4 mg Documented by: KARLA Morphine Sulfate (Morphine) 4 mg IV NOW ONE Stop: 08/29/20 23:52 Last Admin: 08/30/20 00:15 Dose: 4 mg Documented by: AB Ondansetron HCl (Zofran) 4 mg IV NOW ONE Stop: 08/29/20 19:00 Last Admin: 08/29/20 19:32 Dose: 4 mg Documented by: KARLA Reevaluation(s) Reevaluation #1: Reviewed with patient CT scan imaging and radiology reports. Patient has been up and walking to the bathroom without any difficulties without any assist. Able to tolerate standing x-ray for cervical spine as well. Awaiting now for callback from neurosurgeon to review x-ray imaging he requested Time: 22:26 Reevaluation #2: Updated x-ray results and 2nd conversation with neurosurgery with the patient. She does agree for transfer to [facility] Emergency Department tonight Time: 23:17 Reevaluation #3: no new complaints...pt in [place] collar now no neuro complaints of numbness tingling or weakness. Time: 23:27 Consultations Consultation #1: Spoke with [facility] neurosurgery Dr Rebolledo, he has reviewed the CT scan. Patient can now get plain x-ray of the cervical spine in standing position with C-collar on. Time: 21:21 Consultation #2: Spoke with neurosurgeon again. He has reviewed the x-rays. He feels patient will need repair and transfer tonight can be arranged Time: 23:17 Vital Signs Vital signs: Vital Signs - 8 hr 08/29/20 18:28 08/29/20 20:48 08/29/20 21:00 Temperature 98.3 F Pulse Rate 86 85 84 Respiratory Rate 18 Blood Pressure 179/82 H 153/70 H Pulse Oximetry 97 96 97 08/29/20 21:48 08/29/20 21:49 08/29/20 22:00 Temperature Pulse Rate 88 88 85 Respiratory Rate Blood Pressure 160/76 H 151/66 H Pulse Oximetry 96 96 96 08/30/20 00:57 Temperature Pulse Rate 84 Respiratory Rate 18 Blood Pressure 146/65 H Pulse Oximetry 95 MDM - Fall Differential Diagnosis Differential diagnosis: Likely compression fracture, concussion without loss of consciousness and other (Cervical fracture hip fracture) Medical Records Attestation: I reviewed the patient's medical records. Lab Data Attestation: I reviewed the patient's lab results. Result diagrams: 08/29/20 18:40 08/29/20 18:40 Labs: Lab Results 08/29/20 08/29/20 08/29/20 Range/Units 18:40 18:40 18:40 WBC 9.7 (4.5-11.0) X10^3/uL RBC 4.04 (4.0-5.2) X10^6/uL Hgb 11.6 L (12.0-16.0) g/dL Hct 35.5 L (36-46) % MCV 87.8 (80-100) fL MCH 28.7 (26-34) PG MCHC 32.7 (30-36) % RDW 14.3 (11.6-14.8) % Plt Count 355 (150-400) X10^3/uL Neut % (Auto) 59.8 (50-75) % Lymph % (Auto) 29.5 (25-40) % [place] % (Auto) 7.4 (3-14) % Eos % (Auto) 2.5 (2-4) % Baso % (Auto) 0.8 (0-2) % Neut # (Auto) 5800 (6538-0944) /uL Lymph # (Auto) 2800 (8256-6620) /uL [place] # (Auto) 700 (0-900) /uL Eos # (Auto) 200 (0-450) /uL Baso # (Auto) 100 (0-100) /uL PT 11.2 (10.1-12.7) SECONDS INR 1.0 (0.9-1.3) APTT 30 (26.4-36.2) SECONDS Sodium (137-145) mmol/L Potassium (3.4-5.1) mmol/L Chloride (98-107) mmol/L Carbon Dioxide (22-32) mmol/L BUN (7-17) mg/dL Creatinine (0.52-1.04) mg/dL Estimated GFR (>60) mL/min BUN/Creatinine Ratio (6-22) Glucose (80-110) mg/dL Calcium (8.4-10.2) mg/dL Total Bilirubin (0.2-1.3) mg/dL AST (14-36) IU/L ALT (<35) IU/L Alkaline Phosphatase (38-126) U/L Total Protein (6.3-8.2) g/dL Albumin (3.5-5.0) g/dL Globulin (1.7-4.1) g/dL Albumin/Globulin Ratio (1.0-2.8) COVID-19 PCR (Negative) 08/29/20 08/29/20 Range/Units 18:40 20:28 WBC (4.5-11.0) X10^3/uL RBC (4.0-5.2) X10^6/uL Hgb (12.0-16.0) g/dL Hct (36-46) % MCV (80-100) fL MCH (26-34) PG MCHC (30-36) % RDW (11.6-14.8) % Plt Count (150-400) X10^3/uL Neut % (Auto) (50-75) % Lymph % (Auto) (25-40) % [place] % (Auto) (3-14) % Eos % (Auto) (2-4) % Baso % (Auto) (0-2) % Neut # (Auto) (2351-4070) /uL Lymph # (Auto) (2245-0057) /uL [place] # (Auto) (0-900) /uL Eos # (Auto) (0-450) /uL Baso # (Auto) (0-100) /uL PT (10.1-12.7) SECONDS INR (0.9-1.3) APTT (26.4-36.2) SECONDS Sodium 134 L (137-145) mmol/L Potassium 3.8 (3.4-5.1) mmol/L Chloride 101 (98-107) mmol/L Carbon Dioxide 24 (22-32) mmol/L BUN 13 (7-17) mg/dL Creatinine 0.65 (0.52-1.04) mg/dL Estimated GFR > 60.0 (>60) mL/min BUN/Creatinine Ratio 20.0 (6-22) Glucose 174 H (80-110) mg/dL Calcium 9.3 (8.4-10.2) mg/dL Total Bilirubin 1.0 (0.2-1.3) mg/dL AST 32 (14-36) IU/L ALT 25 (<35) IU/L Alkaline Phosphatase 67 (38-126) U/L Total Protein 7.8 (6.3-8.2) g/dL Albumin 4.3 (3.5-5.0) g/dL Globulin 3.5 (1.7-4.1) g/dL Albumin/Globulin Ratio 1.2 (1.0-2.8) COVID-19 PCR Negative (Negative) Point of Care Testing Glucose POC [address] chest abdomen pelvis: Radiologist's Impression: [address] [address] [address] Scan Report Signed Patient: Ember Brito LMR#: [id number] : 9Acct:[id number] Age/Sex: 80 / FDate of Service: 08/29/20 Loc: ED Accession Number: [id number] Procedure: CT chest abd pel wo con Ordering Provider: Maurizio Morgan MD PROCEDURE: CT CHEST ABD PEL WO CON INDICATIONS: Fall/injury attention right hip/spine TECHNIQUE: After the administration of oral contrast, 5 mm thick sections acquired from the lung apices to the symphysis pubis. 5 mm thick coronal and sagittal reformats acquired, with additional 7 mm coronal MIP reformats through the lungs. For radiation dose reduction, the following was used: automated exposure control, adjustment of mA and/or kV according to patient size. COMPARISON: None. FINDINGS: Image quality: Limited by absence of both oral and intravenous contrast.. CHEST: Lungs and pleura: No acute pulmonary opacities. No pleural effusions or pneumothorax. Central and peripheral airways are patent are normal in caliber. Mediastinum: Heart size is normal. No pericardial effusion. No mediastinal adenopathy by CT size criteria. Thoracic aorta and central pulmonary arteries are normal in size. Esophagus is normal in caliber. No hiatal hernia. Chest wall: No axillary or supraclavicular adenopathy by size criteria. Thyroid gland is not well seen. ABDOMEN: Solid organs: Liver is normal in size. Gallbladder is not seen. Pancreas is normal in contours. Spleen is normal in size. No adrenal nodules. Both kidneys are normal in size, without hydronephrosis or nephrolithiasis. Peritoneum and bowel: Small and large bowel loops are normal in caliber and wall thickness. No free fluid or air. Nodes and vessels: No retroperitoneal or mesenteric adenopathy by size criteria. Aorta and inferior vena cava are normal in size. Miscellaneous: No ventral hernias. PELVIS: Genitourinary: Bladder wall thickness is normal. Miscellaneous: No inguinal hernias or adenopathy. Bones: No suspicious bony lesions. No vertebral body compression fractures. IMPRESSION: No acute trauma found. The study is diminished in detail due to absence of both oral and intravenous contrast. Degenerative changes are noted along the thoracic and lumbosacral spine but no definite compression fracture is found. Limited visualization of the hips bilaterally without definite fracture. Dictated by: Hernan Fisher M.D. on 08/29/2020 at 19:40 Approved by: Hernan Fisher M.D. on 08/29/2020 at 19:44 CT - cervical spine: Radiologist's Impression: [place] [address] CT Scan Report Signed Patient: Ember Brito LMR#: [id number] : 9Acct:[id number] Age/Sex: 80 / FDate of Service: 08/29/20 Loc: ED Accession Number: [id number] Procedure: CT cervical spine wo con Ordering Provider: Maurizio Morgan MD PROCEDURE: CT CERVICAL SPINE WO CON INDICATIONS: Fall/injury attention right hip/spine TECHNIQUE: Noncontrast 3 mm thick sections acquired from the skull base to the T4 level. Sagittal and coronal reformats were then constructed. For radiation dose reduction, the following was used: automated exposure control, adjustment of mA and/or kV according to patient size. COMPARISON: [facility], CT, CT CERVICAL SPINE WO CON, 05/27/2019, 14:42. [facility], CT, CT CERVICAL SPINE WO CON, 02/26/2019, 16:25. FINDINGS: Image quality: Excellent. Bones: No dislocations. Visualized superior ribs are intact. There is a transverse fracture, chronic in appearance, at the base of the dens. A fracture in this area was not identified during prior CT scanning 05/27/19. The fracture shows no abnormal translocation or angulation abnormality. Osseous union is not present. Soft tissues: Prevertebral soft tissues are normal in thickness. No paravertebral hematomas. No apical pneumothoraces. 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 Please correlate for cervical trauma in the intervening time frame, possibly elsewhere. Dictated by: Hernan Fisher M.D. on 08/29/2020 at 19:35 Approved by: Hernan Fisher M.D. on 08/29/2020 at 19:40 X-ray left shoulder: Radiologist's Impression: [place] [address] XRay Report Signed Patient: Ember Brito LMR#: [id number] : 9Acct:[id number] Age/Sex: 80 / FDate of Service: 08/29/20 Loc: ED Accession Number: [id number] Procedure: XR shoulder LT 1V Ordering Provider: Maurizio Morgan MD PROCEDURE: XR SHOULDER LT 1V INDICATIONS: Fall/injury TECHNIQUE: 1 views of the shoulder were acquired. COMPARISON: [facility], CR, XR CHEST 2V, 12/26/2019, 15:03. [facility], CR, XR CHEST 1V, 01/04/2020, 8:52. [facility], CR, XR CHEST 1V, 01/08/2020, 11:00. [facility], CR, XR CHEST 1V, 03/15/2020, 12:14. [facility], CR, XR CHEST 1V, 04/11/2020, 9:32. [facility], CR, XR SHOULDER RT MIN 2V, 02/26/2019, 16:26. FINDINGS: Bones: No fractures or dislocations but there is superior subluxation of the humeral head against the undersurface of the acromion with an appearance consistent with full-thickness retracted supraspinatus rotator cuff tear, chronicity uncertain. No suspicious bony lesions. Visualized ribs appear intact. Soft tissues: No suspicious soft tissue calcifications. IMPRESSION: No fracture found. Superior subluxation of the humeral head towards the undersurface of the acromion can indicate rotator cuff tear, but chronicity is uncertain.. Dictated by: Hernan Fisher M.D. on 08/29/2020 at 19:46 Approved by: Hernan Fisher M.D. on 08/29/2020 at 19:53 X-ray right hip: Radiologist's Impression: [address] [address] XRay Report Signed Patient: Ember Brito LMR#: [id number] : 9Acct:[id number] Age/Sex: 80 / FDate of Service: 08/29/20 Loc: ED Accession Number: [id number] Procedure: XR hip RT 1V Ordering Provider: Maurizio Morgan MD PROCEDURE: XR HIP RT 1V INDICATIONS: Fall/injury TECHNIQUE: Single view of the hip were acquired. COMPARISON: None. FINDINGS: Bones: No fractures or dislocations. No suspicious bony lesions. The visualized pelvic ring appears intact. Soft tissues: No suspicious soft tissue calcifications or masses. IMPRESSION: No trauma. Dictated by: Hernan Fisher M.D. on 08/29/2020 at 22:01 Approved by: Hernan Fisher M.D. on 08/29/2020 at 22:01 X-ray left knee: Radiologist's Impression: [address] [address] XRay Report Signed Patient: Dominga Britoty LMR#: [id number] : 9Acct:[id number] Age/Sex: 80 / FDate of Service: 08/29/20 Loc: ED Accession Number: [id number] Procedure: XR knee LT 3V Ordering Provider: Maurizio Morgan MD PROCEDURE: XR KNEE LT 3V INDICATIONS: Fall/injury TECHNIQUE: 3 views of the knee were acquired. COMPARISON: [facility], , XR KNEE RT 3V, 02/26/2019, 16:26. FINDINGS: Bones: No fractures or dislocations but there is a moderately severe degree of joint space narrowing in the medial compartment and moderate degree since change at lateral compartment. At the patellofemoral joint moderate degenerative osteoarthritis is present greater at the medial than the lateral facet.. No suspicious bony lesions. Soft tissues: Small joint effusion. No suspicious soft tissue calcifications. IMPRESSION: Moderate to moderately severe degenerative knee joint osteoarthritis as discussed without acute trauma. There is, however, a small suprapatellar joint effusion. Dictated by: Hernan Fisher M.D. on 08/29/2020 at 19:53 Approved by: Hernan Fisher M.D. on 08/29/2020 at 19:54 X-ray right ankle: Radiologist's Impression: [address] [address] XRay Report Signed Patient: Ember Brito LMR#: [id number] : 9Acct:[id number] Age/Sex: 80 / FDate of Service: 08/29/20 Loc: ED Accession Number: [id number] Procedure: XR ankle RT min 3V Ordering Provider: Maurizio Morgan MD PROCEDURE: XR ANKLE RT MIN 3V INDICATIONS: Fall/injury TECHNIQUE: 3 views of the ankle were acquired. COMPARISON: None. FINDINGS: Bones: No acute fractures or dislocations. Prior extensive fracture fixation utilizing medial and lateral plates and multiple transverse screws are noted. Ankle mortise is normally aligned. No suspicious bony lesions. Soft tissues: No tibiotalar joint effusion. Achilles tendon appears normal. IMPRESSION: No acute trauma to the ankle is found but there is evidence of prior significant trauma to the right ankle with fracture fixations involving the distal tibia and fibula. No sign of device loosening or disruption. Dictated by: Hernan Fisher M.D. on 08/29/2020 at 19:54 Approved by: Hernan Fisher M.D. on 08/29/2020 at 19:55 X-ray cervical spine: Radiologist's Impression: [address] [address] XRay Report Signed Patient: Ember Brito LMR#: [id number] : 9Acct:[id number] Age/Sex: 80 / FDate of Service: 08/29/20 Loc: ED Accession Number: [id number] Procedure: XR cervical spine 2V or 3V Ordering Provider: Maurizio Morgan MD PROCEDURE: XR CERVICAL SPINE 2V OR 3V INDICATIONS: Fall/injury TECHNIQUE: 4 view(s) of the cervical spine were acquired. COMPARISON: [facility], CT, CT CERVICAL SPINE WO CON, 08/29/2020, 19:05. FINDINGS: Bones: No fractures or dislocations to the T1 level. The lateral masses of C1 appear intact on the odontoid view. No suspicious bony lesions. There is grade 1 mild anterolisthesis of C5 on C6 seen on the lateral view. This was not present on CT scanning also obtained earlier this evening. Note is again made of sclerosis at the base dens, and there appears to be mild retrolisthesis of the dens across the base of the dens on the lateral view, relatively poorly seen. Soft tissues: No prevertebral soft tissue swelling. IMPRESSION: C2 dens base fracture has been documented by CT scanning earlier this evening, chronic in appearance. The current lateral view of the cervical spine shows retrolisthesis of the dens above the fracture plane in relationship to the base of the dens, indicating potential instability. Additionally, there is a mild grade 1 anterolisthesis of C5 on C6, not seen on CT scanning. Some degree of ligamentous laxity is therefore present, likely due to degenerative change, at C5-6. Overall, by appearance, the C2 fracture is considered potentially unstable, but the C5 on C6 anterolisthesis is considered mild and secondary to ligamentous laxity. Dictated by: Hernan Fisher M.D. on 08/29/2020 at 21:56 Approved by: Hernan Fisher M.D. on 08/29/2020 at 22:00 CT scan - head: Radiologist's Impression: [address] [address] [address] Scan Report Signed Patient: Ember Brito LMR#: [id number] : 9Acct:[id number] Age/Sex: 80 / FDate of Service: 10/25/20 Loc: ED Accession Number: [id number] Procedure: CT head/brain wo con Ordering Provider: Maurizio Morgan MD PROCEDURE: CT HEAD/BRAIN WO CON INDICATIONS: Fall/injury attention right hip/spine TECHNIQUE: Noncontrast 4.5 mm thick angled axial sections acquired from the foramen magnum to the vertex, with coronal and sagittal reformats. For radiation dose reduction, the following was used: automated exposure control, adjustment of mA and/or kV according to patient size. COMPARISON: [facility], CT, CT HEAD/BRAIN WO CON, 05/27/2019, 14:42. [facility], CT, CT HEAD/BRAIN WO CON, 02/26/2019, 16:25. FINDINGS: Image quality: Excellent. CSF spaces: Basal cisterns are patent. No extra-axial fluid collections. The ventricles are symmetric in size and shape. Brain: No intracranial bleeds or masses. There is cerebral volume loss for age, with resultant ventricular and sulcal prominence. There are periventricular and deep white matter chronic small vessel ischemic changes. There is intracranial internal carotid artery atherosclerosis. Skull and face: Calvarium and visualized facial bones appear intact, without suspicious lesions. Sinuses: Visualized sinuses and mastoids are clear. IMPRESSION: No trauma found. Right frontal calvarial broad-based exostosis again noted. Dictated by: Hernan Fisher M.D. on 08/29/2020 at 19:34 Approved by: Hernan Fisher M.D. on 08/29/2020 at 19:35 [facility] Narrative Medical decision making narrative: Appropriate for transfer, discussed with neurosurgery [facility] Discharge Plan Departure Patient Disposition: [facility] Clinical Impression: Hematoma of parietal scalp, Contusion of multiple sites Closed dens fracture Qualifiers: Encounter type: initial encounter Qualified Code(s): S12.100A - Unspecified displaced fracture of second cervical vertebra, initial encounter for closed fracture Discharge Date/Time: 08/30/20 00:59 Prescriptions: No Action omeprazole 20 MG capsule,delayed release(DR/EC) 40 mg PO DAILY Qty: 0 RF: 0 metformin 1,000 mg tablet 1,000 mg PO BID Qty: 0 RF: 0 fluoxetine 20 mg Capsule 40 mg PO QAM RF: 0 artificial tears(hypromellose) 0.3 % Drops 0.3 % OPHTHALMIC (EYE) PRN PRN (Reason: Dry Eyes) RF: 0 nystatin 100,000 unit/mL Suspension 5 ml BUCCAL QID PRN (Reason: Rash) RF: 0 acetaminophen [Tylenol Extra Strength] 500 mg Tablet 500 mg PO BEDTIME RF: 0 lorazepam 0.5 mg Tablet 0.5 mg PO BID PRN (Reason: Insomnia) RF: 0 nitroglycerin 0.4 mg Tablet, Sublingual 0.4 mg SUBLINGUAL Q5-15M PRN (Reason: Chest Pain) RF: 0 vitamin B complex [B-Complex] Tablet 1 tab PO DAILY RF: 0 losartan 100 mg Tablet 100 mg PO DAILY RF: 0 [place]-3 350 mg-235 mg- 90 mg-597 mg Capsule,Delayed Release(Dr/Ec) 1 cap PO DAILY RF: 0 aspirin 81 mg Tablet,Delayed Release (Dr/Ec) 81 mg PO QPM RF: 0 amlodipine 10 mg tablet 10 mg PO DAILY RF: 0 Referrals: Charleen Jeffries ARNP [Primary Care Provider] -
[2020-08-29] MEDS: MORPHINE 4 MG/ML INJ IV ×2 (19:32→22:20)
[2020-08-29] MEDS: ONDANSETRON 4 MG/2 ML INJ IV (19:32)
[2020-08-29] MEDS: diazePAM 10 MG/2 ML SYRINGE 2 MG IV (20:08)
[2020-08-29 20:48] VITALS: PULSE 85; O2SAT 96
[2020-08-29 21:00] VITALS: BP 153/70; PULSE 84; O2SAT 97
[2020-08-29 21:00] LABS: COVID19 -Nasal RAPID Negative (Negative)
--- NOTE | 2020-08-29 21:21 | DI.RAD.S_ITS ---
PROCEDURE: XR CERVICAL SPINE 2V OR 3V INDICATIONS: Fall/injury TECHNIQUE: 4 view(s) of the cervical spine were acquired. COMPARISON: [facility], CT, CT CERVICAL SPINE WO CON, 08/29/2020, 19:05. FINDINGS: Bones: No fractures or dislocations to the T1 level. The lateral masses of C1 appear intact on the odontoid view. No suspicious bony lesions. There is grade 1 mild anterolisthesis of C5 on C6 seen on the lateral view. This was not present on CT scanning also obtained earlier this evening. Note is again made of sclerosis at the base dens, and there appears to be mild retrolisthesis of the dens across the base of the dens on the lateral view, relatively poorly seen. Soft tissues: No prevertebral soft tissue swelling. IMPRESSION: C2 dens base fracture has been documented by CT scanning earlier this evening, chronic in appearance. The current lateral view of the cervical spine shows retrolisthesis of the dens above the fracture plane in relationship to the base of the dens, indicating potential instability. Additionally, there is a mild grade 1 anterolisthesis of C5 on C6, not seen on CT scanning. Some degree of ligamentous laxity is therefore present, likely due to degenerative change, at C5-6. Overall, by appearance, the C2 fracture is considered potentially unstable, but the C5 on C6 anterolisthesis is considered mild and secondary to ligamentous laxity. Dictated by: Hernan Fisher M.D. on 08/29/2020 at 21:56 Approved by: Hernan Fisher M.D. on 08/29/2020 at 22:00
--- NOTE | 2020-08-29 21:21 | DI.RAD.S_ITS ---
PROCEDURE: XR HIP RT 1V INDICATIONS: Fall/injury TECHNIQUE: Single view of the hip were acquired. COMPARISON: None. FINDINGS: Bones: No fractures or dislocations. No suspicious bony lesions. The visualized pelvic ring appears intact. Soft tissues: No suspicious soft tissue calcifications or masses. IMPRESSION: No trauma. Dictated by: Hernan Fisher M.D. on 08/29/2020 at 22:01 Approved by: Hernan Fisher M.D. on 08/29/2020 at 22:01
[2020-08-29 21:48] VITALS: PULSE 88; O2SAT 96
[2020-08-29 21:49] VITALS: BP 160/76; PULSE 88; O2SAT 96
[2020-08-29 22:00] VITALS: BP 151/66; PULSE 85; O2SAT 96
[2020-08-29 23:27] LABS: Prothrombin Time 11.2 SECONDS (10.1-12.7)
[2020-08-29 23:32] LABS: Alanine Aminotransferase 25 IU/L (<35); Albumin 4.3 g/dL (3.5-5.0); Albumin Globulin Ratio 1.2 (1.0-2.8); Alkaline Phosphatase 67 U/L (38-126); Aspartate Aminotransferase 32 IU/L (14-36); Blood Urea Nitrogen 13 mg/dL (7-17); Calcium 9.3 mg/dL (8.4-10.2); Carbon Dioxide 24 mmol/L (22-32); Chloride 101 mmol/L (98-107); Estimated Glomerular Filt Rate > 60.0 mL/min (>60); Globulin 3.5 g/dL (1.7-4.1); Glucose 174 mg/dL (80-110); HEMOLYSIS < 15 (0-50); Potassium 3.8 mmol/L (3.4-5.1); Sodium 134 mmol/L (137-145); Total Protein 7.8 g/dL (6.3-8.2)
[2020-08-29 23:35] LABS: PTT Partial Thromboplastin Tim 30 SECONDS (26.4-36.2)
[2020-08-29 23:42] LABS: Add Manual Diff / Slide Review NO; Basophils Absolute Auto 100 /uL (0-100); Basophils Percent Auto 0.8 % (0-2); Eosinophils Absolute Auto 200 /uL (0-450); Eosinophils Percent Auto 2.5 % (2-4); Hematocrit 35.5 % (36-46); Hemoglobin 11.6 g/dL (12.0-16.0); Lymphocytes Absolute Auto 2800 /uL (1100-4500); Lymphocytes Percent Auto 29.5 % (25-40); Mean Corpuscular HGB Conc 32.7 % (30-36); Mean Corpuscular Hemoglobin 28.7 PG (26-34); Mean Corpuscular Volume 87.8 fL (80-100); Monocytes Absolute Auto 700 /uL (0-900); Monocytes Percent Auto 7.4 % (3-14); Neutrophils Absolute Auto 5800 /uL (1500-7000); Neutrophils Percent Auto 59.8 % (50-75); Platelet Count 355 X10^3/uL (150-400); Red Blood Cell Count 4.04 X10^6/uL (4.0-5.2); Red Cell Distribution Width 14.3 % (11.6-14.8); White Blood Cell Count 9.7 X10^3/uL (4.5-11.0)
[2020-08-30] MEDS: MORPHINE 4 MG/ML INJ IV (00:15)
[2020-08-30 00:57] VITALS: BP 146/65; PULSE 84; RESP 18; O2SAT 95
== END 2020-08-30 00:59 | disposition short-term general hospital (02) ==
PROVIDERS: Emergency Provider Emergency Medicine; PCP Nurse Practitioner; Referring Provider Nurse Practitioner
DX: S12.100A Unspecified displaced fracture of second cervical vertebra, initial encounter for closed fracture (principal); M25.562 Pain in left knee; M25.551 Pain in right hip; M25.571 Pain in right ankle and joints of right foot; M25.512 Pain in left shoulder; M54.6 Pain in thoracic spine; M54.2 Cervicalgia; S00.03XA Contusion of scalp, initial encounter; Z79.82 Long term (current) use of aspirin; W01.0XXA Fall on same level from slipping, tripping and stumbling without subsequent striking against object, initial encounter
CPT/HCPCS: 36415; 70450; 71250; 72040; 72125; 73020; 73501; 73562; 73610; 74176; 80053; 82962; 85025; 85610; 85730; 87635; 96374; 96375; 96376; 99285; J2270; J2405; J3360

== ENCOUNTER 2021-03-02 16:30 | Emergency (ER) | payer MEDICARE, BC, SELFPAY ==
[2020-04-11 14:41] VITALS: BMI 29.7
[2021-03-02 16:35] VITALS: BP 139/75; PULSE 95; RESP 20; TEMP 36.4; O2SAT 97
[2021-03-02 16:47] LABS: Add Manual Diff / Slide Review NO; Basophils Absolute Auto 100 /uL (0-100); Basophils Percent Auto 0.5 % (0-2); Eosinophils Absolute Auto 200 /uL (0-450); Eosinophils Percent Auto 1.7 % (2-4); Hematocrit 35.1 % (36-46); Hemoglobin 11.4 g/dL (12.0-16.0); Lymphocytes Absolute Auto 2400 /uL (1100-4500); Lymphocytes Percent Auto 19.1 % (25-40); Mean Corpuscular HGB Conc 32.4 % (30-36); Mean Corpuscular Hemoglobin 27.3 PG (26-34); Mean Corpuscular Volume 84.2 fL (80-100); Monocytes Absolute Auto 800 /uL (0-900); Monocytes Percent Auto 6.8 % (3-14); Neutrophils Absolute Auto 9000 /uL (1500-7000); Neutrophils Percent Auto 71.9 % (50-75); Platelet Count 403 X10^3/uL (150-400); Red Blood Cell Count 4.17 X10^6/uL (4.0-5.2); Red Cell Distribution Width 15.5 % (11.6-14.8); White Blood Cell Count 12.5 X10^3/uL (4.5-11.0)
[2021-03-02 16:54] LABS: Prothrombin Time 11.7 SECONDS (10.1-12.7)
[2021-03-02 16:57] LABS: PTT Partial Thromboplastin Tim 28 SECONDS (26.4-36.2)
[2021-03-02 16:58] LABS: Alanine Aminotransferase 23 IU/L (<35); Albumin 4.6 g/dL (3.5-5.0); Albumin Globulin Ratio 1.4 (1.0-2.8); Alkaline Phosphatase 88 U/L (38-126); Aspartate Aminotransferase 31 IU/L (14-36); BUN Creatinine Ratio 33.3 (6-22); Bilirubin Total 0.6 mg/dL (0.2-1.3); Blood Urea Nitrogen 23 mg/dL (7-17); Carbon Dioxide 21 mmol/L (22-32); Chloride 97 mmol/L (98-107); Estimated Glomerular Filt Rate > 60.0 mL/min (>60); Globulin 3.4 g/dL (1.7-4.1); Glucose 170 mg/dL (80-110); HEMOLYSIS < 15 (0-50); Lipase 178 U/L (23-300); Potassium 4.4 mmol/L (3.4-5.1); Sodium 132 mmol/L (137-145)
--- NOTE | 2021-03-02 17:03 | ED.NAVMDI ---
HPI - Nausea/Vomiting/Diarrhea General Chief complaint: Nausea/Vomiting/Diarrhea Stated complaint: Vomiting Time Seen by Provider: 03/02/21 16:42 Source: patient and EMS Mode of arrival: EMS Limitations: no limitations History of Present Illness HPI Narrative: Patient is an 80-year-old female here for evaluation of approximately 24 hours of nausea and vomiting and abdominal cramping and diarrhea. She states that the nausea and vomiting have improved but she has had multiple episodes of diarrhea and cramping. She has generalized abdominal pain. She has felt very fatigued and weak at home. She is tolerating oral intake. No fevers at home. Has not tried anything for symptoms. No recent travel. No recent antibiotic 3 Related Data Home Medications Medication Instructions Recorded Confirmed omeprazole 40 mg PO DAILY #0 02/15/13 04/11/20 amlodipine 10 mg PO DAILY 05/09/18 04/11/20 aspirin 81 mg PO QPM 05/09/18 04/11/20 metformin 1,000 mg tablet 1,000 mg PO BID #0 tab 12/20/19 04/11/20 artificial tears(hypromellose) 0.3 % OPHTHALMIC (EYE) PRN PRN 01/08/20 04/11/20 fluoxetine 40 mg PO QAM 01/08/20 04/11/20 [place]-3 1 cap PO DAILY 04/11/20 04/11/20 acetaminophen [Tylenol Extra 500 mg PO BEDTIME 04/11/20 04/11/20 Strength] lorazepam 0.5 mg PO BID PRN 04/11/20 04/11/20 losartan 100 mg PO DAILY 04/11/20 04/11/20 nitroglycerin 0.4 mg SUBLINGUAL Q5-15M PRN 04/11/20 04/11/20 nystatin 5 ml BUCCAL QID PRN 04/11/20 04/11/20 vitamin B complex [B-Complex] 1 tab PO DAILY 04/11/20 04/11/20 Previous Rx's Medication Instructions Recorded ondansetron 4 mg PO Q6H PRN #14 tab 03/02/21 Allergies Allergy/AdvReac Type Severity Reaction Status Date / Time clonidine Allergy Unknown Verified 03/15/20 10:39 codeine Allergy Unknown Verified 03/15/20 10:39 diltiazem Allergy Unknown Verified 03/15/20 10:39 doxazosin Allergy Unknown Verified 03/15/20 10:39 hydralazine Allergy Unknown Verified 03/15/20 10:39 hydrocodone Allergy Unknown Verified 03/15/20 10:39 levofloxacin Allergy Unknown Verified 03/15/20 10:39 meperidine Allergy Unknown Verified 03/15/20 10:39 nifedipine Allergy Unknown Verified 03/15/20 10:39 oxycodone Allergy Unknown Verified 03/15/20 10:39 promethazine Allergy Unknown Verified 03/15/20 10:39 rosuvastatin Allergy Unknown Verified 03/15/20 10:39 simvastatin Allergy Unknown Verified 03/15/20 10:39 Sulfa (Sulfonamide Allergy Unknown Verified 03/15/20 10:39 Antibiotics) Review of Systems Constitutional Constitutional: Reports fatigue, Denies fever(s) and Denies headache(s) Eyes Eyes: Denies change in vision ENT Ears, Nose, Mouth, and Throat: Denies headache(s) and Denies sore throat Cardiovascular Cardiovascular: Denies chest pain and Denies dyspnea Respiratory Respiratory: Denies dyspnea Gastrointestinal Gastrointestinal: Reports abdominal pain, Reports diarrhea, Reports nausea and Reports vomiting Genitourinary Genitourinary: Denies dysuria Genitourinary: Denies dysuria Musculoskeletal Musculoskeletal: Denies arthralgias and Denies myalgias Integumentary/Breasts Skin/Breast: Denies rash Neurologic Neurologic: Denies behavioral changes and Denies headache(s) Psychiatric Psychiatric: Denies behavioral changes Endocrine Endocrine: Reports fatigue Hematologic/Lymphatic On Anticoagulants: No Allergic/Immunologic Allergic/Immunologic: Denies urticaria Patient History Medical History Diabetes Hyperlipidemia Hypertension Social History household members: none Smoking Status: Never smoker alcohol intake: never Smoking Status: Never smoker alcohol intake frequency: holidays/special occasions only Substance Use Type: does not use Exam Initial Vital Signs Initial Vital Signs: Vital Signs Temperature 97.5 F L 03/02/21 16:35 Pulse Rate 95 H 03/02/21 16:35 Respiratory Rate 20 03/02/21 16:35 Blood Pressure 139/75 03/02/21 16:35 Pulse Oximetry 97 03/02/21 16:35 Const General: cooperative, comfortable and well developed Limitations: mental status not altered HENMT Head: normal to inspection and normocephalic Eyes General: appearance normal, both eyes and all related structures Resp Effort & Inspection: normal respiratory effort Auscultation: clear to auscultation bilaterally Cardio Rate: regular rate Rhythm: regular rhythm GI Inspection: non-distended Palpation: soft, No firm and tender (Generalized mild tenderness) Back/Spine/Pelvis Back: No CVA tenderness Skin Lesions: no lesions Rashes: no rashes Neuro General: patient alert, patient awake and patient oriented x3 Cognition: normal cognition Speech: speech normal Extrem General: normal to inspection and capillary refill normal Psych Appearance: grossly normal and well kempt Scores GCS [place] coma scale eye opening: Spontaneous [place] coma scale verbal response: Orientated [place] coma scale motor response: Obey commands [place] coma scale total score: 15 Course Orders Ordered: ED Orders 03/02/21 16:40 Complete Blood Count AUTO DIFF Stat Comprehensive Metabolic Panel Stat Lipase Stat Partial Thromboplastin Time Stat Prothrombin Time INR Stat 03/02/21 16:41 EKG-12 Lead Stat 03/02/21 17:04 CT abdomen pelvis w con Stat 03/02/21 17:22 COVID19 -Nasal swab/Pre-Proc Stat Discontinued Medications Sodium Chloride (Normal Saline 0.9%) 1,000 mls @ 1,000 mls/hr IV BOLUS ONE Stop: 03/02/21 18:03 Last Infusion: 03/02/21 18:43 Dose: 0 mls/hr Documented by: Admin: 03/02/21 17:27 Dose: 1,000 mls/hr Documented by: FRANCIE Vital Signs Vital signs: Vital Signs - 8 hr 03/02/21 16:35 03/02/21 17:47 03/02/21 18:00 Temperature 97.5 F L Pulse Rate 95 H 90 89 Respiratory Rate 20 14 14 Blood Pressure 139/75 137/63 Pulse Oximetry 97 97 96 03/02/21 18:27 03/02/21 18:30 03/02/21 18:41 Temperature Pulse Rate 96 H 96 H 95 H Respiratory Rate 16 15 18 Blood Pressure 153/72 H 133/74 Pulse Oximetry 97 97 96 MDM - Nausea/Vomiting/Diarrhea Lab Data Attestation: I reviewed the patient's lab results. Result diagrams: 03/02/21 16:40 03/02/21 16:40 Labs: Lab Results 03/02/21 03/02/21 03/02/21 Range/Units 16:40 16:40 16:40 WBC 12.5 H (4.5-11.0) X10^3/uL RBC 4.17 (4.0-5.2) X10^6/uL Hgb 11.4 L (12.0-16.0) g/dL Hct 35.1 L (36-46) % MCV 84.2 (80-100) fL MCH 27.3 (26-34) PG MCHC 32.4 (30-36) % RDW 15.5 H (11.6-14.8) % Plt Count 403 H (150-400) X10^3/uL Neut % (Auto) 71.9 (50-75) % Lymph % (Auto) 19.1 L (25-40) % [place] % (Auto) 6.8 (3-14) % Eos % (Auto) 1.7 L (2-4) % Baso % (Auto) 0.5 (0-2) % Neut # (Auto) 9000 H (4897-1167) /uL Lymph # (Auto) 2400 (4931-5086) /uL [place] # (Auto) 800 (0-900) /uL Eos # (Auto) 200 (0-450) /uL Baso # (Auto) 100 (0-100) /uL PT 11.7 (10.1-12.7) SECONDS INR 1.0 (0.9-1.3) APTT 28 (26.4-36.2) SECONDS Sodium 132 L (137-145) mmol/L Potassium 4.4 (3.4-5.1) mmol/L Chloride 97 L (98-107) mmol/L Carbon Dioxide 21 L (22-32) mmol/L BUN 23 H (7-17) mg/dL Creatinine 0.69 (0.52-1.04) mg/dL Estimated GFR > 60.0 (>60) mL/min BUN/Creatinine Ratio 33.3 H (6-22) Glucose 170 H (80-110) mg/dL Calcium 10.0 (8.4-10.2) mg/dL Total Bilirubin 0.6 (0.2-1.3) mg/dL AST 31 (14-36) IU/L ALT 23 (<35) IU/L Alkaline Phosphatase 88 (38-126) U/L Total Protein 8.0 (6.3-8.2) g/dL Albumin 4.6 (3.5-5.0) g/dL Globulin 3.4 (1.7-4.1) g/dL Albumin/Globulin Ratio 1.4 (1.0-2.8) Lipase 178 (23-300) U/L SARS-CoV-2 (PCR) (Negative) 03/02/21 Range/Units 17:22 WBC (4.5-11.0) X10^3/uL RBC (4.0-5.2) X10^6/uL Hgb (12.0-16.0) g/dL Hct (36-46) % MCV (80-100) fL MCH (26-34) PG MCHC (30-36) % RDW (11.6-14.8) % Plt Count (150-400) X10^3/uL Neut % (Auto) (50-75) % Lymph % (Auto) (25-40) % [place] % (Auto) (3-14) % Eos % (Auto) (2-4) % Baso % (Auto) (0-2) % Neut # (Auto) (0805-6003) /uL Lymph # (Auto) (6547-8087) /uL [place] # (Auto) (0-900) /uL Eos # (Auto) (0-450) /uL Baso # (Auto) (0-100) /uL PT (10.1-12.7) SECONDS INR (0.9-1.3) APTT (26.4-36.2) SECONDS Sodium (137-145) mmol/L Potassium (3.4-5.1) mmol/L Chloride (98-107) mmol/L Carbon Dioxide (22-32) mmol/L BUN (7-17) mg/dL Creatinine (0.52-1.04) mg/dL Estimated GFR (>60) mL/min BUN/Creatinine Ratio (6-22) Glucose (80-110) mg/dL Calcium (8.4-10.2) mg/dL Total Bilirubin (0.2-1.3) mg/dL AST (14-36) IU/L ALT (<35) IU/L Alkaline Phosphatase (38-126) U/L Total Protein (6.3-8.2) g/dL Albumin (3.5-5.0) g/dL Globulin (1.7-4.1) g/dL Albumin/Globulin Ratio (1.0-2.8) Lipase (23-300) U/L SARS-CoV-2 (PCR) Negative (Negative) Urine Dip Bedside Urine Glucose Negative Bedside Urine Bilirubin - Negative Bedside Urine Ketone - Negative Urine Specific [place] 1.020 Bedside Urine Occult Blood - Negative Bedside Urine pH 6 Bedside Urine Protein - Negative Bedside Urine Urobilinogen - Negative Bedside Urine Nitrite - Negative Bedside Urine Leukocytes - Negative Esterase Imaging Data CT scan - abdomen/pelvis: Radiologist's Impression: [address] [id number] Scan ReportSigned Patient: Ember Brito LMR#: [id number]: 9Acct:[id number]/Sex: 80 / FDate of Service: 03/02/21Loc: EDAccession Number: [id number] Procedure: CT abdomen pelvis w con Ordering Provider: Amari Gore D.O. PROCEDURE: CT ABDOMEN PELVIS W CON INDICATIONS: Generalized abdominal pain TECHNIQUE: After the administration of intravenous contrast, 5 mm thick sections acquired from the diaphragm to the symphysis. 5 mm coronal and sagittal reformats were acquired. For radiation dose reduction, the following was used: automated exposure control, adjustment of mA and/or kV according to patient size. COMPARISON: [facility], CT, CT CHEST ABD PEL WO CON, 08/29/2020, 19:05. [facility], CT, CT ABDOMEN PELVIS W CON, 04/11/2020, 9:48. FINDINGS: Image quality: Excellent. ABDOMEN: Lung bases: Lung bases are clear. Heart size is normal. Solid organs: Liver is enlarged with steatosis. Gallbladder removed. Biliary system is non dilated. The common bile duct is prominent, measuring 1.0 cm, unchanged. Pancreas enhances normally. Spleen is normal in size and enhancement. No adrenal nodules. Kidneys are mildly atrophic, without hydronephrosis. Unchanged left renal cyst. Unchanged 8 mm fat density lesion in the inferior left renal pole, most consistent with angiomyolipoma. Unchanged nonobstructing right middle renal calculus. Peritoneum and bowel: Bowel loops demonstrate mild scattered areas of fluid-filled loops of predominantly large bowel in an overall nonobstructive pattern. There is a mild appearance of thickening within the ascending colon. No free fluid or air. Nodes and vessels: No retroperitoneal or mesenteric adenopathy by size criteria. Aorta and inferior vena cava are normal in size. Miscellaneous: No ventral hernias. PELVIS: Genitourinary: Bladder wall thickness is normal. Miscellaneous: No inguinal hernias or adenopathy. Bones: No suspicious bony lesions. No vertebral body compression fractures. IMPRESSION: 1. Nonspecific mildly scattered fluid-filled loops of predominantly large bowel. This could be related to diarrhea. 2. Hepatomegaly with steatosis. 3. Mild prominence of the common bile duct suspected to be related to post cholecystectomy sequela, unchanged. Recommend correlation to laboratory values. Dictated by: Flores Abad M.D. on 03/02/2021 at 16:59 Approved by: Flores Abad M.D. on 03/02/2021 at 17:13 ECG Data Attestation: I personally reviewed and interpreted this ECG as follows: Prior ECG tracings: not available for review Interpretation: Sinus rhythm Ventricular rate 95 Right bundle branch block QRS 136 milliseconds QTC [address] T wave changes MDM Narrative Medical decision making narrative: Patient has not vomited or had a bowel movement since arrival here to the ER. She has tolerated oral intake. CT scan shows colitis which fits with her clinical presentation. No indication for antibiotics. She has a benign abdominal exam. No indication for surgical consultation. We did discuss increasing her fluid intake and will send home with nausea medication. She was given return precautions and follow-up instructions. She expressed understanding agreement. Discharge Plan Departure Patient Disposition: Home Clinical Impression: Nausea vomiting and diarrhea Instructions: Diarrhea, DI for Nausea -- Adult, DI for Vomiting -- Adult Activity Restrictions/Additional Instructions: Be sure to increase your fluid intake. You can eat a bland diet or anything else that you can tolerate. Contact your primary provider for follow-up. Return to the emergency department for any new or worsening symptoms Prescriptions: New ondansetron 4 mg tablet,disintegrating 4 mg PO Q6H PRN (Reason: nausea and vomiting) Qty: 14 RF: 0 No Action omeprazole 20 MG capsule,delayed release(DR/EC) 40 mg PO DAILY Qty: 0 RF: 0 metformin 1,000 mg tablet 1,000 mg PO BID Qty: 0 RF: 0 fluoxetine 20 mg Capsule 40 mg PO QAM RF: 0 artificial tears(hypromellose) 0.3 % Drops 0.3 % OPHTHALMIC (EYE) PRN PRN (Reason: Dry Eyes) RF: 0 nystatin 100,000 unit/mL Suspension 5 ml BUCCAL QID PRN (Reason: Rash) RF: 0 acetaminophen [Tylenol Extra Strength] 500 mg Tablet 500 mg PO BEDTIME RF: 0 lorazepam 0.5 mg Tablet 0.5 mg PO BID PRN (Reason: Insomnia) RF: 0 nitroglycerin 0.4 mg Tablet, Sublingual 0.4 mg SUBLINGUAL Q5-15M PRN (Reason: Chest Pain) RF: 0 vitamin B complex [B-Complex] Tablet 1 tab PO DAILY RF: 0 losartan 100 mg Tablet 100 mg PO DAILY RF: 0 [place]-3 350 mg-235 mg- 90 mg-597 mg Capsule,Delayed Release(Dr/Ec) 1 cap PO DAILY RF: 0 aspirin 81 mg Tablet,Delayed Release (Dr/Ec) 81 mg PO QPM RF: 0 amlodipine 10 mg tablet 10 mg PO DAILY RF: 0
[2021-03-02] MEDS: SODIUM CHLORIDE 0.9% 1,000 ML 1000 ML IV (17:27)
[2021-03-02 17:47] VITALS: PULSE 90; RESP 14; O2SAT 97
[2021-03-02 17:51] LABS: COVID19 -Nasal RAPID Negative (Negative)
[2021-03-02 18:00] VITALS: BP 137/63; PULSE 89; RESP 14; O2SAT 96
[2021-03-02 18:27] VITALS: BP 153/72; PULSE 96; RESP 16; O2SAT 97
[2021-03-02 18:30] VITALS: PULSE 96; RESP 15; O2SAT 97
[2021-03-02 18:41] VITALS: BP 133/74; PULSE 95; RESP 18; O2SAT 96
== END 2021-03-02 19:19 | disposition home or self-care (01) ==
PROVIDERS: Emergency Provider Emergency Medicine
DX: R11.2 Nausea with vomiting, unspecified (principal); R19.7 Diarrhea, unspecified; R10.9 Unspecified abdominal pain; Z20.822 Contact with and (suspected) exposure to COVID-19
CPT/HCPCS: 36415; 74177; 80053; 81003; 83690; 85025; 85610; 85730; 87635; 93005; 96360; 99284; C9803; Q9967